=== PATIENT | male | born 1955 | race African-American/Black ===

== ENCOUNTER 2016-08-02 09:41 | Inpatient (IN) | payer OTHER ==
[2016-08-02] MEDS: SODIUM CHLORIDE 1,000 ML IV SCH ×2 (09:45→17:39)
--- NOTE | 2016-08-02 09:46 | PDOC ---
History of Present Illness - General Stated Complaint: R/O STROKE History Source: Patient, Parent(s), EMS Exam Limitations: No Limitations Past History - Past Medical History Allergies/Adverse Reactions: Allergies Allergy/AdvReac Type Severity Reaction Status Date / Time No Known Allergies Allergy Verified 03/23/15 17:05 Home Medications: Ambulatory Orders Amlodipine Besylate [Norvasc -] 10 mg PO HS 03/13/12 Warfarin Na [Coumadin] 5 mg PO HS 11/09/12 Renvela - 800 mg TID 11/15/15 Sensipar 30 mg PO DAILY 11/15/15 Lexapro - 5 mg PO DAILY 11/29/15 Senna 2 tab PO BID 11/29/15 Lipitor 20 mg PO DAILY 01/03/16 Metoprolol Succinate 37.5 mg PO DAILY 01/03/16 Anemia: No Asthma: No Cancer: No Cardiac Disorders: Yes (A FIB) COPD: No CHF: No Diabetes: No Dialysis: Yes (M/W/F) HTN: Yes Kidney Stones: Yes Suicide Attempt (Hx): No Seizures: No - Surgical History Abdominal Surgery: No Appendectomy: No Cardiac Surgery: No Cholecystectomy: No Gastric Stapling: No GI Surgery: No Lung Surgery: No Neurologic Surgery: No Orthopedic Surgery: No - Psycho/Social/Smoking Cessation Hx Anxiety: No Suicidal Ideation: No Smoking Status: No Smoking History: Never smoked Number of Cigarettes Smoked Daily: 0 Hx Alcohol Use: No Drug/Substance Use Hx: No Substance Use Type: None ED Treatment Course - RADIOLOGY Radiology Studies Ordered: Category Date Time Status HEAD CT (STROKE) [CT] Stat CT Scan 08/02/16 09:45 Ordered Medical Decision Making - Medical Decision Making 08/02/16 09:46 A portion of this note was documented by scribe services under my direction. I have reviewed the details of the note, within reason, and agree with the documentation with the following case summary and management plan written by me. Nursing documentation reviewed and incorporated into medical decision making
--- NOTE | 2016-08-02 09:53 | PDOC ---
History of Present Illness - General History Source: Patient, Parent(s), EMS Exam Limitations: No Limitations - History of Present Illness Initial Comments: 08/02/16 10:36 The patient is a male, with a significant past medical history of CVA(left- sided deficit), seizures, AFib(on coumadin), hypertension, diabetes, kidney stones, and ESRD(dialysis M,W,F; last dialysis on Thursday), who presents to the emergency department BIBA, s/p possible unwitnessed syncopal episode approximately 25 minutes ago. Patient reports he was sitting in his chair and passed out. Patient does not report how long he was down for. As per mother, the patient woke up fine this morning, was eating breakfast and watching TV, when suddenly she heard something fall. Mother reports immediately going downstairs and finding the patient faced down on the floor. At that point she called, EMS. When EMS arrived on scene they report the patients b.p. was 156/79 , his blood glucose was 169, and he had returned to baseline. EMS reports left arm paralysis deficits secondary to history of CVA in 06/2015. Patient was brought to the ED to rule out CVA or seizures. Mother reports the patient typically walks with a cane, and is unable to walk far without assistance. Patient presents with a hematoma to the left side of his forehead, but does not remember hitting the ground or any head trauma. The patient denies any chest pain, shortness of breath, diaphoresis, or palpitations. The patient denies any changes in vision, changes in hearing, cough, headache, dizziness, or fever. The patient denies any nausea, vomiting, diarrhea, constipation, or changes in urination patterns. The patient denies any recent travel or sick contacts. The patient was evaluated immediately upon arrival to the ED(09:48). Allergies: None reported. Past Surgical History: None reported. Social History: Non-smoker. Denies alcohol or drug use. PCP: Dr. Slade Neurologist: Dr. Mendenhall <Raymon Ace - Last Filed: 08/02/16 13:47> <Radha Mejia - Last Filed: 08/05/16 08:14> - General Chief Complaint: CVA/TIA Stated Complaint: R/O STROKE Time Seen by Provider: 08/02/16 09:48 Past History <Raymon Ace - Last Filed: 08/02/16 13:47> - Past Medical History Anemia: No Asthma: No Cancer: No Cardiac Disorders: Yes (A FIB) COPD: No CHF: No Diabetes: No Dialysis: Yes (M/W/F) HTN: Yes Kidney Stones: Yes Suicide Attempt (Hx): No Seizures: No - Surgical History Abdominal Surgery: No Appendectomy: No Cardiac Surgery: No Cholecystectomy: No Gastric Stapling: No GI Surgery: No Lung Surgery: No Neurologic Surgery: No Orthopedic Surgery: No - Psycho/Social/Smoking Cessation Hx Anxiety: No Suicidal Ideation: No Smoking Status: No Smoking History: Never smoked Number of Cigarettes Smoked Daily: 0 Hx Alcohol Use: No Drug/Substance Use Hx: No Substance Use Type: None <RobertoRadha - Last Filed: 08/05/16 08:14> - Past Medical History Allergies/Adverse Reactions: Allergies Allergy/AdvReac Type Severity Reaction Status Date / Time No Known Allergies Allergy Verified 08/02/16 09:52 Home Medications: Ambulatory Orders Amlodipine Besylate [Norvasc -] 10 mg PO DAILY 08/02/16 Atorvastatin Ca [Lipitor] 40 mg PO HS 08/02/16 Cinacalcet HCl [Sensipar] 30 mg PO DAILY 08/02/16 Escitalopram Oxalate [Lexapro -] 5 mg PO DAILY 08/02/16 Metoprolol Succinate [Toprol Xl -] 37.5 mg PO DAILY 08/02/16 Sennosides [Senna] 8.6 mg PO BID 08/02/16 Sevelamer Carbonate [Renvela] 800 mg PO TID 08/02/16 Warfarin Sodium [Coumadin] 7.5 mg PO HS 08/02/16 Review of Systems - Review of Systems Able to Perform ROS?: Yes Comments:: 08/02/16 10:36 GENERAL/CONSTITUTIONAL: No: fever, chills, weakness, loss of appetite. HEAD, EYES, EARS, NOSE AND THROAT: No: change in vision, ear pain, discharge, sore throat, throat swelling. CARDIOVASCULAR: Yes: +syncope. No: chest pain, lightheadedness, palpitations RESPIRATORY: No: cough, shortness of breath, wheezing, hemoptysis, stridor. GASTROINTESTINAL: No: nausea, vomiting, abdominal cramping, diarrhea, rectal bleeding, constipation. GENITOURINARY: No: dysuria, hematuria, frequency, urgency, flank pain. MUSCULOSKELETAL: No: back pain, neck pain, joint pain, muscle swelling or pain SKIN AND BREASTS: Yes: +large hematoma to the left forehead. No: lesions, pallor , rash or easy bruising. NEUROLOGIC: Yes: +weakness to the left arm. No: headache, vertigo, paresthesia ENDOCRINE: No: unexplained weight gain or loss HEMATOLOGIC/LYMPHATIC: No: anemia, easy bleeding, swelling nodes <Raymon Ace - Last Filed: 08/02/16 13:47> *Physical Exam - Vital Signs Last Vital Signs Temp Pulse Resp BP Pulse Ox 98.0 F 74 16 124/63 100 08/02/16 10:08/02/16 10:08/02/16 10:08/02/16 10:08/02/16 10:01 - Physical Exam Comments: 08/02/16 10:37 GENERAL: Awake, alert, and oriented X3. The patient is in no acute distress. HEAD: Large left frontal hematoma. No other head trauma noted. EYES: PERRLA, EOMI, sclera anicteric, conjunctiva clear. ENT: Ears normal, nares patent, oropharynx clear without exudates. Moist mucous membranes. NECK: Normal range of motion, supple without lymphadenopathy, JVD, or masses. LUNGS: Breath sounds equal, clear to auscultation bilaterally. No wheezes, and no crackles. HEART:Regular rate and rhythm, normal S1 and S2 without murmur, rub or gallop. ABDOMEN: Soft, nontender, normoactive bowel sounds. No guarding, no rebound. EXTREMITIES: Normal range of motion, no edema. No clubbing or cyanosis. No erythema, or tenderness. NEUROLOGICAL: See NIHSS. Cranial nerves II through XII grossly intact. Normal speech. No focal neurological deficits. MUSCULOSKELETAL: Back non-tender to palpation, no CVA tenderness SKIN: Warm, Dry, normal turgor, no rashes or lesions noted. <Raymon Ace - Last Filed: 08/02/16 13:47> NIH Stroke Scale - Last Known Well Date/Time & Onset Date Last Known Well: 08/02/16 Time Last Known Well: 09:15 - Initial Evaluation Level of consciousness: Alert Ask patient the month and their age: Answers both correctly Ask patient to open & close eyes; make fist and let go: Obeys both correctly Best gaze (horizontal eye movement): Normal Visual field testing: No visual field loss Facial paresis (Show teeth/raise eyebrows/close eyes tight): Minor paralysis ( flattened nasolabial fold, asymmetry on smiling) Motor Function: Left Arm: No movement Motor Function: Right Arm: Normal (extends arm 90 (or 45) degrees for 10 seconds without drift Motor Function: Left Leg: Some effort against gravity Motor Function: Right Leg: Normal (extends leg 30 degrees for 5 seconds without drift) Limb Ataxia: Present in one limb Sensory(Use pinprick test arms,legs,trunk,face/side to side): Normal Best language (Describe picture, name items, read sentences): No Aphasia Dysarthria (read several words): Normal articulation Extinction and Inattention: No abnormality - Total Score NIH Stroke Scale Score: 8 <Radha Mejia - Last Filed: 08/05/16 08:14> tPA Exclusion Checklist 0-3hr - Time Elapsed Date last known well: 08/02/16 Time last known well: 09:15 Elaspsed time: 2 Day(s) and 22 Hour(s) and 59 Minutes - Thrombolytic Therapy Candidate Is the patient eligible for Thrombolytic Therapy?: No - Exclusion Criteria 0-3hr SBP greater than 185 or DBP greater than 110mmHg despite tx: No Recent IC/spinal surgery,head trauma or stroke w/in last 3mo: No Hx of previous IC hemorrhage, IC neoplasm, AVM or aneurysm: No Active internal bleeding: No Symptoms suggest subarachnoid hemorrhage: No CT demonstrates multilobar infarct(>1/3 cerebral hemiphere): No Arterial puncture at noncompressible site in previous 7 days: No Blood glucose concentration less than 50mg/dL (2.7mmol/L): No - Relative Exclusion Criteria 0-3h Life expectancy <1yr/severe co-morbid illness/CLERK 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 on admit: No : No Patient/family refused: No Rapid improvement: Yes Stroke severity too mild: No Recent acute OH (w/in previous 3 months): No Seizure at onset with postictal residual neuro impairments: No Major surgery or serious trauma w/in previous 14 days: No Recent GI or hemorrhage (w/in previous 21 days): No - Ineligibility reason(s) Reasons No tPA given: See reason(s) noted above (Pt had rapid improvement to baseline, on coumadin, presentation still possibly a seizure) <Radha Mejia - Last Filed: 08/05/16 08:14> Heart Score/ECG Review #1 ECG reviewed & interpreted by me at: 10:31 08/02/16 10:31 Sinus Rhythm rate of 95 bpm (?Aflutter rate 95) Left axis deviation Pr: 230ms (prolonged), QRS:92ms, QTc:550ms (prolonged) No ST elevations or depressions <Radha Mejia - Last Filed: 08/05/16 08:14> Critical Care Time/[facility] Note - Medical Decision Making Note: 08/02/16 10:37 EXAM: Head CT INTERPRETED BY: Dr. Hernandez REVIEWED BY: Dr. Mejia IMPRESSION: No definite acute infarct is seen. Chronic right frontoparietal cortical infarct. EXAM: CXR INTERPRETED BY: Dr. Chávez REVIEWED BY: Dr. Mejia IMPRESSION: Large heart. Questionable early right infiltrate. Left line removed. Case discussed with Dr. Meneses at 10:23. First call placed to Dr. Black at 11:52. Awaiting call back. First call placed to Dr. Madrigal at 12:00. Awaiting call back. Documentation prepared by Raymon Ace, acting as medical record assistant for Radha Mejia MD. <Raymon Ace - Last Filed: 08/02/16 13:47> Total Critical Care Time: 35 Critical Care Statement: The care of this patient involved high complexity decision making to prevent further life threatening deterioration of the patient 's condition and/or to evalute & treat vital organ system(s) failure or risk of failure. - Medical Decision Making Note: A portion of this note was documented by scribe services under my direction. I have reviewed the details of the note, within reason, and agree with the documentation with the following case summary and management plan written by me. Nursing documentation reviewed and incorporated into medical decision making This is a 61 yo M with a history of HTN, DM, ESRD on HD, CVA with right arm paresis Pt presents to the ER via EMS s/p CVA vs Seizure Pt states, he has no memory of what happened He awoke at his baseline, was watching TV abd about to eat breakfast His mother heard a "thud" when she went to see what happened, pt was face down in the living room Upon EMS arrival, pt awake and neuro exam back to baseline Pt (+) bowel incontinence, ? seizure today Given his history, and unknown circumstances Pt sent to CT Code Ashley initiated Upon return from CT On examination: Awake and Alert Answers questions appropriately NIHSS done (please see documentation elsewhere) 08/02/16 10:[address] reading reviewed, no CT evidence of acute infarction 08/02/16 10:[address] Meneses Pt has returned to his baseline No indication for TPA Awaiting labs 08/02/16 11:20 Laboratory Tests 11/09/12 11/09/12 08/02/16 10:55 10:55 09:41 WBC 9.0 7.1 Hgb 10.6 L D 9.3 L D Hct 35.3 L 29.6 L D Plt Count 259 182 D INR 2.28 H D 08/02/16 09:41 WBC Hgb Hct Plt Count INR 2.13 H 08/02/16 11:44 Call placed to the lab Still awaiting CMP 08/02/16 11:52 Laboratory Tests 08/02/16 09:41 Sodium 136 Potassium 4.5 Chloride 97 L Carbon Dioxide 26 Anion Gap 13 BUN 61 H D Creatinine 8.5 H* Random Glucose 105 Creatine Kinase 142 Troponin I 0.04 D 08/02/16 12:17 Case reviewed with PMD Will admit Most likely seizure 08/02/16 13:[address] Meneses Will give Caseyra <Radha Mejia - Last Filed: 08/05/16 08:14> Discharge Disposition <Raymon Ace - Last Filed: 08/02/16 13:47> - Discharge Dispostion Admit: Yes <Radha Mejia - Last Filed: 08/05/16 08:14> - Diagnosis Seizure - Discharge Dispostion Condition at time of disposition: Stable - Referrals
[2016-08-02 10:42] LABS: BASOPHIL 0.7 % (0-2.0); MEAN PLT VOLUME 8.5 fl (7.5-11.1)
[2016-08-02 10:49] LABS: EOSINOPHIL 1.8 % (0-4.5); MCH 24.4 pg (25.7-33.7); MCHC 31.5 g/dl (32.0-35.9); MEAN CELL VOLUME 77.3 fl (80-96); NEUTROPHILS 72.4 % (42.8-82.8); PLATELET COUNT 182 K/MM3 (134-434); RDW 16.3 % (11.9-15.9); WHITE BLOOD COUNT 7.1 K/mm3 (4.0-10.0)
[2016-08-02 10:55] LABS: INR 2.13 (0.82-1.09); PROTHROMBIN TIME (PATIENT) 23.8 SEC (9.98-11.88)
[2016-08-02 11:17] LABS: ALBUMIN 3.3 g/dl (3.4-5.0)
[2016-08-02 11:24] LABS: BILIRUBIN,TOTAL 0.4 mg/dL (0.2-1.0); TOT PROT 6.6 g/dl (6.4-8.2); TROPONIN I 0.04 ng/ml (0.00-0.05)
[2016-08-02 11:45] LABS: CREATININE 8.5 mg/dL (0.7-1.3)
--- NOTE | 2016-08-02 12:18 | EKG ---
Test Reason : Blood Pressure : / mmHG Vent. Rate : 095 BPM Atrial Rate : 075 BPM P-R Int : 230 ms QRS Dur : 092 ms QT Int : 438 ms P-R-T Axes : 063 -45 029 degrees QTc Int : 550 ms ATRIAL TACHYCARDIA WITH 3:1 A-V CONDUCTION LEFT AXIS DEVIATION LOW VOLTAGE QRS INFERIOR INFARCT , AGE UNDETERMINED CANNOT RULE OUT ANTERIOR INFARCT , AGE UNDETERMINED ABNORMAL ECG Confirmed by LUCA ABBASI, ASHIA ([id number]) on 08/02/2016 12:17:50 PM Referred By: Confirmed By:ASHIA SEGOVIA MD
--- NOTE | 2016-08-02 13:17 | HP ---
Admitting History and Physical - Primary Care Physician PCP: Renny Slade - Admission Chief Complaint: passed out at home History of Present Illness: The patient's mom said he was in his recliner eating when she heard some sounds in the room he was in and saw him with"shaking" movements and called EMS. He had urinary and fecal incontinence. Patient has a history of previous CVA requiring coumadin and has been therapeutic. He denies headache or change in vision but does have a forehead hematoma. Chronic Dialysis patient and previously had seizure and went to [facility] but not on [facility]. 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 Cardiovascular: Yes: AFIB (paroxysmal), HTN Pulmonary: No: COPD Gastrointestinal: Yes: Constipation Renal/: Yes: Renal Failure, Hemodialysis Psych: No: Depression Musculoskeletal: Yes: Hemiplegia - Past Surgical History Past Surgical History: Yes: None, Cataract Removal - Smoking History Smoking history: Never smoked Have you smoked in the past 12 months: No Aproximately how many cigarettes per day: 0 - Alcohol/Substance Use Hx Alcohol Use: No History of Substance Use: reports: None - Social History Usual Living Arrangement: Yes: With Parent Occupation: retired due illness History of Recent Travel: No Home Medications - Allergies Allergies/Adverse Reactions: Allergies Allergy/AdvReac Type Severity Reaction Status Date / Time No Known Allergies Allergy Verified 08/02/16 09:52 Family Disease History - Family Disease History Family Disease History: CA: Mother Review of Systems - Review of Systems Constitutional: denies: Fever Eyes: denies: Blind Spots Cardiovascular: denies: Chest Pain Respiratory: reports: Cough Gastrointestinal: reports: Constipation, Other (incontinent X1 at time of seizure) Genitourinary: reports: Incontinence (at time of seizure). denies: Urgency Musculoskeletal: reports: Muscle Cramps (left leg) Neurological: reports: Other (now alert and aware) Psychiatric: denies: Altered Sleep Pattern Physical Examination Vital Signs: Vital Signs Temperature 98.0 F 08/02/16 10:01 Pulse Rate 74 08/02/16 10:01 Respiratory Rate 16 08/02/16 10:01 Blood Pressure 124/63 08/02/16 10:01 O2 Sat by Pulse Oximetry (%) 100 08/02/16 10:01 Constitutional: Yes: Calm Eyes: Yes: Conjunctiva Clear, PERRL Neck: Yes: Supple Cardiovascular: Yes: Regular Rate and Rhythm Respiratory: Yes: Diminished, Rhonchi (right and left) Gastrointestinal: Yes: Soft Renal/: No: Patel Present Edema: No Neurological: Yes: Alert, Oriented, Pre-Existing Deficit (left arm hemiplegia) ...Motor Strength: LUE, LLE Psychiatric: Yes: Alert. No: Agitated Imaging - Results Cat Scan: Report Reviewed EKG: Report Reviewed Problem List - Problems (1) Seizure Assessment/Plan: Neurology evaluated patient; to be placed on [facility] Code(s): R56.9 - UNSPECIFIED CONVULSIONS (2) Mild ankle sprain Assessment/Plan: Xray: DJD Code(s): S93.409A - SPRAIN OF UNSP LIGAMENT OF UNSPECIFIED ANKLE, INIT ENCNTR Qualifiers: Encounter type: initial encounter Laterality: right Qualified Code( s): S93.401A - Sprain of unspecified ligament of right ankle, initial encounter (3) Late effect of cerebrovascular accident (CVA) Assessment/Plan: Residual left hemiplegia but walks with brace and assist of 1 person recently Code(s): I69.30 - UNSPECIFIED SEQUELAE OF CEREBRAL INFARCTION (4) Atrial flutter by electrocardiogram Assessment/Plan: Cardiology called; on coumadin Code(s): I48.92 - UNSPECIFIED ATRIAL FLUTTER (5) Hypertension Assessment/Plan: On Rx. Code(s): I10 - ESSENTIAL (PRIMARY) HYPERTENSION (6) Hemodialysis access, arteriovenous graft Assessment/Plan: Thu and Thursday at [facility] Code(s): Z99.2 - DEPENDENCE ON RENAL DIALYSIS
[2016-08-02] MEDS ORDERED: levETIRAcetam 500 MG/5 ML INJECTION VIAL IVPB ONE ×2 (13:35→14:57)
[2016-08-02] MEDS ORDERED: ACETAMINOPHEN 325 MG TABLET (FP) PO PRN (13:44)
--- NOTE | 2016-08-02 13:54 | CONSULT ---
Consult Consult Specialty:: Neurology Reason for Consultation:: Syncope versus seizure - History of Present Illness Chief Complaint: Syncope History of Present Illness: 61 year old man, with history of chronic right frontoparietal stroke, with residual left hemiparesis, atrial fibrillation on coumadin, ESRD on HD, presents to ED with likely seizure episode. He is accompanied by his mother. The patient does not recall events, but as per his mother, she heard the patient fall in the room next to her. She then witnessed both arms shaking for approximately 15 minutes, associated with loss of consciousness and incontinence. He denies tongue biting. Currently back to baseline. The patient' s mother states he had a similar event years ago but is not currently maintained on any AEDs. CT head in ED shows right frontoparietal chronic stroke, no acute findings seen. 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 Cardio/Vascular: Yes: AFIB (paroxysmal), HTN Pulmonary: No: COPD Gastrointestinal: Yes: Constipation Renal/: Yes: Renal Failure, Hemodialysis Psych: No: Depression Musculoskeletal: Yes: Hemiplegia - Past Surgical History Past Surgical History: Yes: None, Cataract Removal - Alcohol/Substance Use Hx Alcohol Use: No History of Substance Use: reports: None - Smoking History Smoking history: Never smoked Have you smoked in the past 12 months: No Aproximately how many cigarettes per day: 0 - Social History Occupation: retired due illness History of Recent Travel: No Home Medications - Allergies Allergies/Adverse Reactions: Allergies Allergy/AdvReac Type Severity Reaction Status Date / Time No Known Allergies Allergy Verified 08/02/16 09:52 Family Disease History - Family Disease History Family Disease History: CA: Mother Review of Systems - Review of Systems Constitutional: reports: No Symptoms Eyes: reports: No Symptoms Neck: reports: No Symptoms Cardiovascular: reports: No Symptoms Respiratory: reports: No Symptoms Neurological: reports: Pre-Existing Deficit Physical Exam Vital Signs: Vital Signs Temperature 98.0 F 08/02/16 10:01 Pulse Rate 64 08/02/16 13:38 Respiratory Rate 18 08/02/16 13:38 Blood Pressure 132/71 08/02/16 13:38 O2 Sat by Pulse Oximetry (%) 98 08/02/16 13:38 Constitutional: Yes: No Distress Eyes: Yes: Conjunctiva Clear, EOM Intact HENT: Yes: Normocephalic Cardiovascular: Yes: S1, S2 Neurological: Yes: Alert, Oriented (alert, oriented [id number] mild left facial weakness, EOMI, visual shields full motor moderate left hemiparesis, 0/5 movement in left arm, 3-/5 left hip flexion, knee flexion/extension (baseline) sensory mild loss of sensation left face compared to right) Assessment/Plan 61 year old man, with history of chronic right frontoparietal stroke, with residual left hemiparesis, atrial fibrillation on coumadin, ESRD on HD, presents to ED with likely seizure episode. He is accompanied by his mother. The patient does not recall events, but as per his mother, she heard the patient fall in the room next to her. She then witnessed both arms shaking for approximately 15 minutes, associated with loss of consciousness and incontinence. He denies tongue biting. Currently back to baseline. The patient' s mother states he had a similar event years ago but is not currently maintained on any AEDs. CT head in ED shows right frontoparietal chronic stroke, no acute findings seen. Seizure Given history of seizure in the past, chronic stroke, patient is at high risk for recurrent events, recommend initiating AEDs Recommend keppra 500 mg BID, discussed with mother and son, do not recommend exceeding dose given renal clearance If further seizure events, ativan prn and may require a second agent Recommend MRI brain, however patient would like to defer EEG - ordered Will follow
[2016-08-02] MEDS ORDERED: CEFTRIAXONE 50 ML ONE (17:00)
[2016-08-02] MEDS: CEFTRIAXONE 50 ML IVPB SCH (17:00)
[2016-08-02] MEDS: WARFARIN NA 7.5 MG TABLET (FP) PO SCH (17:39)
[2016-08-02] MEDS: SEVELAMER CARBONATE 800 MG TAB (FP) PO SCH (17:39)
[2016-08-02 18:06] VITALS: BMI 41.5
[2016-08-02] MEDS ORDERED: SENNOSIDES 8.6MG TABLET (FP) PO PRN (22:00)
[2016-08-02] MEDS ORDERED: ATORVASTATIN CA 20 MG TABLET (FP) PO SCH (22:00)
[2016-08-02] MEDS: levETIRAcetam 500 MG/5 ML INJECTION VIAL IVPB SCH (23:39)
[2016-08-03] MEDS: SEVELAMER CARBONATE 800 MG TAB (FP) PO SCH ×3 (08:15→17:15)
[2016-08-03] MEDS: CEFTRIAXONE 50 ML IVPB SCH (09:10)
[2016-08-03] MEDS: levETIRAcetam 500 MG/5 ML INJECTION VIAL IVPB SCH ×2 (09:10→22:53)
[2016-08-03] MEDS: amLODIPine BESYLATE 10 MG TABLET (FP) PO SCH (09:10)
[2016-08-03] MEDS: METOPROLOL SUCCINATE 25 MG TAB.SR.24H (FP) PO SCH (09:10)
[2016-08-03] MEDS: ESCITALOPRAM OXALATE 10 MG TABLET (FP) PO SCH (09:11)
[2016-08-03] MEDS: CINACALCET HCL 30 MG TAB (FP) PO SCH (09:13)
--- NOTE | 2016-08-03 10:18 | PN ---
Progress Note (short form) - Note Progress Note: Chief Complaint: Events noted, notes reviewed, denies any chest pain or dyspnea , remains in atrial flutter with controlled ventricular response History of Present Illness: Seen and examined on telemetry. Full consult - Current Medication List Current Medications Acetaminophen (Tylenol -) 650 mg PO Q4H PRN PRN Reason: FEVER OR PAIN Amlodipine Besylate (Norvasc -) 10 mg PO DAILY [facility] Last Admin: 08/03/16 09:10 Dose: 10 mg Atorvastatin Calcium (Lipitor -) 20 mg PO HS [facility] Last Admin: 08/02/16 23:40 Dose: 20 mg Cinacalcet (Sensipar -) 30 mg PO DAILY [facility] Last Admin: 08/03/16 09:13 Dose: 30 mg Escitalopram Oxalate (Lexapro -) 5 mg PO DAILY [facility] Last Admin: 08/03/16 09:11 Dose: 5 mg Guaifenesin (Diabetic Tussin Dm -) 5 ml PO Q6H PRN PRN Reason: COUGH Sodium Chloride (Normal Saline -) 1,000 mls @ 42 mls/hr IV ASDIR [facility] Last Admin: 08/02/16 17:39 Dose: 42 mls/hr Ceftriaxone Sodium (Rocephin 1gm Ivpb (Pre-Docked)) 50 mls @ 200 mls/hr IVPB DAILY [facility] Last Admin: 08/03/16 09:10 Dose: 200 mls/hr Levetiracetam (Keppra Injection -) 500 mg IVPB BID [facility] Last Admin: 08/03/16 09:10 Dose: 500 mg Metoprolol Succinate (Toprol Xl -) 25 mg PO DAILY [facility] Last Admin: 08/03/16 09:10 Dose: 25 mg Senna (Senna -) 2 tab PO HS PRN PRN Reason: CONSTIPATION Sevelamer Carbonate (Renvela -) 800 mg PO TIDCM [facility] Last Admin: 08/03/16 08:15 Dose: 800 mg Warfarin Sodium (Coumadin -) 7.5 mg PO DAILY@1800 [facility] Last Admin: 08/02/16 17:39 Dose: 7.5 mg - Review of Systems Cardiovascular: As noted above Respiratory: denies: Cough or Sputum Production Gastrointestinal: denies: Nausea, Vomiting, Diarrhea, Constipation or Abdominal Pain Musculoskeletal: No symptoms reported Neurological: Left Hemiparesis - Objective Vital Signs: Last Vital Signs Temp Pulse Resp BP Pulse Ox 97.8 F 54 L 18 120/70 95 08/03/16 05:30 08/03/16 05:30 08/03/16 05:30 08/03/16 05:30 08/02/16 21:00 Neck: Supple Negative JVD Cardiovascular: S1 S2 Irregularly Irregular Grade 1/6 CRISS Respiratory: Clear to A&P Gastrointestinal: Soft Benign Normal Bowel Sounds Ext: Negative Edema Labs: CBC, BMP 08/02/16 09:41 08/02/16 09:41 Troponin, BNP 08/02/16 09:41 Troponin I 0.04 D Hepatic Panel Total Bilirubin 0.4 mg/dL (0.2-1.0) D 08/02/16 09:41 AST 16 U/L (15-37) D 08/02/16 09:41 ALT 21 U/L (12-78) D 08/02/16 09:41 Alkaline Phosphatase 107 U/L (45-117) D 08/02/16 09:41 Albumin 3.3 g/dl (3.4-5.0) L 08/02/16 09:41 INR, PTT INR 2.13 (0.82-1.09) H 08/02/16 09:41 Assessment/Plan ASSESSMENT: 1. Palpitations followed by loss of consciousness, referable to paroxysmal atrial flutter [id number] score of 5 and probable syncopal episode but seizures is in the differential also (unclear if syncope could have been a trigger for the above noted seizure) 2. CAD angina pectoris 3. Diastolic LV dysfunction with class 0-I NYHA classification LV failure 4. HTN 5. DM 6. Hypercholesterolemia 7. CVA with residual deficit, left hemiparesis 8. Seizure disorder 9. ESRD on HD 10. Anemia PLAN: 1. Continue Toprol XL 2. Continue Norvasc 3. Ideally should be on ACEI or ARBS unless contraindicated, pending echocardiography 4. Continue Lipitor but decrease dosage 5. Continue Coumadin with close monitoring of CBC and INR, maintain INR 2-3 6. Echocardiography for evaluation of LV function 7. Consideration for atrial flutter RFA (recurrent arrhythmia) with implantation of cardiac loop recorder Roberta Madrigal MD
[2016-08-03 10:41] LABS: BASOPHIL 0.9 % (0-2.0); EOSINOPHIL 2.6 % (0-4.5); MCH 24.3 pg (25.7-33.7); MCHC 32.2 g/dl (32.0-35.9); MEAN CELL VOLUME 75.6 fl (80-96); MEAN PLT VOLUME 8.1 fl (7.5-11.1); NEUTROPHILS 49.9 % (42.8-82.8); PLATELET COUNT 163 K/MM3 (134-434); RDW 16.4 % (11.9-15.9); WHITE BLOOD COUNT 5.4 K/mm3 (4.0-10.0)
[2016-08-03 11:08] LABS: CALCIUM 8.2 mg/dL (8.5-10.1); MAGNESIUM 2.1 mg/dL (1.8-2.4); PHOSPHOROUS 4.5 mg/dL (2.5-4.9)
[2016-08-03 11:15] LABS: BILIRUBIN,TOTAL 0.5 mg/dL (0.2-1.0)
--- NOTE | 2016-08-03 11:18 | PN ---
Progress Note, Physician Chief Complaint: Some coughing and he wants to go home. History of Present Illness: Patient with CVA and dialysis comes to hospital with a seizure accompanied by incontinence of urine and stool. He was noted in the ER to have A. Flutter and the rhythm persists. Seen by Cardiology and question as to whether there was a cardiac component to his medical problems. Still coughing and on antibiotics; will add aerosol.CXR noted; will need dialysis here Thursday; ? transfer to [facility] for Cardiac studies Thu. - Current Medication List Current Medications: Active Medications Acetaminophen (Tylenol -) 650 mg PO Q4H PRN PRN Reason: FEVER OR PAIN Albuterol Sulfate (Ventolin 0.083% Nebulizer Soln -) 1 amp NEB Q8H PRN PRN Reason: SHORT OF BREATH/WHEEZING Amlodipine Besylate (Norvasc -) 10 mg PO DAILY [facility] Last Admin: 08/03/16 09:10 Dose: 10 mg Atorvastatin Calcium (Lipitor -) 5 mg PO HS [facility] Cinacalcet (Sensipar -) 30 mg PO DAILY [facility] Last Admin: 08/03/16 09:13 Dose: 30 mg Escitalopram Oxalate (Lexapro -) 5 mg PO DAILY [facility] Last Admin: 08/03/16 09:11 Dose: 5 mg Guaifenesin (Diabetic Tussin Dm -) 5 ml PO Q6H PRN PRN Reason: COUGH Ceftriaxone Sodium (Rocephin 1gm Ivpb (Pre-Docked)) 50 mls @ 200 mls/hr IVPB DAILY [facility] Last Admin: 08/03/16 09:10 Dose: 200 mls/hr Levetiracetam (Keppra Injection -) 500 mg IVPB BID [facility] Last Admin: 08/03/16 09:10 Dose: 500 mg Metoprolol Succinate (Toprol Xl -) 25 mg PO DAILY [facility] Last Admin: 08/03/16 09:10 Dose: 25 mg Senna (Senna -) 2 tab PO HS PRN PRN Reason: CONSTIPATION Sevelamer Carbonate (Renvela -) 800 mg PO TIDCM [facility] Last Admin: 08/03/16 08:15 Dose: 800 mg Warfarin Sodium (Coumadin -) 7.5 mg PO DAILY@1800 [facility] Last Admin: 08/02/16 17:39 Dose: 7.5 mg - Objective Vital Signs: Vital Signs Temperature 97.8 F 04/02/17 05:30 Pulse Rate 54 L 08/03/16 05:30 Respiratory Rate 18 08/03/16 05:30 Blood Pressure 120/70 08/03/16 05:30 O2 Sat by Pulse Oximetry (%) 95 08/02/16 21:00 Constitutional: Yes: Calm Cardiovascular: Yes: Regular Rate and Rhythm Respiratory: Yes: Rhonchi (bilaterally at bases) Gastrointestinal: Yes: Soft Genitourinary: No: Patel Present Edema: No Neurological: Yes: Alert, Oriented Labs: CBC, BMP 08/03/16 10:30 INR, PTT INR 2.13 (0.82-1.09) H 08/02/16 09:41 Problem List - Problems (1) Seizure Assessment/Plan: on Keppra IV Await Neuro followup Code(s): R56.9 - UNSPECIFIED CONVULSIONS (2) Mild ankle sprain Assessment/Plan: non tender today. Code(s): S93.409A - SPRAIN OF UNSP LIGAMENT OF UNSPECIFIED ANKLE, INIT ENCNTR Qualifiers: Encounter type: initial encounter Laterality: right Qualified Code( s): S93.401A - Sprain of unspecified ligament of right ankle, initial encounter (3) Late effect of cerebrovascular accident (CVA) Assessment/Plan: Left leg improved but still dense hemiplegia LUE Code(s): I69.30 - UNSPECIFIED SEQUELAE OF CEREBRAL INFARCTION (4) Atrial flutter by electrocardiogram Assessment/Plan: Followed by Cardiology and ? role in his seizures. Code(s): I48.92 - UNSPECIFIED ATRIAL FLUTTER (5) Hypertension Assessment/Plan: On Rx Code(s): I10 - ESSENTIAL (PRIMARY) HYPERTENSION (6) Hemodialysis access, arteriovenous graft Assessment/Plan: Will need hospital Rx Thursday. Code(s): Z99.2 - DEPENDENCE ON RENAL DIALYSIS
[2016-08-03 11:24] LABS: CREATININE 10.7 mg/dL (0.7-1.3); INR 2.43 (0.82-1.09); PROTHROMBIN TIME (PATIENT) 27.2 SEC (9.98-11.88)
[2016-08-03] MEDS: guaiFENesin/D-M SUGAR-FREE/ACLHOL-FREE 118 ML BOTTLE PO PRN (11:43)
--- NOTE | 2016-08-03 12:08 | PN ---
Progress Note (short form) - Note Progress Note: Neurology follow up Consult Specialty:: Neurology Reason for Consultation:: Syncope versus seizure - History of Present Illness Chief Complaint: Syncope History of Present Illness: 61 year old man, with history of chronic right frontoparietal stroke, with residual left hemiparesis, atrial fibrillation on coumadin, ESRD on HD, presents to ED with likely seizure episode. He is accompanied by his mother. The patient does not recall events, but as per his mother, she heard the patient fall in the room next to her. She then witnessed both arms shaking for approximately 15 minutes, associated with loss of consciousness and incontinence. He denies tongue biting. Currently back to baseline. The patient' s mother states he had a similar event years ago but is not currently maintained on any AEDs. CT head in ED shows right frontoparietal chronic stroke, no acute findings seen. 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 Cardio/Vascular: Yes: AFIB (paroxysmal), HTN Pulmonary: No: COPD Gastrointestinal: Yes: Constipation Renal/: Yes: Renal Failure, Hemodialysis Psych: No: Depression Musculoskeletal: Yes: Hemiplegia - Past Surgical History Past Surgical History: Yes: None, Cataract Removal - Alcohol/Substance Use Hx Alcohol Use: No History of Substance Use: reports: None - Smoking History Smoking history: Never smoked Have you smoked in the past 12 months: No Aproximately how many cigarettes per day: 0 - Social History Occupation: retired due illness History of Recent Travel: No Home Medications - Allergies Allergies/Adverse Reactions: Allergies Allergy/AdvReac Type Severity Reaction Status Date / Time No Known Allergies Allergy Verified 08/02/16 09:52 Family Disease History - Family Disease History Family Disease History: CA: Mother Review of Systems - Review of Systems Constitutional: reports: No Symptoms Eyes: reports: No Symptoms Neck: reports: No Symptoms Cardiovascular: reports: No Symptoms Respiratory: reports: No Symptoms Neurological: reports: Pre-Existing Deficit Physical Exam Constitutional: Yes: No Distress Eyes: Yes: Conjunctiva Clear, EOM Intact HENT: Yes: Normocephalic Cardiovascular: Yes: S1, S2 Neurological: Yes: Alert, Oriented (alert, oriented [id number] mild left facial weakness, EOMI, visual shields full motor moderate left hemiparesis, 0/5 movement in left arm, 3-/5 left hip flexion, knee flexion/extension (baseline) sensory mild loss of sensation left face compared to right) Assessment/Plan 61 year old man, with history of chronic right frontoparietal stroke, with residual left hemiparesis, atrial fibrillation on coumadin, ESRD on HD, presents to ED with likely seizure episode. He is accompanied by his mother. The patient does not recall events, but as per his mother, she heard the patient fall in the room next to her. She then witnessed both arms shaking for approximately 15 minutes, associated with loss of consciousness and incontinence. He denies tongue biting. Currently back to baseline. The patient' s mother states he had a similar event years ago but is not currently maintained on any AEDs. CT head in ED shows right frontoparietal chronic stroke, no acute findings seen. Seizure Continue keppra 500 mg BID, discussed with mother and son, do not recommend exceeding dose given renal clearance If further seizure events, ativan prn and may require a second agent Recommend MRI brain, however patient would like to defer EEG - ordered Patient appears to be back to baseline Dispo planning, follow up with neuro as outpatient
[2016-08-03] MEDS: ALBUTEROL SO4 0.083% IH SOL 2.5 MG/3 ML VIAL.NEB. NEB PRN (15:24)
[2016-08-03] MEDS: WARFARIN NA 7.5 MG TABLET (FP) PO SCH (17:15)
[2016-08-03] MEDS: ATORVASTATIN CA 10 MG TABLET (FP) PO SCH (22:53)
--- NOTE | 2016-08-04 00:01 | CONS ---
DATE OF CONSULTATION: 08/03/2016 REQUESTING PHYSICIAN: Renny Slade M.D. CHIEF COMPLAINT: Evaluation of a syncopal episode and cardiac arrhythmia. HISTORY OF PRESENT ILLNESS: A 61-year-old morbidly obese male of descent with known history of coronary artery disease, angina pectoris, diastolic left ventricular dysfunction with chronic class 0 to 1 [place] [employer] classification left ventricular failure, paroxysmal atrial fibrillation, on anticoagulation therapy, CHADS2 VASC score of 5, hypertensive cardiovascular disease, diabetes mellitus, hypercholesterolemia, end-stage renal disease on hemodialysis who was in his usual state of health until he had sudden onset of palpitation, and subsequently patient stated he had lost consciousness and had no recollection. Patient was noted by his mother who was at home to have tonic clonic seizures with associated incontinence. Patient in addition noted to have hematoma on his forehead. Patient reported prior syncopal episode post hemodialysis. Patient currently is resting in bed, denies any palpitations. Patient denies any chest discomfort. Patient denies any dyspnea, orthopnea, paroxysmal nocturnal dyspnea, or peripheral edema. Patient denies any fatigue or tiredness. PAST MEDICAL HISTORY: Coronary artery disease, angina pectoris, diastolic left ventricular dysfunction with chronic class 0 to 1 [place] [employer] classification left ventricular failure, paroxysmal atrial fibrillation on chronic anticoagulation therapy with Coumadin, CHADS2 VASC score of 5, hypertensive cardiovascular disease, diabetes mellitus, hypercholesterolemia, cerebrovascular disease with left hemiparesis, seizure disorder, end-stage renal disease on hemodialysis. SOCIAL HISTORY: Admitted tobacco abuse. FAMILY HISTORY: No history of premature coronary artery disease. ALLERGIES: None reported. MEDICAL THERAPY: At home included Coumadin 700 mg once a day, lexapro 500 mg once a day, Lipitor 40 mg once a day, Norvasc 10 mg once a day, Renvela 800 mg 3 times a day, Toprol XL 25 mg tablets a tablet and a half once a day, Sensipar 30 mg once a day, senna 1 tablet twice daily. REVIEW OF SYSTEMS: Head and neck: Denies headache, photophobia, blurring of vision. Respiratory: No cough, sputum production. Cardiovascular: As noted above. Gastrointestinal: Denies nausea, vomiting, diarrhea, abdominal discomfort. Genitourinary: On hemodialysis. Musculoskeletal: Left arm paresis. Left lower extremity weakness. PHYSICAL EXAMINATION: Vital signs: Blood pressure 120/70 mmHg, pulse rate 54 beats per minute. Head/Neck: Pupils equal, reactive to light and accommodation. Extraocular muscles intact. Anicteric sclerae. Negative JVD. No bruit appreciated. Chest: Clear to auscultation, percussion. Cardiovascular: S1, S2. Regular. Grade 1/6 systolic ejection murmur. No clicks or gallops. Abdomen: Soft, benign. Normoactive bowel sounds. Extremity: Trace edema. 1+ distal pulses. No calf tenderness. Electrocardiogram reveals atrial flutter, atypical, with nonspecific T wave abnormality. Chest x-ray report was noted. Cardiomegaly with questionable right lower lobe infiltrate. CBC revealed white cell count of 10.1, hemoglobin 9.3, platelet count 182, INR 2.13. Basic metabolic profile revealed sodium 136, potassium 4.5, BUN 61, creatinine 8.5, glucose 105, cholesterol 59, LDL 12, HDL 47, triglycerides 21. ASSESSMENT: 1. Palpitation followed by loss of consciousness, referable to paroxysmal atrial flutter, CHADS2 VASC score of 5 and probable syncopal episode but seizure is in the differential also unclear if syncope could have been a trigger for the above noted seizure. 2. Coronary artery disease angina pectoris. 3. Diastolic left ventricular dysfunction with class 0 to 1 [place] [employer] classification left ventricular failure. 4. Hypertensive cardiovascular disease. 5. Diabetes mellitus. 6. Hypercholesterolemia. 7. History of CVA with residual deficit left hemiparesis. 8. History of seizure disorder. 9. End-stage renal disease on hemodialysis. 10. Anemia. RECOMMENDATION: 1. Continuation of Toprol XL therapy. 2. Continuation of Norvasc therapy. 3. Ideally, patient should be on ISAAC inhibitor, angiotensin receptor alexa therapy unless it is absolutely contraindicated. Would defer initiation pending echocardiography. 4. Continuation of Lipitor but decreasing doses considering the above noted lipid profile. 5. Continuation of Coumadin therapy with close monitoring of CBC and INR, maintain INR between 2 to 3. 6. Echocardiography for evaluation of left ventricular systolic function. 7. Consideration for atrial flutter, radiofrequency ablation, since the arrhythmia is recurrent with implantation of cardiac loop recorder considering the above noted syncopal episodes. Thank you for the kind referral. PATTY MAGANA M.D. [id number] MTDD
[2016-08-04] MEDS ORDERED: PT OWN MED DRAWER 7, Y5N ONE ×2 (07:18→11:59)
[2016-08-04] MEDS: SEVELAMER CARBONATE 800 MG TAB (FP) PO SCH ×3 (07:22→17:20)
[2016-08-04] MEDS: guaiFENesin/D-M SUGAR-FREE/ACLHOL-FREE 118 ML BOTTLE PO PRN ×2 (07:22→18:33)
[2016-08-04 07:55] LABS: INR 2.81 (0.82-1.09); PROTHROMBIN TIME (PATIENT) 31.6 SEC (9.98-11.88)
[2016-08-04 08:05] LABS: CALCIUM 8.2 mg/dL (8.5-10.1)
[2016-08-04 08:16] LABS: URIC ACID 6.1 mg/dL (2.6-7.2)
[2016-08-04 08:25] LABS: FERRITIN 1223.164 ng/ml (16.4-293.9)
[2016-08-04 08:34] LABS: CREATININE 11.9 mg/dL (0.7-1.3)
[2016-08-04] MEDS: CEFTRIAXONE 50 ML IVPB SCH (09:13)
[2016-08-04] MEDS: levETIRAcetam 500 MG/5 ML INJECTION VIAL IVPB SCH ×2 (09:17→21:42)
--- NOTE | 2016-08-04 09:49 | PN ---
Progress Note (short form) - Note Progress Note: The patient had no seizures since yesterday. Slight cough. For Dialysis today. No chest pain. Appetite good. Vital Signs Period Temp Pulse Resp BP Sys/Chaudhry Pulse Ox Last 24 Hr 98.2 F-98.8 F 58-70 20-20 114-154/60-91 96-98 Alert Chest: few rhonchi at bases Cor; irreg Ext: trace edema Abnormal Lab Results 08/03/16 08/03/16 08/03/16 10:30 10:30 10:30 RBC 3.50 L Hgb 8.5 L Hct 26.5 L MCV 75.6 L RDW 16.4 H Monocytes % 15.3 H INR 2.43 H Chloride Anion Gap BUN 81 H D Creatinine 10.7 H* D Random Glucose 110 H Calcium 8.2 L Ferritin Total Protein 6.0 L Albumin 3.0 L 08/04/16 08/04/16 08/04/16 06:00 06:00 06:00 RBC Hgb Hct MCV RDW Monocytes % INR 2.81 H Chloride 97 L Anion Gap 18 H BUN 88 H Creatinine 11.9 H* Random Glucose Calcium 8.2 L Ferritin 1223.164 H Total Protein Albumin IMP: Seizure Acute Atrial Flutter Renal Failure CVA with hemiparesis Possible Aspiration Plan: Dialysis ??transfer [facility] for Testing and Implanted loop F/U lab Patient fixated on a trip this Thursday. Alex Problem List - Problems (1) Seizure Code(s): R56.9 - UNSPECIFIED CONVULSIONS (2) Mild ankle sprain Code(s): S93.409A - SPRAIN OF UNSP LIGAMENT OF UNSPECIFIED ANKLE, INIT ENCNTR Qualifiers: Encounter type: initial encounter Laterality: right Qualified Code( s): S93.401A - Sprain of unspecified ligament of right ankle, initial encounter (3) Late effect of cerebrovascular accident (CVA) Code(s): I69.30 - UNSPECIFIED SEQUELAE OF CEREBRAL INFARCTION (4) Atrial flutter by electrocardiogram Code(s): I48.92 - UNSPECIFIED ATRIAL FLUTTER (5) Hypertension Code(s): I10 - ESSENTIAL (PRIMARY) HYPERTENSION (6) Hemodialysis access, arteriovenous graft Code(s): Z99.2 - DEPENDENCE ON RENAL DIALYSIS
[2016-08-04 10:33] LABS: MCHC 31.5 g/dl (32.0-35.9); MEAN CELL VOLUME 76.4 fl (80-96); MEAN PLT VOLUME 9.3 fl (7.5-11.1); PLATELET COUNT 173 K/MM3 (134-434); RDW 16.3 % (11.9-15.9); WHITE BLOOD COUNT 5.1 K/mm3 (4.0-10.0)
[2016-08-04] MEDS: CINACALCET HCL 30 MG TAB (FP) PO SCH (11:56)
[2016-08-04] MEDS: amLODIPine BESYLATE 10 MG TABLET (FP) PO SCH (11:56)
[2016-08-04] MEDS: ESCITALOPRAM OXALATE 10 MG TABLET (FP) PO SCH (11:56)
[2016-08-04] MEDS: METOPROLOL SUCCINATE 25 MG TAB.SR.24H (FP) PO SCH (11:56)
--- NOTE | 2016-08-04 14:42 | CONSULT ---
Consult Consult Specialty:: Nephrology Reason for Consultation:: ESRD - History of Present Illness Chief Complaint: sent in for seizure History of Present Illness: Pt is a 61 year old male with PMHx of ESRD, CVA with left side deficit, epilepsy , a-fib, DM, HTN, and nephrolithiasis who was sent in from the [place] for an episode of syncope vs seizure. Pt says he passed out while sitting in a chair but does not know for how long. Pt was also found face down on the floor by his mother. He is currently awake and alert. He denies shortness of breath. He denies chest pain or palpitations. He last went to HD on Thursday and it was uneventful. 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 Cardio/Vascular: Yes: AFIB (paroxysmal), HTN Gastrointestinal: Yes: Constipation Renal/: Yes: Renal Failure, Hemodialysis Musculoskeletal: Yes: Hemiplegia - Past Surgical History Past Surgical History: Yes: None, Cataract Removal - Alcohol/Substance Use Hx Alcohol Use: No History of Substance Use: reports: None - Smoking History Smoking history: Never smoked Have you smoked in the past 12 months: No Aproximately how many cigarettes per day: 0 - Social History Occupation: retired due illness History of Recent Travel: No Home Medications - Allergies Allergies/Adverse Reactions: Allergies Allergy/AdvReac Type Severity Reaction Status Date / Time No Known Allergies Allergy Verified 08/02/16 09:52 - Home Medications Home Medications: Ambulatory Orders Amlodipine Besylate [Norvasc -] 10 mg PO DAILY 08/02/16 Atorvastatin Ca [Lipitor] 40 mg PO HS 08/02/16 Cinacalcet HCl [Sensipar] 30 mg PO DAILY 08/02/16 Escitalopram Oxalate [Lexapro -] 5 mg PO DAILY 08/02/16 Metoprolol Succinate [Toprol Xl -] 37.5 mg PO DAILY 08/02/16 Sennosides [Senna] 8.6 mg PO BID 08/02/16 Sevelamer Carbonate [Renvela] 800 mg PO TID 08/02/16 Warfarin Sodium [Coumadin] 7.5 mg PO HS 08/02/16 Family Disease History - Family Disease History Family Disease History: CA: Mother Review of Systems - Review of Systems Constitutional: reports: No Symptoms Eyes: reports: No Symptoms HENT: reports: No Symptoms Neck: reports: No Symptoms Cardiovascular: reports: No Symptoms Respiratory: reports: No Symptoms Gastrointestinal: reports: No Symptoms Genitourinary: reports: No Symptoms Musculoskeletal: reports: Muscle Weakness Integumentary: reports: No Symptoms Neurological: reports: Change in LOC Endocrine: reports: No Symptoms Hematology/Lymphatic: reports: No Symptoms Psychiatric: reports: No Symptoms Physical Exam Vital Signs: Vital Signs Temperature 98 F 08/04/16 10:00 Pulse Rate 68 08/04/16 10:00 Respiratory Rate 20 08/04/16 10:00 Blood Pressure 148/88 08/04/16 10:00 O2 Sat by Pulse Oximetry (%) 96 08/04/16 09:00 Constitutional: Yes: Calm Eyes: Yes: Conjunctiva Clear Cardiovascular: Yes: S1, S2 Respiratory: Yes: CTA Bilaterally Gastrointestinal: Yes: Soft Musculoskeletal: Yes: Other (left sided weakness) Edema: Yes Edema: LLE: Trace, RLE: Trace Neurological: Yes: Oriented Psychiatric: Yes: Oriented Labs: CBC, BMP 08/04/16 06:00 08/04/16 06:00 Laboratory Tests 08/02/16 08/03/16 08/04/16 09:41 10:30 06:00 Hgb 8.5 L INR Sodium Potassium Chloride Carbon Dioxide Anion Gap BUN Creatinine 8.5 H* 10.7 H* D Ferritin Albumin 3.0 L Vitamin B12 Serum Folate 08/04/16 08/04/16 08/04/16 06:00 06:00 06:00 Hgb INR 2.81 H Sodium 136 Potassium 5.0 Chloride 97 L Carbon Dioxide 21 Anion Gap 18 H BUN 88 H Creatinine 11.9 H* Ferritin 1223.164 H Albumin Vitamin B12 376 Serum Folate 4 Imaging - Results Chest X-ray: Report Reviewed Cat Scan: Report Reviewed Problem List - Problems (1) Atrial flutter by electrocardiogram Code(s): I48.92 - UNSPECIFIED ATRIAL FLUTTER (2) Hypertension Code(s): I10 - ESSENTIAL (PRIMARY) HYPERTENSION (3) Late effect of cerebrovascular accident (CVA) Code(s): I69.30 - UNSPECIFIED SEQUELAE OF CEREBRAL INFARCTION (4) Seizure Code(s): R56.9 - UNSPECIFIED CONVULSIONS (5) ESRD (end stage renal disease) Code(s): N18.6 - END STAGE RENAL DISEASE Assessment/Plan Current Medications Generic Name Dose Route Start Last Admin Trade Name Freq PRN Reason Stop Dose Admin Acetaminophen 650 mg 08/02/16 13:44 Tylenol - PO Q4H PRN FEVER OR PAIN Albuterol Sulfate 1 amp 08/03/16 11:00 08/03/16 15:24 Ventolin 0.083% Nebulizer Soln - NEB 1 amp Q8H PRN Administration SHORT OF BREATH/WHEEZING Amlodipine Besylate 10 mg 08/03/16 10:00 08/04/16 11:56 Norvasc - PO Not Given DAILY [facility] Atorvastatin Calcium 5 mg 08/03/16 22:00 08/03/16 22:53 Lipitor - PO 5 mg HS [facility] Administration Cinacalcet 30 mg 08/03/16 10:00 08/04/16 11:56 Sensipar - PO Not Given DAILY [facility] Escitalopram Oxalate 5 mg 08/03/16 10:00 08/04/16 11:56 Lexapro - PO Not Given DAILY [facility] Guaifenesin 5 ml 08/02/16 16:12 08/04/16 07:22 Diabetic Tussin Dm - PO 5 ml Q6H PRN Administration COUGH Ceftriaxone Sodium 50 mls @ 200 mls/hr 08/02/16 16:15 08/04/16 09:13 Rocephin 1gm Ivpb (Pre-Docked) IVPB 200 mls/hr DAILY [facility] Administration Levetiracetam 500 mg 08/02/16 22:00 08/04/16 09:17 Keppra Injection - IVPB 500 mg BID [facility] Administration Metoprolol Succinate 25 mg 08/03/16 10:00 08/04/16 11:56 Toprol Xl - PO Not Given DAILY [facility] Paricalcitol 2 mcg 08/04/16 14:27 Zemplar - IVPUSH 08/04/16 14:28 ONCE ONE Senna 2 tab 08/02/16 22:00 Senna - PO HS PRN CONSTIPATION Sevelamer Carbonate 800 mg 08/02/16 17:30 08/04/16 12:00 Renvela - PO 800 mg TIDCM [facility] Administration Warfarin Sodium 7.5 mg 08/02/16 18:00 08/03/16 17:15 Coumadin - PO 7.5 mg DAILY@1800 [facility] Administration Impression 1. ESRD 2. hx CVA 3. syncope vs seizure 4. HTN 5. hyperlipidemia 6. anemia Plan - will arrange for HD today - called HD unit : 3:30 min heparin 1500, right arm fistula, 2 k bath, hectorol 4 mcg, aranesp 35 last dose Thursday - pt is on aranesp for anemia, last dose was Thursday - resume home meds - syncope workup - neuro input appreciated - will follow Dr Isaac
--- NOTE | 2016-08-04 15:00 | PN ---
Progress Note, Physician Chief Complaint: Events noted Not in distress History of Present Illness: Patient was seen and examined. Awake and alert. Chart was reviewed Denies chest pain, shortness of breath or palpitations EEG pending - Current Medication List Current Medications: Active Medications Acetaminophen (Tylenol -) 650 mg PO Q4H PRN PRN Reason: FEVER OR PAIN Albuterol Sulfate (Ventolin 0.083% Nebulizer Soln -) 1 amp NEB Q8H PRN PRN Reason: SHORT OF BREATH/WHEEZING Last Admin: 08/03/16 15:24 Dose: 1 amp Amlodipine Besylate (Norvasc -) 10 mg PO DAILY [facility] [place] Last Admin: 08/04/16 11:56 Dose: Not Given Atorvastatin Calcium (Lipitor -) 5 mg PO HS [facility] [place] Last Admin: 08/03/16 22:53 Dose: 5 mg Cinacalcet (Sensipar -) 30 mg PO DAILY [facility] [place] Last Admin: 08/04/16 11:56 Dose: Not Given Escitalopram Oxalate (Lexapro -) 5 mg PO DAILY [facility] [place] Last Admin: 08/04/16 11:56 Dose: Not Given Guaifenesin (Diabetic Tussin Dm -) 5 ml PO Q6H PRN PRN Reason: COUGH Last Admin: 08/04/16 07:22 Dose: 5 ml Ceftriaxone Sodium (Rocephin 1gm Ivpb (Pre-Docked)) 50 mls @ 200 mls/hr IVPB DAILY [facility] [place] Last Admin: 08/04/16 09:13 Dose: 200 mls/hr Levetiracetam (Keppra Injection -) 500 mg IVPB BID [facility] [place] Last Admin: 08/04/16 09:17 Dose: 500 mg Metoprolol Succinate (Toprol Xl -) 25 mg PO DAILY [facility] [place] Last Admin: 08/04/16 11:56 Dose: Not Given Paricalcitol (Zemplar -) 2 mcg IVPUSH ONCE ONE Stop: 08/04/16 14:28 Senna (Senna -) 2 tab PO HS PRN PRN Reason: CONSTIPATION Sevelamer Carbonate (Renvela -) 800 mg PO TIDCM [facility] [place] Last Admin: 08/04/16 12:00 Dose: 800 mg Warfarin Sodium (Coumadin -) 7.5 mg PO DAILY@1800 [facility] [place] Last Admin: 08/03/16 17:15 Dose: 7.5 mg - Objective Vital Signs: Vital Signs Temperature 98 F 08/04/16 10:00 Pulse Rate 68 08/04/16 10:00 Respiratory Rate 20 08/04/16 10:00 Blood Pressure 148/88 08/04/16 10:00 O2 Sat by Pulse Oximetry (%) 96 08/04/16 09:00 Eyes: Yes: Conjunctiva Clear Cardiovascular: Yes: Regular Rate and Rhythm, S1, S2 Respiratory: Yes: Diminished Gastrointestinal: Yes: Normal Bowel Sounds. No: Tenderness Edema: Yes Edema: LLE: Trace, RLE: Trace Additional Findings/Remarks: - Review of Systems Cardiovascular: As noted above Respiratory: denies: Cough or Sputum Production Gastrointestinal: denies: Nausea, Vomiting, Diarrhea, Constipation or Abdominal Pain Musculoskeletal: No symptoms reported Neurological: No major symptoms Labs: CBC, BMP 08/04/16 06:00 08/04/16 06:00 INR, PTT INR 2.81 (0.82-1.09) H 08/04/16 06:00 Problem List - Problems (1) Atrial flutter by electrocardiogram Code(s): I48.92 - UNSPECIFIED ATRIAL FLUTTER (2) ESRD (end stage renal disease) Code(s): N18.6 - END STAGE RENAL DISEASE (3) Hemodialysis access, arteriovenous graft Code(s): Z99.2 - DEPENDENCE ON RENAL DIALYSIS (4) Hypertension Code(s): I10 - ESSENTIAL (PRIMARY) HYPERTENSION Qualifiers: Hypertension type: essential hypertension Qualified Code(s): I10 - Essential (primary) hypertension (5) Seizure Code(s): R56.9 - UNSPECIFIED CONVULSIONS (6) Syncope Code(s): R55 - SYNCOPE AND COLLAPSE Qualifiers: Syncope type: unspecified Qualified Code(s): R55 - Syncope and collapse Assessment/Plan 1. Palpitations followed by loss of consciousness, referable to paroxysmal atrial flutter [id number] score of 5 and possible syncopal episode but more likely seizure 2. CAD angina pectoris 3. Diastolic LV dysfunction with class 0-I NYHA classification LV failure 4. HTN 5. DM 6. Hypercholesterolemia 7. CVA with residual deficit, left hemiparesis 8. Seizure disorder 9. ESRD on HD 10. Anemia PLAN: 1. Continue Toprol XL and Norvasc 2. Ideally should be on ACEI or ARBS unless contraindicated, pending echocardiography result 3. Continue Lipitor 4. Continue Coumadin with close monitoring of CBC and INR, maintain INR 2-3 5. Echocardiography for evaluation of LV and valvular function 6. Consideration for atrial flutter-RFA (recurrent arrhythmia) with implantation of cardiac loop recorder Further plans are to follow Rusty Elkins MD
[2016-08-04] MEDS ORDERED: PARICALCITOL 5 MCG/ML VIAL IVPUSH ONE (18:30)
[2016-08-04] MEDS: WARFARIN NA 7.5 MG TABLET (FP) PO SCH (21:42)
[2016-08-04] MEDS: ATORVASTATIN CA 10 MG TABLET (FP) PO SCH (21:42)
--- NOTE | 2016-08-05 07:40 | EKG ---
Test Reason : Blood Pressure : / mmHG Vent. Rate : 065 BPM Atrial Rate : 234 BPM P-R Int : 000 ms QRS Dur : 094 ms QT Int : 414 ms P-R-T Axes : 268 -46 -52 degrees QTc Int : 430 ms ATRIAL FLUTTER WITH VARIABLE A-V BLOCK WITH PREMATURE VENTRICULAR OR ABERRANTLY CONDUCTED COMPLEXES LEFT AXIS DEVIATION LOW VOLTAGE QRS INFERIOR INFARCT (CITED ON OR BEFORE 02-AUG-2016) CANNOT RULE OUT ANTERIOR INFARCT (CITED ON OR BEFORE 02-AUG-2016) ABNORMAL ECG WHEN COMPARED WITH ECG OF 02-AUG-2016 13:21, NO SIGNIFICANT CHANGE WAS FOUND Confirmed by YANE ESPINOZA MD ([id number]) on 08/05/2016 7:39:46 AM Referred By: Bernice STEVENS Confirmed By:YANE ESPINOZA MD
--- NOTE | 2016-08-05 07:41 | EKG ---
Test Reason : Blood Pressure : / mmHG Vent. Rate : 066 BPM Atrial Rate : 227 BPM P-R Int : 000 ms QRS Dur : 090 ms QT Int : 436 ms P-R-T Axes : 267 -50 -10 degrees QTc Int : 457 ms ATRIAL FLUTTER WITH VARIABLE A-V BLOCK LEFT AXIS DEVIATION LOW VOLTAGE QRS INFERIOR INFARCT (CITED ON OR BEFORE 02-AUG-2016) CANNOT RULE OUT ANTERIOR INFARCT (CITED ON OR BEFORE 02-AUG-2016) ABNORMAL ECG WHEN COMPARED WITH ECG OF 02-AUG-2016 10:06, NO SIGNIFICANT CHANGE WAS FOUND Confirmed by YANE ESPINOZA MD ([id number]) on 08/05/2016 7:40:47 AM Referred By: Confirmed By:YANE ESPINOZA MD
[2016-08-05 08:00] LABS: INR 2.8 (0.82-1.09); PROTHROMBIN TIME (PATIENT) 31.4 SEC (9.98-11.88)
[2016-08-05] MEDS: SEVELAMER CARBONATE 800 MG TAB (FP) PO SCH ×3 (08:33→17:13)
--- NOTE | 2016-08-05 09:05 | PN ---
Progress Note (short form) - Note Progress Note: Chief Complaint: Events noted, notes reviewed, denies any chest pain or dyspnea , remains in atrial flutter with controlled ventricular response History of Present Illness: Seen and examined on telemetry. Events noted, notes reviewed, denies any chest pain or dyspnea, remains in atrial flutter with controlled ventricular response As outlined in the initial consultation recommend proceeding with atrial flutter RFA and loop recorder implantation, outpatient vs. inpatient to be discussed with the patient Echocardiography revealed dilated LV with normal LV systolic function, bi- atrial dilatation, moderate MR, moderate to severe TR with RVSP 50-60 mmHg - Current Medication List Current Medications Acetaminophen (Tylenol -) 650 mg PO Q4H PRN PRN Reason: FEVER OR PAIN Albuterol Sulfate (Ventolin 0.083% Nebulizer Soln -) 1 amp NEB Q8H PRN PRN Reason: SHORT OF BREATH/WHEEZING Last Admin: 08/03/16 15:24 Dose: 1 amp Amlodipine Besylate (Norvasc -) 10 mg PO DAILY [facility] Last Admin: 08/04/16 11:56 Dose: Not Given Atorvastatin Calcium (Lipitor -) 5 mg PO HS [facility] Last Admin: 08/04/16 21:42 Dose: 5 mg Cinacalcet (Sensipar -) 30 mg PO DAILY [facility] Last Admin: 08/04/16 11:56 Dose: Not Given Escitalopram Oxalate (Lexapro -) 5 mg PO DAILY [facility] Last Admin: 08/04/16 11:56 Dose: Not Given Guaifenesin (Diabetic Tussin Dm -) 5 ml PO Q6H PRN PRN Reason: COUGH Last Admin: 08/04/16 18:33 Dose: 5 ml Ceftriaxone Sodium (Rocephin 1gm Ivpb (Pre-Docked)) 50 mls @ 200 mls/hr IVPB DAILY [facility] Last Admin: 08/04/16 09:13 Dose: 200 mls/hr Levetiracetam (Keppra Injection -) 500 mg IVPB BID [facility] Last Admin: 08/04/16 21:42 Dose: 500 mg Metoprolol Succinate (Toprol Xl -) 25 mg PO DAILY [facility] Last Admin: 08/04/16 11:56 Dose: Not Given Senna (Senna -) 2 tab PO HS PRN PRN Reason: CONSTIPATION Sevelamer Carbonate (Renvela -) 800 mg PO TIDCM [facility] Last Admin: 08/05/16 08:33 Dose: 800 mg Warfarin Sodium (Coumadin -) 7.5 mg PO DAILY@1800 [facility] Last Admin: 08/04/16 21:42 Dose: 7.5 mg - Review of Systems Cardiovascular: As noted above Respiratory: denies: Cough or Sputum Production Gastrointestinal: denies: Nausea, Vomiting, Diarrhea, Constipation or Abdominal Pain Musculoskeletal: No symptoms reported Neurological: Left Hemiparesis - Objective Vital Signs: Last Vital Signs Temp Pulse Resp BP Pulse Ox 98.8 F 72 18 154/88 96 08/05/16 08:59 08/05/16 08:59 08/05/16 08:59 08/05/16 08:59 08/05/16 06:47 Neck: Supple Negative JVD Cardiovascular: S1 S2 Irregularly Irregular Grade 1/6 CRISS Respiratory: Clear to A&P Gastrointestinal: Soft Benign Normal Bowel Sounds Ext: Negative Edema Labs: CBC, BMP 08/04/16 06:00 08/04/16 06:00 INR, PTT INR 2.80 (0.82-1.09) H 08/05/16 05:35 Assessment/Plan ASSESSMENT: 1. Palpitations followed by loss of consciousness, referable to paroxysmal atrial flutter [id number] score of 5 and probable syncopal episode but seizures is in the differential also (unclear if syncope could have been a trigger for the above noted seizure) 2. CAD angina pectoris 3. Diastolic LV dysfunction with class 0-I NYHA classification LV failure 4. HTN, not at goal 5. DM 6. Hypercholesterolemia 7. Moderate MR 8. Moderate to severe TR with moderate to severe degree of pulmonary HTN 9. CVA with residual deficit, left hemiparesis 10. Seizure disorder 11. ESRD on HD 12. Anemia PLAN: 1. Continue Toprol XL 2. Continue Norvasc 3. Add Diovan 4. Continue Lipitor 5. Continue Coumadin with close monitoring of CBC and INR, maintain INR 2-3 6. As outlined above consideration for atrial flutter RFA (recurrent arrhythmia ) with implantation of cardiac loop recorder, to decide inpatient vs. out patient Roberta Madrigal MD
[2016-08-05] MEDS ORDERED: PT OWN MED DRAWER 7, Y5N ONE (10:13)
[2016-08-05] MEDS: amLODIPine BESYLATE 10 MG TABLET (FP) PO SCH (10:29)
[2016-08-05] MEDS: CINACALCET HCL 30 MG TAB (FP) PO SCH (10:29)
[2016-08-05] MEDS: METOPROLOL SUCCINATE 25 MG TAB.SR.24H (FP) PO SCH (10:30)
[2016-08-05] MEDS: ESCITALOPRAM OXALATE 10 MG TABLET (FP) PO SCH (10:30)
[2016-08-05] MEDS: VALSARTAN 80 MG TABLET (UD) PO SCH (10:30)
[2016-08-05] MEDS: CEFTRIAXONE 50 ML IVPB SCH (10:31)
--- NOTE | 2016-08-05 11:35 | PN ---
Progress Note, Physician Chief Complaint: cough better; awaiting decision Re; home vs transfer for implantable loop monitor. History of Present Illness: Patient admitted with seizure and cough with small pulmonary infiltrate and also found to be in atrial flutter. Cardiology MD has suggested ? role of arrhythmia in his seizure. Also Hx dialysis and CVA with late residual effects. I would favor transfer to Tertiary care direct from here because of all the issues with Dialysis and his disabilty. - Current Medication List Current Medications: Active Medications Acetaminophen (Tylenol -) 650 mg PO Q4H PRN PRN Reason: FEVER OR PAIN Albuterol Sulfate (Ventolin 0.083% Nebulizer Soln -) 1 amp NEB Q8H PRN PRN Reason: SHORT OF BREATH/WHEEZING Last Admin: 08/03/16 15:24 Dose: 1 amp Amlodipine Besylate (Norvasc -) 10 mg PO DAILY [facility] Last Admin: 08/05/16 10:29 Dose: 10 mg Atorvastatin Calcium (Lipitor -) 5 mg PO HS [facility] Last Admin: 08/04/16 21:42 Dose: 5 mg Cinacalcet (Sensipar -) 30 mg PO DAILY [facility] Last Admin: 08/05/16 10:29 Dose: 30 mg Escitalopram Oxalate (Lexapro -) 5 mg PO DAILY [facility] Last Admin: 08/05/16 10:30 Dose: 5 mg Guaifenesin (Diabetic Tussin Dm -) 5 ml PO Q6H PRN PRN Reason: COUGH Last Admin: 08/04/16 18:33 Dose: 5 ml Ceftriaxone Sodium (Rocephin 1gm Ivpb (Pre-Docked)) 50 mls @ 200 mls/hr IVPB DAILY [facility] Last Admin: 08/05/16 10:31 Dose: 200 mls/hr Levetiracetam (Keppra Injection -) 500 mg IVPB BID [facility] Last Admin: 08/04/16 21:42 Dose: 500 mg Metoprolol Succinate (Toprol Xl -) 25 mg PO DAILY [facility] Last Admin: 08/05/16 10:30 Dose: 25 mg Senna (Senna -) 2 tab PO HS PRN PRN Reason: CONSTIPATION Sevelamer Carbonate (Renvela -) 800 mg PO TIDCM [facility] Last Admin: 08/05/16 08:33 Dose: 800 mg Valsartan (Diovan -) 80 mg PO DAILY [facility] Last Admin: 08/05/16 10:30 Dose: 80 mg Warfarin Sodium (Coumadin -) 7.5 mg PO DAILY@1800 [facility] Last Admin: 08/04/16 21:42 Dose: 7.5 mg - Objective Vital Signs: Vital Signs Temperature 98.8 F 08/05/16 08:59 Pulse Rate 72 08/05/16 08:59 Respiratory Rate 18 08/05/16 08:59 Blood Pressure 154/88 08/05/16 08:59 O2 Sat by Pulse Oximetry (%) 96 08/05/16 06:47 Constitutional: Yes: Calm Eyes: Yes: Conjunctiva Clear Cardiovascular: Yes: Pulse Irregular Respiratory: Yes: Rhonchi, Wheezes (few wheezes at bases) Gastrointestinal: Yes: Soft (Had BM) Genitourinary: No: Patel Present Edema: No Neurological: Yes: Alert, Oriented Labs: CBC, BMP 08/04/16 06:00 08/04/16 06:00 INR, PTT INR 2.80 (0.82-1.09) H 08/05/16 05:35 Problem List - Problems (1) Seizure Assessment/Plan: On Keppra 500mg BID; No recurrence here in hospital Code(s): R56.9 - UNSPECIFIED CONVULSIONS (2) Aspiration into respiratory tract Assessment/Plan: On Ceftriaxone and syrup but still wheezes; may give short course of steroids. Code(s): T17.908A - UNSP FB IN RESP TRACT, PART UNSP CAUSING OTH INJURY, INIT (3) Mild ankle sprain Assessment/Plan: No current complaints Code(s): S93.409A - SPRAIN OF UNSP LIGAMENT OF UNSPECIFIED ANKLE, INIT ENCNTR Qualifiers: Encounter type: initial encounter Laterality: right Qualified Code( s): S93.401A - Sprain of unspecified ligament of right ankle, initial encounter (4) Late effect of cerebrovascular accident (CVA) Assessment/Plan: Has been able to walk + assist and brace at home but still poor improvement with LUE. Code(s): I69.30 - UNSPECIFIED SEQUELAE OF CEREBRAL INFARCTION (5) Atrial flutter by electrocardiogram Assessment/Plan: Followed by Cardiology. Code(s): I48.92 - UNSPECIFIED ATRIAL FLUTTER (6) Hypertension Code(s): I10 - ESSENTIAL (PRIMARY) HYPERTENSION (7) Hemodialysis access, arteriovenous graft Code(s): Z99.2 - DEPENDENCE ON RENAL DIALYSIS
[2016-08-05] MEDS: levETIRAcetam 500 MG/5 ML INJECTION VIAL IVPB SCH ×3 (11:42→22:35)
--- NOTE | 2016-08-05 12:53 | PN ---
Progress Note (short form) - Note Progress Note: Neurology Progress Note (short form) 61 year old man, with history of chronic right frontoparietal stroke, with residual left hemiparesis, atrial fibrillation on coumadin, ESRD on HD, presents to ED with likely seizure episode. He is accompanied by his mother. The patient does not recall events, but as per his mother, she heard the patient fall in the room next to her. She then witnessed both arms shaking for approximately 15 minutes, associated with loss of consciousness and incontinence. He denies tongue biting. Currently back to baseline. The patient' s mother states he had a similar event years ago but is not currently maintained on any AEDs. CT head in ED shows right frontoparietal chronic stroke, no acute findings seen. 4/2 Patient seen and examined Denies any side effects to keppra Denies any new complaints 4/3 No new events or deficits No seizures and well appearing, resting comfortably Active Medications Acetaminophen (Tylenol -) 650 mg PO Q4H PRN PRN Reason: FEVER OR PAIN Albuterol Sulfate (Ventolin 0.083% Nebulizer Soln -) 1 amp NEB Q8H PRN PRN Reason: SHORT OF BREATH/WHEEZING Last Admin: 08/03/16 15:24 Dose: 1 amp Amlodipine Besylate (Norvasc -) 10 mg PO DAILY [facility] Last Admin: 08/05/16 10:29 Dose: 10 mg Atorvastatin Calcium (Lipitor -) 5 mg PO HS [facility] Last Admin: 08/04/16 21:42 Dose: 5 mg Cinacalcet (Sensipar -) 30 mg PO DAILY [facility] Last Admin: 08/05/16 10:29 Dose: 30 mg Escitalopram Oxalate (Lexapro -) 5 mg PO DAILY [facility] Last Admin: 08/05/16 10:30 Dose: 5 mg Guaifenesin (Diabetic Tussin Dm -) 5 ml PO Q6H PRN PRN Reason: COUGH Last Admin: 08/04/16 18:33 Dose: 5 ml Ceftriaxone Sodium (Rocephin 1gm Ivpb (Pre-Docked)) 50 mls @ 200 mls/hr IVPB DAILY [facility] Last Admin: 08/05/16 10:31 Dose: 200 mls/hr Levetiracetam (Keppra Injection -) 500 mg IVPB BID [facility] Last Admin: 08/05/16 11:55 Dose: 500 mg Metoprolol Succinate (Toprol Xl -) 25 mg PO DAILY [facility] Last Admin: 08/05/16 10:30 Dose: 25 mg Prednisone (Deltasone -) 10 mg PO BID [facility] Senna (Senna -) 2 tab PO HS PRN PRN Reason: CONSTIPATION Sevelamer Carbonate (Renvela -) 800 mg PO TIDCM [facility] Last Admin: 08/05/16 12:08 Dose: 800 mg Valsartan (Diovan -) 80 mg PO DAILY [facility] Last Admin: 08/05/16 10:30 Dose: 80 mg Warfarin Sodium (Coumadin -) 7.5 mg PO DAILY@1800 [facility] Last Admin: 08/04/16 21:42 Dose: 7.5 mg Vital Signs Period Temp Pulse Resp BP Sys/Chaudhry Pulse Ox Last 24 Hr 97.1 F-98.9 F 58-76 18-18 122-154/61-88 96-98 Physical Exam Constitutional: Yes: No Distress Eyes: Yes: Conjunctiva Clear, EOM Intact HENT: Yes: Normocephalic Cardiovascular: Yes: S1, S2 Neurological: Yes: Alert, Oriented (alert, oriented [id number] mild left facial weakness, EOMI, visual shields full motor moderate left hemiparesis, 0/5 movement in left arm, 3-/5 left hip flexion, knee flexion/extension (baseline) sensory mild loss of sensation left face compared to right) Assessment/Plan 61 year old man, with history of chronic right frontoparietal stroke, with residual left hemiparesis, atrial fibrillation on coumadin, ESRD on HD, presents to ED with likely seizure episode. Continue keppra 500 mg BID, discussed with mother and son, do not recommend exceeding dose given renal clearance If further seizure events, ativan prn and may require a second agent Recommend MRI brain, however patient would like to defer Patient appears to be back to baseline Dispo planning, follow up with neuro as outpatient
--- NOTE | 2016-08-05 15:37 | PN ---
Progress Note, Physician History of Present Illness: Pt seen and examined at bedside. He is awake and alert. He has not had any syncopal episodes overnight. - Current Medication List Current Medications: Active Medications Acetaminophen (Tylenol -) 650 mg PO Q4H PRN PRN Reason: FEVER OR PAIN Albuterol Sulfate (Ventolin 0.083% Nebulizer Soln -) 1 amp NEB Q8H PRN PRN Reason: SHORT OF BREATH/WHEEZING Last Admin: 08/03/16 15:24 Dose: 1 amp Amlodipine Besylate (Norvasc -) 10 mg PO DAILY [facility] Last Admin: 08/05/16 10:29 Dose: 10 mg Atorvastatin Calcium (Lipitor -) 5 mg PO HS [facility] Last Admin: 08/04/16 21:42 Dose: 5 mg Cinacalcet (Sensipar -) 30 mg PO DAILY [facility] Last Admin: 08/05/16 10:29 Dose: 30 mg Escitalopram Oxalate (Lexapro -) 5 mg PO DAILY [facility] Last Admin: 08/05/16 10:30 Dose: 5 mg Guaifenesin (Diabetic Tussin Dm -) 5 ml PO Q6H PRN PRN Reason: COUGH Last Admin: 08/04/16 18:33 Dose: 5 ml Ceftriaxone Sodium (Rocephin 1gm Ivpb (Pre-Docked)) 50 mls @ 200 mls/hr IVPB DAILY [facility] Last Admin: 08/05/16 10:31 Dose: 200 mls/hr Levetiracetam (Keppra Injection -) 500 mg IVPB BID [facility] Last Admin: 08/05/16 11:55 Dose: 500 mg Metoprolol Succinate (Toprol Xl -) 25 mg PO DAILY [facility] Last Admin: 08/05/16 10:30 Dose: 25 mg Prednisone (Deltasone -) 10 mg PO BID [facility] Senna (Senna -) 2 tab PO HS PRN PRN Reason: CONSTIPATION Sevelamer Carbonate (Renvela -) 800 mg PO TIDCM [facility] Last Admin: 08/05/16 12:08 Dose: 800 mg Valsartan (Diovan -) 80 mg PO DAILY [facility] Last Admin: 08/05/16 10:30 Dose: 80 mg Warfarin Sodium (Coumadin -) 7.5 mg PO DAILY@1800 [facility] Last Admin: 08/04/16 21:42 Dose: 7.5 mg - Objective Vital Signs: Vital Signs Temperature 98.3 F 08/05/16 14:00 Pulse Rate 67 08/05/16 14:00 Respiratory Rate 20 08/05/16 14:00 Blood Pressure 116/52 08/05/16 14:00 O2 Sat by Pulse Oximetry (%) 98 08/05/16 09:00 Constitutional: Yes: Calm Eyes: Yes: Conjunctiva Clear HENT: Yes: Atraumatic Cardiovascular: Yes: S1, S2 Respiratory: Yes: CTA Bilaterally Gastrointestinal: Yes: Soft Musculoskeletal: Yes: Muscle Weakness Edema: Yes Edema: LLE: Trace, RLE: Trace Neurological: Yes: Oriented, Pre-Existing Deficit Labs: CBC, BMP 08/04/16 06:00 08/04/16 06:00 INR, PTT INR 2.80 (0.82-1.09) H 08/05/16 05:35 Problem List - Problems (1) Atrial flutter by electrocardiogram Code(s): I48.92 - UNSPECIFIED ATRIAL FLUTTER (2) Hypertension Code(s): I10 - ESSENTIAL (PRIMARY) HYPERTENSION (3) Late effect of cerebrovascular accident (CVA) Code(s): I69.30 - UNSPECIFIED SEQUELAE OF CEREBRAL INFARCTION (4) Seizure Code(s): R56.9 - UNSPECIFIED CONVULSIONS (5) ESRD (end stage renal disease) Code(s): N18.6 - END STAGE RENAL DISEASE Assessment/Plan Current Medications Generic Name Dose Route Start Last Admin Trade Name Freq PRN Reason Stop Dose Admin Acetaminophen 650 mg 08/02/16 13:44 Tylenol - PO Q4H PRN FEVER OR PAIN Albuterol Sulfate 1 amp 08/03/16 11:00 08/03/16 15:24 Ventolin 0.083% Nebulizer Soln - NEB 1 amp Q8H PRN Administration SHORT OF BREATH/WHEEZING Amlodipine Besylate 10 mg 08/03/16 10:00 08/05/16 10:29 Norvasc - PO 10 mg DAILY [facility] Administration Atorvastatin Calcium 5 mg 08/03/16 22:00 08/04/16 21:42 Lipitor - PO 5 mg HS [facility] Administration Cinacalcet 30 mg 08/03/16 10:00 08/05/16 10:29 Sensipar - PO 30 mg DAILY [facility] Administration Escitalopram Oxalate 5 mg 08/03/16 10:00 08/05/16 10:30 Lexapro - PO 5 mg DAILY [facility] Administration Guaifenesin 5 ml 08/02/16 16:12 08/04/16 18:33 Diabetic Tussin Dm - PO 5 ml Q6H PRN Administration COUGH Ceftriaxone Sodium 50 mls @ 200 mls/hr 08/02/16 16:15 08/05/16 10:31 Rocephin 1gm Ivpb (Pre-Docked) IVPB 200 mls/hr DAILY [facility] Administration Levetiracetam 500 mg 08/02/16 22:00 08/05/16 11:55 Keppra Injection - IVPB 500 mg BID [facility] Administration Metoprolol Succinate 25 mg 08/03/16 10:00 08/05/16 10:30 Toprol Xl - PO 25 mg DAILY [facility] Administration Prednisone 10 mg 08/05/16 22:00 Deltasone - PO BID [facility] Senna 2 tab 08/02/16 22:00 Senna - PO HS PRN CONSTIPATION Sevelamer Carbonate 800 mg 08/02/16 17:30 08/05/16 12:08 Renvela - PO 800 mg TIDCM [facility] Administration Valsartan 80 mg 08/05/16 10:00 08/05/16 10:30 Diovan - PO 80 mg DAILY [facility] Administration Warfarin Sodium 7.5 mg 08/02/16 18:00 08/04/16 21:42 Coumadin - PO 7.5 mg DAILY@1800 [facility] Administration Impression 1. ESRD 2. hx CVA 3. syncope vs seizure 4. HTN 5. hyperlipidemia 6. anemia Plan - will arrange for HD tomorrow morning - discussed with primary team - monitor on tele - cont current meds - BP is stable - called HD unit : 3:30 min heparin 1500, right arm fistula, 2 k bath, hectorol 4 mcg, aranesp 35 last dose Thursday - pt is on aranesp for anemia, last dose was Thursday - syncope workup in progress - will follow Dr Isaac
[2016-08-05] MEDS: predniSONE 10 MG TABLET (UD) PO SCH (22:35)
[2016-08-05] MEDS: ATORVASTATIN CA 10 MG TABLET (FP) PO SCH (22:35)
[2016-08-06] MEDS ORDERED: PARICALCITOL 5 MCG/ML VIAL IVPUSH ONE (08:00)
[2016-08-06 08:13] LABS: MCH 24.5 pg (25.7-33.7); MCHC 32.1 g/dl (32.0-35.9); MEAN CELL VOLUME 76.3 fl (80-96); MEAN PLT VOLUME 8.9 fl (7.5-11.1); PLATELET COUNT 195 K/MM3 (134-434); RDW 16.1 % (11.9-15.9); WHITE BLOOD COUNT 4.4 K/mm3 (4.0-10.0)
--- NOTE | 2016-08-06 08:30 | PN ---
Progress Note, Physician Chief Complaint: Events noted Not in distress Being dialyzed History of Present Illness: Patient was seen and examined. Awake and alert. Chart was reviewed Denies chest pain, shortness of breath or palpitations Discussed indication for atrial flutter ablation and implantable loop recorder at [facility]. Spoke with Dr. Mauricio Reza of [facility]. Patient is on the transfer list awaiting transfer once bed is available - Current Medication List Current Medications: Active Medications Acetaminophen (Tylenol -) 650 mg PO Q4H PRN PRN Reason: FEVER OR PAIN Albuterol Sulfate (Ventolin 0.083% Nebulizer Soln -) 1 amp NEB Q8H PRN PRN Reason: SHORT OF BREATH/WHEEZING Last Admin: 08/03/16 15:24 Dose: 1 amp Amlodipine Besylate (Norvasc -) 10 mg PO DAILY [facility] Last Admin: 08/05/16 10:29 Dose: 10 mg Atorvastatin Calcium (Lipitor -) 5 mg PO HS [facility] Last Admin: 08/05/16 22:35 Dose: 5 mg Cinacalcet (Sensipar -) 30 mg PO DAILY [facility] Last Admin: 08/05/16 10:29 Dose: 30 mg Escitalopram Oxalate (Lexapro -) 5 mg PO DAILY [facility] Last Admin: 08/05/16 10:30 Dose: 5 mg Guaifenesin (Diabetic Tussin Dm -) 5 ml PO Q6H PRN PRN Reason: COUGH Last Admin: 08/04/16 18:33 Dose: 5 ml Ceftriaxone Sodium (Rocephin 1gm Ivpb (Pre-Docked)) 50 mls @ 200 mls/hr IVPB DAILY [facility] Last Admin: 08/05/16 10:31 Dose: 200 mls/hr Levetiracetam (Keppra Injection -) 500 mg IVPB BID [facility] Last Admin: 08/05/16 22:35 Dose: 500 mg Metoprolol Succinate (Toprol Xl -) 25 mg PO DAILY [facility] Last Admin: 08/05/16 10:30 Dose: 25 mg Prednisone (Deltasone -) 10 mg PO BID [facility] Last Admin: 08/05/16 22:35 Dose: 10 mg Senna (Senna -) 2 tab PO HS PRN PRN Reason: CONSTIPATION Sevelamer Carbonate (Renvela -) 800 mg PO TIDCM [facility] Last Admin: 04/04/17 17:13 Dose: 800 mg Valsartan (Diovan -) 80 mg PO DAILY [facility] Last Admin: 08/05/16 10:30 Dose: 80 mg - Objective Vital Signs: Vital Signs Temperature 98.5 F 08/06/16 06:50 Pulse Rate 78 08/06/16 07:55 Respiratory Rate 18 08/06/16 07:55 Blood Pressure 138/86 08/06/16 07:55 O2 Sat by Pulse Oximetry (%) 99 08/05/16 21:00 Neck: Yes: Supple Cardiovascular: Yes: Pulse Irregular, S1, S2 Respiratory: Yes: Diminished Gastrointestinal: Yes: Normal Bowel Sounds, Soft. No: Tenderness Edema: Yes Edema: LLE: Trace, RLE: Trace Additional Findings/Remarks: - Review of Systems Cardiovascular: As noted above Respiratory: denies: Cough or Sputum Production Gastrointestinal: denies: Nausea, Vomiting, Diarrhea, Constipation or Abdominal Pain Musculoskeletal: No symptoms reported Neurological: No major symptoms Labs: CBC, BMP 08/06/16 07:00 INR, PTT INR 2.80 (0.82-1.09) H 08/05/16 05:35 Problem List - Problems (1) Atrial flutter by electrocardiogram Code(s): I48.92 - UNSPECIFIED ATRIAL FLUTTER (2) ESRD (end stage renal disease) Code(s): N18.6 - END STAGE RENAL DISEASE (3) Hemodialysis access, arteriovenous graft Code(s): Z99.2 - DEPENDENCE ON RENAL DIALYSIS (4) Hypertension Code(s): I10 - ESSENTIAL (PRIMARY) HYPERTENSION Qualifiers: Hypertension type: essential hypertension Qualified Code(s): I10 - Essential (primary) hypertension (5) Seizure Code(s): R56.9 - UNSPECIFIED CONVULSIONS (6) Syncope Code(s): R55 - SYNCOPE AND COLLAPSE Qualifiers: Syncope type: unspecified Qualified Code(s): R55 - Syncope and collapse Assessment/Plan 1. Palpitations followed by loss of consciousness, referable to paroxysmal atrial flutter [id number] score of 5 and syncope, etiology to be determined 2. CAD angina pectoris 3. Diastolic LV dysfunction with class 0-I NYHA classification LV failure 4. HTN 5. DM 6. Hypercholesterolemia 7. CVA with residual deficit, left hemiparesis 8. Seizure disorder 9. ESRD on HD 10. Anemia PLAN: 1. Continue Toprol XL and Norvasc 2. Continue Diovan 3. Continue Lipitor 4. Coumadin held in preparation for atrial flutter ablation and loop recorder implant - INR to be less than 2.0. Transfer to [facility] once bed is available Discussed with patient regarding transfer plan Further plans are to follow Rusty Elkins MD
[2016-08-06 08:33] LABS: INR 2.45 (0.82-1.09); PROTHROMBIN TIME (PATIENT) 27.4 SEC (9.98-11.88)
[2016-08-06 09:01] LABS: CREATININE 10.5 mg/dL (0.7-1.3)
--- NOTE | 2016-08-06 09:05 | PN ---
Progress Note (short form) - Note Progress Note: Cardiology note reviewed. Patient to await transfer to [facility] for A. Flutter /loop recorder. Slight cough Getting dialysis now. No chest pain No SOB; Had BM this AM On Exam: Vital Signs Period Temp Pulse Resp BP Sys/Chaudhry Pulse Ox Last 24 Hr 98.3 F-98.6 F 59-80 18-20 116-159/52-86 99 Alert Chest: few scattered rhonchi Cor Reg Ext: No edema Abnormal Lab Results 08/06/16 08/06/16 08/06/16 07:00 07:00 07:00 RBC 3.54 L Hgb 8.7 L Hct 27.0 L MCV 76.3 L RDW 16.1 H INR 2.45 H BUN 65 H D Creatinine 10.5 H* Calcium 8.0 L IMP: Seizure Disorder CVA with late Effects Atrial Flutter Dialysis Coumadin held F/U INR ordered Problem List - Problems (1) Seizure Code(s): R56.9 - UNSPECIFIED CONVULSIONS (2) Aspiration into respiratory tract Code(s): T17.908A - UNSP FB IN RESP TRACT, PART UNSP CAUSING OTH INJURY, INIT (3) Mild ankle sprain Code(s): S93.409A - SPRAIN OF UNSP LIGAMENT OF UNSPECIFIED ANKLE, INIT ENCNTR Qualifiers: Encounter type: initial encounter Laterality: right Qualified Code( s): S93.401A - Sprain of unspecified ligament of right ankle, initial encounter (4) Late effect of cerebrovascular accident (CVA) Code(s): I69.30 - UNSPECIFIED SEQUELAE OF CEREBRAL INFARCTION (5) Atrial flutter by electrocardiogram Code(s): I48.92 - UNSPECIFIED ATRIAL FLUTTER (6) Hypertension Code(s): I10 - ESSENTIAL (PRIMARY) HYPERTENSION Qualifiers: Hypertension type: essential hypertension Qualified Code(s): I10 - Essential (primary) hypertension (7) Hemodialysis access, arteriovenous graft Code(s): Z99.2 - DEPENDENCE ON RENAL DIALYSIS
[2016-08-06] MEDS: SEVELAMER CARBONATE 800 MG TAB (FP) PO SCH ×3 (09:27→17:24)
--- NOTE | 2016-08-06 10:03 | PN ---
Progress Note (short form) - Note Progress Note: Neurology Progress Note (short form) 61 year old man, with history of chronic right frontoparietal stroke, with residual left hemiparesis, atrial fibrillation on coumadin, ESRD on HD, presents to ED with likely seizure episode. He is accompanied by his mother. The patient does not recall events, but as per his mother, she heard the patient fall in the room next to her. She then witnessed both arms shaking for approximately 15 minutes, associated with loss of consciousness and incontinence. He denies tongue biting. Currently back to baseline. The patient' s mother states he had a similar event years ago but is not currently maintained on any AEDs. CT head in ED shows right frontoparietal chronic stroke, no acute findings seen. Overnight, No new events or deficits. No seizures and well appearing, resting comfortably. Having HD at bedside. Awaiting transfer. Active Medications Acetaminophen (Tylenol -) 650 mg PO Q4H PRN PRN Reason: FEVER OR PAIN Albuterol Sulfate (Ventolin 0.083% Nebulizer Soln -) 1 amp NEB Q8H PRN PRN Reason: SHORT OF BREATH/WHEEZING Last Admin: 08/03/16 15:24 Dose: 1 amp Amlodipine Besylate (Norvasc -) 10 mg PO DAILY [facility] Last Admin: 08/05/16 10:29 Dose: 10 mg Atorvastatin Calcium (Lipitor -) 5 mg PO HS [facility] Last Admin: 08/05/16 22:35 Dose: 5 mg Cinacalcet (Sensipar -) 30 mg PO DAILY [facility] Last Admin: 08/05/16 10:29 Dose: 30 mg Escitalopram Oxalate (Lexapro -) 5 mg PO DAILY [facility] Last Admin: 08/05/16 10:30 Dose: 5 mg Guaifenesin (Diabetic Tussin Dm -) 5 ml PO Q6H PRN PRN Reason: COUGH Last Admin: 08/04/16 18:33 Dose: 5 ml Ceftriaxone Sodium (Rocephin 1gm Ivpb (Pre-Docked)) 50 mls @ 200 mls/hr IVPB DAILY [facility] Last Admin: 08/05/16 10:31 Dose: 200 mls/hr Levetiracetam (Keppra Injection -) 500 mg IVPB BID [facility] Last Admin: 08/05/16 22:35 Dose: 500 mg Metoprolol Succinate (Toprol Xl -) 25 mg PO DAILY [facility] Last Admin: 08/05/16 10:30 Dose: 25 mg Prednisone (Deltasone -) 10 mg PO BID [facility] Last Admin: 08/05/16 22:35 Dose: 10 mg Senna (Senna -) 2 tab PO HS PRN PRN Reason: CONSTIPATION Sevelamer Carbonate (Renvela -) 800 mg PO TIDCM [facility] Last Admin: 08/06/16 09:27 Dose: 800 mg Valsartan (Diovan -) 80 mg PO DAILY [facility] Last Admin: 08/05/16 10:30 Dose: 80 mg Vital Signs Period Temp Pulse Resp BP Sys/Chaudhry Pulse Ox Last 24 Hr 97.1 F-98.9 F 58-76 18-18 122-154/61-88 96-98 Physical Exam Constitutional: Yes: No Distress Eyes: Yes: Conjunctiva Clear, EOM Intact HENT: Yes: Normocephalic Cardiovascular: Yes: S1, S2 Neurological: Yes: Alert, Oriented (alert, oriented [id number] mild left facial weakness, EOMI, visual shields full motor moderate left hemiparesis, 0/5 movement in left arm, 3-/5 left hip flexion, knee flexion/extension (baseline) sensory mild loss of sensation left face compared to right) CBCD WBC 4.4 K/mm3 (4.0-10.0) 08/06/16 07:00 RBC 3.54 M/mm3 (4.00-5.60) L 08/06/16 07:00 Hgb 8.7 GM/dL (11.7-16.9) L 08/06/16 07:00 Hct 27.0 % (35.4-49) L 08/06/16 07:00 MCV 76.3 fl (80-96) L 08/06/16 07:00 MCHC 32.1 g/dl (32.0-35.9) 08/06/16 07:00 RDW 16.1 % (11.9-15.9) H 08/06/16 07:00 Plt Count 195 K/MM3 (134-434) 08/06/16 07:00 MPV 8.9 fl (7.5-11.1) 08/06/16 07:00 CMP Sodium 143 mmol/L (136-145) 08/06/16 07:00 Potassium 5.1 mmol/L (3.5-5.1) 08/06/16 07:00 Chloride 107 mmol/L (98-107) D 08/06/16 07:00 Carbon Dioxide 27 mmol/L (21-32) D 08/06/16 07:00 Anion Gap 9 (8-16) 08/06/16 07:00 BUN 65 mg/dL (7-18) H D 08/06/16 07:00 Creatinine 10.5 mg/dL (0.7-1.3) H* 08/06/16 07:00 Creat Clearance w eGFR 4.95 (>60) 08/03/16 10:30 Calcium 8.0 mg/dL (8.5-10.1) L 08/06/16 07:00 Total Bilirubin 0.5 mg/dL (0.2-1.0) D 08/03/16 10:30 AST 15 U/L (15-37) 08/03/16 10:30 ALT 21 U/L (12-78) 08/03/16 10:30 Alkaline Phosphatase 91 U/L (45-117) 08/03/16 10:30 Total Protein 6.0 g/dl (6.4-8.2) L 08/03/16 10:30 Albumin 3.0 g/dl (3.4-5.0) L 08/03/16 10:30 Assessment/Plan 61 year old man, with history of chronic right frontoparietal stroke, with residual left hemiparesis, atrial fibrillation on coumadin, ESRD on HD, presents to ED with likely seizure episode. Continue keppra 500 mg BID, do not recommend exceeding dose given renal clearance If further seizure events, ativan prn and may require a second agent Patient appears to be back to baseline Transfer planning, follow up with neuro as outpatient
[2016-08-06] MEDS: levETIRAcetam 500 MG/5 ML INJECTION VIAL IVPB SCH ×2 (11:46→23:43)
[2016-08-06] MEDS: amLODIPine BESYLATE 10 MG TABLET (FP) PO SCH (11:46)
[2016-08-06] MEDS: METOPROLOL SUCCINATE 25 MG TAB.SR.24H (FP) PO SCH (11:47)
[2016-08-06] MEDS: CINACALCET HCL 30 MG TAB (FP) PO SCH (11:47)
[2016-08-06] MEDS: predniSONE 10 MG TABLET (UD) PO SCH ×2 (11:47→23:43)
[2016-08-06] MEDS: CEFTRIAXONE 50 ML IVPB SCH (11:47)
[2016-08-06] MEDS: VALSARTAN 80 MG TABLET (UD) PO SCH (11:47)
[2016-08-06] MEDS: ESCITALOPRAM OXALATE 10 MG TABLET (FP) PO SCH (11:47)
--- NOTE | 2016-08-06 12:19 | PN ---
Progress Note, Physician History of Present Illness: Pt seen and examined at bedside. He is awake and alert. He tolerated HD today. - Current Medication List Current Medications: Active Medications Acetaminophen (Tylenol -) 650 mg PO Q4H PRN PRN Reason: FEVER OR PAIN Albuterol Sulfate (Ventolin 0.083% Nebulizer Soln -) 1 amp NEB Q8H PRN PRN Reason: SHORT OF BREATH/WHEEZING Last Admin: 08/03/16 15:24 Dose: 1 amp Amlodipine Besylate (Norvasc -) 10 mg PO DAILY [facility] Last Admin: 08/06/16 11:46 Dose: 10 mg Atorvastatin Calcium (Lipitor -) 5 mg PO HS [facility] Last Admin: 08/05/16 22:35 Dose: 5 mg Cinacalcet (Sensipar -) 30 mg PO DAILY [facility] Last Admin: 08/06/16 11:47 Dose: 30 mg Escitalopram Oxalate (Lexapro -) 5 mg PO DAILY [facility] Last Admin: 08/06/16 11:47 Dose: 5 mg Guaifenesin (Diabetic Tussin Dm -) 5 ml PO Q6H PRN PRN Reason: COUGH Last Admin: 08/04/16 18:33 Dose: 5 ml Ceftriaxone Sodium (Rocephin 1gm Ivpb (Pre-Docked)) 50 mls @ 200 mls/hr IVPB DAILY [facility] Last Admin: 08/06/16 11:47 Dose: 200 mls/hr Levetiracetam (Keppra Injection -) 500 mg IVPB BID [facility] Last Admin: 08/06/16 11:46 Dose: 500 mg Metoprolol Succinate (Toprol Xl -) 25 mg PO DAILY [facility] Last Admin: 08/06/16 11:47 Dose: 25 mg Prednisone (Deltasone -) 10 mg PO BID [facility] Last Admin: 08/06/16 11:47 Dose: 10 mg Senna (Senna -) 2 tab PO HS PRN PRN Reason: CONSTIPATION Sevelamer Carbonate (Renvela -) 800 mg PO TIDCM [facility] Last Admin: 08/06/16 11:47 Dose: 800 mg Valsartan (Diovan -) 80 mg PO DAILY [facility] Last Admin: 08/06/16 11:47 Dose: 80 mg - Objective Vital Signs: Vital Signs Temperature 98.5 F 08/06/16 06:50 Pulse Rate 77 08/06/16 10:30 Respiratory Rate 18 08/06/16 10:30 Blood Pressure 156/67 08/06/16 10:30 O2 Sat by Pulse Oximetry (%) 98 08/06/16 08:00 Constitutional: Yes: Calm Eyes: Yes: Conjunctiva Clear HENT: Yes: Atraumatic Cardiovascular: Yes: S1, S2 Respiratory: Yes: CTA Bilaterally Gastrointestinal: Yes: Soft, Abdomen, Obese Musculoskeletal: Yes: Other (residual weakness from previous CVA) Edema: No Integumentary: Yes: WNL Neurological: Yes: Oriented, Pre-Existing Deficit Psychiatric: Yes: Oriented Labs: CBC, BMP 08/06/16 07:00 08/06/16 07:00 INR, PTT INR 2.45 (0.82-1.09) H 08/06/16 07:00 Problem List - Problems (1) Atrial flutter by electrocardiogram Code(s): I48.92 - UNSPECIFIED ATRIAL FLUTTER (2) Hypertension Code(s): I10 - ESSENTIAL (PRIMARY) HYPERTENSION Qualifiers: Hypertension type: essential hypertension Qualified Code(s): I10 - Essential (primary) hypertension (3) Late effect of cerebrovascular accident (CVA) Code(s): I69.30 - UNSPECIFIED SEQUELAE OF CEREBRAL INFARCTION (4) Seizure Code(s): R56.9 - UNSPECIFIED CONVULSIONS (5) ESRD (end stage renal disease) Code(s): N18.6 - END STAGE RENAL DISEASE Assessment/Plan Current Medications Generic Name Dose Route Start Last Admin Trade Name Freq PRN Reason Stop Dose Admin Acetaminophen 650 mg 08/02/16 13:44 Tylenol - PO Q4H PRN FEVER OR PAIN Albuterol Sulfate 1 amp 08/03/16 11:00 08/03/16 15:24 Ventolin 0.083% Nebulizer Soln - NEB 1 amp Q8H PRN Administration SHORT OF BREATH/WHEEZING Amlodipine Besylate 10 mg 08/03/16 10:00 08/06/16 11:46 Norvasc - PO 10 mg DAILY [facility] Administration Atorvastatin Calcium 5 mg 08/03/16 22:00 08/05/16 22:35 Lipitor - PO 5 mg HS [facility] Administration Cinacalcet 30 mg 08/03/16 10:00 08/06/16 11:47 Sensipar - PO 30 mg DAILY [facility] Administration Escitalopram Oxalate 5 mg 08/03/16 10:00 08/06/16 11:47 Lexapro - PO 5 mg DAILY [facility] Administration Guaifenesin 5 ml 08/02/16 16:12 08/04/16 18:33 Diabetic Tussin Dm - PO 5 ml Q6H PRN Administration COUGH Ceftriaxone Sodium 50 mls @ 200 mls/hr 08/02/16 16:15 08/06/16 11:47 Rocephin 1gm Ivpb (Pre-Docked) IVPB 200 mls/hr DAILY [facility] Administration Levetiracetam 500 mg 08/02/16 22:00 08/06/16 11:46 Keppra Injection - IVPB 500 mg BID [facility] Administration Metoprolol Succinate 25 mg 08/03/16 10:00 08/06/16 11:47 Toprol Xl - PO 25 mg DAILY [facility] Administration Prednisone 10 mg 08/05/16 22:00 08/06/16 11:47 Deltasone - PO 10 mg BID [facility] Administration Senna 2 tab 08/02/16 22:00 Senna - PO HS PRN CONSTIPATION Sevelamer Carbonate 800 mg 08/02/16 17:30 08/06/16 11:47 Renvela - PO 800 mg TIDCM [facility] Administration Valsartan 80 mg 08/05/16 10:00 08/06/16 11:47 Diovan - PO 80 mg DAILY [facility] Administration Impression 1. ESRD 2. hx CVA 3. syncope vs seizure 4. HTN 5. hyperlipidemia 6. anemia Plan - pt tolerated HD today - possible transfer for implantable recorder - cont current meds - syncope workup in progress - will follow - called HD unit : 3:30 min heparin 1500, right arm fistula, 2 k bath, hectorol 4 mcg, aranesp 35 last dose Thursday - pt is on aranesp for anemia, last dose was Thursday - will arrange for HD on Thursday if not transferred Dr Isaac
[2016-08-06] MEDS: ATORVASTATIN CA 10 MG TABLET (FP) PO SCH (23:43)
[2016-08-07 08:08] LABS: HEP B SURFACE AB Reactive (.)
[2016-08-07 08:25] LABS: INR 1.88 (0.82-1.09)
[2016-08-07] MEDS: SEVELAMER CARBONATE 800 MG TAB (FP) PO SCH ×2 (08:39→12:11)
--- NOTE | 2016-08-07 09:11 | PN ---
Progress Note (short form) - Note Progress Note: Patient with Admission for seizure and found to have atrial Flutter continues on Dialysis. Patient also had a pulmonary infiltrate and some wheezing but has been on IV antibiotics and a few days of low dose steroids for wheezing. Will repeat CXR and if cleared will D/C both Rxes. Await transfer [facility] for implantable loop. On Exam: Vital Signs Temp 99 F 08/07/16 02:00 Pulse 78 08/07/16 06:00 Resp 20 08/07/16 06:00 BP 132/74 08/07/16 06:00 Pulse Ox 98 08/06/16 21:00 Intake & Output 08/06/16 08/06/16 08/07/16 11:59 23:59 11:59 Intake Total 240 Balance 240 Weight 234 lb 225 lb Intake: Oral 240 Other: Voiding Method Urinal Urinal Bedside Commode Weight Measurement Method Standing Scale Standing Scale Alert Chest: Few rhonchi at bases Cor: Irreg Abd Soft Ext: no edema Abnormal Lab Results 08/07/16 05:50 INR 1.88 H IMP: Seizure disorder Acute Dialysis CVA with late effects Atrial Flutter ?Aspiration INR1.88 Hope for tranfer to [facility] or AM post dialysis Problem List - Problems (1) Seizure Code(s): R56.9 - UNSPECIFIED CONVULSIONS (2) Aspiration into respiratory tract Code(s): T17.908A - UNSP FB IN RESP TRACT, PART UNSP CAUSING OTH INJURY, INIT (3) Mild ankle sprain Code(s): S93.409A - SPRAIN OF UNSP LIGAMENT OF UNSPECIFIED ANKLE, INIT ENCNTR Qualifiers: Encounter type: initial encounter Laterality: right Qualified Code( s): S93.401A - Sprain of unspecified ligament of right ankle, initial encounter (4) Late effect of cerebrovascular accident (CVA) Code(s): I69.30 - UNSPECIFIED SEQUELAE OF CEREBRAL INFARCTION (5) Atrial flutter by electrocardiogram Code(s): I48.92 - UNSPECIFIED ATRIAL FLUTTER (6) Hypertension Code(s): I10 - ESSENTIAL (PRIMARY) HYPERTENSION Qualifiers: Hypertension type: essential hypertension Qualified Code(s): I10 - Essential (primary) hypertension (7) Hemodialysis access, arteriovenous graft Code(s): Z99.2 - DEPENDENCE ON RENAL DIALYSIS
[2016-08-07] MEDS: METOPROLOL SUCCINATE 25 MG TAB.SR.24H (FP) PO SCH (10:39)
[2016-08-07] MEDS: amLODIPine BESYLATE 10 MG TABLET (FP) PO SCH (10:39)
[2016-08-07] MEDS: ESCITALOPRAM OXALATE 10 MG TABLET (FP) PO SCH (10:39)
[2016-08-07] MEDS: CINACALCET HCL 30 MG TAB (FP) PO SCH (10:39)
[2016-08-07] MEDS: predniSONE 10 MG TABLET (UD) PO SCH (10:39)
[2016-08-07] MEDS: VALSARTAN 80 MG TABLET (UD) PO SCH (10:39)
[2016-08-07] MEDS: CEFTRIAXONE 50 ML IVPB SCH (10:40)
--- NOTE | 2016-08-07 10:42 | PN ---
Progress Note, Physician Chief Complaint: Events noted Awaiting transfer to [facility] for atrial flutter ablation and implantable loop recorder Not in distress History of Present Illness: Patient was seen and examined. Awake and alert. Chart was reviewed Denies chest pain, shortness of breath or palpitations HD (M,W,F) - explained indication for flutter ablation and further plans - Current Medication List Current Medications: Active Medications Acetaminophen (Tylenol -) 650 mg PO Q4H PRN PRN Reason: FEVER OR PAIN Albuterol Sulfate (Ventolin 0.083% Nebulizer Soln -) 1 amp NEB Q8H PRN PRN Reason: SHORT OF BREATH/WHEEZING Last Admin: 08/03/16 15:24 Dose: 1 amp Amlodipine Besylate (Norvasc -) 10 mg PO DAILY [facility] Last Admin: 08/06/16 11:46 Dose: 10 mg Atorvastatin Calcium (Lipitor -) 5 mg PO HS [facility] Last Admin: 08/06/16 23:43 Dose: 5 mg Cinacalcet (Sensipar -) 30 mg PO DAILY [facility] Last Admin: 08/06/16 11:47 Dose: 30 mg Escitalopram Oxalate (Lexapro -) 5 mg PO DAILY [facility] Last Admin: 08/06/16 11:47 Dose: 5 mg Guaifenesin (Diabetic Tussin Dm -) 5 ml PO Q6H PRN PRN Reason: COUGH Last Admin: 08/04/16 18:33 Dose: 5 ml Ceftriaxone Sodium (Rocephin 1gm Ivpb (Pre-Docked)) 50 mls @ 200 mls/hr IVPB DAILY [facility] Last Admin: 08/06/16 11:47 Dose: 200 mls/hr Levetiracetam (Keppra Injection -) 500 mg IVPB BID [facility] Last Admin: 08/06/16 23:43 Dose: 500 mg Metoprolol Succinate (Toprol Xl -) 25 mg PO DAILY [facility] Last Admin: 08/06/16 11:47 Dose: 25 mg Prednisone (Deltasone -) 10 mg PO BID [facility] Last Admin: 08/06/16 23:43 Dose: 10 mg Senna (Senna -) 2 tab PO HS PRN PRN Reason: CONSTIPATION Sevelamer Carbonate (Renvela -) 800 mg PO TIDCM [facility] Last Admin: 04/05/17 17:24 Dose: 800 mg Valsartan (Diovan -) 80 mg PO DAILY [facility] Last Admin: 08/06/16 11:47 Dose: 80 mg - Objective Vital Signs: Vital Signs Temperature 99 F 08/07/16 02:00 Pulse Rate 78 08/07/16 06:00 Respiratory Rate 20 08/07/16 06:00 Blood Pressure 132/74 08/07/16 06:00 O2 Sat by Pulse Oximetry (%) 98 08/06/16 21:00 Neck: Yes: Supple Cardiovascular: Yes: Pulse Irregular, S1, S2 Respiratory: Yes: Diminished Gastrointestinal: Yes: Normal Bowel Sounds, Soft. No: Tenderness Edema: No Additional Findings/Remarks: - Review of Systems Cardiovascular: As noted above Respiratory: denies: Cough or Sputum Production Gastrointestinal: denies: Nausea, Vomiting, Diarrhea, Constipation or Abdominal Pain Musculoskeletal: No symptoms reported Neurological: No major symptoms Labs: CBC, BMP 08/06/16 07:00 08/06/16 07:00 INR, PTT INR 1.88 (0.82-1.09) H 08/07/16 05:50 Problem List - Problems (1) Atrial flutter by electrocardiogram Code(s): I48.92 - UNSPECIFIED ATRIAL FLUTTER (2) ESRD (end stage renal disease) Code(s): N18.6 - END STAGE RENAL DISEASE (3) Hemodialysis access, arteriovenous graft Code(s): Z99.2 - DEPENDENCE ON RENAL DIALYSIS (4) Hypertension Code(s): I10 - ESSENTIAL (PRIMARY) HYPERTENSION Qualifiers: Hypertension type: essential hypertension Qualified Code(s): I10 - Essential (primary) hypertension (5) Seizure Code(s): R56.9 - UNSPECIFIED CONVULSIONS (6) Syncope Code(s): R55 - SYNCOPE AND COLLAPSE Qualifiers: Syncope type: unspecified Qualified Code(s): R55 - Syncope and collapse Assessment/Plan 1. Palpitations followed by loss of consciousness, referable to paroxysmal atrial flutter [id number] score of 5 and possible syncopal episode 2. CAD angina pectoris 3. Diastolic LV dysfunction with class 0-I NYHA classification LV failure 4. HTN 5. DM 6. Hypercholesterolemia 7. CVA with residual deficit, left hemiparesis 8. Seizure disorder 9. ESRD on HD 10. Anemia PLAN: 1. Continue Toprol XL, Norvasc and Diovan 2. Continue Lipitor 3. Continue Coumadin with close monitoring of CBC and INR - Flutter ablation can be done with INR around 2.0. Will give lower dose of Coumadin today 4. Plan for atrial flutter-RFA (recurrent arrhythmia) with implantation of cardiac loop recorder - hopeful transfer to [facility] today for intervention tomorrow followed by HD Further plans are to follow Rusty Elkins MD
--- NOTE | 2016-08-07 11:22 | PN ---
Progress Note (short form) - Note Progress Note: Neurology Progress Note (short form) 61 year old man, with history of chronic right frontoparietal stroke, with residual left hemiparesis, atrial fibrillation on coumadin, ESRD on HD, presents to ED with likely seizure episode. He is accompanied by his mother. The patient does not recall events, but as per his mother, she heard the patient fall in the room next to her. She then witnessed both arms shaking for approximately 15 minutes, associated with loss of consciousness and incontinence. He denies tongue biting. Currently back to baseline. The patient' s mother states he had a similar event years ago but is not currently maintained on any AEDs. CT head in ED shows right frontoparietal chronic stroke, no acute findings seen. Overnight, No new events or deficits. No seizures and well appearing, resting comfortably. HD yesterday without issue. Plan is for Ablation and loop recorder Active Medications Acetaminophen (Tylenol -) 650 mg PO Q4H PRN PRN Reason: FEVER OR PAIN Albuterol Sulfate (Ventolin 0.083% Nebulizer Soln -) 1 amp NEB Q8H PRN PRN Reason: SHORT OF BREATH/WHEEZING Last Admin: 08/03/16 15:24 Dose: 1 amp Amlodipine Besylate (Norvasc -) 10 mg PO DAILY [facility] Last Admin: 08/07/16 10:39 Dose: 10 mg Atorvastatin Calcium (Lipitor -) 5 mg PO HS [facility] Last Admin: 08/06/16 23:43 Dose: 5 mg Cinacalcet (Sensipar -) 30 mg PO DAILY [facility] Last Admin: 08/07/16 10:39 Dose: 30 mg Escitalopram Oxalate (Lexapro -) 5 mg PO DAILY [facility] Last Admin: 08/07/16 10:39 Dose: 5 mg Guaifenesin (Diabetic Tussin Dm -) 5 ml PO Q6H PRN PRN Reason: COUGH Last Admin: 08/04/16 18:33 Dose: 5 ml Ceftriaxone Sodium (Rocephin 1gm Ivpb (Pre-Docked)) 50 mls @ 200 mls/hr IVPB DAILY [facility] Last Admin: 08/07/16 10:40 Dose: 200 mls/hr Levetiracetam (Keppra Injection -) 500 mg IVPB BID [facility] Last Admin: 04/05/17 23:43 Dose: 500 mg Metoprolol Succinate (Toprol Xl -) 25 mg PO DAILY [facility] Last Admin: 08/07/16 10:39 Dose: 25 mg Prednisone (Deltasone -) 10 mg PO BID [facility] Last Admin: 08/07/16 10:39 Dose: 10 mg Senna (Senna -) 2 tab PO HS PRN PRN Reason: CONSTIPATION Sevelamer Carbonate (Renvela -) 800 mg PO TIDCM [facility] Last Admin: 08/07/16 08:39 Dose: 800 mg Valsartan (Diovan -) 80 mg PO DAILY [facility] Last Admin: 08/07/16 10:39 Dose: 80 mg Vital Signs Period Temp Pulse Resp BP Sys/Chaudhry Pulse Ox Last 24 Hr 98.0 F-99 F 64-78 16-20 100-151/55-81 98 Physical Exam Constitutional: Yes: No Distress Eyes: Yes: Conjunctiva Clear, EOM Intact HENT: Yes: Normocephalic Cardiovascular: Yes: S1, S2 Neurological: Yes: Alert, Oriented (alert, oriented [id number] mild left facial weakness, EOMI, visual shields full motor moderate left hemiparesis, 0/5 movement in left arm, 3-/5 left hip flexion, knee flexion/extension (baseline) sensory mild loss of sensation left face compared to right) CBCD WBC 4.4 K/mm3 (4.0-10.0) 08/06/16 07:00 RBC 3.54 M/mm3 (4.00-5.60) L 08/06/16 07:00 Hgb 8.7 GM/dL (11.7-16.9) L 08/06/16 07:00 Hct 27.0 % (35.4-49) L 08/06/16 07:00 MCV 76.3 fl (80-96) L 08/06/16 07:00 MCHC 32.1 g/dl (32.0-35.9) 08/06/16 07:00 RDW 16.1 % (11.9-15.9) H 08/06/16 07:00 Plt Count 195 K/MM3 (134-434) 08/06/16 07:00 MPV 8.9 fl (7.5-11.1) 08/06/16 07:00 CMP Sodium 143 mmol/L (136-145) 08/06/16 07:00 Potassium 5.1 mmol/L (3.5-5.1) 08/06/16 07:00 Chloride 107 mmol/L (98-107) D 08/06/16 07:00 Carbon Dioxide 27 mmol/L (21-32) D 08/06/16 07:00 Anion Gap 9 (8-16) 08/06/16 07:00 BUN 65 mg/dL (7-18) H D 08/06/16 07:00 Creatinine 10.5 mg/dL (0.7-1.3) H* 08/06/16 07:00 Creat Clearance w eGFR 4.95 (>60) 08/03/16 10:30 Calcium 8.0 mg/dL (8.5-10.1) L 08/06/16 07:00 Total Bilirubin 0.5 mg/dL (0.2-1.0) D 08/03/16 10:30 AST 15 U/L (15-37) 08/03/16 10:30 ALT 21 U/L (12-78) 08/03/16 10:30 Alkaline Phosphatase 91 U/L (45-117) 08/03/16 10:30 Total Protein 6.0 g/dl (6.4-8.2) L 08/03/16 10:30 Albumin 3.0 g/dl (3.4-5.0) L 08/03/16 10:30 Assessment/Plan 61 year old man, with history of chronic right frontoparietal stroke, with residual left hemiparesis, atrial fibrillation on coumadin, ESRD on HD, presents to ED with likely seizure episode. Continue keppra 500 mg BID, do not recommend exceeding dose given renal clearance If further seizure events, ativan prn and may require a second agent Patient appears to be back to baseline Transfer planning, follow up with neuro as outpatient
[2016-08-07] MEDS: ALBUTEROL SO4 0.083% IH SOL 2.5 MG/3 ML VIAL.NEB. NEB PRN (11:40)
[2016-08-07] MEDS: levETIRAcetam 500 MG/5 ML INJECTION VIAL IVPB SCH (12:11)
[2016-08-07 14:49] VITALS: BP 123/66; PULSE 60; TEMP 98.8
--- NOTE | 2016-08-07 14:55 | PN ---
Progress Note, Physician History of Present Illness: Pt seen and examined at bedside. He is awake and alert. He is pending transfer to [facility]. - Current Medication List Current Medications: Active Medications Acetaminophen (Tylenol -) 650 mg PO Q4H PRN PRN Reason: FEVER OR PAIN Albuterol Sulfate (Ventolin 0.083% Nebulizer Soln -) 1 amp NEB Q8H PRN PRN Reason: SHORT OF BREATH/WHEEZING Last Admin: 08/07/16 11:40 Dose: 1 amp Amlodipine Besylate (Norvasc -) 10 mg PO DAILY [facility] Last Admin: 08/07/16 10:39 Dose: 10 mg Atorvastatin Calcium (Lipitor -) 5 mg PO HS [facility] Last Admin: 08/06/16 23:43 Dose: 5 mg Cinacalcet (Sensipar -) 30 mg PO DAILY [facility] Last Admin: 08/07/16 10:39 Dose: 30 mg Escitalopram Oxalate (Lexapro -) 5 mg PO DAILY [facility] Last Admin: 08/07/16 10:39 Dose: 5 mg Guaifenesin (Diabetic Tussin Dm -) 5 ml PO Q6H PRN PRN Reason: COUGH Last Admin: 08/04/16 18:33 Dose: 5 ml Ceftriaxone Sodium (Rocephin 1gm Ivpb (Pre-Docked)) 50 mls @ 200 mls/hr IVPB DAILY [facility] Last Admin: 08/07/16 10:40 Dose: 200 mls/hr Levetiracetam (Keppra Injection -) 500 mg IVPB BID [facility] Last Admin: 08/07/16 12:11 Dose: 500 mg Metoprolol Succinate (Toprol Xl -) 25 mg PO DAILY [facility] Last Admin: 08/07/16 10:39 Dose: 25 mg Prednisone (Deltasone -) 10 mg PO BID [facility] Last Admin: 08/07/16 10:39 Dose: 10 mg Senna (Senna -) 2 tab PO HS PRN PRN Reason: CONSTIPATION Sevelamer Carbonate (Renvela -) 800 mg PO TIDCM [facility] Last Admin: 08/07/16 12:11 Dose: 800 mg Valsartan (Diovan -) 80 mg PO DAILY [facility] Last Admin: 08/07/16 10:39 Dose: 80 mg - Objective Vital Signs: Vital Signs Temperature 98.8 F 08/07/16 14:48 Pulse Rate 60 04/06/17 14:48 Respiratory Rate 20 08/07/16 14:48 Blood Pressure 123/66 08/07/16 14:48 O2 Sat by Pulse Oximetry (%) 98 08/07/16 10:00 Constitutional: Yes: Calm Eyes: Yes: Conjunctiva Clear HENT: Yes: Atraumatic Cardiovascular: Yes: S1, S2 Respiratory: Yes: CTA Bilaterally Gastrointestinal: Yes: Soft, Abdomen, Obese Genitourinary: Yes: WNL Edema: Yes Edema: LLE: Trace, RLE: Trace Neurological: Yes: Oriented, Pre-Existing Deficit Psychiatric: Yes: Oriented Labs: CBC, BMP 08/06/16 07:00 08/06/16 07:00 INR, PTT INR 1.88 (0.82-1.09) H 08/07/16 05:50 Problem List - Problems (1) Atrial flutter by electrocardiogram Code(s): I48.92 - UNSPECIFIED ATRIAL FLUTTER (2) Hypertension Code(s): I10 - ESSENTIAL (PRIMARY) HYPERTENSION Qualifiers: Hypertension type: essential hypertension Qualified Code(s): I10 - Essential (primary) hypertension (3) Late effect of cerebrovascular accident (CVA) Code(s): I69.30 - UNSPECIFIED SEQUELAE OF CEREBRAL INFARCTION (4) Seizure Code(s): R56.9 - UNSPECIFIED CONVULSIONS (5) ESRD (end stage renal disease) Code(s): N18.6 - END STAGE RENAL DISEASE Assessment/Plan Current Medications Generic Name Dose Route Start Last Admin Trade Name Freq PRN Reason Stop Dose Admin Acetaminophen 650 mg 08/02/16 13:44 Tylenol - PO Q4H PRN FEVER OR PAIN Albuterol Sulfate 1 amp 08/03/16 11:00 08/07/16 11:40 Ventolin 0.083% Nebulizer Soln - NEB 1 amp Q8H PRN Administration SHORT OF BREATH/WHEEZING Amlodipine Besylate 10 mg 08/03/16 10:00 08/07/16 10:39 Norvasc - PO 10 mg DAILY [facility] Administration Atorvastatin Calcium 5 mg 08/03/16 22:00 08/06/16 23:43 Lipitor - PO 5 mg HS [facility] Administration Cinacalcet 30 mg 08/03/16 10:00 08/07/16 10:39 Sensipar - PO 30 mg DAILY [facility] Administration Escitalopram Oxalate 5 mg 08/03/16 10:00 08/07/16 10:39 Lexapro - PO 5 mg DAILY [facility] Administration Guaifenesin 5 ml 08/02/16 16:12 08/04/16 18:33 Diabetic Tussin Dm - PO 5 ml Q6H PRN Administration COUGH Ceftriaxone Sodium 50 mls @ 200 mls/hr 08/02/16 16:15 08/07/16 10:40 Rocephin 1gm Ivpb (Pre-Docked) IVPB 200 mls/hr DAILY [facility] Administration Levetiracetam 500 mg 08/02/16 22:00 08/07/16 12:11 Keppra Injection - IVPB 500 mg BID [facility] Administration Metoprolol Succinate 25 mg 08/03/16 10:00 08/07/16 10:39 Toprol Xl - PO 25 mg DAILY [facility] Administration Prednisone 10 mg 08/05/16 22:00 08/07/16 10:39 Deltasone - PO 10 mg BID [facility] Administration Senna 2 tab 08/02/16 22:00 Senna - PO HS PRN CONSTIPATION Sevelamer Carbonate 800 mg 08/02/16 17:30 08/07/16 12:11 Renvela - PO 800 mg TIDCM [facility] Administration Valsartan 80 mg 08/05/16 10:00 08/07/16 10:39 Diovan - PO 80 mg DAILY [facility] Administration Impression 1. ESRD 2. hx CVA 3. syncope vs seizure 4. HTN 5. hyperlipidemia 6. anemia Plan - pt tolerated HD yesterday - possible transfer to [facility] - will arrange for HD tomorrow just in case he does not get transferred - if transferred with need to be dialyzed on [facility] tomorrow - syncope workup in progress - will follow - called HD unit : 3:30 min heparin 1500, right arm fistula, 2 k bath, hectorol 4 mcg, aranesp 35 last dose Thursday - pt is on aranesp for anemia, last dose was Thursday - will arrange for HD on Thursday if not transferred Dr Isaac
[2016-08-07] MEDS ORDERED: WARFARIN NA 5 MG TABLET (UD) PO ONE ×2 (15:28→15:30)
[2016-08-07] MEDS ORDERED: levETIRAcetam 500 MG TABLET (FP) PO SCH (22:00)
== END 2016-08-07 16:34 | disposition short-term general hospital (02) | DRG 100 ==
LOC: JER 09:41 → JERBED 12:18 → UNDOADMIN 12:22 → JERBED 12:22 → J4W 16:45
PROVIDERS: ADMIT Internal Medicine; ATTEND Internal Medicine
PROC: 5A1D60Z (ICD-10-PCS; principal; 2016-08-02)
DX: G40.909 Epilepsy, unspecified, not intractable, without status epilepticus (principal); N18.6 End stage renal disease; I48.92 Unspecified atrial flutter; I12.0 Hypertensive chronic kidney disease with stage 5 chronic kidney disease or end stage renal disease; I69.354 Hemiplegia and hemiparesis following cerebral infarction affecting left non-dominant side; Z99.2 Dependence on renal dialysis; E78.5 Hyperlipidemia, unspecified; D64.9 Anemia, unspecified; R55 Syncope and collapse; I25.119 Atherosclerotic heart disease of native coronary artery with unspecified angina pectoris; I36.1 Nonrheumatic tricuspid (valve) insufficiency; I27.2 Other secondary pulmonary hypertension
CPT/HCPCS: 36415; 70450-TC; 71010-TC; 73610-TC-LT; 73630-TC-LT; 80048; 80053; 82465; 82550; 82607; 82728; 82746; 83540; 83718; 83721; 83735; 84100; 84478; 84484; 84550; 85025; 85027; 85610; 86704; 86706; 86708; 86850; 86900; 86901; 87340; 93005; 93010; 93306-TC; 94640; 95816; 97116-GP; 97162-PG; 99285-25

== ENCOUNTER 2016-09-29 17:01 | Inpatient (IN) | payer OTHER ==
--- NOTE | 2016-09-29 17:31 | PDOC ---
History of Present Illness - History of Present Illness Initial Comments: 09/29/16 23:18 Patient is a 61 year old male with significant medical hx of AFib (on coumadin) , HTN, DM, CVA (left sided deficit), seizures, nephrolithiasis, and ESRD ( dialysis M,W,F; last dialyzed today), who is presenting to the ED for seizure. Earlier this evening, the patient developed an aura and called his mother. The patient had a partial complex seizure which was witnessed by his mother. He's been having seizures for the past 16 years and states that this is normal for him. He was brought to the ED for further evaluation and he does not offer any other complaints at this time. Denies any head trauma, tongue biting, nausea, or vomiting. Patient was last dialyzed at 5 AM this morning. <Claudia Kauffman - Last Filed: 09/29/16 23:29> <Meena Lawson - Last Filed: 10/06/16 00:35> - General Stated Complaint: SEIZURE Time Seen by Provider: 09/29/16 17:19 Past History <Claudia Kauffman - Last Filed: 09/29/16 23:29> - Past Medical History Anemia: No Asthma: No Cancer: No Cardiac Disorders: Yes (A FIB) CVA: Yes (left sided weakness) COPD: No CHF: No Dementia: No Diabetes: No Dialysis: Yes (M/W/F) GI Disorders: No Disorders: No HTN: Yes Hypercholesterolemia: Yes Kidney Stones: Yes Liver Disease: No Suicide Attempt (Hx): No Seizures: No Thyroid Disease: No - Surgical History Abdominal Surgery: No Appendectomy: No Cardiac Surgery: No Cholecystectomy: No Gastric Stapling: No GI Surgery: No Lung Surgery: No Neurologic Surgery: No Orthopedic Surgery: No - Psycho/Social/Smoking Cessation Hx Anxiety: No Suicidal Ideation: No Smoking Status: No Smoking History: Never smoked Have you smoked in the past 12 months: No Number of Cigarettes Smoked Daily: 0 Hx Alcohol Use: No Drug/Substance Use Hx: No Substance Use Type: None Hx Substance Use Treatment: No <Meena Lawson - Last Filed: 10/06/16 00:35> - Past Medical History Allergies/Adverse Reactions: Allergies Allergy/AdvReac Type Severity Reaction Status Date / Time No Known Allergies Allergy Verified 09/29/16 17:37 Home Medications: Ambulatory Orders Amlodipine Besylate [Norvasc -] 10 mg PO DAILY 08/02/16 Atorvastatin Ca [Lipitor] 40 mg PO HS 08/02/16 Cinacalcet HCl [Sensipar] 30 mg PO DAILY 08/02/16 Escitalopram Oxalate [Lexapro -] 5 mg PO DAILY 08/02/16 Metoprolol Succinate [Toprol XL -] 37.5 mg PO DAILY 08/02/16 Sennosides [Senna] 8.6 mg PO BID 08/02/16 Acetaminophen [Tylenol .Regular Strength -] 650 mg PO Q4H PRN #0 tablet Valsartan [Diovan] 80 mg PO DAILY #30 tablet 08/07/16 Levetiracetam [Keppra -] 750 mg PO BID tablet 10/02/16 Sevelamer Carbonate [Renvela -] 3,200 mg PO BIDWM tab 10/02/16 Review of Systems - Review of Systems Comments:: 09/29/16 23:21 CONSTITUTIONAL: Absent: fever, chills, diaphoresis, generalized weakness, malaise, loss of appetite HEENT: Absent: rhinorrhea, nasal congestion, throat pain, throat swelling, difficulty swallowing, mouth swelling, ear pain, eye pain, visual changes CARDIOVASCULAR: Absent: chest pain, syncope, palpitations, irregular heart rate, lightheadedness , peripheral edema RESPIRATORY: Absent: cough, shortness of breath, dyspnea with exertion, orthopnea, wheezing, stridor, hemoptysis GASTROINTESTINAL: Absent: abdominal pain, abdominal distension, nausea, vomiting, diarrhea, constipation, melena, hematochezia GENITOURINARY: Absent: dysuria, frequency, urgency, hesitancy, hematuria, flank pain, genital pain MUSCULOSKELETAL: Absent: myalgia, arthralgia, joint swelling SKIN: Absent: rash, itching, pallor HEMATOLOGIC/IMMUNOLOGIC: Absent: easy bleeding, easy bruising, lymphadenopathy, frequent infections ENDOCRINE: Absent: unexplained weight gain, unexplained weight loss, heat intolerance, cold intolerance NEUROLOGIC: Present: seizure Absent: headache, focal weakness or paresthesia, dizziness, unsteady gait, mental status changes, bladder or bowel incontinence. PSYCHIATRIC: Absent: anxiety, depression, suicidal or homicidal ideation, hallucinations <Claudia Kauffman - Last Filed: 09/29/16 23:29> *Physical Exam - Vital Signs Last Vital Signs Temp Pulse Resp BP Pulse Ox 98.3 F 69 18 165/113 100 09/29/16 17:33 09/29/16 17:33 09/29/16 17:33 09/29/16 17:33 09/29/16 17:33 - Physical Exam Comments: 09/29/16 23:22 GENERAL: Well developed, well nourished. Awake and alert. No acute distress. HEENT: Normocephalic, atraumatic. PERRLA, EOMI. No conjunctival pallor. Sclera are non- icteric. Moist mucous membranes. Oropharynx is clear. NECK: Supple. Full ROM. No JVD. Carotid pulses 2+ and symmetric, without bruits. No thyromegaly. No lymphadenopathy. CARDIOVASCULAR: Irregularly irregular. No murmurs, rubs, or gallops. Distal pulses are 2+ and symmetric. PULMONARY: No evidence of respiratory distress. Lungs clear to auscultation bilaterally. No wheezing, rales or rhonchi. ABDOMINAL: Protuberant. Soft. Non-tender. Non-distended. No rebound or guarding. No organomegaly. Normoactive bowel sounds. MUSCULOSKELETAL: Normal range of motion at all joints. No bony deformities or tenderness. No CVA tenderness. EXTREMITIES: Contracture of the left hand and arm (chronic). Right AV graft with bruits and thrill. No cyanosis. No clubbing. No edema. No calf tenderness. SKIN: Warm and dry. Normal capillary refill. No rashes. No jaundice. NEUROLOGICAL: Alert, awake, appropriate, conversant. Answering simple questions. Left hemiplegia. Normal speech. PSYCHIATRIC: Cooperative. Good eye contact. Appropriate mood and affect. <Claudia Kauffman - Last Filed: 09/29/16 23:29> ED Treatment Course - LABORATORY CBC & Chemistry Diagram: 09/29/16 17:40 09/29/16 17:40 - ADDITIONAL ORDERS Additional order review: Laboratory Results 09/29/16 09/29/16 09/29/16 17:40 17:40 17:40 INR 3.36 H D Sodium 138 Potassium 4.0 D Chloride 97 L Carbon Dioxide 28 Anion Gap 13 BUN 46 H D Creatinine 8.0 H* D Creat Clearance w eGFR 6.92 Random Glucose 90 Calcium 8.8 Total Bilirubin 0.4 AST 16 ALT 19 Alkaline Phosphatase 148 H D Creatine Kinase 74 Troponin I 0.03 Total Protein 7.7 D Albumin 4.1 D Blood Type O POSITIVE Antibody Screen Negative 09/29/16 17:40 RBC 4.54 D MCV 74.3 L MCHC 31.3 L RDW 19.7 H D MPV 8.9 Neutrophils % 42.0 L Lymphocytes % 40.0 D Monocytes % 12.0 H - RADIOLOGY Radiograph Interpretation: 09/29/16 19:53 Retail Representative: ([email or web address]) Report Date: 09/29/2016 18:12:00 Report Status: Addendum Begin of Report Content Referring Physician: Meena Yoon The finding of a right frontal temporal subdural hematoma with imaging characteristics of acute on subacute or chronic was discussed with at 7:10 PM September 29, 2016. THIS DOCUMENT HAS BEEN ELECTRONICALLY SIGNED Isatu Mora MD 09/29/2016 19:11 EST MMarvin. Please call [facility] [phone] with questions. PREVIOUS REPORT: Referring Physician: Meena Yoon The finding of a right frontal temporal subdural hematoma with imaging characteristics of acute on subacute or chronic was discussed with at 7:10 PM September 29, 2016. THIS DOCUMENT HAS BEEN ELECTRONICALLY SIGNED Isatu Mora MD 09/29/2016 19:11 EST MAndrew Please call [facility] Consult[facility] [phone] with questions. PREVIOUS REPORT: Referring Physician: Meena Lawson Patient Name: Neymar Yoon THIS IS A PRELIMINARY REPORT FROM [facility] EXAM: CT head without contrast IMAGES: 143 D ATE OF SERVICE: 2016-09-29 18:12:24.0 HISTORY:Altered mental status. Headache.. Patient is on Coumadin with abnormal INR. COMPARISON: Head CT dated August 02, 2016. FINDINGS: 1. Again noted is the chronic infarct in the right frontal lobe and insular region. There has been interval development of a right frontotemporal subdural hematoma with imaging characteristics of an acute on subacute or chronic hematoma. This measures approximately 1.4 cm in the maximal depth and results in a mild degree of mass effect on the underlying brain. 2. Ventricular size is concordant with the degree of atrophy. 3. The visualized portions of the orbits, paranasal and mastoid sinuses are unremarkable. 4. No evidence of fracture. The finding of a right frontal temporal subdural hematoma with imaging characteristics of acute on subacute or chronic subdural hematoma was discussed with at 7:10 PM September 29, 2016. THIS DOCUMENT HAS BEEN ELECTRONICALLY SIGNED Isatu Mora MD 09/29/2016 19:11 EST M.Patt. Please call [facility] [phone] with questions. End of Report Content <Claudia Kauffman - Last Filed: 09/29/16 23:29> - LABORATORY CBC & Chemistry Diagram: 09/30/16 10:55 09/30/16 10:55 <Meena Lawson - Last Filed: 10/06/16 00:35> Medical Decision Making - Medical Decision Making 09/29/16 21:43 51-year-old male presented to the emergency department after having a partial complex seizure. He does have a prior history of seizures and takes Keppra 500 mg twice a day patient also has history of end-stage renal disease, Thursday, Thursday, Fridays Dr. 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 Slade Patient also has a history of coronary artery disease. He reports having placement of AICD at [place] this August -ct scan brain revealed a small acute subdural bleed. Neurosurgery, Dr Bernice Farfan consulted and there will be no neurosurgical intervention. Pt is taking Coumadin for afib and his INR was 3.3 . This was reversed with vit k and FFP was ordered. Pt admitted to ICU 10/06/16 00:31 <Meena Lawson - Last Filed: 10/06/16 00:35> *DC/Admit/Observation/Transfer - Attestations Scribe Attestion: 09/29/16 20:03 Documentation prepared by Claudia Kauffman, acting as expert medical writer for Meena Lawson MD. <Claudia Kauffman - Last Filed: 09/29/16 23:29> - Discharge Dispostion Admit: Yes <Meena Lawson - Last Filed: 10/06/16 00:35> Diagnosis at time of Disposition: ESRD (end stage renal disease), Seizure, Subdural hemorrhage, Elevated INR Hypertension Qualifiers: Hypertension type: essential hypertension Qualified Code(s): I10 - Essential ( primary) hypertension - Discharge Dispostion Disposition: VNS/HOME HEALTH CARE Condition at time of disposition: Stable - Referrals
[2016-09-29 17:37] VITALS: BMI 36.6
[2016-09-29 17:54] LABS: MCH 23.2 pg (25.7-33.7); MCHC 31.3 g/dl (32.0-35.9); MEAN CELL VOLUME 74.3 fl (80-96); MEAN PLT VOLUME 8.9 fl (7.5-11.1); PLATELET COUNT 240 K/MM3 (134-434); RDW 19.7 % (11.9-15.9)
[2016-09-29 18:04] LABS: INR 3.36 (0.82-1.09); PROTHROMBIN TIME (PATIENT) 37.9 SEC (9.98-11.88)
[2016-09-29 18:14] LABS: ALBUMIN 4.1 g/dl (3.4-5.0); BILIRUBIN,TOTAL 0.4 mg/dL (0.2-1.0); CALCIUM 8.8 mg/dL (8.5-10.1); TOT PROT 7.7 g/dl (6.4-8.2)
[2016-09-29 18:20] LABS: ANISOCYTOSIS 1+; HYPOCHROMIA 1+; MICROCYTOSIS 1+; PLATELET ESTIMATE ADEQUATE (NORMAL); POLYCHROMASIA FEW; TROPONIN I 0.03 ng/ml (0.00-0.05)
[2016-09-29 18:21] LABS: OVALOCYTES FEW; TARGET CELLS FEW
[2016-09-29 18:29] LABS: COCKROFT - GAULT 13.8
[2016-09-29] MEDS ORDERED: PHYTONADIONE 10 MG/1 ML AMP SQ ONE (20:58)
[2016-09-29] MEDS ORDERED: PHENYLEPHRINE HCL 10 MG/1 ML SINGLE DOSE VIAL ONE (21:05)
[2016-09-29] MEDS ORDERED: PHYTONADIONE 10 MG/1 ML AMP ONE (21:06)
[2016-09-29] MEDS ORDERED: METOPROLOL SUCCINATE 25 MG TAB.SR.24H (FP) PO STA (21:27)
[2016-09-29] MEDS ORDERED: VALSARTAN 80 MG TABLET (UD) PO ONE (21:28)
[2016-09-29] MEDS ORDERED: levETIRAcetam 500 MG TABLET (FP) PO ONE (21:28)
[2016-09-29] MEDS ORDERED: levETIRAcetam 500 MG/5 ML INJECTION VIAL IVPB ONE (21:36)
[2016-09-29] MEDS ORDERED: ONDANSETRON 4 MG/2 ML VIAL ONE (21:50)
[2016-09-29] MEDS ORDERED: ACETAMINOPHEN 325 MG TABLET (FP) PO PRN (23:07)
--- NOTE | 2016-09-30 00:11 | HP ---
DATE OF ADMISSION: DATE OF DICTATION: 09/29/2016 HISTORY OF PRESENT ILLNESS: He is a 61-year-old male who presented to the emergency room with an episode of seizures. Patient was in his usual state of health when he had returned from dialysis. He had an episode of an aura, a usual sensation that he recognized as something that occurs before his seizure. He called his mother for attention, that passed, and awhile later he had a repeated attack of an aura, and then subsequently a seizure, and was brought to the emergency room. Here, a CAT scan was performed that has a questionable bleed and an old infarct. He has a past medical history of end-stage renal disease. He has been on hemodialysis for the past 17 years. He also has a history of seizures that occurred about 14 years ago, and ever since his stroke about a year ago, he has had a few episodes of seizures. He also has a history of hypertension, stroke that occurred about a year ago. Atrial fibrillation. MEDICATION: His present medications at home: warfarin 7.5 mg p.o. daily, valsartan 80 mg p.o. daily, 10 mg 3 times a day, senna 8.6 mg twice a day, prednisone 10 mg twice a day, metoprolol 37.5 mg daily, Keppra 5 mg twice a day, lexapro 5 mg p.o. daily, Sensipar 30 mg p.o. daily, atorvastatin 40 mg p.o. daily, Norvasc 10 mg p.o. daily, and Tylenol on a p.r.n. basis. ALLERGIES: None. SOCIAL HISTORY: He is . He has no children. He smokes occasionally and denies any alcohol or drug use. FAMILY HISTORY: Significant for 4 siblings. His mother had breast cancer and liver cancer. REVIEW OF SYSTEMS: Unremarkable. He has generally been in good health. He denies any chronic headache, dizziness, chest pain, palpitation, abdominal pain, loss of weight, loss of appetite. PHYSICAL EXAMINATION: General: He is alert, oriented, awake. Vital signs: His blood pressure is 176/83, pulse rate of 83, respiratory rate of 16, and temperature 98.3. Neck: . Parotid and carotids appear normal. Heart: Irregular rhythm. No murmurs. Lungs: Clear breathing. Abdomen: Benign. Extremities: No edema. LABORATORY: She has a basic metabolic panel that has a BUN of 46, creatinine 8, otherwise he is within normal limits. He has a PT/INR of 3.36 and a white count of 8000 with an hemoglobin and hematocrit of 10.[address] scan has preliminary reading that claims patient to have an old stroke and a small possible acute infarct. ASSESSMENT AND PLAN: Seizure, very likely a continuation of his epilepsy. Keppra 500 mg has been given in the emergency room. A possibility of a new bleed is there. Would repeat CAT scan. Reverse INR and lexapro would have to be discontinued given recurrent seizures being a stimulant for epilepsy, and Keppra levels are to be monitored, and doses titrated as needed. 2. End-stage renal disease. 3. Hypertension. 4. Atrial fibrillation. Continue present medications except hold anticoagulation upon discharge a consideration might be to use Eliquis in place of Levaquin given recurrent bleeds. MANPREET HERRERA M.D. JOSE [id number]
--- NOTE | 2016-09-30 03:36 | PDOC ---
*Physical Exam - Vital Signs Last Vital Signs Temp Pulse Resp BP Pulse Ox 98.7 F 64 22 137/72 100 09/30/16 01:43 09/30/16 01:43 09/30/16 01:43 09/30/16 01:43 09/30/16 01:43 ED Treatment Course - LABORATORY CBC & Chemistry Diagram: 09/29/16 17:40 09/29/16 17:40 - ADDITIONAL ORDERS Additional order review: Laboratory Results 09/29/16 09/29/16 09/29/16 17:40 17:40 17:40 INR 3.36 H D Sodium 138 Potassium 4.0 D Chloride 97 L Carbon Dioxide 28 Anion Gap 13 BUN 46 H D Creatinine 8.0 H* D Creat Clearance w eGFR 6.92 Random Glucose 90 Calcium 8.8 Total Bilirubin 0.4 AST 16 ALT 19 Alkaline Phosphatase 148 H D Creatine Kinase 74 Troponin I 0.03 Total Protein 7.7 D Albumin 4.1 D Blood Type O POSITIVE Antibody Screen Negative 09/29/16 17:40 RBC 4.54 D MCV 74.3 L MCHC 31.3 L RDW 19.7 H D MPV 8.9 Neutrophils % 42.0 L Lymphocytes % 40.0 D Monocytes % 12.0 H - Medications Given in the ED: ED Medications Discontinued Medications Generic Name Dose Route Start Last Admin Trade Name Ryanq PRN Reason Stop Dose Admin Levetiracetam 500 mg 09/29/16 21:28 09/29/16 21:51 Keppra - PO 09/29/16 21:29 500 mg ONCE ONE Administration Metoprolol Succinate 37.5 mg 09/29/16 21:27 09/29/16 22:28 Toprol Xl - PO 09/29/16 21:28 37.5 mg ONCE STA Administration Phytonadione 10 mg 09/29/16 20:58 09/29/16 21:14 Aqua Mephyton Injection - SQ 09/29/16 20:59 10 mg ONCE ONE Administration Valsartan 80 mg 09/29/16 21:28 09/29/16 22:32 Diovan - PO 09/29/16 21:29 Not Given ONCE ONE Medical Decision Making - Medical Decision Making 09/30/16 03:35 Pt endorsed to me by Dr. Lawson at 2am shift change. Awaiting repeat CTH, as he was continuing to have symptoms and has history of anticoagulation. CTH no change from prior. *DC/Admit/Observation/Transfer Diagnosis at time of Disposition: ESRD (end stage renal disease), Seizure, Subdural hemorrhage, Elevated INR Hypertension Qualifiers: Hypertension type: essential hypertension Qualified Code(s): I10 - Essential ( primary) hypertension
[2016-09-30] MEDS ORDERED: SEVELAMER CARBONATE 800 MG TAB (FP) PO SCH (08:00)
--- NOTE | 2016-09-30 08:16 | PN ---
Progress Note (short form) - Note Progress Note: NEUROSURGERY Chart reviewed CT's reviewed H/o AFib on coumadin, HTN, R MCA stroke (left hemiparesis UE > LE), seizures, nephrolithiasis, and ESRD (dialysis M,W,F), presents to the ED for seizure. Earlier this evening, the patient developed an aura and called his mother. The patient had a partial complex seizure witnessed by his mother. He's been having seizures for the past 16 years. Denies any head trauma though admits that he could have fallen after his sz PE: 98.5, VSS initially SBP 170 HEENT- minimal R sided scalp swelling; neck- supple; Cor- ireg; Lungs- CTA B; Abd- benign; obese; Ext- no sign of DVT A/A/Ox3 CN- face symmetric, EMOF, tongue to L; Motor- L UE 0/5; prox L LE 2, distal 0; Sensation- intact; DTR- R sided 2+, L sided 1+ WBC 8; Hgb 10.6; platelet 270; INR 3.[address] 08-02-16: old R MCA stroke with encephalomalacia; atrophy Head CT 09-29-16: R fronto-parietal subacute SDH with focal hyperdensity, no significant mass effect or shift; same MCA stroke F/u CT 09-30-16: unchanged subacute SDH, perhaps slightly less hyperdense portion Acute-subacute R SDH with minimal mass effect/ESRD on HD Transfused FFP last night Unfortunately cannot be back on AC for about 1 month given acute blood/SDH Consult neurology (seen Dr Mendenhall previously) for sz control-medication regimen change? Fall/sz precaution Repeat INR
[2016-09-30] MEDS ORDERED: MUPIROCIN 2% TOPICAL OINTMENT FOR DECOLONIZATION NS SCH ×2 (10:00→22:00)
--- NOTE | 2016-09-30 10:09 | CONS ---
DATE OF CONSULTATION: DATE OF DICTATION: 09/30/2016 REQUESTING PHYSICIAN: Meena Lawson M.D., Emergency Department LIVESTOCK SALES REPRESENTATIVE: Renny Farfan M.D., Neurosurgery CHIEF COMPLAINT: Seizure disorder with right-sided subdural hematoma. HISTORY OF PRESENT ILLNESS: The patient is a 61-year-old right-handed male with a history of end-stage renal disease on hemodialysis, right MCA stroke, seizure disorder, nephrolithiasis, atrial fibrillation on chronic anticoagulation, AICD placement, who complains of a new seizure yesterday. He had loss of consciousness at this time, and did not recall a subsequent event. He had felt "funny" and generally has that same aura every time he has a seizure. He does fall from his seizure, and even though he denies any trauma, he does admit to the possibility of having hit his head while he had the seizure. He has a seizure about once a month at least. He has been under the care of Dr. Mendenhall. He is on Keppra 500 mg b.i.d. PAST MEDICAL HISTORY: Significant for right MCA stroke with left hemiparesis, atrial fibrillation/atrial flutter on anticoagulation, AICD placement, hypertension, nephrolithiasis, end-stage renal disease on hemodialysis 3 times a week. MEDICATIONS: Tylenol, Diovan, Keppra, Toprol-XL, senna, Norvasc, Lipitor, Sensipar, and Renvela. ALLERGIES: There is no known drug allergy. FAMILY HISTORY: Noncontributory. SOCIAL HISTORY: He does not smoke, or drink. He lives at home with his family. He does not work. He is disabled. REVIEW OF SYSTEMS: Is otherwise negative for other major cardiovascular, pulmonary, gastrointestinal, genitourinary, endocrinologic, neurologic, or psychologic problems except for the above. PHYSICAL EXAMINATION: Vital signs: Temperature is 97.8, blood pressure is 146/64, his pulse rate is 60, O2 saturation is 97% on room air. HEENT: Shows him to be normocephalic, atraumatic, anicteric. Neck: Supple without carotid bruit. Coronary: Demonstrated irregular rhythm. Lungs: Clear bilaterally. Abdomen: Obese, but benign. Extremities: Show no obvious signs of DVT. Neurologic: He is awake, alert, oriented x3. Cranial nerves examination is generally intact. He had tongue deviation towards the left. Motor examination shows 5/5 strength on the right. Left upper extremity strength is 0/5 proximal. Left lower extremity strength is 2/5. Distal lower extremity strength is 0/5. He has increased tone on the left side associated with hemiparesis. Sensory examination is intact to light touch. Deep tendon reflexes are 1+ on the right and 1/0+ on the left. Toes are equivocal. LABORATORY EXAMINATION: Shows white blood cell count 8,000, hemoglobin is 10.6 and platelet count is 240,000. INR was 3.36 initially and the patient subsequently received 2 units of FFP. Serum sodium is 138 and potassium is 4.0. BUN and creatinine are 46 and 8.0 respectively. Glucose is 90. Albumin is 4.1. CT scan of the head demonstrated an old right MCA stroke at the MCA middle division. There was associated atrophy and encephalomalacia. There is an overlying right frontotemporoparietal subdural hematoma, which is subacute, with some punctate hyperdensity. There is mild cortical mass effect, but there is no mass effect on the ventricle or the midline because of his underlying atrophy/encephalomalacia. A repeat CT scan did not demonstrate significant change. When compared to the August 02, 2016 scan, the subdural fluid collection is new. IMPRESSION: 1. Acute/subacute right frontotemporoparietal subdural hematoma with mild mass effect, but no shift. 2. Underlying seizure disorder, status post right middle cerebral artery stroke and resultant left hemiparesis. 3. End-stage renal disease on hemodialysis. 4. Atrial fibrillation/atrial flutter, status post automatic implantable cardioverter-defibrillator placement, as well as anticoagulation. 5. Obesity. RECOMMENDATIONS: The patient presents with another seizure disorder. He states that he has about 1 seizure a month. He does lose consciousness. Even though he denies any recent trauma, or hitting his head, he admits to the possibility of having hit his head after he loses consciousness. There is slight scalp swelling on my examination today on the right side and it is mildly tender. The patient might have hit his head beginning of August after his seizure, and developed late subdural hematoma and possibly had another recurrence after this most recent seizure activity. He has been transfused 2 units FFP. Unfortunately, the anticoagulation will need to be held for about 1 month. His risk of additional thromboembolic events are higher given his cardiac arrhythmia and the history of stroke, unfortunately. Unfortunately, the balance has to be struck between having more acute subdural blood, versus the risk of thromboembolic event at this time. Ideally, the anticoagulation should be held for about 1 month. Follow up Neurology evaluation for possible anticonvulsant adjustment to decrease the seizure episodes and with his deputy probation officer is recommended. All questions were answered at the bedside. No neurosurgical intervention is recommended given the patient is at his neurological baseline and there is significant brain atrophy/encephalomalacia on the right hemisphere to accommodate the small-moderate amount of subdural blood collection. Repeat INR has been ordered. Maribell [id number] cc: Meena Lawson M.D. MTDD
[2016-09-30 11:00] LABS: BASOPHIL 1.2 % (0-2.0); EOSINOPHIL 0.5 % (0-4.5); MCH 23.3 pg (25.7-33.7); MCHC 31.2 g/dl (32.0-35.9); MEAN CELL VOLUME 74.7 fl (80-96); MEAN PLT VOLUME 8.8 fl (7.5-11.1); NEUTROPHILS 55.6 % (42.8-82.8); PLATELET COUNT 242 K/MM3 (134-434); RDW 19.2 % (11.9-15.9); WHITE BLOOD COUNT 7.2 K/mm3 (4.0-10.0)
[2016-09-30 11:19] LABS: INR 1.9 (0.82-1.09); PROTHROMBIN TIME (PATIENT) 21.2 SEC (9.98-11.88)
[2016-09-30 11:25] LABS: CALCIUM 9.8 mg/dL (8.5-10.1); MAGNESIUM 1.9 mg/dL (1.8-2.4); PHOSPHOROUS 4.1 mg/dL (2.5-4.9)
[2016-09-30] MEDS: amLODIPine BESYLATE 10 MG TABLET (FP) PO SCH (12:00)
[2016-09-30] MEDS: CINACALCET HCL 30 MG TAB (FP) PO SCH (12:00)
[2016-09-30] MEDS: METOPROLOL SUCCINATE 25 MG TAB.SR.24H (FP) PO SCH (12:00)
[2016-09-30] MEDS: levETIRAcetam 500 MG TABLET (FP) PO SCH ×2 (12:00→21:02)
[2016-09-30] MEDS: VALSARTAN 80 MG TABLET (UD) PO SCH (12:00)
[2016-09-30] MEDS: SENNOSIDES 8.6MG TABLET (FP) PO SCH ×2 (12:00→21:02)
[2016-09-30] MEDS ORDERED: amLODIPine BESYLATE 5 MG TABLET (FP) ONE (12:18)
[2016-09-30] MEDS ORDERED: VALSARTAN 80 MG TABLET (UD) ONE (12:19)
[2016-09-30] MEDS ORDERED: levETIRAcetam 500 MG TABLET (FP) PO ONE (12:19)
--- NOTE | 2016-09-30 14:03 | HP ---
Admitting History and Physical - Primary Care Physician PCP: Renny Slade - Admission Chief Complaint: had seizure at home witnessed by Mom History of Present Illness: Patient had a sudden feeling in his chest of discomfort not palpitations and then had his arm on the left side develop tremors. He said the event lasted for a few minutes but he didn't fall like he did before his last admission. CAT scan showed old CVA changes and new area of subdural. He waqs not treated here for his CVA of 1 frances ago but the treating MD's recommended anticoagulation as a treatment. His INR was 3.36 on admission and he is followed by weekly house call INRs which have been between 2-3 consistently in the recent month. His Mom gives him the RX. The patient had an impanted loop placed several months ago at [facility] and an outpt EEG which I believe was non diagnostic but that record will need to be checked. Dr. Farfan saw the patient here and Rec: observation but to D/C [facility] for apprx. 1 month. Neuro and Cardiology consults will be placed. 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 Cardiovascular: Yes: AFIB (paroxysmal), HTN Gastrointestinal: Yes: Constipation Renal/: Yes: Renal Failure, Hemodialysis Musculoskeletal: Yes: Hemiplegia, Other (But he has pogressed to walk with an aide and brace at home.) - Past Surgical History Past Surgical History: Yes: None, Cataract Removal - Smoking History Smoking history: Never smoked Have you smoked in the past 12 months: No Aproximately how many cigarettes per day: 0 - Alcohol/Substance Use Hx Alcohol Use: No History of Substance Use: reports: None - Social History Usual Living Arrangement: Yes: With Parent ADL: Family Assistance Occupation: retired due illness History of Recent Travel: No Home Medications - Allergies Allergies/Adverse Reactions: Allergies Allergy/AdvReac Type Severity Reaction Status Date / Time No Known Allergies Allergy Verified 09/29/16 17:37 - Home Medications Home Medications: Ambulatory Orders Amlodipine Besylate [Norvasc -] 10 mg PO DAILY 08/02/16 Atorvastatin Ca [Lipitor] 40 mg PO HS 08/02/16 Cinacalcet HCl [Sensipar] 30 mg PO DAILY 08/02/16 Escitalopram Oxalate [Lexapro -] 5 mg PO DAILY 08/02/16 Metoprolol Succinate [Toprol XL -] 37.5 mg PO DAILY 08/02/16 Sennosides [Senna] 8.6 mg PO BID 08/02/16 Sevelamer Carbonate [Renvela -] 4,000 mg PO BID 08/02/16 Warfarin Sodium [Coumadin] 7.5 mg PO HS 08/02/16 Acetaminophen [Tylenol .Regular Strength -] 650 mg PO Q4H PRN #0 tablet Levetiracetam [Keppra -] 500 mg PO BID #60 tablet 08/07/16 Valsartan [Diovan] 80 mg PO DAILY #30 tablet 08/07/16 Family Disease History - Family Disease History Family Disease History: CA: Mother Review of Systems - Review of Systems Constitutional: reports: Weakness Eyes: denies: Recent Change in Vision HENT: denies: Difficult Swallowing Cardiovascular: reports: Other (discomfort retrosternal at the start of left arm tremors.) Respiratory: reports: SOB on Exertion Gastrointestinal: reports: Constipation Genitourinary: reports: Other (normally no urination; on dialysis) Neurological: reports: Tremors (left hand for ? minutes at home). denies: Headache Psychiatric: denies: Anxiety Physical Examination Vital Signs: Vital Signs Temperature 97.8 F 09/30/16 07:54 Pulse Rate 60 09/30/16 11:50 Respiratory Rate 20 09/30/16 11:50 Blood Pressure 163/72 09/30/16 11:50 O2 Sat by Pulse Oximetry (%) 97 09/30/16 11:50 Constitutional: Yes: Calm Eyes: Yes: Conjunctiva Clear Cardiovascular: Yes: Regular Rate and Rhythm Respiratory: Yes: Diminished Gastrointestinal: Yes: Soft Extremities: Yes: Other (dialysis access) Edema: LLE: Trace Integumentary: Yes: WNL Neurological: Yes: Alert, Oriented ...Motor Strength: LUE, LLE (weakness since CVA) Labs: CBC, BMP 09/30/16 10:55 09/30/16 10:55 Imaging - Results Chest X-ray: Report Reviewed Cat Scan: Report Reviewed Problem List - Problems (1) Subdural hemorrhage Assessment/Plan: New change on CAT scan Head; neurosurgeon saw patient; to add Neuro consult Code(s): I62.00 - NONTRAUMATIC SUBDURAL HEMORRHAGE, UNSPECIFIED (2) ESRD (end stage renal disease) Assessment/Plan: On Dialysis Thu and Thursday Code(s): N18.6 - END STAGE RENAL DISEASE (3) Seizure Assessment/Plan: left sided tremors; ?? actual seizure. Code(s): R56.9 - UNSPECIFIED CONVULSIONS (4) Hypertension Assessment/Plan: BOP noted and stable. Code(s): I10 - ESSENTIAL (PRIMARY) HYPERTENSION Qualifiers: Hypertension type: essential hypertension Qualified Code(s): I10 - Essential (primary) hypertension (5) Atrial flutter by electrocardiogram Assessment/Plan: On Coumadin; implanted loop in place; Cardiology consult placed. Code(s): I48.92 - UNSPECIFIED ATRIAL FLUTTER
--- NOTE | 2016-09-30 14:12 | EKG ---
Test Reason : Blood Pressure : / mmHG Vent. Rate : 083 BPM Atrial Rate : 083 BPM P-R Int : 262 ms QRS Dur : 112 ms QT Int : 418 ms P-R-T Axes : 000 -51 059 degrees QTc Int : 491 ms BASELINE ARTIFACT LIMITS ACCURATE FINDING LEFT AXIS DEVIATION INFERIOR-POSTERIOR INFARCT (CITED ON OR BEFORE 02-AUG-2016) CANNOT RULE OUT ANTERIOR INFARCT (CITED ON OR BEFORE 02-AUG-2016) ABNORMAL ECG WHEN COMPARED WITH ECG OF 03-AUG-2016 10:14, T WAVE VARIATION Confirmed by ANTONIO CANDELARIA MD ([id number]) on 09/30/2016 2:12:03 PM Referred By: Confirmed By:ANTONIO CANDELARIA MD
--- NOTE | 2016-09-30 17:35 | CONSULT ---
Consult Consult Specialty:: Nephrology Reason for Consultation:: ESRD - History of Present Illness Chief Complaint: presented with seizure History of Present Illness: Pt is a 61 year old male with pmhx of ESRD (MWF schedule), a-fib, HTN, DM, CVA, epilepsy and nephrolithiasis who presents to the ER after having a seizure. He has history of epilepsy. He last had HD yesterday. I was called to evaluate him as he is on HD. He says that he feels better today and feels that he is back to his baseline. He denies chest pain. He denies shortness of breath. Th seizure lasted for a few minutes. 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 Cardio/Vascular: Yes: AFIB (paroxysmal), HTN Gastrointestinal: Yes: Constipation Renal/: Yes: Renal Failure, Hemodialysis Musculoskeletal: Yes: Hemiplegia, Other (But he has pogressed to walk with an aide and brace at home.) - Past Surgical History Past Surgical History: Yes: None, Cataract Removal - Alcohol/Substance Use Hx Alcohol Use: No History of Substance Use: reports: None - Smoking History Smoking history: Never smoked Have you smoked in the past 12 months: No Aproximately how many cigarettes per day: 0 - Social History ADL: Family Assistance Occupation: retired due illness History of Recent Travel: No Home Medications - Allergies Allergies/Adverse Reactions: Allergies Allergy/AdvReac Type Severity Reaction Status Date / Time No Known Allergies Allergy Verified 09/29/16 17:37 - Home Medications Home Medications: Ambulatory Orders Amlodipine Besylate [Norvasc -] 10 mg PO DAILY 08/02/16 Atorvastatin Ca [Lipitor] 40 mg PO HS 08/02/16 Cinacalcet HCl [Sensipar] 30 mg PO DAILY 08/02/16 Escitalopram Oxalate [Lexapro -] 5 mg PO DAILY 08/02/16 Metoprolol Succinate [Toprol XL -] 37.5 mg PO DAILY 08/02/16 Sennosides [Senna] 8.6 mg PO BID 08/02/16 Sevelamer Carbonate [Renvela -] 4,000 mg PO BID 08/02/16 Warfarin Sodium [Coumadin] 7.5 mg PO HS 08/02/16 Acetaminophen [Tylenol .Regular Strength -] 650 mg PO Q4H PRN #0 tablet Levetiracetam [Keppra -] 500 mg PO BID #60 tablet 08/07/16 Valsartan [Diovan] 80 mg PO DAILY #30 tablet 08/07/16 Family Disease History - Family Disease History Family Disease History: CA: Mother Review of Systems - Review of Systems Constitutional: reports: No Symptoms Eyes: reports: No Symptoms HENT: reports: No Symptoms Neck: reports: No Symptoms Cardiovascular: reports: No Symptoms Respiratory: reports: No Symptoms Gastrointestinal: reports: No Symptoms Genitourinary: reports: No Symptoms Integumentary: reports: No Symptoms Neurological: reports: Change in LOC, Seizure Endocrine: reports: No Symptoms Hematology/Lymphatic: reports: No Symptoms Psychiatric: reports: No Symptoms Physical Exam Vital Signs: Vital Signs Temperature 97.8 F 09/30/16 07:54 Pulse Rate 60 09/30/16 11:50 Respiratory Rate 20 09/30/16 11:50 Blood Pressure 163/72 09/30/16 11:50 O2 Sat by Pulse Oximetry (%) 97 09/30/16 11:50 Constitutional: Yes: Calm Eyes: Yes: Conjunctiva Clear HENT: Yes: Atraumatic Cardiovascular: Yes: S1, S2 Respiratory: Yes: CTA Bilaterally Gastrointestinal: Yes: Soft Renal/: Yes: WNL Musculoskeletal: Yes: WNL Edema: No Neurological: Yes: Oriented Psychiatric: Yes: Oriented Labs: CBC, BMP 09/30/16 10:55 09/30/16 10:55 Laboratory Tests 09/29/16 09/30/16 09/30/16 17:40 10:55 10:55 Hgb 10.6 L D 10.0 L Hct 33.8 L D 32.0 L Sodium 137 Potassium 4.4 Chloride 96 L Carbon Dioxide 29 Anion Gap 12 BUN 60 H D Creatinine 10.0 H* D Imaging - Results Chest X-ray: Report Reviewed Cat Scan: Report Reviewed Problem List - Problems (1) ESRD (end stage renal disease) Code(s): N18.6 - END STAGE RENAL DISEASE (2) Hypertension Code(s): I10 - ESSENTIAL (PRIMARY) HYPERTENSION Qualifiers: Hypertension type: essential hypertension Qualified Code(s): I10 - Essential (primary) hypertension (3) Seizure Code(s): R56.9 - UNSPECIFIED CONVULSIONS (4) Subdural hemorrhage Code(s): I62.00 - NONTRAUMATIC SUBDURAL HEMORRHAGE, UNSPECIFIED Assessment/Plan Current Medications Generic Name Dose Route Start Last Admin Trade Name Josee PRN Reason Stop Dose Admin Acetaminophen 650 mg 09/29/16 23:07 Tylenol - PO Q4H PRN FEVER OR PAIN Amlodipine Besylate 10 mg 09/30/16 10:00 09/30/16 12:00 Norvasc - PO 10 mg DAILY SANDEEP Administration Atorvastatin Calcium 40 mg 09/30/16 22:00 Lipitor - PO HS SANDEEP Chlorhexidine Gluconate 1 applic 09/30/16 22:00 Hibiclens For Decolonization - TP HS SANDEEP Cinacalcet 30 mg 09/30/16 10:00 09/30/16 12:00 Sensipar - PO 30 mg DAILY SANDEEP Administration Levetiracetam 500 mg 09/30/16 10:00 09/30/16 12:00 Keppra - PO 500 mg BID SANDEEP Administration Metoprolol Succinate 37.5 mg 09/30/16 10:00 09/30/16 12:00 Toprol Xl - PO 37.5 mg DAILY SANDEEP Administration Mupirocin 1 applic 09/30/16 22:00 Bactroban Ointment (For Decolonization) - NS 10/05/16 21:59 BID SANDEEP Senna 1 tab 09/30/16 10:00 09/30/16 12:00 Senna - PO 1 tab BID SANDEEP Administration Sevelamer Carbonate 3,200 mg 09/30/16 22:00 Renvela - PO BID SANDEEP Valsartan 80 mg 09/30/16 10:00 09/30/16 12:00 Diovan - PO 80 mg DAILY SANDEEP Administration Impression 1. ESRD 2. hx CVA 3. seizure 4. HTN 5. hyperlipidemia 6. anemia 7. subdural hemorrhage Plan - HD tomorrow - will need to be dialyzed in a monitored setting - monitor bp - neurology evaluation - will follow - no heparin on HD Dr Isaac
[2016-09-30] MEDS: SEVELAMER CARBONATE 800 MG TAB (FP) PO SCH (21:01)
[2016-09-30] MEDS: ATORVASTATIN CA 40 MG TABLET (FP) PO SCH (21:02)
[2016-09-30] MEDS ORDERED: CHLORHEXIDINE GLUCONATE 4% CLEANSER FOR DECOLONIZATION TP SCH ×2 (22:00)
[2016-10-01] MEDS ORDERED: levETIRAcetam 500 MG TABLET (FP) PO ONE (07:40)
[2016-10-01] MEDS ORDERED: levETIRAcetam 250 MG TABLET (FP) PO ONE (07:40)
--- NOTE | 2016-10-01 08:45 | PN ---
Progress Note (short form) - Note Progress Note: Patient admitted with ? seizures withn tremors left leg and hand. CAT scan head : New Subdural. Neurosurgeon Rec: 1 month off anticaogulation However last nite called nurse to witness tremors left hand and lefg and he was totally aware during these events. Await Neuro F/U. For Dialysis today. On Exam: Vital Signs Temp 98.8 F 10/01/16 06:00 Pulse 59 L 10/01/16 06:00 Resp 20 10/01/16 06:00 BP 149/62 10/01/16 06:00 Pulse Ox 96 09/30/16 21:00 Intake & Output 09/30/16 09/30/16 10/01/16 11:59 23:59 11:59 Intake Total 982 70 Balance 982 70 Weight 220 lb Intake: IV 10 LH 20 09/29/2016 10 IVPB 250 Oral 60 Fresh Frozen Plasma 732 Other: Height 5 ft 5 in Body Mass Index (BMI) 36.6 Weight Measurement Method Stated by Patient Alert No tremors noted Cor: reg Ext: No edema Abnormal Lab Results 09/30/16 09/30/16 09/30/16 10:55 10:55 10:55 Hgb 10.0 L Hct 32.0 L MCV 74.7 L MCHC 31.2 L RDW 19.2 H Monocytes % 14.4 H INR 1.90 H D Chloride 96 L BUN 60 H D Creatinine 10.0 H* D All Active Problems ESRD (end stage renal disease) (Acute) Elevated INR (Acute) Hypertension (Acute) Seizure (Acute) Subdural hemorrhage (Acute) Aspiration into respiratory tract (Acute) Atrial flutter by electrocardiogram (Acute) Hemodialysis access, arteriovenous graft (Acute) Late effect of cerebrovascular accident (CVA) (Acute) Mild ankle sprain (Acute) Syncope (Acute) Problem List - Problems (1) Subdural hemorrhage Code(s): I62.00 - NONTRAUMATIC SUBDURAL HEMORRHAGE, UNSPECIFIED (2) ESRD (end stage renal disease) Code(s): N18.6 - END STAGE RENAL DISEASE (3) Seizure Code(s): R56.9 - UNSPECIFIED CONVULSIONS (4) Hypertension Code(s): I10 - ESSENTIAL (PRIMARY) HYPERTENSION Qualifiers: Hypertension type: essential hypertension Qualified Code(s): I10 - Essential (primary) hypertension (5) Atrial flutter by electrocardiogram Code(s): I48.92 - UNSPECIFIED ATRIAL FLUTTER
[2016-10-01] MEDS: SENNOSIDES 8.6MG TABLET (FP) PO SCH ×2 (09:45→23:01)
[2016-10-01] MEDS: SEVELAMER CARBONATE 800 MG TAB (FP) PO SCH ×2 (09:45→18:32)
[2016-10-01] MEDS: METOPROLOL SUCCINATE 25 MG TAB.SR.24H (FP) PO SCH (09:45)
[2016-10-01] MEDS: amLODIPine BESYLATE 10 MG TABLET (FP) PO SCH (09:45)
[2016-10-01] MEDS: VALSARTAN 80 MG TABLET (UD) PO SCH (09:45)
[2016-10-01] MEDS: CINACALCET HCL 30 MG TAB (FP) PO SCH (09:46)
--- NOTE | 2016-10-01 10:38 | CONSULT ---
Consult - text type - Consultation Consultation Note: Neurology History of Present Illness Patient is a 61 year old male with significant medical hx of AFib (on coumadin) , HTN, DM, CVA (left sided deficit), seizures, nephrolithiasis, and ESRD ( dialysis M,W,F; last dialyzed today), who is presenting to the ED for seizure like symptoms. The patient had a partial complex seizure which was witnessed by his mother. He's been having seizures for the past 16 years and states that this is normal for him. He was brought to the ED for further evaluation and he does not offer any other complaints at this time. Denies any head trauma, tongue biting, nausea, or vomiting. He is on Keppra at 500mg twice daily. Discussed with nurse this morning, to be increased to 750mg twice daily. The patient also noted to have right frontal temporal subdural hematoma and reported to be acute on subacute/chronic. Past History - Past Medical History Anemia: No Asthma: No Cancer: No Cardiac Disorders: Yes (A FIB) CVA: Yes (left sided weakness) COPD: No CHF: No Dementia: No Diabetes: No Dialysis: Yes (M/W/F) GI Disorders: No Disorders: No HTN: Yes Hypercholesterolemia: Yes Kidney Stones: Yes Liver Disease: No Suicide Attempt (Hx): No Seizures: No Thyroid Disease: No - Surgical History Abdominal Surgery: No Appendectomy: No Cardiac Surgery: No Cholecystectomy: No Gastric Stapling: No GI Surgery: No Lung Surgery: No Neurologic Surgery: No Orthopedic Surgery: No - Psycho/Social/Smoking Cessation Hx Anxiety: No Suicidal Ideation: No Smoking Status: No Smoking History: Never smoked Have you smoked in the past 12 months: No Number of Cigarettes Smoked Daily: 0 Hx Alcohol Use: No Drug/Substance Use Hx: No Substance Use Type: None Hx Substance Use Treatment: No - Past Medical History Allergies/Adverse Reactions: Allergies Allergy/AdvReac Type Severity Reaction Status Date / Time No Known Allergies Allergy Verified 09/29/16 17:37 Home Medications: Ambulatory Orders Amlodipine Besylate [Norvasc -] 10 mg PO DAILY 08/02/16 Atorvastatin Ca [Lipitor] 40 mg PO HS 08/02/16 Cinacalcet HCl [Sensipar] 30 mg PO DAILY 08/02/16 Escitalopram Oxalate [Lexapro -] 5 mg PO DAILY 08/02/16 Metoprolol Succinate [Toprol XL -] 37.5 mg PO DAILY 08/02/16 Sennosides [Senna] 8.6 mg PO BID 08/02/16 Sevelamer Carbonate [Renvela -] 800 mg PO TID 08/02/16 Warfarin Sodium [Coumadin] 7.5 mg PO HS 08/02/16 Acetaminophen [Tylenol .Regular Strength -] 650 mg PO Q4H PRN #0 tablet Ceftriaxone [Rocephin 1Gm Ivpb (Pre-Docked)] 50 ml IVPB DAILY bag 08/07/16 Guaifenesin/D-Methorphan Hb [Diabetic Tussin Dm -] 5 ml PO Q6H PRN #0 ml Levetiracetam [Keppra -] 500 mg PO BID #60 tablet 08/07/16 Prednisone [Deltasone -] 10 mg PO BID tablet 08/07/16 Valsartan [Diovan] 80 mg PO DAILY #30 tablet 08/07/16 Review of Systems Absent: fever, chills, diaphoresis, generalized weakness, malaise, loss of appetite HEENT: Absent: rhinorrhea, nasal congestion, throat pain, throat swelling, difficulty swallowing, mouth swelling, ear pain, eye pain, visual changes CARDIOVASCULAR: Absent: chest pain, syncope, palpitations, irregular heart rate, lightheadedness , peripheral edema RESPIRATORY: Absent: cough, shortness of breath, dyspnea with exertion, orthopnea, wheezing, stridor, hemoptysis GASTROINTESTINAL: Absent: abdominal pain, abdominal distension, nausea, vomiting, diarrhea, constipation, melena, hematochezia GENITOURINARY: Absent: dysuria, frequency, urgency, hesitancy, hematuria, flank pain, genital pain MUSCULOSKELETAL: Absent: myalgia, arthralgia, joint swelling SKIN: Absent: rash, itching, pallor HEMATOLOGIC/IMMUNOLOGIC: Absent: easy bleeding, easy bruising, lymphadenopathy, frequent infections ENDOCRINE: Absent: unexplained weight gain, unexplained weight loss, heat intolerance, cold intolerance NEUROLOGIC: Present: seizure Absent: headache, focal weakness or paresthesia, dizziness, unsteady gait, mental status changes, bladder or bowel incontinence. PSYCHIATRIC: Absent: anxiety, depression, suicidal or homicidal ideation, hallucinations *Physical Exam Vital Signs Temperature 98.1 F 10/01/16 09:48 Pulse Rate 68 10/01/16 09:48 Respiratory Rate 20 10/01/16 09:48 Blood Pressure 167/79 10/01/16 09:48 O2 Sat by Pulse Oximetry (%) 96 09/30/16 21:00 GENERAL: Well developed, well nourished. Awake and alert. No acute distress. HEENT: Normocephalic, atraumatic. PERRLA, EOMI. No conjunctival pallor. Sclera are non- icteric. Moist mucous membranes. Oropharynx is clear. NECK: Supple. Full ROM. No JVD. Carotid pulses 2+ and symmetric, without bruits. No thyromegaly. No lymphadenopathy. CARDIOVASCULAR: Irregularly irregular. No murmurs, rubs, or gallops. Distal pulses are 2+ and symmetric. PULMONARY: No evidence of respiratory distress. Lungs clear to auscultation bilaterally. No wheezing, rales or rhonchi. ABDOMINAL: Protuberant. Soft. Non-tender. Non-distended. No rebound or guarding. No organomegaly. Normoactive bowel sounds. MUSCULOSKELETAL: Normal range of motion at all joints. No bony deformities or tenderness. No CVA tenderness. EXTREMITIES: Contracture of the left hand and arm (chronic). Right AV graft with bruits and thrill. No cyanosis. No clubbing. No edema. No calf tenderness. SKIN: Warm and dry. Normal capillary refill. No rashes. No jaundice. NEUROLOGICAL: Alert, awake, appropriate, conversant. Answering simple questions. Left hemiplegia. Normal speech. PSYCHIATRIC: Cooperative. Good eye contact. Appropriate mood and affect. Laboratory Results 09/29/16 09/29/16 09/29/16 17:40 17:40 17:40 INR 3.36 H D Sodium 138 Potassium 4.0 D Chloride 97 L Carbon Dioxide 28 Anion Gap 13 BUN 46 H D Creatinine 8.0 H* D Creat Clearance w eGFR 6.92 Random Glucose 90 Calcium 8.8 Total Bilirubin 0.4 AST 16 ALT 19 Alkaline Phosphatase 148 H D Creatine Kinase 74 Troponin I 0.03 Total Protein 7.7 D Albumin 4.1 D Blood Type O POSITIVE Antibody Screen Negative 09/29/16 17:40 RBC 4.54 D MCV 74.3 L MCHC 31.3 L RDW 19.7 H D MPV 8.9 Neutrophils % 42.0 L Lymphocytes % 40.0 D Monocytes % 12.0 H Medical Decision Making 61 year old male with significant medical hx of AFib (on coumadin), HTN, DM, CVA (left sided deficit), seizures, nephrolithiasis, and ESRD (dialysis M,W,F; last dialyzed today), who is presenting to the ED for seizure like symptoms. The patient had a partial complex seizure which was witnessed by his mother. He' s been having seizures for the past 16 years and states that this is normal for him. He was brought to the ED for further evaluation and he does not offer any other complaints at this time. Denies any head trauma, tongue biting, nausea, or vomiting. He is on Keppra at 500mg twice daily. Discussed with nurse this morning, to be increased to 750mg twice daily. The patient also noted to have right frontal temporal subdural hematoma and reported to be acute on subacute/ chronic. Repeat CT stable. Hold any antiplatelet medication for 1 week. Fall precautions, avoid any subsequent head trauma. Seizure precautions, continue to monitor. Seizure and aura free.
--- NOTE | 2016-10-01 11:22 | PN ---
Progress Note, Physician History of Present Illness: Pt seen and examined at bedside. He is awake and alert. He denies shortness of breath or chest pain. - Current Medication List Current Medications: Active Medications Acetaminophen (Tylenol -) 650 mg PO Q4H PRN PRN Reason: FEVER OR PAIN Amlodipine Besylate (Norvasc -) 10 mg PO DAILY [facility] Last Admin: 10/01/16 09:45 Dose: 10 mg Atorvastatin Calcium (Lipitor -) 40 mg PO HS [facility] Last Admin: 09/30/16 21:02 Dose: 40 mg Cinacalcet (Sensipar -) 30 mg PO DAILY [facility] Last Admin: 10/01/16 09:46 Dose: 30 mg Levetiracetam (Keppra -) 750 mg PO BID [facility] Metoprolol Succinate (Toprol Xl -) 37.5 mg PO DAILY [facility] Last Admin: 10/01/16 09:45 Dose: 37.5 mg Senna (Senna -) 1 tab PO BID [facility] Last Admin: 10/01/16 09:45 Dose: 1 tab Sevelamer Carbonate (Renvela -) 3,200 mg PO BID [facility] Last Admin: 10/01/16 09:45 Dose: 3,200 mg Valsartan (Diovan -) 80 mg PO DAILY [facility] Last Admin: 10/01/16 09:45 Dose: 80 mg - Objective Vital Signs: Vital Signs Temperature 98.1 F 10/01/16 09:48 Pulse Rate 68 10/01/16 09:48 Respiratory Rate 20 10/01/16 09:48 Blood Pressure 167/79 10/01/16 09:48 O2 Sat by Pulse Oximetry (%) 96 09/30/16 21:00 Constitutional: Yes: Calm Eyes: Yes: Conjunctiva Clear HENT: Yes: Atraumatic Neck: Yes: Supple Cardiovascular: Yes: S1, S2 Respiratory: Yes: CTA Bilaterally Gastrointestinal: Yes: Soft Genitourinary: Yes: WNL Edema: Yes Edema: LLE: 1+, RLE: 1+ Neurological: Yes: Oriented Psychiatric: Yes: Oriented Labs: CBC, BMP 09/30/16 10:55 09/30/16 10:55 INR, PTT INR 1.90 (0.82-1.09) H D 09/30/16 10:55 Problem List - Problems (1) ESRD (end stage renal disease) Code(s): N18.6 - END STAGE RENAL DISEASE (2) Hypertension Code(s): I10 - ESSENTIAL (PRIMARY) HYPERTENSION Qualifiers: Hypertension type: essential hypertension Qualified Code(s): I10 - Essential (primary) hypertension (3) Seizure Code(s): R56.9 - UNSPECIFIED CONVULSIONS (4) Subdural hemorrhage Code(s): I62.00 - NONTRAUMATIC SUBDURAL HEMORRHAGE, UNSPECIFIED Assessment/Plan Current Medications Generic Name Dose Route Start Last Admin Trade Name Freq PRN Reason Stop Dose Admin Acetaminophen 650 mg 09/29/16 23:07 Tylenol - PO Q4H PRN FEVER OR PAIN Amlodipine Besylate 10 mg 09/30/16 10:00 10/01/16 09:45 Norvasc - PO 10 mg DAILY [facility] Administration Atorvastatin Calcium 40 mg 09/30/16 22:00 09/30/16 21:02 Lipitor - PO 40 mg HS [facility] Administration Cinacalcet 30 mg 09/30/16 10:00 10/01/16 09:46 Sensipar - PO 30 mg DAILY [facility] Administration Levetiracetam 750 mg 10/01/16 22:00 Keppra - PO BID [facility] Metoprolol Succinate 37.5 mg 09/30/16 10:00 10/01/16 09:45 Toprol Xl - PO 37.5 mg DAILY [facility] Administration Paricalcitol 4 mcg 10/01/16 11:18 Zemplar - IVPUSH 10/01/16 11:19 ONCE ONE Senna 1 tab 09/30/16 10:00 10/01/16 09:45 Senna - PO 1 tab BID [facility] Administration Sevelamer Carbonate 3,200 mg 09/30/16 22:00 10/01/16 09:45 Renvela - PO 3,200 mg BID [facility] Administration Valsartan 80 mg 09/30/16 10:00 10/01/16 09:45 Diovan - PO 80 mg DAILY [facility] Administration Impression 1. ESRD 2. hx CVA 3. seizure 4. HTN 5. hyperlipidemia 6. anemia 7. subdural hemorrhage Plan - will arrange for HD today at bedside in tele - no heparin on HD - pt had his last dose of aranesp on Thursday - neurology follow up for AED - called HD unit for prescription and informed them of subdural, heparin will be held in HD unit Dr Isaac
--- NOTE | 2016-10-01 14:25 | CON.CARD ---
Consult Consult Specialty:: Cardiology Referred by:: Renny Slade MD Reason for Consultation:: Paroxysmal aflutter post RFA - History of Present Illness Chief Complaint: Seizure d/o History of Present Illness: 61 yo h/o paroxysmal atrial flutter s/p RFA and implant ILR for syncope w/u on coumadin, HTN, R MCA stroke (left hemiparesis UE > LE), seizures, nephrolithiasis, and ESRD (dialysis M,W,F), seizure d/o presented with partial complex seizure witnessed by his mother. He's been having seizures for the past 16 years and states that this is normal for him. Denies any head trauma, tongue biting, nausea, or vomiting, but could have fallen after seizure. He is on Keppra at 500mg twice daily, uptitrated to 750mg twice daily. The patient also noted to have right frontal temporal subdural hematoma and reported to be acute on subacute/chronic INR 3.36 received FFP, now 1.90. He denies chest pain, dyspnea, near or true syncope, palpitations, orthopnea, PND or LE edema. - History Source History Provided By: Patient, Family Member Limitations to Obtaining History: No Limitations - Past Medical History [employer]: Yes: CVA, Seizure Cardio/Vascular: Yes: AFIB (paroxysmal), HTN Gastrointestinal: Yes: Constipation Renal/: Yes: Renal Failure, Hemodialysis Musculoskeletal: Yes: Hemiplegia, Other (But he has pogressed to walk with an aide and brace at home.) - Past Surgical History Past Surgical History: Yes: None, Cataract Removal - Alcohol/Substance Use Hx Alcohol Use: No History of Substance Use: reports: None - Smoking History Smoking history: Never smoked Have you smoked in the past 12 months: No Aproximately how many cigarettes per day: 0 - Social History ADL: Family Assistance Occupation: retired due illness History of Recent Travel: No Home Medications - Allergies Allergies/Adverse Reactions: Allergies Allergy/AdvReac Type Severity Reaction Status Date / Time No Known Allergies Allergy Verified 09/29/16 17:37 - Home Medications Home Medications: Ambulatory Orders Amlodipine Besylate [Norvasc -] 10 mg PO DAILY 08/02/16 Atorvastatin Ca [Lipitor] 40 mg PO HS 08/02/16 Cinacalcet HCl [Sensipar] 30 mg PO DAILY 08/02/16 Escitalopram Oxalate [Lexapro -] 5 mg PO DAILY 08/02/16 Metoprolol Succinate [Toprol XL -] 37.5 mg PO DAILY 08/02/16 Sennosides [Senna] 8.6 mg PO BID 08/02/16 Sevelamer Carbonate [Renvela -] 4,000 mg PO BID 08/02/16 Warfarin Sodium [Coumadin] 7.5 mg PO HS 08/02/16 Acetaminophen [Tylenol .Regular Strength -] 650 mg PO Q4H PRN #0 tablet Levetiracetam [Keppra -] 500 mg PO BID #60 tablet 08/07/16 Valsartan [Diovan] 80 mg PO DAILY #30 tablet 08/07/16 Family Disease History - Family Disease History Family Disease History: CA: Mother Review of Systems - Review of Systems Neurological: reports: Seizure Vital Signs: Vital Signs Temperature 98.3 F 10/01/16 11:00 Pulse Rate 66 10/01/16 12:40 Respiratory Rate 18 10/01/16 12:40 Blood Pressure 165/92 10/01/16 12:40 O2 Sat by Pulse Oximetry (%) 96 10/01/16 10:00 Constitutional: Yes: No Distress, Calm Neck: Yes: Supple Respiratory: Yes: Regular, Diminished Gastrointestinal: Yes: Normal Bowel Sounds, Soft Cardiovascular: Yes: Regular Rate and Rhythm JVD: No Carotid Bruit: No Heart Sounds: Yes: S1, S2 Murmur: Yes: Systolic Murmur, Grade 2 Edema: No - Other Data Labs, Other Data: CBC, BMP 09/30/16 10:55 09/30/16 10:55 INR, PTT INR 1.90 (0.82-1.09) H D 09/30/16 10:55 NSR @ 83 1st deg AVB Imaging - Results Chest X-ray: Report Reviewed (Cardiomegaly) Cat Scan: Report Reviewed (HCT: Right MCA old stroke, right frontal temporal SDH , acute/subacute hematoma stable) Problem List - Problems (1) ESRD (end stage renal disease) Code(s): N18.6 - END STAGE RENAL DISEASE (2) Elevated INR Code(s): R79.1 - ABNORMAL COAGULATION PROFILE (3) Hypertension Code(s): I10 - ESSENTIAL (PRIMARY) HYPERTENSION Qualifiers: Hypertension type: essential hypertension Qualified Code(s): I10 - Essential (primary) hypertension (4) Seizure Code(s): R56.9 - UNSPECIFIED CONVULSIONS (5) Subdural hemorrhage Code(s): I62.00 - NONTRAUMATIC SUBDURAL HEMORRHAGE, UNSPECIFIED (6) Atrial flutter by electrocardiogram Code(s): I48.92 - UNSPECIFIED ATRIAL FLUTTER (7) Hemodialysis access, arteriovenous graft Code(s): Z99.2 - DEPENDENCE ON RENAL DIALYSIS (8) Late effect of cerebrovascular accident (CVA) Code(s): I69.30 - UNSPECIFIED SEQUELAE OF CEREBRAL INFARCTION (9) Status post radiofrequency ablation for arrhythmia Code(s): Z98.890 - OTHER SPECIFIED POSTPROCEDURAL STATES Z86.79 - PERSONAL HISTORY OF OTHER DISEASES OF THE CIRCULATORY SYSTEM (10) Syncope Code(s): R55 - SYNCOPE AND COLLAPSE Qualifiers: Syncope type: unspecified Qualified Code(s): R55 - Syncope and collapse (11) Status post placement of implantable loop recorder Code(s): Z95.818 - PRESENCE OF OTHER CARDIAC IMPLANTS AND GRAFTS (12) Diastolic dysfunction without heart failure Code(s): I51.9 - HEART DISEASE, UNSPECIFIED Assessment/Plan Echocardiography revealed dilated LV with normal LV systolic function, bi- atrial dilatation, moderate MR, moderate to severe TR with RVSP 50-60 mmHg 1. Acute/subacute right frontotemporal SDH 2. Paroxysmal atrial flutter to SR post RFA [id number] score of 5 and h/o syncopal episode post ILR implant 3. CAD angina pectoris 4. Diastolic LV dysfunction with class 0-I NYHA classification LV failure 5. HTN 6. DM 7. Hypercholesterolemia 8. Right MCA CVA with residual deficit, left hemiparesis 9. Seizure disorder 10. ESRD on HD 11. Anemia PLAN: 1. Continue Toprol XL 25 qd, Norvasc 10 qd and Diovan 80 qd 2. Continue Lipitor 40 qhs, Keppra per neuro 3. 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 Monitor implantable loop recorder for syncopal work-up 5. HD per renal 6. Thank you for consultative opportunity
[2016-10-01] MEDS ORDERED: PARICALCITOL 5 MCG/ML VIAL IVPUSH ONE (14:45)
[2016-10-01] MEDS: ATORVASTATIN CA 40 MG TABLET (FP) PO SCH (23:01)
[2016-10-01] MEDS: levETIRAcetam 250 MG TABLET (FP) PO SCH (23:01)
--- NOTE | 2016-10-02 08:18 | PN ---
Progress Note (short form) - Note Progress Note: Patient wants to go home. No seizures overnite No chest pain. Vital Signs Period Temp Pulse Resp BP Sys/Chaudhry Pulse Ox Last 24 Hr 97.9 F-99 F 54-68 16-20 127-167/64-92 96-96 Vital Signs Temp 98.3 F 10/02/16 06:00 Pulse 57 L 10/02/16 06:00 Resp 20 10/02/16 06:00 BP 130/70 10/02/16 06:00 Pulse Ox 96 10/01/16 21:00 Intake & Output 10/01/16 10/01/16 10/02/16 11:59 23:59 11:59 Intake Total 250 300 0 Balance 250 300 0 Intake: Oral 250 300 0 Other: Voiding Method Diaper Incontinent Incontinent # Unmeasured Voids Void 1 Bowel Movement No No On Exam: Alert No tremors Cor: Reg Ext:no edema IMP: Seizure Disorder Dialysis Subdural Hematoma Hx: CVA Plan: Aware of Cardiology note Re: Watchman's clip IF no objection from Neuro or Cardiology MD try to D/C home today. Problem List - Problems (1) Subdural hemorrhage Code(s): I62.00 - NONTRAUMATIC SUBDURAL HEMORRHAGE, UNSPECIFIED (2) ESRD (end stage renal disease) Code(s): N18.6 - END STAGE RENAL DISEASE (3) Seizure Code(s): R56.9 - UNSPECIFIED CONVULSIONS (4) Hypertension Code(s): I10 - ESSENTIAL (PRIMARY) HYPERTENSION Qualifiers: Hypertension type: essential hypertension Qualified Code(s): I10 - Essential (primary) hypertension (5) Atrial flutter by electrocardiogram Code(s): I48.92 - UNSPECIFIED ATRIAL FLUTTER
[2016-10-02] MEDS ORDERED: PT OWN MED DRAWER 7, Y5N ONE (09:12)
[2016-10-02] MEDS: SEVELAMER CARBONATE 800 MG TAB (FP) PO SCH (09:18)
[2016-10-02] MEDS: METOPROLOL SUCCINATE 25 MG TAB.SR.24H (FP) PO SCH (09:20)
[2016-10-02] MEDS: levETIRAcetam 250 MG TABLET (FP) PO SCH (09:23)
[2016-10-02] MEDS: SENNOSIDES 8.6MG TABLET (FP) PO SCH (09:23)
[2016-10-02] MEDS: amLODIPine BESYLATE 10 MG TABLET (FP) PO SCH (09:23)
[2016-10-02] MEDS: VALSARTAN 80 MG TABLET (UD) PO SCH (09:23)
[2016-10-02] MEDS: CINACALCET HCL 30 MG TAB (FP) PO SCH (09:24)
--- NOTE | 2016-10-02 09:40 | PN ---
Progress Note (short form) - Note Progress Note: NEUROSURGERY No new complaint No H/A, N/V PE: 98.5, VSS initially SBP 170 HEENT- NC/AT; neck- supple; Cor- ireg; Lungs- CTA B; Abd- benign; obese; Ext- no sign of DVT A/A/Ox3 CN- face symmetric, EMOF, tongue to L; Motor- L UE 0/5; prox L LE 2, distal 0; Sensation- intact; DTR- R sided 2+, L sided 1+ INR 1.[address] 08-02-16: old R MCA stroke with encephalomalacia; atrophy Head CT 09-29-16: R fronto-parietal subacute SDH with focal hyperdensity, no significant mass effect or shift; same MCA stroke F/u CT 09-30-16: unchanged subacute SDH, perhaps slightly less hyperdense portion Acute-subacute R SDH with minimal mass effect/ESRD on HD Unfortunately cannot be back on AC for about 1 month given acute blood/SDH Consult neurology for sz control-medication regimen Fall/sz precaution Care d/w Cardiology yesterday
--- NOTE | 2016-10-02 12:38 | PN ---
Progress Note, Physician History of Present Illness: Remains in SR, no furthert seizure activity, denies BELLO. - Current Medication List Current Medications: Active Medications Acetaminophen (Tylenol -) 650 mg PO Q4H PRN PRN Reason: FEVER OR PAIN Amlodipine Besylate (Norvasc -) 10 mg PO DAILY [facility] Last Admin: 10/02/16 09:23 Dose: 10 mg Atorvastatin Calcium (Lipitor -) 40 mg PO HS [facility] Last Admin: 10/01/16 23:01 Dose: 40 mg Cinacalcet (Sensipar -) 30 mg PO DAILY [facility] Last Admin: 10/02/16 09:24 Dose: 30 mg Levetiracetam (Keppra -) 750 mg PO BID [facility] Last Admin: 10/02/16 09:23 Dose: 750 mg Metoprolol Succinate (Toprol Xl -) 37.5 mg PO DAILY [facility] Last Admin: 10/02/16 09:20 Dose: 37.5 mg Senna (Senna -) 1 tab PO BID [facility] Last Admin: 10/02/16 09:23 Dose: 1 tab Sevelamer Carbonate (Renvela -) 3,200 mg PO BIDWM [facility] Last Admin: 10/02/16 09:18 Dose: 3,200 mg Valsartan (Diovan -) 80 mg PO DAILY [facility] Last Admin: 10/02/16 09:23 Dose: 80 mg - Objective Vital Signs: Vital Signs Temperature 98.2 F 10/02/16 09:25 Pulse Rate 62 10/02/16 09:25 Respiratory Rate 18 10/02/16 09:25 Blood Pressure 131/66 10/02/16 09:25 O2 Sat by Pulse Oximetry (%) 96 10/02/16 09:00 Constitutional: Yes: No Distress, Calm Neck: Yes: Supple Cardiovascular: Yes: Regular Rate and Rhythm Respiratory: Yes: Regular, Diminished Gastrointestinal: Yes: Normal Bowel Sounds, Soft Edema: No Neurological: Yes: Pre-Existing Deficit Labs: CBC, BMP 09/30/16 10:55 09/30/16 10:55 INR, PTT INR 1.90 (0.82-1.09) H D 09/30/16 10:55 Problem List - Problems (1) ESRD (end stage renal disease) Code(s): N18.6 - END STAGE RENAL DISEASE (2) Elevated INR Code(s): R79.1 - ABNORMAL COAGULATION PROFILE (3) Hypertension Code(s): I10 - ESSENTIAL (PRIMARY) HYPERTENSION Qualifiers: Hypertension type: essential hypertension Qualified Code(s): I10 - Essential (primary) hypertension (4) Seizure Code(s): R56.9 - UNSPECIFIED CONVULSIONS (5) Subdural hemorrhage Code(s): I62.00 - NONTRAUMATIC SUBDURAL HEMORRHAGE, UNSPECIFIED (6) Atrial flutter by electrocardiogram Code(s): I48.92 - UNSPECIFIED ATRIAL FLUTTER (7) Hemodialysis access, arteriovenous graft Code(s): Z99.2 - DEPENDENCE ON RENAL DIALYSIS (8) Late effect of cerebrovascular accident (CVA) Code(s): I69.30 - UNSPECIFIED SEQUELAE OF CEREBRAL INFARCTION (9) Status post radiofrequency ablation for arrhythmia Code(s): Z98.890 - OTHER SPECIFIED POSTPROCEDURAL STATES Z86.79 - PERSONAL HISTORY OF OTHER DISEASES OF THE CIRCULATORY SYSTEM (10) Syncope Code(s): R55 - SYNCOPE AND COLLAPSE Qualifiers: Syncope type: unspecified Qualified Code(s): R55 - Syncope and collapse (11) Status post placement of implantable loop recorder Code(s): Z95.818 - PRESENCE OF OTHER CARDIAC IMPLANTS AND GRAFTS (12) Diastolic dysfunction without heart failure Code(s): I51.9 - HEART DISEASE, UNSPECIFIED Assessment/Plan Echocardiography revealed dilated LV with normal LV systolic function, bi- atrial dilatation, moderate MR, moderate to severe TR with RVSP 50-60 mmHg 1. Acute/subacute right frontotemporal SDH 2. Paroxysmal atrial flutter to SR post RFA [id number] score of 5 and h/o syncopal episode post ILR implant 3. CAD angina pectoris 4. Diastolic LV dysfunction with class 0-I NYHA classification LV failure 5. HTN 6. DM 7. Hypercholesterolemia 8. Right MCA CVA with residual deficit, left hemiparesis 9. Seizure disorder 10. ESRD on HD 11. Anemia PLAN: 1. Continue Toprol XL 25 qd, Norvasc 10 qd and Diovan 80 qd 2. Continue Lipitor 40 qhs, Keppra per neuro 3. 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 Monitor implantable loop recorder for syncopal work-up 5. HD per renal, september d/c home with f/u with Dr. Torres Tuesday 10/10 3:45 PM
--- NOTE | 2016-10-02 14:33 | PN ---
Progress Note, Physician History of Present Illness: Pt seen and examined at bedside. He is awake and alert. He has not had any seizure activity. He denies shortness of breath. - Current Medication List Current Medications: Active Medications Acetaminophen (Tylenol -) 650 mg PO Q4H PRN PRN Reason: FEVER OR PAIN Amlodipine Besylate (Norvasc -) 10 mg PO DAILY [facility] Last Admin: 10/02/16 09:23 Dose: 10 mg Atorvastatin Calcium (Lipitor -) 40 mg PO HS [facility] Last Admin: 10/01/16 23:01 Dose: 40 mg Cinacalcet (Sensipar -) 30 mg PO DAILY [facility] Last Admin: 10/02/16 09:24 Dose: 30 mg Levetiracetam (Keppra -) 750 mg PO BID [facility] Last Admin: 10/02/16 09:23 Dose: 750 mg Metoprolol Succinate (Toprol Xl -) 37.5 mg PO DAILY [facility] Last Admin: 10/02/16 09:20 Dose: 37.5 mg Senna (Senna -) 1 tab PO BID [facility] Last Admin: 10/02/16 09:23 Dose: 1 tab Sevelamer Carbonate (Renvela -) 3,200 mg PO BIDWM [facility] Last Admin: 10/02/16 09:18 Dose: 3,200 mg Valsartan (Diovan -) 80 mg PO DAILY [facility] Last Admin: 10/02/16 09:23 Dose: 80 mg - Objective Vital Signs: Vital Signs Temperature 98.2 F 10/02/16 09:25 Pulse Rate 62 10/02/16 09:25 Respiratory Rate 18 10/02/16 09:25 Blood Pressure 131/66 10/02/16 09:25 O2 Sat by Pulse Oximetry (%) 96 10/02/16 09:00 Constitutional: Yes: Calm Eyes: Yes: Conjunctiva Clear HENT: Yes: Atraumatic Neck: Yes: Supple Cardiovascular: Yes: S1, S2 Respiratory: Yes: CTA Bilaterally Gastrointestinal: Yes: Soft Musculoskeletal: Yes: Muscle Weakness Edema: Yes Edema: LLE: Trace, RLE: Trace Neurological: Yes: Pre-Existing Deficit Labs: CBC, BMP 09/30/16 10:55 09/30/16 10:55 INR, PTT INR 1.90 (0.82-1.09) H D 09/30/16 10:55 Problem List - Problems (1) ESRD (end stage renal disease) Code(s): N18.6 - END STAGE RENAL DISEASE (2) Hypertension Code(s): I10 - ESSENTIAL (PRIMARY) HYPERTENSION Qualifiers: Hypertension type: essential hypertension Qualified Code(s): I10 - Essential (primary) hypertension (3) Seizure Code(s): R56.9 - UNSPECIFIED CONVULSIONS (4) Subdural hemorrhage Code(s): I62.00 - NONTRAUMATIC SUBDURAL HEMORRHAGE, UNSPECIFIED Assessment/Plan Current Medications Generic Name Dose Route Start Last Admin Trade Name Freq PRN Reason Stop Dose Admin Acetaminophen 650 mg 09/29/16 23:07 Tylenol - PO Q4H PRN FEVER OR PAIN Amlodipine Besylate 10 mg 09/30/16 10:00 10/02/16 09:23 Norvasc - PO 10 mg DAILY [facility] Administration Atorvastatin Calcium 40 mg 09/30/16 22:00 10/01/16 23:01 Lipitor - PO 40 mg HS [facility] Administration Cinacalcet 30 mg 09/30/16 10:00 10/02/16 09:24 Sensipar - PO 30 mg DAILY [facility] Administration Levetiracetam 750 mg 10/01/16 22:00 10/02/16 09:23 Keppra - PO 750 mg BID [facility] Administration Metoprolol Succinate 37.5 mg 09/30/16 10:00 10/02/16 09:20 Toprol Xl - PO 37.5 mg DAILY [facility] Administration Senna 1 tab 09/30/16 10:00 10/02/16 09:23 Senna - PO 1 tab BID [facility] Administration Sevelamer Carbonate 3,200 mg 10/01/16 17:30 10/02/16 09:18 Renvela - PO 3,200 mg BIDWM [facility]EP Administration Valsartan 80 mg 09/30/16 10:00 10/02/16 09:23 Diovan - PO 80 mg DAILY [facility] Administration Impression 1. ESRD 2. hx CVA 3. seizure 4. HTN 5. hyperlipidemia 6. anemia 7. subdural hemorrhage Plan - will arrange for HD in am - cardio input appreciated. Pending recs on A/C, possible Watchman procedure - no heparin on HD - neurology follow up for AED - will follow - HD 3 30 hrs, av fistula, [address] Isaac
[2016-10-02 15:46] VITALS: BP 157/87; PULSE 63; TEMP 99.5
--- NOTE | 2016-10-02 20:00 | DS ---
Physical Examination Vital Signs: Vital Signs Temperature 99.5 F 10/02/16 15:45 Pulse Rate 63 10/02/16 15:45 Respiratory Rate 16 10/02/16 15:45 Blood Pressure 157/87 10/02/16 15:45 O2 Sat by Pulse Oximetry (%) 96 10/02/16 09:00 Constitutional: Yes: Calm Eyes: Yes: Conjunctiva Clear Cardiovascular: Yes: Regular Rate and Rhythm Respiratory: Yes: Regular Gastrointestinal: Yes: Soft Edema: LLE: Trace Neurological: Yes: Other (hemiparesis left side). No: Tremors Labs: CBC, BMP 09/30/16 10:55 09/30/16 10:55 Discharge Summary Reason For Visit: SEIZURE,SUBDURAL HEMORRHAGE,[employer] Acute seizure Acute subdural hematoma hypertension on Rx CVA chronic Dialysis TIW Procedures: Principal: CAT scan brain. Dialysis Other Procedures: folowwup lab and neuro and neurosurgical and cardiology consults Hospital Course: Improved each day. 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 Torres at 3:45OPM on October 20, 2016 dialysis Thursday once a Thursday Dr. Slade: call office for appointment Dr. Carpenter: call office for appointment. Dialysis on Thursday,Thursday and Thursday Referrals: Renny Slade MD [Primary Care Provider] - Rusty Torres MD [Staff Physician] - Giuliano Carpenter MD [Staff Physician] - Disposition: VNS/HOME HEALTH CARE - Home Medications Comprehensive Discharge Medication List: Ambulatory Orders Amlodipine Besylate [Norvasc -] 10 mg PO DAILY 08/02/16 Atorvastatin Ca [Lipitor] 40 mg PO HS 08/02/16 Cinacalcet HCl [Sensipar] 30 mg PO DAILY 08/02/16 Escitalopram Oxalate [Lexapro -] 5 mg PO DAILY 08/02/16 Metoprolol Succinate [Toprol XL -] 37.5 mg PO DAILY 08/02/16 Sennosides [Senna] 8.6 mg PO BID 08/02/16 Acetaminophen [Tylenol .Regular Strength -] 650 mg PO Q4H PRN #0 tablet Valsartan [Diovan] 80 mg PO DAILY #30 tablet 08/07/16 Levetiracetam [Keppra -] 750 mg PO BID tablet 10/02/16 Sevelamer Carbonate [Renvela -] 3,200 mg PO BIDWM tab 10/02/16
[2016-10-03 00:07] LABS: HBeAG Negative (Negative); HEP B SURFACE AB Reactive (.); HEP BE AB Negative (Negative)
[2016-10-03] MEDS ORDERED: PARICALCITOL 5 MCG/ML VIAL IVPUSH ONE (14:33)
== END 2016-10-02 17:00 | disposition home health service (06) | DRG 100 ==
LOC: JER 17:01 → JERBED 21:04 → J4S 09-30 17:45
PROVIDERS: ADMIT Internal Medicine; ATTEND Internal Medicine
PROC: 30233K1 Transfusion of Nonautologous Frozen Plasma into Peripheral Vein, Percutaneous Approach (ICD-10-PCS; 2016-09-29)
PROC: 5A1D00Z (ICD-10-PCS; principal; 2016-10-02)
DX: G40.909 Epilepsy, unspecified, not intractable, without status epilepticus (principal); N18.6 End stage renal disease; I62.00 Nontraumatic subdural hemorrhage, unspecified; I12.0 Hypertensive chronic kidney disease with stage 5 chronic kidney disease or end stage renal disease; I69.354 Hemiplegia and hemiparesis following cerebral infarction affecting left non-dominant side; I48.92 Unspecified atrial flutter; E11.22 Type 2 diabetes mellitus with diabetic chronic kidney disease; Z99.2 Dependence on renal dialysis; E78.00 Pure hypercholesterolemia, unspecified; Z95.810 Presence of automatic (implantable) cardiac defibrillator; I48.0 Paroxysmal atrial fibrillation; Z79.01 Long term (current) use of anticoagulants; R79.1 Abnormal coagulation profile; I25.119 Atherosclerotic heart disease of native coronary artery with unspecified angina pectoris; I07.1 Rheumatic tricuspid insufficiency; I34.0 Nonrheumatic mitral (valve) insufficiency
CPT/HCPCS: 36415; 36430; 70450-TC; 71010-TC; 80048; 80053; 82550; 83735; 84100; 84484; 85025; 85610; 86704; 86705; 86706; 86707; 86850; 86900; 86901; 87340; 87350; 93005; 93010; 99285-25; P9017

== ENCOUNTER 2016-12-24 15:05 | Emergency (ER) | payer OTHER ==
--- NOTE | 2016-12-24 15:26 | PDOC ---
History of Present Illness - General Stated Complaint: BLEEDING FROM THE Wound Time Seen by Provider: 12/24/16 15:25 History Source: Patient - History of Present Illness Initial Comments: 12/24/16 15:39 CC: Bleeding from venous femoral insertion site of Watchman Filter Patient is a 61 y.o. male with a PMH of HTN, ESRD, s/p CVA (with residual L sided weakness) who presents today with a c/o of a 3 hour h/o of bleeding in his R groin area at the site from a recent "umbrella" procedure. Patient provides paperwork which indicates he recieved a Watchman Filter procedure on at [facility] and notes the area of bleeding is the area Patient denies any precipitating trauma at the wound site and further denies any shortness of breath, palpitations or lightheadedness. Past History - Past Medical History Allergies/Adverse Reactions: Allergies Allergy/AdvReac Type Severity Reaction Status Date / Time No Known Allergies Allergy Verified 12/24/16 15:25 Home Medications: Ambulatory Orders Amlodipine Besylate [Norvasc -] 10 mg PO DAILY 08/02/16 Atorvastatin Ca [Lipitor] 40 mg PO HS 08/02/16 Cinacalcet HCl [Sensipar] 30 mg PO DAILY 08/02/16 Escitalopram Oxalate [Lexapro -] 5 mg PO DAILY 08/02/16 Metoprolol Succinate [Toprol XL -] 37.5 mg PO DAILY 08/02/16 Sennosides [Senna] 8.6 mg PO BID 08/02/16 Acetaminophen [Tylenol .Regular Strength -] 650 mg PO Q4H PRN #0 tablet Valsartan [Diovan] 80 mg PO DAILY #30 tablet 08/07/16 Levetiracetam [Keppra -] 750 mg PO BID tablet 10/02/16 Sevelamer Carbonate [Renvela -] 3,200 mg PO BIDWM tab 10/02/16 Aspirin/Calcium Carbonate/Mag [Aspirin Buffered 325 mg Tab] 325 mg PO DAILY #30 tablet 12/24/16 Anemia: No Asthma: No Cancer: No Cardiac Disorders: Yes (A FIB) CVA: Yes (left sided weakness) COPD: No CHF: No Dementia: No Diabetes: No Dialysis: Yes (M/W/F) GI Disorders: No Disorders: No HTN: Yes Hypercholesterolemia: Yes Kidney Stones: Yes Liver Disease: No Suicide Attempt (Hx): No Seizures: No Thyroid Disease: No - Surgical History Abdominal Surgery: No Appendectomy: No Cardiac Surgery: No Cholecystectomy: No Gastric Stapling: No GI Surgery: No Lung Surgery: No Neurologic Surgery: No Orthopedic Surgery: No - Psycho/Social/Smoking Cessation Hx Anxiety: No Suicidal Ideation: No Smoking Status: No Smoking History: Never smoked Have you smoked in the past 12 months: No Number of Cigarettes Smoked Daily: 0 Hx Alcohol Use: No Drug/Substance Use Hx: No Substance Use Type: None Hx Substance Use Treatment: No Review of Systems - Review of Systems Constitutional: No: Chills, Weakness HEENTM: No: Blurred Vision, Double Vision, Tinnitus, Throat Pain Respiratory: No: Cough, Orthopnea Cardiac (ROS): No: Chest Pain, Edema, Irregular Heart Rate, Lightheadedness, Palpitations ABD/GI: No: Constipated, Diarrhea : No: Burning, Dysuria Musculoskeletal: No: Joint Swelling, Muscle Pain, Muscle Weakness Integumentary: Yes: Other (H/o 3 hour bleed) Neurological: No: Headache, Numbness Psychiatric: No: Anxiety, Depression Hematologic/Lymphatic: Yes: Easy Bleeding All Other Systems: Reviewed and Negative *Physical Exam - Physical Exam General Appearance: Yes: Nourished, Appropriately Dressed HEENT: positive: EOMI, HUNG Neck: positive: Normal Thyroid, Supple Respiratory/Chest: positive: Lungs Clear, Normal Breath Sounds Cardiovascular: positive: Regular Rhythm, Regular Rate, S1, S2 Gastrointestinal/Abdominal: positive: Normal Bowel Sounds, Soft Musculoskeletal: positive: Normal Inspection Extremity: positive: Normal Capillary Refill, Normal Inspection Integumentary: positive: Normal Color, Dry, Other (0.5 cm active bleed site in R groin) Neurologic: positive: nursery nurse II-XII NML intact, Fully Oriented, Alert ED Treatment Course - LABORATORY CBC & Chemistry Diagram: 12/24/16 17:15 12/24/16 16:40 Medical Decision Making - Medical Decision Making 12/24/16 15:50 Patient is a 61 y.o. male who presents with acute bleeding from the femoral venous insertion site of a 12/19 Watchman Filter. On PE, patient is hemodynamically stable and denies any c/o anemia including palpitations, lightheadedness. Two simple interrupted sutures were placed at the wound site using 1% Epinephrine with Lidocaine at which time active bleed r resolved. Patient's surgeon Dr. Acevedo contacted ([phone]), requested to be contacted with results of PT/INR and will determine whether to stop Warfarin at that time. 12/24/16 18:18 Patient's INR 2.04; Dr. Acevedo contacted, advised patient stop Coumadin and start Aspirin 325 mg in two days. Patient discharged with instruction to return to ED should he experience repeat bleed, lightheadedness, palpitations, chest pain or shortness of breath. Patient further instructed to return to ED in 10 days (or see his PCP) for suture removal. *DC/Admit/Observation/Transfer Diagnosis at time of Disposition: Bleeding from wound - Discharge Dispostion Admit: No - Prescriptions Prescriptions: Aspirin/Calcium Carbonate/Mag [Aspirin Buffered 325 mg Tab] 325 mg PO DAILY #30 tablet - Referrals Referrals: Renny Slade MD [Primary Care Provider] - - Patient Instructions Printed Discharge Instructions: DI for Laceration Repair -- Simple Additional Instructions: (1) Please hold your Coumadin until evaluation by your PMD or Wildlife Technician; (2 ) Please start Aspirin (325 mg) on December 26 (3) Please return to the ED in 10 days for suture removal. - Attestations Physician Attestion: 12/24/16 18:46 Resident Attestation: I document that all information on medical evaluation and procedure as documented in this note are attested by me. Dr. Criss Rodriguez
[2016-12-24 15:27] VITALS: TEMP 98.7; BMI 33.6
--- NOTE | 2016-12-24 16:28 | PDOC ---
Attending Attestation - Resident Resident Name: JenniferCriss - ED Attending Attestation I have performed the following: I have examined & evaluated the patient, The case was reviewed & discussed with the resident, I agree w/resident's findings & plan, Exceptions are as noted - HPI HPI: 12/24/16 16:25 61 yo M with h/o afib, on coumadin s/p watchman filter few days ago, here with c /o bleeding at groin site where insertion was placed. no hematoma. started bleeding today. has happened once prior. not lightheaded , no other complaints. - Physicial Exam PE: 12/24/16 16:26 awake alert lungs clear heart rrr no mrg. abd soft Nt ND. right groin bleeding from 1 mm laceration, no hematoma. 2 + dp/ pt pulses. - Medical Decision Making 12/24/16 16:27 61 yo s/p right groin gilter placement here with bleeding. plan suture to site. compressive dressing. d/w surgeon recommend hold afib for 24 hours.
[2016-12-24 17:24] LABS: ANION GAP 10 (8-16); CALCIUM 8.6 mg/dL (8.5-10.1); CO2 24 mmol/L (21-32); CREATININE 6.9 mg/dL (0.7-1.3); GLUCOSE,RANDOM 81 mg/dL (74-106)
[2016-12-24 17:40] LABS: MCH 23.4 pg (25.7-33.7); MCHC 31.3 g/dl (32.0-35.9); MEAN CELL VOLUME 74.7 fl (80-96); MEAN PLT VOLUME 10.3 fl (7.5-11.1); PLATELET COUNT 175 K/MM3 (134-434); RDW 16.9 % (11.9-15.9); WHITE BLOOD COUNT 5.9 K/mm3 (4.0-10.0)
[2016-12-24 17:51] LABS: INR 2.04 (0.82-1.09); PROTHROMBIN TIME (PATIENT) 22.8 SEC (9.98-11.88)
[2016-12-24 17:54] LABS: ACTIVATED PTT 41.1 SECONDS (26.9-34.4)
[2016-12-24 19:21] VITALS: BP 134/86; PULSE 70
== END 2016-12-24 19:20 | disposition home or self-care (01) ==
LOC: JER 15:05
PROC: 0HQ7XZZ Repair Abdomen Skin, External Approach (ICD-10-PCS; principal; 2016-12-24)
DX: I97.618 Postprocedural hemorrhage of a circulatory system organ or structure following other circulatory system procedure (principal); T81.31XA Disruption of external operation (surgical) wound, not elsewhere classified, initial encounter; I48.91 Unspecified atrial fibrillation; Z79.01 Long term (current) use of anticoagulants; E78.00 Pure hypercholesterolemia, unspecified; I25.10 Atherosclerotic heart disease of native coronary artery without angina pectoris; I13.11 Hypertensive heart and chronic kidney disease without heart failure, with stage 5 chronic kidney disease, or end stage renal disease; N18.6 End stage renal disease; Z99.2 Dependence on renal dialysis; I69.854 Hemiplegia and hemiparesis following other cerebrovascular disease affecting left non-dominant side
CPT/HCPCS: 12001-25; 36415; 80048; 85027; 85610; 85730; 99285-25

== ENCOUNTER 2017-01-03 08:41 | Emergency (ER) | payer OTHER ==
[2017-01-03 08:52] VITALS: BP 120/70; PULSE 56; TEMP 98; BMI 31.3
--- NOTE | 2017-01-03 09:33 | PDOC ---
Suture Removal/Wound Check HPI - History of Present Illness Chief Complaint: Suture/Staple Removal(Here) Stated Complaint: STAPLE/SUTURE REMOVAL Time Seen by Provider: 01/03/17 09:19 History Source: Yes: Patient Exam Limitations: Yes: No Limitations Treated at: [facility] ED Date of Last ED visit: 12/24/16 - Previous ED Treatment Type of procedure performed on last visit: Yes: Other (2 interrupted sutures applied to site rt. groin where a Watchman Filter had been inserted and was bleeding) Antibiotics Prescribed: No - Onset of Previous Treatment Date of Occurence: 12/24/16 Past History - Past Medical History Allergies/Adverse Reactions: Allergies No Known Allergies Allergy (Verified 01/03/17 08:47) Home Medications: Ambulatory Orders Amlodipine Besylate [Norvasc -] 10 mg PO DAILY 08/02/16 Atorvastatin Ca [Lipitor] 40 mg PO HS 08/02/16 Cinacalcet HCl [Sensipar] 30 mg PO DAILY 08/02/16 Escitalopram Oxalate [Lexapro -] 5 mg PO DAILY 08/02/16 Metoprolol Succinate [Toprol XL -] 37.5 mg PO DAILY 08/02/16 Sennosides [Senna] 8.6 mg PO BID 08/02/16 Acetaminophen [Tylenol .Regular Strength -] 650 mg PO Q4H PRN #0 tablet Valsartan [Diovan] 80 mg PO DAILY #30 tablet 08/07/16 Levetiracetam [Keppra -] 750 mg PO BID tablet 10/02/16 Sevelamer Carbonate [Renvela -] 3,200 mg PO BIDWM tab 10/02/16 Aspirin/Calcium Carbonate/Mag [Aspirin Buffered 325 mg Tab] 325 mg PO DAILY #30 tablet 12/24/16 General: Yes: CVA/TIA/stroke (rt./ sided), seizure, other (h/o Atrial fib, nephrolitiasis, ESRD dialysis tiw last had yesterday ) - Immunization History Immunizations Up to Date: Yes - Social History Smoking History: No Smoking Status: Never smoked Number of Ciarettes Per Day: 0 Alcohol Use: occasionally Drug Use: none Suture Removal/Wound Check PE - Physical Exam Laceration/Wound Check Symptoms: reports: None Comments: 01/03/17 09:36 Pt. is a 61-year-old male with a history of right-sided CVA with decidual weakness on left side, hypertension, seizure disorder, nephrolithiasis, and end- stage renal disease, atrial fibrillation, who receives dialysis 3 times a week and had a watchman filter placed at [facility] on 2016 to his right groin. Patient presented here on 12/24/2016 with bleeding from site of insertion of watching filter right groin patient had 2 interrupted sutures applied to area to control bleeding patient was told to come back in 10 days for suture removal. Patient denies any further bleeding from area or any redness or pain around area or any fever. Current Severity Level: None Maximum Severity Level: None Pain Localization: None Location of Laceration/Wound: right: Leg (rt. groin ) Pain Radiation: None *Review of Systems - Review of Systems Able to Perform ROS?: Yes Constitutional: No: Symptoms Reported HEENTM: No: Symptoms Reported Respiratory: No: Symptoms reported Cardiac (ROS): No: Symptoms Reported Integumentary: Yes: Other (2 interrrupted sutures rt. groin, placed here on 12/24 ) Neurological: No: Symptoms reported Procedures - Consent Consent obtained: From Patient - Additional Procedures Progress: 01/03/17 09:39 right groin 2 interrupted sutures, cleansed areas with betadine no discharge area cleansed 2 interrupted removed without complication, wound edges approximated, cleansed area ith NS 0.9 % and dried Medical Decision Making - Medical Decision Making 01/03/17 09:41 pLAN: suture removal 2 interrupted rt. groin no complications *DC/Admit/Observation/Transfer Diagnosis at time of Disposition: Visit for suture removal - Discharge Dispostion Disposition: HOME Condition at time of disposition: Stable - Patient Instructions Additional Instructions: YOU MAY CLEANSE AREA USUAL RETURN TO EMERGENCY ROOM IF ANY REDNESS OR TENDERNESS AROUND AREA OR FEVER FOLLOW UP WITH YOUR PRIMARY CARE PROVIDER NEXT WEEK PATIENT VOICED UNDERSTANDING OF DISCHARGE INSTRUCTIONS AND ALL QUESTIONS WERE ANSWERED
== END 2017-01-03 09:51 | disposition home or self-care (01) ==
LOC: JER 08:41 → JERFT 08:41
DX: Z48.02 Encounter for removal of sutures (principal)
CPT/HCPCS: 99281-25

== ENCOUNTER 2017-06-22 12:57 | Emergency (ER) | payer OTHER ==
[2017-06-22 13:44] VITALS: PULSE 67; TEMP 98.7; BMI 33.5
--- NOTE | 2017-06-22 14:27 | PDOC ---
History of Present Illness - General Chief Complaint: Abscess Boil Stated Complaint: ABSCESS BOIL Time Seen by Provider: 06/22/17 14:15 History Source: Patient Exam Limitations: No Limitations - History of Present Illness Initial Comments: 06/22/17 15:35 Patient is a 62M with history of HTN, ESRD on MWF dialysis, and CVA w/ residual left sided weakness here today with a boil in his left armpit. He states that it started Thursday or Thursday. He states that it popped this morning and that it has drained a small amount of bloody discharge. Denies fevers, chills, nausea , vomiting. Patient states that he generally feels well and wishes to go home. He states that he had dialysis today and that his blood pressure is normally a bit low after dialysis. Past History - Past Medical History Allergies/Adverse Reactions: Allergies Allergy/AdvReac Type Severity Reaction Status Date / Time No Known Allergies Allergy Verified 01/03/17 08:47 Home Medications: Ambulatory Orders Amlodipine Besylate [Norvasc -] 10 mg PO DAILY 08/02/16 Atorvastatin Ca [Lipitor] 40 mg PO HS 08/02/16 Cinacalcet HCl [Sensipar] 30 mg PO DAILY 08/02/16 Escitalopram Oxalate [Lexapro -] 5 mg PO DAILY 08/02/16 Metoprolol Succinate [Toprol XL -] 37.5 mg PO DAILY 08/02/16 Sennosides [Senna] 8.6 mg PO BID 08/02/16 Acetaminophen [Tylenol .Regular Strength -] 650 mg PO Q4H PRN #0 tablet Valsartan [Diovan] 80 mg PO DAILY #30 tablet 08/07/16 Sevelamer Carbonate [Renvela -] 3,200 mg PO BIDWM tab 10/02/16 levETIRAcetam [Keppra -] 750 mg PO BID tablet 10/02/16 Aspirin/Calcium Carbonate/Mag [Aspirin Buffered 325 mg Tab] 325 mg PO DAILY #30 tablet 12/24/16 Clindamycin [Cleocin -] 300 mg PO Q6HPO #28 capsule 06/22/17 Anemia: No Asthma: No Cancer: No Cardiac Disorders: Yes (A FIB) CVA: Yes (left sided weakness) COPD: No CHF: No Dementia: No Diabetes: No Dialysis: Yes (M/W/F) GI Disorders: No Disorders: No HTN: Yes Hypercholesterolemia: Yes Kidney Stones: Yes Liver Disease: No Seizures: No Thyroid Disease: No - Surgical History Abdominal Surgery: No Appendectomy: No Cardiac Surgery: No Cholecystectomy: No Gastric Stapling: No GI Surgery: No Lung Surgery: No Neurologic Surgery: No Orthopedic Surgery: No - Immunization History Immunization Up to Date: Yes - Suicide/Smoking/Psychosocial Hx Smoking Status: No Smoking History: Never smoked Have you smoked in the past 12 months: No Number of Cigarettes Smoked Daily: 0 Information on smoking cessation initiated: No Hx Alcohol Use: No Drug/Substance Use Hx: No Substance Use Type: None Hx Substance Use Treatment: No Review of Systems - Review of Systems Comments:: 06/22/17 15:39 GENERAL/CONSTITUTIONAL: No fever or chills. No changes in his weakness. HEAD, EYES, EARS, NOSE AND THROAT: No change in vision. No sore throat. CARDIOVASCULAR: No chest pain or shortness of breath RESPIRATORY: No cough, wheezing, or hemoptysis. GASTROINTESTINAL: No nausea, vomiting, diarrhea or constipation. GENITOURINARY: No dysuria, frequency, or change in urination. SKIN: No rash NEUROLOGIC: Positive for headache. Negative for vertigo, loss of consciousness, or change in strength/sensation. ENDOCRINE: No increased thirst. No abnormal weight change HEMATOLOGIC/LYMPHATIC: Positive history of blood clots, no anemia. ALLERGIC/IMMUNOLOGIC: No hives or skin allergy. *Physical Exam - Vital Signs Last Vital Signs Temp Pulse Resp BP Pulse Ox 98.7 F 67 20 91/65 100 06/22/17 13:40 06/22/17 13:40 06/22/17 13:40 06/22/17 13:40 06/22/17 13:40 - Physical Exam Comments: 06/22/17 15:41 GENERAL: Awake, alert, and fully oriented, in no acute distress L AXILLA: 2x1cm area of induration with defect, drainage from opening, mildly tender, minimal surrounding erythema HEAD: No signs of trauma, normocephalic, atraumatic EYES: PERRLA, EOMI, sclera anicteric, conjunctiva clear ENT: Auricles normal inspection, hearing grossly normal, nares patent, oropharynx clear without exudates. Moist mucosa LUNGS: No distress, speaks full sentences, clear to auscultation bilaterally HEART: Regular rate and rhythm, normal S1 and S2, no murmurs, rubs or gallops, peripheral pulses normal and equal bilaterally. ABDOMEN: Soft, nontender, normoactive bowel sounds. No guarding, no rebound. No masses EXTREMITIES: Normal inspection, Normal range of motion, no edema. No clubbing or cyanosis. NEUROLOGICAL: Cranial nerves II through XII grossly intact. Normal speech, weakness in left arm. SKIN: Warm, Dry, normal turgor, no rashes or lesions noted. Medical Decision Making - Medical Decision Making 06/22/17 15:42 62M with history of HTN, ESRD on MWF dialysis, CVA with residual left sided weakness here today with abscess in left axilla. Vital signs stable and normal. Believe that patient has small abscess that drained spontaneously. No need to I& D. Will treat with keflex and discharge with PCP follow up. *DC/Admit/Observation/Transfer Diagnosis at time of Disposition: Abscess - Discharge Dispostion Disposition: HOME Condition at time of disposition: Good Admit: No - Prescriptions Prescriptions: Clindamycin [Cleocin -] 300 mg PO Q6HPO #28 capsule - Referrals Referrals: Renny Slade MD [Primary Care Provider] - - Patient Instructions Printed Discharge Instructions: DI for Incision and Drainage of a Skin Abscess Additional Instructions: You were see today in the ED for an abscess in your left armpit. You were given an antibiotic in the ED and prescribed one to take at home. Please take the entire course of antibiotics as directed, even if you feel better. Please follow up with your primary care physician this week. Please return if you have any new, worsening or concerning symptoms. - Post Discharge Activity
[2017-06-22] MEDS ORDERED: CLINDAMYCIN HCL 300 MG CAPSULE PO ONE (16:00)
[2017-06-22] MEDS ORDERED: CLINDAMYCIN HCL 150 MG CAPSULE (FP) ONE (16:02)
--- NOTE | 2017-06-22 16:15 | PDOC ---
Attending Attestation - Resident Resident Name: Renny Serrato - ED Attending Attestation I have performed the following: I have examined & evaluated the patient, The case was reviewed & discussed with the resident, I agree w/resident's findings & plan, Exceptions are as noted - Medical Decision Making 06/22/17 16:16 62-year-old male with a history of end-stage renal disease on dialysis presents emergency Department with a left axillary draining abscess. Patient's blood pressure found to be in the 90s systolic on arrival and thus was triaged to the main ED, however patient states his blood pressure is usually in the 90s systolic after dialysis which she had today. He denies any other symptoms. Vitals otherwise are unremarkable. On exam, the patient has a left inferior axillary draining abscess that has been further drained by Dr. Serrato. Pt feels well and requests DC home. We will cover the patient with clindamycin and discharge to follow-up with Dr. Slade. Patient has been given strict return precautions. I discussed the physical exam findings, ancillary test results and final diagnoses with the patient. I answered all of the patient's questions. The patient was satisfied with the care received and felt comfortable with the discharge plan and treatment plan. The patient will call their primary care physician within 24 hours to arrange follow-up and will return to the Emergency Department with any new, persistent or worsening symptoms. <Kate Barboza - Last Filed: 06/22/17 17:26> - HPI HPI: 06/22/17 18:34 The patient is a 62 year old male with a significant PMH of ESRD (dialysis on MWF) who presents to the emergency department with an abscess to his left axilla which opened this morning and has been intermittently draining. The patient denies any other complaints of fever, chills, CP, SOB, weakness, dizziness. Pt had full session of HD today with no complications. Has been in his USOH otherwise. He was sent back to main ED as his BP was in the 90s systolic, however pt reports his BP is always in the 90s systolic after HD. Allergies: NKA PCP: Dr. Slade - Physicial Exam PE: 06/22/17 18:34 GENERAL: Awake, alert, and fully oriented, in no acute distress HEAD: No signs of trauma EYES: PERRLA, EOMI, sclera anicteric, conjunctiva clear LUNGS: Breath sounds equal, clear to auscultation bilaterally. No wheezes, and no crackles HEART: Regular rate and rhythm, normal S1 and S2, no murmurs, rubs or gallops ABDOMEN: Soft, nontender, normoactive bowel sounds. No guarding, no rebound. No masses EXTREMITIES: Normal range of motion, no edema. No clubbing or cyanosis. No cords , erythema, or tenderness BACK: No midline spinal tenderness in cervical/thoracic/lumbar region NEUROLOGICAL: Normal speech, cranial nerves intact, negative pronator drift, 5/ 5 strength in all 4 extremities, normal sensation to light touch in all 4 extremities, normal cerebellar exam, normal gait, normal reflexes and tone SKIN: L inferior axilla with draining abscess with surrounding erythema and induration. Otherwise, warm, Dry, normal turgor, no rashes or lesions noted. <Gunner Kraft - Last Filed: 06/22/17 18:34>
[2017-06-22 16:27] VITALS: BP 107/71
== END 2017-06-22 16:27 | disposition home or self-care (01) ==
LOC: JER 12:57
DX: L02.412 Cutaneous abscess of left axilla (principal); I12.0 Hypertensive chronic kidney disease with stage 5 chronic kidney disease or end stage renal disease; N18.6 End stage renal disease; N17.8 Other acute kidney failure; Z99.2 Dependence on renal dialysis; E78.00 Pure hypercholesterolemia, unspecified; I69.854 Hemiplegia and hemiparesis following other cerebrovascular disease affecting left non-dominant side; Z87.442 Personal history of urinary calculi
CPT/HCPCS: 99282-25

== ENCOUNTER 2017-10-23 16:30 | Emergency (ER) | payer OTHER ==
[2017-10-23 16:41] VITALS: TEMP 98.8; BMI 30.7
--- NOTE | 2017-10-23 16:50 | PDOC ---
History of Present Illness - General History Source: Patient Exam Limitations: No Limitations - History of Present Illness Initial Comments: The patient is a 62 year old male with a significant past medical history of HTN , ESRD (on dialysis mwf), stroke with residual left sided hemiparesis, and seizures (on Keppra 1000 mg) who presents to the ED s/p seizure like symptoms earlier today. The patient states he received dialysis earlier today and went to a family members graduation. He states he did not eat any food earlier today. Patient was on his way to a [employer] with his mother and sister when he had a sudden onset of seizure like symptoms. As per mother, the patients body was shaking and he was repeating the same words, which is the patients typical seizure symptoms. Patient reports left sided extremity pain during this episode that lasted several minutes before residing. Patients symptoms resided after he was given some crackers/snack bar and clonazepam.. Patient was seen in the ED 3 months ago for ischemic bowel and had a partial colectomy and states he has beend oing well wo and diarrhea, pain or bleeding. Denies fever or chills. Deneis diaphoresis or dizziness. Deneis palpitations or lightheadedness. Denies nausea or vomiting. Denies cough or shortness of breath. Denies change in vision, numbness, and tingling. States his weakness is at bsaeline. PMD: Jaycob <Italo Yin - Last Filed: 10/23/17 17:31> - General History Source: Patient Exam Limitations: No Limitations <Hernesto Levine - Last Filed: 10/24/17 03:07> - General Chief Complaint: Seizure Stated Complaint: SEIZURE Time Seen by Provider: 10/23/17 16:43 Past History <Italo Yin - Last Filed: 10/23/17 17:31> - Past Medical History Anemia: No Asthma: No Cancer: No Cardiac Disorders: Yes (A FIB) CVA: Yes (left sided weakness) COPD: No CHF: No Dementia: No Diabetes: No Dialysis: Yes GI Disorders: No Disorders: No HTN: Yes Hypercholesterolemia: Yes Kidney Stones: Yes Liver Disease: No Seizures: No Thyroid Disease: No - Surgical History Abdominal Surgery: No Appendectomy: No Cardiac Surgery: No Cholecystectomy: No Gastric Stapling: No GI Surgery: No Lung Surgery: No Neurologic Surgery: No Orthopedic Surgery: No - Immunization History Immunization Up to Date: Yes - Suicide/Smoking/Psychosocial Hx Smoking Status: No Smoking History: Former smoker Have you smoked in the past 12 months: No Number of Cigarettes Smoked Daily: 0 Information on smoking cessation initiated: No Hx Alcohol Use: No Drug/Substance Use Hx: No Substance Use Type: None Hx Substance Use Treatment: No <Hernesto Levnie - Last Filed: 10/24/17 03:07> - Past Medical History Allergies/Adverse Reactions: Allergies Allergy/AdvReac Type Severity Reaction Status Date / Time No Known Allergies Allergy Verified 10/23/17 16:37 Home Medications: Ambulatory Orders Atorvastatin Ca [Lipitor] 40 mg PO HS 08/02/16 Cinacalcet HCl [Sensipar] 30 mg PO DAILY 08/02/16 Escitalopram Oxalate [Lexapro -] 5 mg PO DAILY 08/02/16 Sennosides [Senna] 8.6 mg PO BID 08/02/16 Acetaminophen [Tylenol .Regular Strength -] 650 mg PO Q4H PRN #0 tablet Sevelamer Carbonate [Renvela -] 3,200 mg PO BIDWM tab 10/02/16 levETIRAcetam [Keppra -] 500 mg PO BID #60 tablet 08/07/17 Ascorbic Acid [Vitamin C] 500 mg PO DAILY 10/23/17 Aspirin 81 mg PO HS 10/23/17 Calcium Acetate [Phoslo -] 667 mg PO TID 10/23/17 Metoprolol Succinate [Toprol Xl] 25 mg PO HS 10/23/17 metroNIDAZOLE [Flagyl -] 500 mg PO DAILY 10/23/17 Review of Systems - Review of Systems Able to Perform ROS?: Yes Comments:: 10/23/17 17:31 CONSTITUTIONAL: No reported: Fever, Chills, Diaphoresis, Generalized Weakness, Malaise, Loss of Appetite HEENT: No reported: Rhinorrhea, Nasal Congestion, Throat Pain, Throat Swelling, Difficulty Swallowing, Mouth Swelling, Ear Pain, Eye Pain, Visual Changes CARDIOVASCULAR: No reported: Chest Pain, Syncope, Palpitations, Irregular Heart Rate, Lightheadedness, Peripheral Edema RESPIRATORY: No reported: Cough, Shortness of Breath, SOB with Exertion, Orthopnea, Wheezing , Stridor, Hemoptysis GASTROINTESTINAL: No reported: Abdominal pain, Abdominal Distension, Nausea, Vomiting, Diarrhea, Constipation, Melena, Hematochezia GENITOURINARY: No reported: Dysuria, Frequency, Urgency, Hesitancy, Flank Pain, Genital Pain MUSCULOSKELETAL: No reported: Myalgia, Arthralgia, Joint Swelling, Back pain, Neck Pain SKIN: No reported: Rash, Itching, Pallor HEMEATOLOGIC/IMMUNOLOGIC: No reported: Easy Bleeding, Easy Bruising, Lymphadenopathy, Frequent infections ENDOCRINE: No reported: Unexplained Weight Gain, Unexplained Weight Loss, Heat Intolerance , Cold Intolerance NEUROLOGIC: + seizure, left sided pain No reported: Headache, Focal Weakness, Paresthesias, Vertigo, Lightheadedness, Unsteady Gait, Mental Status Changes PSYCHIATRIC: No reported: Anxiety, Depression All Other Systems: Reviewed and Negative <Italo Yin - Last Filed: 10/23/17 17:31> *Physical Exam - Vital Signs Last Vital Signs Temp Pulse Resp BP Pulse Ox 98.8 F 108 H 20 113/46 97 10/23/17 16:38 10/23/17 16:38 10/23/17 16:38 10/23/17 16:38 10/23/17 16:38 - Physical Exam Comments: 10/23/17 17:31 GENERAL: The patient is awake, alert, and fully oriented, Nontoxic - in no acute distress. HEAD: Normocephalic, atraumatic. EYES: extraocular movements intact, sclera anicteric, conjunctiva clear. ENT: Normal voice, Moist mucous membranes. NECK: Normal range of motion, supple LUNGS: Breath sounds equal, clear to auscultation bilaterally. No wheezes, no rhonchi, no rales. HEART: regular, no murmer appreciated ABDOMEN: Soft, nontender, normoactive bowel sounds. No guarding, no rebound. No CVA tenderness, well healed scar in midline of abdomen EXTREMITIES: Normal range of motion, no edema. filstula in the RUE with thrill NEUROLOGICAL: No facial assymetry, Normal speech, RUE/RLE 5/5 in strength LUE 0/ 5, LLE 3/5 (all at baseline), sensation intact and symmetric throughout PSYCH: Normal mood, normal affect. SKIN: Warm, Dry, normal turgor, <Italo Yin - Last Filed: 10/23/17 17:31> - Vital Signs Last Vital Signs Temp Pulse Resp BP Pulse Ox 98.8 F 108 H 20 113/46 97 10/23/17 16:38 10/23/17 16:38 10/23/17 16:38 10/23/17 16:38 10/23/17 16:38 <Hernesto Levine - Last Filed: 10/24/17 03:07> Heart Score/ECG Review - ECG Impressions Comment:: 10/23/17 20:12 Twelve-lead EKG was performed and reviewed by me. There is normal sinus rhythm with a rate of 88 First degree AV block left axis deviation q waves in inferior leads pvcs preent <Hernesto Levine - Last Filed: 10/24/17 03:07> ED Treatment Course - ADDITIONAL ORDERS Additional order review: Laboratory Results 10/23/17 16:33 POC Glucometer [id number] 10/23/17 16:33 POC Glucometer [id number] <Italo Yin - Last Filed: 10/23/17 17:31> - LABORATORY CBC & Chemistry Diagram: 10/23/17 18:00 10/23/17 18:59 - RADIOLOGY Radiology Studies Ordered: Category Date Time Status HEAD CT WITHOUT CONTRAST [CT] Stat CT Scan 10/23/17 16:46 Ordered CHEST X-RAY PORTABLE* [RAD] Stat Radiology 10/23/17 16:46 Ordered <Hernesto Levine - Last Filed: 10/24/17 03:07> Medical Decision Making - Medical Decision Making 10/23/17 16:56 62y M hx of ESRD (dialysis MWF), afib, siezures, CVA s/p L sided weakness, HTN, HL, recent admission for ischemic bowel presents with complaint of possible siezures. Pt states he was in his USOH htis morning, went to dialysis and had a full treatment, went to a graduation and feeling well, and was on his way to dinner when he apepared to have a seizure. per family members, he was a bit shaky and was talkign about [employer] - he apepared to be awake during the time, they gave him a granola bar and candy and he appeared to be better. The pt denies any fever/chills, cough, sob, cp, palpitations, lightheadedness, diaphoresis, n/v, abd pain, back pain, headache before, during or after this episode. pt notes he feels fine currently without any complaints. exam unremarkable/at baseline ddx: metabolic dernagement/hypoglycmia, possible siezure however as he was awake , less likely pts BGM here was 162 will give pt some food will ck labs, ekg, head ct will reassess A portion of this note was documented by scribe services under my direction. I have reviewed the details of the note, within reason, and agree with the documentation with the following case summary and management plan written by me 10/23/17 21:47 labsw reviewed and are negative exacept LA of 2.6. suspect may be from starvation will recheck and if neg will dc wiht pmd fu I suspect his symptoms may be due to a hypoglycemic episode pt currently at baseline. if LA is neg will dc with pmd fu 10/24/17 00:47 lactic acid normal will dic the pt with pmd fu return precutions were discussed I discussed the physical exam findings, ancillary test results and final diagnoses with the patient. I answered all of the patient's questions. The patient was satisfied with the care received and felt comfortable with the discharge plan and treatment plan. The patient will call their primary care physician within 24 hours to arrange follow-up and will return to the Emergency Department with any new, persistent or worsening symptoms. <Hernesto Levine - Last Filed: 10/24/17 03:07> *DC/Admit/Observation/Transfer - Attestations Scribe Attestion: 10/23/17 17:32 Documentation prepared by Italo Yin, acting as certified court/medical interpreter for Hernesto Levine MD <Italo Yin - Last Filed: 10/23/17 17:31> - Discharge Dispostion Decision to Admit order: No <Hernesto Levine - Last Filed: 10/24/17 03:07> Diagnosis at time of Disposition: Shaking - Discharge Dispostion Disposition: HOME Condition at time of disposition: Improved - Referrals Referrals: Renny Slade MD [Primary Care Provider] - - Patient Instructions Printed Discharge Instructions: DI for Seizure Disorder -- Adult Additional Instructions: I suspect your shaking episode may have been due to low blood sugar. Please make sure you are eating regularly. Follow up with dr. Slade next week. I discussed the physical exam findings, ancillary test results and final diagnoses with the patient. I answered all of the patient's questions. The patient was satisfied with the care received and felt comfortable with the discharge plan and treatment plan. The patient will call their primary care physician within 24 hours to arrange follow-up and will return to the Emergency Department with any new, persistent or worsening symptoms. Print Language: TUNISIAN
[2017-10-23 18:37] LABS: BASO % 1.2 % (0-2.0); EOS % 1.5 % (0-4.5); HEMATOCRIT 33.4 % (35.4-49); HEMOGLOBIN 10.5 GM/dL (11.7-16.9); LYMPH % 23.4 % (8-40); MCH 23.5 pg (25.7-33.7); MCHC 31.4 g/dl (32.0-35.9); MEAN CELL VOLUME 74.9 fl (80-96); MEAN PLT VOLUME 8.2 fl (7.5-11.1); MONO % 9.1 % (3.8-10.2); NEUT % 64.8 % (42.8-82.8); PLATELET COUNT 323 K/MM3 (134-434); RBC 4.46 M/mm3 (4.00-5.60); RDW 20.4 % (11.9-15.9); WHITE BLOOD COUNT 7.8 K/mm3 (4.0-10.0)
[2017-10-23 18:51] VITALS: BP 123/63; PULSE 88
[2017-10-23 18:55] LABS: INR 1.19 (0.82-1.09); PROTHROMBIN TIME (PATIENT) 13.5 SEC (9.7-13.0)
[2017-10-23 19:07] LABS: VENOUS PH 7.4 (7.32-7.42)
[2017-10-23 19:08] LABS: VENOUS PO2 66.6 mmHg (28-48)
[2017-10-23 19:53] LABS: ALBUMIN 3.4 g/dl (3.4-5.0); ANION GAP 11 (8-16); BLOOD UREA NITROGEN 39 mg/dL (7-18); CALCIUM 8.1 mg/dL (8.5-10.1); CHLORIDE 96 mmol/L (98-107); CO2 27 mmol/L (21-32); CREATININE 5.4 mg/dL (0.7-1.3); GLUCOSE,RANDOM 128 mg/dL (74-106); POTASSIUM 3.8 mmol/L (3.5-5.1); SGOT/AST 19 U/L (15-37); SGPT/ALT 38 U/L (12-78); SODIUM 134 mmol/L (136-145)
[2017-10-23 19:58] LABS: ALK PHOS 105 U/L (45-117); BILIRUBIN,TOTAL 0.4 mg/dL (0.2-1.0); TOT PROT 8.2 g/dl (6.4-8.2)
[2017-10-24] MEDS ORDERED: CALCIUM ACETATE 667 MG CAPSULE (FP) PO ONE (00:07)
[2017-10-24] MEDS ORDERED: metoPROLOL SUCCINATE 25 MG TAB.SR.24H (FP) PO ONE (00:07)
[2017-10-24] MEDS ORDERED: ATORVASTATIN CA 20 MG TABLET (FP) PO ONE (00:07)
[2017-10-24] MEDS ORDERED: ASPIRIN 81 MG CHEWABLE TABLETS PO ONE (00:07)
[2017-10-24] MEDS ORDERED: ASPIRIN 81 MG CHEWABLE TABLETS ONE (00:43)
[2017-10-24] MEDS ORDERED: levETIRAcetam 500 MG TABLET (FP) PO ONE ×2 (00:47→01:22)
--- NOTE | 2017-10-26 21:58 | EKG ---
Test Reason : Blood Pressure : / mmHG Vent. Rate : 088 BPM Atrial Rate : 088 BPM P-R Int : 266 ms QRS Dur : 108 ms QT Int : 372 ms P-R-T Axes : 086 -62 080 degrees QTc Int : 450 ms SINUS RHYTHM WITH 1ST DEGREE A-V BLOCK WITH OCCASIONAL PREMATURE VENTRICULAR COMPLEXES LEFT AXIS DEVIATION INFERIOR INFARCT , AGE UNDETERMINED CANNOT RULE OUT ANTERIOR INFARCT (CITED ON OR BEFORE 02-AUG-2016) ABNORMAL ECG WHEN COMPARED WITH ECG OF 30-JUL-2017 00:45, PREMATURE VENTRICULAR COMPLEXES ARE NOW PRESENT T WAVE VARIATION Confirmed by ANTONIO CANDELARIA MD ([id number]) on 10/26/2017 9:58:01 PM Referred By: Confirmed By:ANTONIO CANDELARIA MD
--- NOTE | 2017-10-28 13:06 | EKG ---
Test Reason : Blood Pressure : / mmHG Vent. Rate : 071 BPM Atrial Rate : 071 BPM P-R Int : 294 ms QRS Dur : 112 ms QT Int : 434 ms P-R-T Axes : 106 -54 043 degrees QTc Int : 471 ms SINUS RHYTHM WITH 1ST DEGREE A-V BLOCK WITH OCCASIONAL PREMATURE VENTRICULAR COMPLEXES LEFT AXIS DEVIATION INFERIOR INFARCT (CITED ON OR BEFORE 02-AUG-2016) CANNOT RULE OUT ANTERIOR INFARCT (CITED ON OR BEFORE 02-AUG-2016) ABNORMAL ECG WHEN COMPARED WITH ECG OF 23-OCT-2017 19:08, NO SIGNIFICANT CHANGE WAS FOUND Confirmed by ZHAO GARCES MD ([id number]) on 10/28/2017 1:06:31 PM Referred By: Confirmed By:ZHAO GARCES MD
== END 2017-10-24 01:52 | disposition home or self-care (01) ==
LOC: JER 16:30
DX: G40.909 Epilepsy, unspecified, not intractable, without status epilepticus (principal); R25.1 Tremor, unspecified; I12.0 Hypertensive chronic kidney disease with stage 5 chronic kidney disease or end stage renal disease; N18.6 End stage renal disease; N17.8 Other acute kidney failure; Z99.2 Dependence on renal dialysis; Z87.891 Personal history of nicotine dependence; E78.00 Pure hypercholesterolemia, unspecified; I48.91 Unspecified atrial fibrillation; I69.854 Hemiplegia and hemiparesis following other cerebrovascular disease affecting left non-dominant side; Z79.82 Long term (current) use of aspirin
CPT/HCPCS: 36415; 70450-TC; 71045-TC-FY; 80053; 82550; 82803; 82962; 83605; 84484; 85025; 85610; 93005; 93010; 99285-25

== ENCOUNTER 2018-01-31 08:13 | Inpatient (IN) | payer OTHER ==
--- NOTE | 2018-01-31 08:59 | PDOC ---
History of Present Illness - General Chief Complaint: Rectal Bleed Stated Complaint: RECTOM BLEEDING Time Seen by Provider: 01/31/18 08:29 - History of Present Illness Initial Comments: 01/31/18 09:15 Patient is a 62 year old male with a PMH of ESRD (on HD M/W/F), CVA (2015 w/ residual L sided weakness, Watchman), HTN, ischemic colitis (s/p resection 2017 ) presents to the ED c/o 2-3 week h/o rectal bleed. States blood is bright red and he intermittently has pain with bowel movements. Denies any shortness of breath, lightheadedness. States he was scheduled for a colonoscopy, however his PMD felt it would be too much for him to the bowel prep at home so he was sent to the ED for admission including bowel prep and colonoscopy tomorrow. Patient's last HD was Thursday and was a full session. Patient denies chest pain, shortness of breath, abdominal pain, diarrhea/ constipation, nausea/vomiting. NKDA Surgical: colonic resection, AV fistula, Watchman placement Social: former smoker (last cigarette 6 months previous) social alcohol, denies recreational drugs PMD: Dr. Slade Cardiology: Dr. Torres Nephrology: Dr. Kitchen 01/31/18 16:19 Past History - Past Medical History Allergies/Adverse Reactions: Allergies Allergy/AdvReac Type Severity Reaction Status Date / Time No Known Allergies Allergy Verified 01/31/18 08:21 Home Medications: Ambulatory Orders Escitalopram Oxalate [Lexapro -] 5 mg PO DAILY 08/02/16 Sennosides [Senna] 8.6 mg PO BID 08/02/16 Acetaminophen [Tylenol .Regular Strength -] 650 mg PO Q4H PRN #0 tablet levETIRAcetam [Keppra -] 500 mg PO BID #60 tablet 08/07/17 Aspirin 81 mg PO HS 10/23/17 Calcium Acetate [Phoslo -] 667 mg PO TID 10/23/17 Metoprolol Succinate [Toprol Xl] 12.5 mg PO ASDIR 10/23/17 Ketoconazole 2% Cream [Nizoral 2% Cream -] 1 applic TP BID 01/31/18 Levetiracetam [Keppra] 1,000 mg PO BID 01/31/18 Mupirocin Cream [Bactroban 2% Cream -] 1 applic TP BID 01/31/18 Vit B Comp No.3/Folic/C/Biotin [Gavi-Alshanda Rx Tablet] 1 each PO DAILY 01/31/18 Anemia: No Asthma: No Cancer: No Cardiac Disorders: Yes (A FIB) CVA: Yes (left sided weakness) COPD: No CHF: No Dementia: No Diabetes: No Dialysis: Yes GI Disorders: No Disorders: No HTN: Yes Hypercholesterolemia: Yes Kidney Stones: Yes Liver Disease: No Seizures: No Thyroid Disease: No - Surgical History Abdominal Surgery: No Appendectomy: No Cardiac Surgery: No Cholecystectomy: No Gastric Stapling: No GI Surgery: No Lung Surgery: No Neurologic Surgery: No Orthopedic Surgery: No - Immunization History Immunization Up to Date: Yes - Suicide/Smoking/Psychosocial Hx Smoking Status: No Smoking History: Never smoked Have you smoked in the past 12 months: No Number of Cigarettes Smoked Daily: 0 Information on smoking cessation initiated: No Hx Alcohol Use: No Drug/Substance Use Hx: No Substance Use Type: None Hx Substance Use Treatment: No Review of Systems - Review of Systems Constitutional: No: Chills, Fever HEENTM: No: Blurred Vision, Double Vision Respiratory: No: Cough, Shortness of Breath Cardiac (ROS): No: Chest Pain, Lightheadedness, Palpitations, Syncope ABD/GI: Yes: Rectal Bleeding. No: Constipated, Diarrhea, Nausea, Vomiting : No: Burning, Dysuria *Physical Exam - Vital Signs Last Vital Signs Temp Pulse Resp BP Pulse Ox 97.9 F 64 18 110/57 L 99 01/31/18 08:16 01/31/18 08:16 01/31/18 08:16 01/31/18 08:16 01/31/18 08:16 - Physical Exam General Appearance: Yes: Nourished, Appropriately Dressed HEENT: positive: EOMI, Normal Voice, Hearing Grossly Normal Neck: positive: Trachea midline, Supple Respiratory/Chest: positive: Lungs Clear, Normal Breath Sounds. negative: Labored Respiration, Rapid RR Cardiovascular: positive: S1, S2, Murmur Gastrointestinal/Abdominal: positive: Normal Bowel Sounds, Soft Rectal Exam: positive: normal rectal tone, hemorrhoids (B/L external hemmorhoids : 0.25 cm diameter @ 2 and 11 o'clock) Musculoskeletal: negative: CVA Tenderness (R), CVA Tenderness (L) Extremity: positive: Normal Capillary Refill, Normal Inspection, Other (LUE A-V fistula: (+) bruit) Integumentary: positive: Normal Color, Dry, Warm, Other (Stage 2 sacral decubitus ulcer) Neurologic: positive: Fully Oriented, Alert Heart Score/ECG Review - Age Age: 45-65 - Risk Factors Based on the list above the patient has:: 1-2 risk factors - ECG Intrepretation Rhythm: Regular Rhythm - [place]: Normal - ECG Impressions Normal ECG: Yes ED Treatment Course - LABORATORY CBC & Chemistry Diagram: 01/31/18 09:30 01/31/18 10:29 Medical Decision Making - Medical Decision Making 01/31/18 09:19 62 year old male with rectal bleeding. VS unremarkable. Will evaluate patient for rectal bleed including CBC, FOBT, as well as coags. As per paperwork requests Dr. Isaac (Nephrology) and Dr. Guerrero (GI). 01/31/18 10:58 CBC 8.0 - previous Hb 9.9; baseline 8-9. FOBT negative CMP, Coags, Type an screen hemolyzed, awaiting redraw 01/31/18 11:11 K+ 5.8 - likely 2/2 to HD; no EKG changes - as documented in EKG section of EMR. Will monitor closely. Cr 10 - patient scheduled for HD tomorrow Will admit to Dr. Uyen Francois for colonoscopy prep. *DC/Admit/Observation/Transfer Diagnosis at time of Disposition: Colonoscopy planned - Discharge Dispostion Condition at time of disposition: Fair Decision to Admit order: Yes - Referrals - Patient Instructions - Post Discharge Activity
--- NOTE | 2018-01-31 09:44 | PDOC ---
Attending Attestation - Resident Resident Name: Criss Rodriguez - ED Attending Attestation I have performed the following: I have examined & evaluated the patient, The case was reviewed & discussed with the resident, I agree w/resident's findings & plan - HPI HPI: 01/31/18 09:42 62y M hx of ESRD (MWF, last dialysis thursday), CVA (residual L arm weakness), HTN , ischemic colitis (sp resection), presetns to the ED with 2-3 weeks of rectal bleed, pt notes intermittent brbpr. was scheduled for colonscopy but PMD sent pt to the ED due to inability to perform his bowel prep at home w/ dialysis. pt denies any palpitations, lightheadedness, cp, sob. GENERAL: The patient is awake, alert, and fully oriented, Nontoxic - in no acute distress. HEAD: Normocephalic, atraumatic. LUNGS: Breath sounds equal, clear to auscultation bilaterally. No wheezes, no rhonchi, no rales. HEART: Regular rate and rhythm, normal S1 and S2 without murmur, rub or gallop. ABDOMEN: Soft, nontender, No guarding, no rebound. EXTREMITIES: Normal range of motion, trace edema. NEUROLOGICAL: No facial assymetry, Normal speech, PSYCH: Normal mood, normal affect. SKIN: Warm, Dry, normal turgor, will obtain blood work to screen for anemia anticipate admission for ip workup of gib 01/31/18 12:42 initial hbg 8.0 will admit for futher mangement - Physicial Exam PE: 02/01/18 09:20 see above - Medical Decision Making 02/01/18 09:20 see above Heart Score/ECG Review - ECG Impressions Comment:: 01/31/18 10:34 Twelve-lead EKG was performed and reviewed by me. There is normal sinus rhythm with a normal rate. Rate of 63 First degree AV block Left axis deviation Incomplete right bundle-branch block Abnormal R wave progression
[2018-01-31 09:52] LABS: EOS % 5.2 % (0-4.5); HEMATOCRIT 24.7 % (35.4-49); MCHC 32.3 g/dl (32.0-35.9); MEAN CELL VOLUME 77.5 fl (80-96); NEUT % 51.8 % (42.8-82.8); PLATELET COUNT 268 K/MM3 (134-434); RBC 3.19 M/mm3 (4.00-5.60); WHITE BLOOD COUNT 7.6 K/mm3 (4.0-10.0)
[2018-01-31 10:07] LABS: INR 1.04 (0.83-1.09); PROTHROMBIN TIME (PATIENT) 12.3 SEC (9.7-13.0)
[2018-01-31 10:09] LABS: ACTIVATED PTT 28.9 SECONDS (25.2-36.5)
[2018-01-31 11:06] LABS: INR 0.99 (0.83-1.09); PROTHROMBIN TIME (PATIENT) 11.7 SEC (9.7-13.0)
[2018-01-31 11:08] LABS: ACTIVATED PTT 22.7 SECONDS (25.2-36.5)
[2018-01-31 11:10] LABS: ALBUMIN 3.4 g/dl (3.4-5.0); ALK PHOS 158 U/L (45-117); ANION GAP 15 MMOL/L (8-16); BILIRUBIN,TOTAL 0.3 mg/dL (0.2-1); BLOOD UREA NITROGEN 81 mg/dL (7-18); CALCIUM 8.7 mg/dL (8.5-10.1); CHLORIDE 100 mmol/L (98-107); CO2 23 mmol/L (21-32); GLUCOSE,RANDOM 77 mg/dL (74-106); MAGNESIUM 2.5 mg/dL (1.8-2.4); POTASSIUM 5.8 mmol/L (3.5-5.1); SGOT/AST 16 U/L (15-37); SGPT/ALT 21 U/L (13-61); SODIUM 138 mmol/L (136-145); TOT PROT 7.2 g/dl (6.4-8.2)
[2018-01-31 11:27] LABS: CREATININE 10.4 mg/dL (0.55-1.3)
[2018-01-31] MEDS ORDERED: ACETAMINOPHEN 325 MG TABLET (FP) PO PRN (12:32)
[2018-01-31] MEDS ORDERED: CALCIUM ACETATE 667 MG CAPSULE (FP) PO SCH ×2 (14:00→18:30)
--- NOTE | 2018-01-31 15:30 | HP ---
Admitting History and Physical - Primary Care Physician PCP: Renny Slade - Admission Chief Complaint: Bleeding per rectum History of Present Illness: 62 year old male with multiple medical co-morbidities lives with family H/O CKD stage 5 on HD M/W/F, CVA in 2016 w/residual L sided weakness, HTN, ischemic colitis (s/p resection 2018) present to Ed for evaluation of bleedig per rectum , patient had H/O recurrent lower GI bleed last was few wks ago , patient was seen by GI as out patient, hositalized for inpatient evaluation of recurrent lower GI bleeding , at preset patient is comfortable denies ay abd pain, active lower GI bleeding, chest pain or SOB.Plan to get HD and bowel prep and colonoscopy tomorrow. 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 Cardiovascular: Yes: AFIB (paroxysmal), HTN, Hyperlipdemia Gastrointestinal: Yes: Constipation Renal/: Yes: Renal Failure, Hemodialysis (MWF) Heme/Onc: Yes: Anemia Musculoskeletal: Yes: Hemiplegia (left), Other (But he has pogressed to walk with an aide and brace at home.) - Past Surgical History Past Surgical History: Yes: AV Fistula/Graft (right arm), Cataract Removal - Smoking History Smoking history: Never smoked Have you smoked in the past 12 months: No Aproximately how many cigarettes per day: 0 - Alcohol/Substance Use Hx Alcohol Use: No History of Substance Use: reports: None - Social History ADL: Family Assistance Occupation: retired due illness History of Recent Travel: No Home Medications - Allergies Allergies/Adverse Reactions: Allergies Allergy/AdvReac Type Severity Reaction Status Date / Time No Known Allergies Allergy Verified 01/31/18 08:21 - Home Medications Home Medications: Ambulatory Orders Escitalopram Oxalate [Lexapro -] 5 mg PO DAILY 08/02/16 Sennosides [Senna] 8.6 mg PO BID 08/02/16 Acetaminophen [Tylenol .Regular Strength -] 650 mg PO Q4H PRN #0 tablet levETIRAcetam [Keppra -] 500 mg PO BID #60 tablet 08/07/17 Aspirin 81 mg PO HS 10/23/17 Calcium Acetate [Phoslo -] 667 mg PO TID 10/23/17 Metoprolol Succinate [Toprol Xl] 12.5 mg PO ASDIR 10/23/17 Ketoconazole 2% Cream [Nizoral 2% Cream -] 1 applic TP BID 01/31/18 Levetiracetam [Keppra] 1,000 mg PO BID 01/31/18 Mupirocin Cream [Bactroban 2% Cream -] 1 applic TP BID 01/31/18 Vit B Comp No.3/Folic/C/Biotin [Gavi-Lashanda Rx Tablet] 1 each PO DAILY 01/31/18 Family Disease History - Family Disease History Family Disease History: CA: Mother Review of Systems - Review of Systems Constitutional: denies: Chills, Diaphoresis, Fever, Lethargy Eyes: denies: Blurred Vision, Double Vision HENT: denies: Difficult Swallowing, Ear Discharge Neck: denies: Decreased ROM, Lumps, Pain on Movement Cardiovascular: denies: Chest Pain, Edema Respiratory: denies: Cough, Exercise Intolerance, Hemoptysis Gastrointestinal: reports: Rectal Bleeding. denies: Abdominal Pain, Bloating, Constipation, Diarrhea Genitourinary: denies: Burning, Discharge, Dysuria, Flank Pain Musculoskeletal: denies: Back Pain, Crepitus, Decreased ROM Neurological: denies: Change in LOC, Change in Speech, Confusion, Dizziness Endocrine: denies: Excessive Sweating, Flushing, Increased Hunger Hematology/Lymphatic: denies: Easily Bruised Psychiatric: denies: Altered Sleep Pattern, Anxiety, Depression Physical Examination Vital Signs: Vital Signs Temperature 99.9 F H 01/31/18 14:55 Pulse Rate 62 01/31/18 14:55 Respiratory Rate 18 01/31/18 14:55 Blood Pressure 103/55 L 01/31/18 14:55 O2 Sat by Pulse Oximetry (%) 95 01/31/18 14:55 Constitutional: Yes: Well Nourished, No Distress HENT: Yes: WNL, Atraumatic, Normocephalic Neck: Yes: WNL, Supple, Trachea Midline. No: Decreased ROM, Lymphadenopathy Cardiovascular: Yes: Regular Rate and Rhythm, S1, S2. No: Bradycardia, Tachycardia, Bruit, JVD Respiratory: Yes: Regular, CTA Bilaterally Gastrointestinal: Yes: Normal Bowel Sounds, Soft Extremities: No: Calf Tenderness Edema: RUE: Trace, LLE: Trace Peripheral Pulses: Left Doralis Pedis: 1+, Right Dorsalis Pedis: 1+ Integumentary: Yes: Other (Folliculitis Left axilla) Neurological: Yes: Alert, Oriented, Dysarthria, Unsteady Gait, Weakness (Left sided upper and lower extermity) Labs: CBC, BMP 01/31/18 09:30 01/31/18 10:29 CBC,CMP WBC 7.6 K/mm3 (4.0-10.0) 01/31/18 09:30 RBC 3.19 M/mm3 (4.00-5.60) L 01/31/18 09:30 Hgb 8.0 GM/dL (11.7-16.9) L 01/31/18 09:30 Hct 24.7 % (35.4-49) L D 01/31/18 09:30 MCV 77.5 fl (80-96) L 01/31/18 09:30 MCH 25.0 pg (25.7-33.7) L 01/31/18 09:30 MCHC 32.3 g/dl (32.0-35.9) 01/31/18 09:30 RDW 17.0 % (11.9-15.9) H 01/31/18 09:30 Plt Count 268 K/MM3 (134-434) 01/31/18 09:30 MPV 9.0 fl (7.5-11.1) 01/31/18 09:30 Absolute Neuts (auto) 3.9 K/mm3 (1.5-8.0) 01/31/18 09:30 Neutrophils % 51.8 % (42.8-82.8) D 01/31/18 09:30 Lymphocytes % 30.0 % (8-40) D 01/31/18 09:30 Monocytes % 12.0 % (3.8-10.2) H 01/31/18 09:30 Eosinophils % 5.2 % (0-4.5) H D 01/31/18 09:30 Basophils % 1.0 % (0-2.0) 01/31/18 09:30 Nucleated RBC % 0 % (0-0) 01/31/18 09:30 Sodium 138 mmol/L (136-145) 01/31/18 10:29 Potassium 5.8 mmol/L (3.5-5.1) H 01/31/18 10:29 Chloride 100 mmol/L (98-107) 01/31/18 10:29 Carbon Dioxide 23 mmol/L (21-32) 01/31/18 10:29 Anion Gap 15 MMOL/L (8-16) 01/31/18 10:29 BUN 81 mg/dL (7-18) H 01/31/18 10:29 Creatinine 10.4 mg/dL (0.55-1.3) H* 01/31/18 10:29 Creat Clearance w eGFR 5.09 (>60) 01/31/18 10:29 Random Glucose 77 mg/dL (74-106) 01/31/18 10:29 Calcium 8.7 mg/dL (8.5-10.1) 01/31/18 10:29 Magnesium 2.5 mg/dL (1.8-2.4) H 01/31/18 10:29 Total Bilirubin 0.3 mg/dL (0.2-1) 01/31/18 10:29 AST 16 U/L (15-37) 01/31/18 10:29 ALT 21 U/L (13-61) 01/31/18 10:29 Alkaline Phosphatase 158 U/L (45-117) H 01/31/18 10:29 Total Protein 7.2 g/dl (6.4-8.2) 01/31/18 10:29 Albumin 3.4 g/dl (3.4-5.0) 01/31/18 10:29 Imaging - Results X-ray: Report Reviewed EKG: Report Reviewed (NSR Ist HB low Voltage no acute St T changes) Problem List - Problems (1) Hematochezia Assessment/Plan: ad mitted for evaliuation including colonoscopy GI was consulted in ED at present julissa ctivebleeding Code(s): K92.1 - MELENA (2) Afib Assessment/Plan: s/P Watch man device rate controlled Code(s): I48.91 - UNSPECIFIED ATRIAL FIBRILLATION (3) CVA (cerebral vascular accident) Assessment/Plan: S/P residual weakness , fall precautions Code(s): I63.9 - CEREBRAL INFARCTION, UNSPECIFIED Qualifiers: CVA mechanism: unspecified Qualified Code(s): I63.9 - Cerebral infarction, unspecified (4) Diastolic dysfunction without heart failure Assessment/Plan: Compesated cont home meds Code(s): I51.9 - HEART DISEASE, UNSPECIFIED (5) ESRD (end stage renal disease) Assessment/Plan: On HD Due for Dialysis in am Code(s): N18.6 - END STAGE RENAL DISEASE (6) Hyperkalemia Assessment/Plan: Kayxelate due for HD Code(s): E87.5 - HYPERKALEMIA (7) Seizure Assessment/Plan: On Keppra cont home dose Code(s): R56.9 - UNSPECIFIED CONVULSIONS (8) Folliculitis Assessment/Plan: Left axilla, culture collected hot compresses Code(s): L73.9 - FOLLICULAR DISORDER, UNSPECIFIED
[2018-01-31] MEDS ORDERED: SODIUM POLYSTYRENE SULFONATE 15 GM/60 ML BOTTLE PO ONE ×2 (15:36→22:15)
[2018-01-31] MEDS: SEVELAMER CARBONATE 800 MG TAB (FP) PO SCH ×2 (17:37→18:18)
[2018-01-31] MEDS: CALCIUM ACETATE 667 MG CAPSULE (FP) PO SCH (18:51)
--- NOTE | 2018-01-31 20:07 | CON.NEP ---
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 Cardio/Vascular: Yes: AFIB (paroxysmal), HTN, Hyperlipdemia Gastrointestinal: Yes: Constipation Renal/: Yes: Renal Failure, Hemodialysis (MWF) Musculoskeletal: Yes: Hemiplegia (left), Other (But he has pogressed to walk with an aide and brace at home.) - Past Surgical History Past Surgical History: Yes: AV Fistula/Graft (right arm), Cataract Removal - Alcohol/Substance Use Hx Alcohol Use: No History of Substance Use: reports: None - Smoking History Smoking history: Former smoker Have you smoked in the past 12 months: No Aproximately how many cigarettes per day: 0 If you are a former smoker, when did you quit?: 2012 - Social History ADL: Family Assistance Occupation: retired due illness History of Recent Travel: No Home Medications - Allergies Allergies/Adverse Reactions: Allergies Allergy/AdvReac Type Severity Reaction Status Date / Time No Known Allergies Allergy Verified 01/31/18 08:21 - Home Medications Home Medications: Ambulatory Orders Escitalopram Oxalate [Lexapro -] 5 mg PO DAILY 08/02/16 Sennosides [Senna] 8.6 mg PO BID 08/02/16 Acetaminophen [Tylenol .Regular Strength -] 650 mg PO Q4H PRN #0 tablet levETIRAcetam [Keppra -] 500 mg PO BID #60 tablet 08/07/17 Aspirin 81 mg PO HS 10/23/17 Calcium Acetate [Phoslo -] 667 mg PO TID 10/23/17 Metoprolol Succinate [Toprol Xl] 12.5 mg PO ASDIR 10/23/17 Ketoconazole 2% Cream [Nizoral 2% Cream -] 1 applic TP BID 01/31/18 Levetiracetam [Keppra] 1,000 mg PO BID 01/31/18 Mupirocin Cream [Bactroban 2% Cream -] 1 applic TP BID 01/31/18 Vit B Comp No.3/Folic/C/Biotin [Gavi-Lashanda Rx Tablet] 1 each PO DAILY 01/31/18 Family Disease History - Family Disease History Family Disease History: CA: Mother Nephrology Consult - Height Height: 5 ft 7 in - Weight Weight: 194 lb - BMI Body Mass Index (BMI): 30.4 - Lab Results CBC,BMP: CBC, BMP 01/31/18 09:30 01/31/18 10:29 Anion Gap: Anion Gap Anion Gap 15 MMOL/L (8-16) 01/31/18 10:29 - Physical Examination Vital Signs: Vital Signs Temperature 98.4 F 01/31/18 17:00 Pulse Rate 66 01/31/18 17:00 Respiratory Rate 18 01/31/18 17:00 Blood Pressure 101/56 L 01/31/18 17:00 O2 Sat by Pulse Oximetry (%) 96 01/31/18 17:00 Constitutional: Yes: Well Nourished, No Distress, Calm Eyes: Yes: WNL, Conjunctiva Clear, EOM Intact HENT: Yes: WNL, Atraumatic, Normocephalic Neck: Yes: WNL, Supple, Trachea Midline Respiratory: Yes: WNL, Regular, CTA Bilaterally Gastrointestinal: Yes: WNL, Normal Bowel Sounds Renal/: Yes: WNL Access for Hemodialysis: AV Fistula Musculoskeletal: Yes: WNL Extremities: Yes: WNL Edema: No Peripheral Pulses WNL: Yes Integumentary: Yes: WNL Neurological: Yes: Pre-Existing Deficit (left ollie), Weakness Assessment/Plan esrd admitted for eval of gibleed he is on chronic hemodialysis mwf schedule he has no new problems related to hd will plan maintenance treatments
[2018-01-31] MEDS: ASPIRIN 81 MG CHEWABLE TABLETS PO SCH (21:48)
[2018-01-31] MEDS: SENNOSIDES 8.6MG TABLET (FP) PO SCH (21:48)
[2018-01-31] MEDS: ATORVASTATIN CA 20 MG TABLET (FP) PO SCH (21:48)
[2018-01-31] MEDS: levETIRAcetam 500 MG TABLET (FP) PO SCH (21:49)
[2018-01-31 21:55] LABS: ANION GAP 15 MMOL/L (8-16); BLOOD UREA NITROGEN 91 mg/dL (7-18); CALCIUM 8.3 mg/dL (8.5-10.1); CHLORIDE 101 mmol/L (98-107); CO2 25 mmol/L (21-32); GLUCOSE,RANDOM 94 mg/dL (74-106); POTASSIUM 5.6 mmol/L (3.5-5.1); SODIUM 142 mmol/L (136-145)
[2018-01-31 21:56] LABS: CREATININE 11.3 mg/dL (0.55-1.3)
[2018-01-31] MEDS ORDERED: SENNOSIDES 8.6MG TABLET (FP) PO SCH (22:00)
[2018-01-31] MEDS ORDERED: ATORVASTATIN CA 40 MG TABLET (FP) PO SCH (22:00)
[2018-01-31] MEDS ORDERED: levETIRAcetam 500 MG TABLET (FP) PO SCH (22:00)
[2018-01-31] MEDS ORDERED: metoPROLOL SUCCINATE 25 MG TAB.SR.24H (FP) PO SCH (22:00)
--- NOTE | 2018-02-01 06:11 | EKG ---
Test Reason : Blood Pressure : / mmHG Vent. Rate : 063 BPM Atrial Rate : 063 BPM P-R Int : 288 ms QRS Dur : 106 ms QT Int : 416 ms P-R-T Axes : 118 -54 037 degrees QTc Int : 425 ms SINUS RHYTHM WITH 1ST DEGREE A-V BLOCK LEFT AXIS DEVIATION LOW VOLTAGE QRS INCOMPLETE RIGHT BUNDLE BRANCH BLOCK INFERIOR INFARCT (CITED ON OR BEFORE 02-AUG-2016) CANNOT RULE OUT ANTERIOR INFARCT (CITED ON OR BEFORE 02-AUG-2016) ABNORMAL ECG WHEN COMPARED WITH ECG OF 23-OCT-2017 23:03, PREMATURE VENTRICULAR COMPLEXES ARE NO LONGER PRESENT NONSPECIFIC T WAVE ABNORMALITY NO LONGER EVIDENT IN LATERAL LEADS Confirmed by KATHY FERREIRA MD ([id number]) on 02/01/2018 6:11:22 AM Referred By: Confirmed By:KATHY FERREIRA MD
[2018-02-01 07:18] LABS: BASO % 1.4 % (0-2.0); EOS % 4.5 % (0-4.5); HEMATOCRIT 21.9 % (35.4-49); LYMPH % 35.3 % (8-40); MCHC 31.1 g/dl (32.0-35.9); MEAN CELL VOLUME 77.4 fl (80-96); MEAN PLT VOLUME 8.6 fl (7.5-11.1); NEUT % 47.8 % (42.8-82.8); PLATELET COUNT 212 K/MM3 (134-434); RBC 2.83 M/mm3 (4.00-5.60); RDW 16.1 % (11.9-15.9); WHITE BLOOD COUNT 6.3 K/mm3 (4.0-10.0)
[2018-02-01 07:32] LABS: INR 1.11 (0.83-1.09); PROTHROMBIN TIME (PATIENT) 13.1 SEC (9.7-13.0)
[2018-02-01 07:38] LABS: HEMOGLOBIN 6.8 GM/dL (11.7-16.9)
[2018-02-01 09:18] LABS: HEMATOCRIT 23.4 % (35.4-49); HEMOGLOBIN 7.3 GM/dL (11.7-16.9); MCH 24.1 pg (25.7-33.7); MCHC 31.2 g/dl (32.0-35.9); MEAN CELL VOLUME 77.1 fl (80-96); MEAN PLT VOLUME 8.6 fl (7.5-11.1); PLATELET COUNT 197 K/MM3 (134-434); RBC 3.04 M/mm3 (4.00-5.60); RDW 16.3 % (11.9-15.9)
--- NOTE | 2018-02-01 09:38 | PN ---
Progress Note (short form) - Note Progress Note: Dr. Ken/SENIOR SQL DBA Ramón to document today. Patient with intermittent lower GI bleeding and never had colonoscopy. He had surgery for Ischemic Colitis several months ago. Also Hx.of CVA, Dialysis, Seizure Disorder, Subdural Hematoma resolved, Watchman 's device placement. Hb yesterday 8GM. Today 6.8Gm. 1 stool guaiac negative. 1 unit of packed cells ordered during dialysis which has been scheduled for this AM. Plan had been for Dialysis this AM; Colon prep PM today and Colonoscopy Thursday by Dr. Manjula Betancur.
[2018-02-01] MEDS: CALCIUM ACETATE 667 MG CAPSULE (FP) PO SCH ×3 (09:50→18:04)
[2018-02-01] MEDS ORDERED: CINACALCET HCL 30 MG TAB (FP) PO SCH (10:00)
[2018-02-01] MEDS ORDERED: ASCORBIC ACID 500 MG TABLET (FP) PO SCH (10:00)
[2018-02-01] MEDS ORDERED: metroNIDAZOLE 500 MG TABLET PO SCH (10:00)
--- NOTE | 2018-02-01 10:02 | CON.GI ---
Consult Consult Specialty:: GI Referred by:: Dr. Renny Slade Reason for Consultation:: Rectal bleeding and anemia - History of Present Illness Chief Complaint: Rectal bleeding History of Present Illness: 62 M with compicated medical history, h/o prolonged hospitalization 07/19-08/19 during which time he underwent a right hemicolectomy secondary to ischemic colitis. More recently he noticed intermittent BRBPR with bowel movements. he denied any associated abdominal pain. He denies diarrhea but does complain iof strained bowel movements. He was using proctozone cream with improvement in the rectal bleeding. He has never had a colonoscopy. There is no family history of colon cancer. Please see office notes from 01/14/18 that was left in his current inpatient physical chart. 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, Other (Intracranial hemorrhage s/p fall ) Cardio/Vascular: Yes: AFIB (paroxysmal), HTN, Hyperlipdemia Gastrointestinal: Yes: Constipation, Other (Ischemic colitis) Renal/: Yes: Renal Failure, Hemodialysis (MWF) Musculoskeletal: Yes: Hemiplegia (left), Other (But he has pogressed to walk with an aide and brace at home.) - Past Surgical History Past Surgical History: Yes: AV Fistula/Graft (right arm), Cataract Removal, Colectomy (right hemicolectomy 07/19) Additional Surgical History: Defibrilator placement, watchman procedure, left arm AV fistula, right arm AV fistula - Alcohol/Substance Use Hx Alcohol Use: No History of Substance Use: reports: None - Smoking History Smoking history: Former smoker Have you smoked in the past 12 months: No Aproximately how many cigarettes per day: 0 If you are a former smoker, when did you quit?: 2013 - Social History ADL: Family Assistance 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 Place of : [facility] [place] History of Recent Travel: No Home Medications - Allergies Allergies/Adverse Reactions: Allergies Allergy/AdvReac Type Severity Reaction Status Date / Time No Known Allergies Allergy Verified 01/31/18 08:21 - Home Medications Home Medications: Ambulatory Orders Escitalopram Oxalate [Lexapro -] 5 mg PO DAILY 08/02/16 Sennosides [Senna] 8.6 mg PO BID 08/02/16 Acetaminophen [Tylenol .Regular Strength -] 650 mg PO Q4H PRN #0 tablet levETIRAcetam [Keppra -] 500 mg PO BID #60 tablet 08/07/17 Aspirin 81 mg PO HS 10/23/17 Calcium Acetate [Phoslo -] 667 mg PO TID 10/23/17 Metoprolol Succinate [Toprol Xl] 12.5 mg PO ASDIR 10/23/17 Ketoconazole 2% Cream [Nizoral 2% Cream -] 1 applic TP BID 01/31/18 Levetiracetam [Keppra] 1,000 mg PO BID 01/31/18 Mupirocin Cream [Bactroban 2% Cream -] 1 applic TP BID 01/31/18 Vit B Comp No.3/Folic/C/Biotin [Gavi-Lashanda Rx Tablet] 1 each PO DAILY 01/31/18 Family Disease History - Family Disease History Family Disease History: CA: Mother (Alive, BCA, Liver Ca), Other: Father (Alive , hyperlipidemia), Mother, Son (4, healthy), Daughter (1, healthy) Other Family History: No family history of colorectal cancer. Review of Systems - Review of Systems Constitutional: denies: Chills Cardiovascular: denies: Chest Pain Respiratory: denies: Cough Gastrointestinal: reports: Rectal Bleeding (improved). denies: Abdominal Pain, Nausea, Vomiting, Vomiting Blood Physical Exam-GI Vital Signs: Vital Signs Temperature 97.7 F 02/01/18 06:00 Pulse Rate 91 H 02/01/18 06:00 Respiratory Rate 18 02/01/18 06:00 Blood Pressure 139/74 02/01/18 06:00 O2 Sat by Pulse Oximetry (%) 96 01/31/18 21:00 Constitutional: Yes: Calm Eyes: No: Sclera Icterus Cardiovascular: Yes: Regular Rate and Rhythm. No: Murmur Respiratory: Yes: CTA Bilaterally Gastrointestinal Inspection: Yes: Scars (+ midline upper abdomional vertical surgical scar.). No: Distention ...Auscultate: Yes: Normoactive Bowel Sounds ...Palpate: No: Tenderness ...Percussion: No: Tympanitic ...Rectal Exam: Yes: Other (No performed, performed previously during office visit: guaiac positive light brown stool noted at that time.) Edema: No (No LE edema) Neurological: Yes: Alert, Oriented, Other (Left sided arm and leg deficit from prior CVA.) Labs: CBC, BMP 02/01/18 08:56 INR, PTT INR 1.11 (0.83-1.09) H 02/01/18 06:30 Hepatic Panel Total Bilirubin 0.3 mg/dL (0.2-1) 02/01/18 06:30 AST 11 U/L (15-37) L 02/01/18 06:30 ALT 16 U/L (13-61) 02/01/18 06:30 Alkaline Phosphatase 117 U/L (45-117) 02/01/18 06:30 Albumin 2.7 g/dl (3.4-5.0) L 02/01/18 06:30 Problem List - Problems (1) Rectal bleeding Assessment/Plan: Improved, however given anemia and guaiac positve stool noted on previous rectal exam, We discussed both EGD and colonoscopy for further intraluminal evaluation. We discussed potential risks of the procedure like but not limited to bleeding, perforation requiring surgery to repair, infection, sedation medication effects all of which could be potentially life threatening. He has agreed to the procedures. To be performed 02/02 For now: Clear liquid diet NPO after midnight except meds Receiving 2 U PRBC during HD today Monitor H/H and for signs of active GI bleeding Code(s): K62.5 - HEMORRHAGE OF ANUS AND RECTUM
[2018-02-01 10:17] LABS: ALBUMIN 2.7 g/dl (3.4-5.0); ALK PHOS 117 U/L (45-117); ANION GAP 16 MMOL/L (8-16); BILIRUBIN,TOTAL 0.3 mg/dL (0.2-1); BLOOD UREA NITROGEN 89 mg/dL (7-18); CALCIUM 8.7 mg/dL (8.5-10.1); CHLORIDE 101 mmol/L (98-107); CO2 23 mmol/L (21-32); GLUCOSE,RANDOM 73 mg/dL (74-106); POTASSIUM 4.8 mmol/L (3.5-5.1); SGOT/AST 11 U/L (15-37); SGPT/ALT 16 U/L (13-61); SODIUM 140 mmol/L (136-145); TOT PROT 5.7 g/dl (6.4-8.2)
[2018-02-01 10:19] LABS: CREATININE 12.3 mg/dL (0.55-1.3)
[2018-02-01] MEDS ORDERED: SODIUM CHLORIDE 250 ML IV PRN (12:02)
--- NOTE | 2018-02-01 13:51 | PN ---
Progress Note, Physician Chief Complaint: Mr Yoon says he is feeling well and is without complaint. No cp, sob, n/v. - Current Medication List Current Medications: Active Medications Acetaminophen (Tylenol -) 650 mg PO Q4H PRN PRN Reason: FEVER Last Admin: 01/31/18 22:36 Dose: 650 mg Aspirin (Asa -) 81 mg PO [facility] Last Admin: 01/31/18 21:48 Dose: 81 mg Atorvastatin Calcium (Lipitor -) 20 mg PO [facility] Last Admin: 01/31/18 21:48 Dose: 20 mg Bisacodyl (Dulcolax -) 20 mg PO ONCE ONE Stop: 02/01/18 15:01 Calcium Acetate (Phoslo -) 1,334 mg PO TIDCM [facility] Last Admin: 02/01/18 09:50 Dose: Not Given Escitalopram Oxalate (Lexapro -) 5 mg PO DAILY [facility] Levetiracetam (Keppra -) 1,000 mg PO BID [facility] Last Admin: 01/31/18 21:49 Dose: 1,000 mg Metoprolol Succinate (Toprol Xl -) 12.5 mg PO MoWeFrSa@2200 [facility] Multivit/Ca Carb/B Cmplx/FA/Prenat (Nephro-Lashanda -) 1 tablet PO DAILY [facility] Senna (Senna -) 2 tab PO BID [facility] Last Admin: 01/31/18 21:48 Dose: 2 tab - Objective Vital Signs: Vital Signs Temperature 37.2 C 02/01/18 09:45 Pulse Rate 60 02/01/18 13:36 Respiratory Rate 18 02/01/18 13:36 Blood Pressure 112/54 L 02/01/18 13:36 O2 Sat by Pulse Oximetry (%) 96 01/31/18 21:00 Constitutional: Yes: Well Nourished, No Distress, Calm Cardiovascular: Yes: Regular Rate and Rhythm. No: Gallop, Murmur, Rub Respiratory: Yes: Regular, CTA Bilaterally. No: Rales, Rhonchi, Wheezes Gastrointestinal: Yes: Normal Bowel Sounds, Soft. No: Distention, Tenderness Extremities: Yes: WNL Edema: No Labs: CBC, BMP 02/01/18 08:56 02/01/18 06:30 INR, PTT INR 1.11 (0.83-1.09) H 02/01/18 06:30 Problem List - Problems (1) Rectal bleeding Assessment/Plan: -GI following -planning for endoscopy/colonoscopy tomorrow Code(s): K62.5 - HEMORRHAGE OF ANUS AND RECTUM (2) Acute blood loss anemia Assessment/Plan: -secondary to GI bleed -receiving transfusion with HD -recheck in am -plan for EGD and colonoscopy in am Code(s): D62 - ACUTE POSTHEMORRHAGIC ANEMIA (3) Diastolic dysfunction without heart failure Assessment/Plan: -continue HD -not in exacerbation Code(s): I51.9 - HEART DISEASE, UNSPECIFIED (4) ESRD (end stage renal disease) Assessment/Plan: -continue HD -nephrology following Code(s): N18.6 - END STAGE RENAL DISEASE (5) Hypertension Assessment/Plan: -well controlled Code(s): I10 - ESSENTIAL (PRIMARY) HYPERTENSION Qualifiers: Hypertension type: essential hypertension Qualified Code(s): I10 - Essential (primary) hypertension (6) Late effect of cerebrovascular accident (CVA) Assessment/Plan: -continue aspirin Code(s): I69.30 - UNSPECIFIED SEQUELAE OF CEREBRAL INFARCTION (7) Seizure Assessment/Plan: -continue keppra Code(s): R56.9 - UNSPECIFIED CONVULSIONS
[2018-02-01] MEDS: levETIRAcetam 500 MG TABLET (FP) PO SCH ×2 (14:01→21:57)
[2018-02-01] MEDS: ESCITALOPRAM OXALATE 10 MG TABLET (FP) PO SCH (14:01)
[2018-02-01] MEDS: VITAMIN B COMP W-C 1 EA TABLET PO SCH (14:01)
[2018-02-01] MEDS: SENNOSIDES 8.6MG TABLET (FP) PO SCH ×2 (14:01→21:57)
[2018-02-01] MEDS ORDERED: BISACODYL 5 MG TABLET.DR (FP) PO ONE (15:00)
[2018-02-01] MEDS ORDERED: PEG3350/SOD SULF,BICARB,CL/KCL 4,000 ML SOLN.RECON PO ONE (16:00)
--- NOTE | 2018-02-01 16:39 | PN ---
Progress Note, Physician History of Present Illness: Pt seen and examined at bedside. He is awake and alert. He tolerated HD today. He is going for a colonoscopy tomorrow. - Current Medication List Current Medications: Active Medications Acetaminophen (Tylenol -) 650 mg PO Q4H PRN PRN Reason: FEVER Last Admin: 01/31/18 22:36 Dose: 650 mg Aspirin (Asa -) 81 mg PO HS [facility] Last Admin: 01/31/18 21:48 Dose: 81 mg Atorvastatin Calcium (Lipitor -) 20 mg PO HS [facility] Last Admin: 01/31/18 21:48 Dose: 20 mg Calcium Acetate (Phoslo -) 1,334 mg PO TIDCM [facility] Last Admin: 02/01/18 14:00 Dose: 1,334 mg Escitalopram Oxalate (Lexapro -) 5 mg PO DAILY [facility] Last Admin: 02/01/18 14:01 Dose: 5 mg Levetiracetam (Keppra -) 1,000 mg PO BID [facility] Last Admin: 02/01/18 14:01 Dose: 1,000 mg Metoprolol Succinate (Toprol Xl -) 12.5 mg PO MoWeFrSa@2200 [facility] Multivit/Ca Carb/B Cmplx/FA/Prenat (Nephro-Lashanda -) 1 tablet PO DAILY [facility] Last Admin: 02/01/18 14:01 Dose: 1 tablet Senna (Senna -) 2 tab PO BID [facility] Last Admin: 02/01/18 14:01 Dose: 2 tab - Objective Vital Signs: Vital Signs Temperature 98.2 F 02/01/18 15:49 Pulse Rate 65 02/01/18 15:49 Respiratory Rate 18 02/01/18 15:49 Blood Pressure 114/53 L 02/01/18 15:49 O2 Sat by Pulse Oximetry (%) 96 01/31/18 21:00 Constitutional: Yes: Calm Eyes: Yes: Conjunctiva Clear HENT: Yes: Atraumatic Neck: Yes: Supple Cardiovascular: Yes: S1, S2 Respiratory: Yes: CTA Bilaterally Gastrointestinal: Yes: Soft Genitourinary: Yes: Incontinence Edema: Yes Neurological: Yes: Oriented, Pre-Existing Deficit Labs: CBC, BMP 02/01/18 08:56 02/01/18 06:30 INR, PTT INR 1.11 (0.83-1.09) H 02/01/18 06:30 Problem List - Problems (1) Afib Code(s): I48.91 - UNSPECIFIED ATRIAL FIBRILLATION (2) Colonoscopy planned Code(s): [id number] - (3) ESRD (end stage renal disease) Code(s): N18.6 - END STAGE RENAL DISEASE Assessment/Plan Current Medications Generic Name Dose Route Start Last Admin Trade Name Freq PRN Reason Stop Dose Admin Acetaminophen 650 mg 01/31/18 12:32 01/31/18 22:36 Tylenol - PO 650 mg Q4H PRN Administration FEVER Aspirin 81 mg 01/31/18 22:00 01/31/18 21:48 Asa - PO 81 mg HS [facility] Administration Atorvastatin Calcium 20 mg 01/31/18 22:00 01/31/18 21:48 Lipitor - PO 20 mg HS SANDEEP Administration Calcium Acetate 1,334 mg 01/31/18 19:00 02/01/18 14:00 Phoslo - PO 1,334 mg TIDCM [facility] Administration Escitalopram Oxalate 5 mg 02/01/18 10:00 02/01/18 14:01 Lexapro - PO 5 mg DAILY [facility] Administration Levetiracetam 1,000 mg 01/31/18 22:00 02/01/18 14:01 Keppra - PO 1,000 mg BID [facility] Administration Metoprolol Succinate 12.5 mg 02/01/18 22:00 Toprol Xl - PO MoWeFrSa@2200 [facility] Multivit/Ca Carb/B Cmplx/FA/Prenat 1 tablet 02/01/18 10:00 02/01/18 14:01 Nephro-Lashanda - PO 1 tablet DAILY SANDE[facility] Administration Senna 2 tab 01/31/18 22:00 02/01/18 14:01 Senna - PO 2 tab BID [facility] Administration Impression 1. ESRD 2. hx CVA 3. seizure 4. hx HTN 5. hyperlipidemia 6. anemia 7. subdural hemorrhage 8. s/p hemicolectomy Plan - pt tolerated HD today - pt is going for a colonoscopy tomorrow - monitor hg - pt is getting prep today - will follow Dr Isaac
[2018-02-01] MEDS: ATORVASTATIN CA 20 MG TABLET (FP) PO SCH (21:57)
[2018-02-01] MEDS ORDERED: metoPROLOL SUCCINATE 25 MG TAB.SR.24H (FP) PO SCH (22:00)
[2018-02-01] MEDS: ASPIRIN 81 MG CHEWABLE TABLETS PO SCH (22:13)
[2018-02-02 06:11] LABS: HBSAG SCREEN Negative (Negative); HEP B CORE AB, TOT Negative (Negative)
[2018-02-02 08:23] LABS: BASO % 0.6 % (0-2.0); EOS % 3.3 % (0-4.5); HEMATOCRIT 29.9 % (35.4-49); HEMOGLOBIN 9.6 GM/dL (11.7-16.9); LYMPH % 34.6 % (8-40); MCH 24.7 pg (25.7-33.7); MEAN CELL VOLUME 77.1 fl (80-96); MEAN PLT VOLUME 8.7 fl (7.5-11.1); MONO % 12.9 % (3.8-10.2); NEUT % 48.6 % (42.8-82.8); PLATELET COUNT 220 K/MM3 (134-434); RBC 3.88 M/mm3 (4.00-5.60); RDW 16.3 % (11.9-15.9); WHITE BLOOD COUNT 6.5 K/mm3 (4.0-10.0)
[2018-02-02 08:48] LABS: ANION GAP 10 MMOL/L (8-16); BLOOD UREA NITROGEN 43 mg/dL (7-18); CALCIUM 8.1 mg/dL (8.5-10.1); CHLORIDE 100 mmol/L (98-107); CO2 31 mmol/L (21-32); GLUCOSE,RANDOM 82 mg/dL (74-106); POTASSIUM 4.3 mmol/L (3.5-5.1); SODIUM 141 mmol/L (136-145)
[2018-02-02] MEDS: CALCIUM ACETATE 667 MG CAPSULE (FP) PO SCH ×2 (09:30→14:38)
[2018-02-02 09:38] LABS: CREATININE 8.2 mg/dL (0.55-1.3)
[2018-02-02] MEDS: levETIRAcetam 500 MG TABLET (FP) PO SCH (09:41)
--- NOTE | 2018-02-02 10:30 | PN ---
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 Patient seems to have had good result from his laxative prep for his endoscopies today. Hb 9.6GM and potassium 4.3. Mom present.
--- NOTE | 2018-02-02 13:16 | PN ---
Progress Note (short form) - Note Progress Note: EGD/Colonoscopy report placed in procedural section of physical chart and to be scanned into [facility] Problem List - Problems (1) Rectal bleeding Code(s): K62.5 - HEMORRHAGE OF ANUS AND RECTUM
[2018-02-02] MEDS: SENNOSIDES 8.6MG TABLET (FP) PO SCH (14:33)
[2018-02-02] MEDS: ESCITALOPRAM OXALATE 10 MG TABLET (FP) PO SCH (14:38)
[2018-02-02] MEDS: VITAMIN B COMP W-C 1 EA TABLET PO SCH (14:39)
[2018-02-02 15:24] VITALS: BP 123/95; PULSE 71; TEMP 97.6
--- NOTE | 2018-02-02 15:48 | DS ---
Physical Examination Vital Signs: Vital Signs Temperature 36.4 C 02/02/18 14:22 Pulse Rate 71 02/02/18 14:22 Respiratory Rate 20 02/02/18 14:22 Blood Pressure 123/95 02/02/18 14:22 O2 Sat by Pulse Oximetry (%) 99 02/02/18 13:31 Constitutional: Yes: No Distress, Calm, Obese Cardiovascular: Yes: Regular Rate and Rhythm. No: Gallop, Murmur, Rub Respiratory: Yes: Regular, CTA Bilaterally. No: Rales, Rhonchi, Wheezes Gastrointestinal: Yes: Normal Bowel Sounds, Soft. No: Distention, Tenderness Extremities: Yes: WNL Edema: No Labs: CBC, BMP 02/02/18 06:20 02/02/18 06:20 Discharge Summary Reason For Visit: COLONOSCOPY PLANNED, RECTAL BLEEDING Current Active Problems Afib (Acute) Colonoscopy planned (Acute) Folliculitis (Acute) Hyperkalemia (Acute) Rectal bleeding (Acute) Hospital Course: (1) Rectal bleeding Code(s): K62.5 - HEMORRHAGE OF ANUS AND RECTUM (2) Acute blood loss anemia Code(s): D62 - ACUTE POSTHEMORRHAGIC ANEMIA (3) Diastolic dysfunction without heart failure Code(s): I51.9 - HEART DISEASE, UNSPECIFIED (4) ESRD (end stage renal disease) Code(s): N18.6 - END STAGE RENAL DISEASE (5) Hypertension Code(s): I10 - ESSENTIAL (PRIMARY) HYPERTENSION Qualifiers: Hypertension type: essential hypertension Qualified Code(s): I10 - Essential (primary) hypertension (6) Late effect of cerebrovascular accident (CVA) Code(s): I69.30 - UNSPECIFIED SEQUELAE OF CEREBRAL INFARCTION (7) Seizure Code(s): R56.9 - UNSPECIFIED CONVULSIONS (8) Staph abscess Mr Yoon is a very pleasant 62 year old male who comes in with rectal bleeding. He was admitted to the hospital and found to have ABLA requiring transfusion. He tolerated transfusion with HD well and was stabilized. He was able to undergo EGD and colonoscopy without difficulty. He was found to have erosions in the stomach and internal hemorrhoids. Recommended to start protonix , this prescription was written. Also recommended to avoid NSAIDs. He had a axillary abscess that was expressed. Cultures growing staph species. Patient is not toxic and can be treated as an outpatient with oral clindamycin. He is safe for discharge home. 34 minutes spent in preparation of this discharge Condition: Stable - Instructions Diet, Activity, Other Instructions: resume previous diet and activity Referrals: Renny Slade MD [Staff Physician] - Mookie Betancur DO [Staff Physician] - Cira Isaac MD [Staff Physician] - Disposition: HOME - Home Medications Comprehensive Discharge Medication List: Ambulatory Orders Escitalopram Oxalate [Lexapro -] 5 mg PO DAILY 08/02/16 Sennosides [Senna] 8.6 mg PO BID 08/02/16 Acetaminophen [Tylenol .Regular Strength -] 650 mg PO Q4H PRN #0 tablet levETIRAcetam [Keppra -] 500 mg PO BID #60 tablet 08/07/17 Aspirin 81 mg PO HS 10/23/17 Calcium Acetate [Phoslo -] 667 mg PO TID 10/23/17 Metoprolol Succinate [Toprol Xl] 12.5 mg PO ASDIR 10/23/17 Ketoconazole 2% Cream [Nizoral 2% Cream -] 1 applic TP BID 01/31/18 Mupirocin Cream [Bactroban 2% Cream -] 1 applic TP BID 01/31/18 Vit B Comp No.3/Folic/C/Biotin [Gavi-Lashanda Rx Tablet] 1 each PO DAILY 01/31/18 Ascorbic Acid [Vitamin C -] 500 mg PO DAILY tablet 02/02/18 Atorvastatin Ca [Lipitor] 20 mg PO HS #30 tablet 02/02/18 Clindamycin [Cleocin -] 300 mg PO Q6HPO #28 capsule 02/02/18 Lactobacillus Acidophilus [Acidophilus Lactobacillus] 1 each PO BIDLASIX #10 capsule 02/02/18 Pantoprazole Sodium [Protonix -] 40 mg PO DAILY #30 tablet.ec 02/02/18 Vitamin B Comp W-C [Nephro-Lashanda -] 1 tablet PO DAILY #30 tablet 02/02/18
[2018-02-02 15:57] VITALS: BMI 32.5
--- NOTE | 2018-02-02 17:28 | PN ---
Progress Note, Physician History of Present Illness: Pt seen and examined at bedside. He is awake and alert. He had the colonoscopy. He is eager to go home. - Objective Vital Signs: Vital Signs Temperature 97.6 F 02/02/18 14:22 Pulse Rate 71 02/02/18 14:22 Respiratory Rate 20 02/02/18 14:22 Blood Pressure 123/95 02/02/18 14:22 O2 Sat by Pulse Oximetry (%) 99 02/02/18 13:31 Constitutional: Yes: Calm Eyes: Yes: Conjunctiva Clear HENT: Yes: Atraumatic Neck: Yes: Supple Cardiovascular: Yes: S1, S2 Respiratory: Yes: CTA Bilaterally Gastrointestinal: Yes: Soft Genitourinary: Yes: WNL Edema: No Neurological: Yes: Oriented, Pre-Existing Deficit Labs: CBC, BMP 02/02/18 06:20 02/02/18 06:20 INR, PTT INR 1.11 (0.83-1.09) H 02/01/18 06:30 Problem List - Problems (1) Afib Code(s): I48.91 - UNSPECIFIED ATRIAL FIBRILLATION (2) Colonoscopy planned Code(s): OUZ2209 - (3) ESRD (end stage renal disease) Code(s): N18.6 - END STAGE RENAL DISEASE Assessment/Plan Impression 1. ESRD 2. hx CVA 3. seizure 4. hx HTN 5. hyperlipidemia 6. anemia 7. subdural hemorrhage 8. s/p hemicolectomy Plan - pt has HD scheduled as outpt tomorrow - he will follow tomorrow for HD - pt tolerated HD yesterday - GI follow up - will follow Dr Isaac
--- NOTE | 2018-02-03 19:13 | PATH ---
Surgical Pathology Report Patient Name: RENNY LUONG [facility]. Rec. #: [id number] /Age/Gender: 1955 (Age: 62) / M Account: [id number] Location: [address] [place] [address] Taken: 02/02/2018 Received: 02/02/2018 Reported: 02/03/2018 Physicians: Tabatha Prieto M.D. Specimen(s) Received A: BX DUODENUM B: BX ANTRAL EROSION C: BX BODY D: BX GE JUNCTION E: BX ANASTOMOTIC ULCER Clinical History Anemia Postoperative diagnosis: Hiatal hernia, gastritis, esophagitis, surgical anastomosis, anastomotic ulcer Final Diagnosis A. Duodenum, biopsy: Duodenal mucosa with moderate acute and chronic duodenitis B. Stomach, antral erosions, biopsy: Gastric antrum WITH chronic focal active gastritis and associated ulceration. Immunohistochemical stain for H. pylori is negative. C. Stomach, body erosions, biopsy: Gastric body mucosa with MILD chronic gastritis. Immunohistochemical STAIN FOR H. Pylori is negative. D. GE junction, biopsy: Columnar mucosa with moderate to severe acute and chronic inflammation. No squamous mucosa, intestinal metaplasia, or dysplasia identified. E. Anastomotic ulcer, biopsy: Colonic mucosa WITH MILD ARCHITECTURAL DISTORTION AND increased ACUTE AND CHRONIC inflammatory infiltrate WITHin lamina propria. SEPARATE FRAGMENTS OF ACUTELY INFLAMED AND ULCERATED MUCOSA WITH ASSOCIATED GRANULATION TISSUE. RESIN CRYSTALS IMBEDED WITHIN ACUTE INFLAMMATORY DEBRIS CONSISTENT WITH ULCER BASE. SEE COMMENT. Comment: Kayexalate medication history is noted. Findings discussed with Dr. Betancur. Electronically Signed Elena Delatorre M.D. Gross Description A. Received in formalin, labeled "BX duodenum" are 4 hammond, irregular portions of soft tissue measuring 0.2 cm. in greatest dimension. The specimens are submitted in toto in one cassette. B. Received in formalin, labeled "BX antral erosions" are 4 hammond, irregular portions of soft tissue measuring 0.1 and 0.2 cm. in greatest dimension. The specimens are submitted in toto in one cassette. C. Received in formalin, labeled "BX body of stomach erosions" are 4 hammond, irregular portions of soft tissue measuring 0.2 cm. in greatest dimension. The specimens are submitted in toto in one cassette. D. Received in formalin, labeled "BX GE junction" are 3 hammond, irregular portions of soft tissue measuring 0.1 and 0.3 cm. in greatest dimension. The specimens are submitted in toto in one cassette. E. Received in formalin, labeled "BX anastomotic ulcer" are 4 hammond, irregular portions of soft tissue measuring 0.2 cm. in greatest dimension. The specimens are submitted in toto in one cassette. MLSZ/02/02/2018 [email or web address]/02/2018
== END 2018-02-02 17:09 | disposition home or self-care (01) | DRG 377 ==
LOC: JER 08:13 → JERBED 12:28 → J5S 15:38 → OBSVTOIN 02-01 14:41
PROVIDERS: ADMIT Internal Medicine; ATTEND Internal Medicine
PROC: 30233N1 Transfusion of Nonautologous Red Blood Cells into Peripheral Vein, Percutaneous Approach (ICD-10-PCS; 2018-02-01)
PROC: 5A1D70Z Performance of Urinary Filtration, Intermittent, Less than 6 Hours Per Day (ICD-10-PCS; 2018-02-01)
PROC: 0DD98ZX Extraction of Duodenum, Via Natural or Artificial Opening Endoscopic, Diagnostic (ICD-10-PCS; 2018-02-02)
PROC: 0DD68ZX Extraction of Stomach, Via Natural or Artificial Opening Endoscopic, Diagnostic (ICD-10-PCS; 2018-02-02)
PROC: 0DDE8ZX Extraction of Large Intestine, Via Natural or Artificial Opening Endoscopic, Diagnostic (ICD-10-PCS; principal; 2018-02-02 10:30)
DX: K28.4 Chronic or unspecified gastrojejunal ulcer with hemorrhage (principal); N18.6 End stage renal disease; D62 Acute posthemorrhagic anemia; I69.354 Hemiplegia and hemiparesis following cerebral infarction affecting left non-dominant side; I13.11 Hypertensive heart and chronic kidney disease without heart failure, with stage 5 chronic kidney disease, or end stage renal disease; I48.91 Unspecified atrial fibrillation; L73.9 Follicular disorder, unspecified; K64.8 Other hemorrhoids; Z99.2 Dependence on renal dialysis; K44.9 Diaphragmatic hernia without obstruction or gangrene; K29.50 Unspecified chronic gastritis without bleeding; K29.80 Duodenitis without bleeding; E78.5 Hyperlipidemia, unspecified; E87.5 Hyperkalemia; I51.9 Heart disease, unspecified; E66.9 Obesity, unspecified; Z68.32 Body mass index [BMI] 32.0-32.9, adult
CPT/HCPCS: 36415; 36430; 71045-TC-FY; 80048; 80053; 82272; 83735; 85025; 85027; 85610; 85730; 86704; 86706; 86708; 86803; 86850; 86900; 86901; 86922; 87070; 87186; 87205; 87340; 88305-TC; 93005; 93010; 99284-25; G0378; P9038; P9058

== ENCOUNTER 2018-04-09 13:04 | Emergency (ER) | payer OTHER ==
--- NOTE | 2018-04-09 13:24 | PDOC ---
History of Present Illness - General Chief Complaint: Seizure Stated Complaint: SEIZURE Time Seen by Provider: 04/09/18 13:16 - History of Present Illness Initial Comments: 04/09/18 13:18 62 yo M with h/o HTN, A-fib ( not on AC), CVA ( 2016 with residual L sided weakness), ischemic colitis ( s/p resection 2017), CKD ( HD M/W/F) BIBA s/p seizure. Patient home health aide at bedside to assist in report. States that patient arrived home from dialysis this morning, took anticonvulsive medication ( Levitiracetem 1000 TID), and was in the bathroom sitting down when he became unresponsive, with tonic posturing of his left side and left neck, with clonic whole body movements. This lasted for 3 minutes and resolved. Patient then ambulated to the couch, with home health aide. Ambulates with asissitve device. He experienced tonic posturing while standing. home health aide denies falls, LOC, head/neck/back trauma. Patient denies tongue biting, urinary complaints. Does not produce urine. Patient denies N/V, BELLO, tinnitus, hearing loss, wheezing, cough, PND, orthopnea , hemoptysis, palpitations, leg pain/swelling, F,C, CP, SOB, urinary complaints , abdominal pain, diarrhea, constipation, lightheadedness, weakness, sensory changes. PMHx: as noted above ROS: as noted Allergies: DA Neurology Dr. Constantino Past History - Past Medical History Allergies/Adverse Reactions: Allergies Allergy/AdvReac Type Severity Reaction Status Date / Time No Known Allergies Allergy Verified 01/31/18 08:21 Home Medications: Ambulatory Orders Escitalopram Oxalate [Lexapro -] 5 mg PO DAILY 08/02/16 Aspirin 81 mg PO HS 10/23/17 Calcium Acetate [Phoslo -] 667 mg PO TID 10/23/17 Metoprolol Succinate [Toprol Xl] 12.5 mg PO ASDIR 10/23/17 Vit B Comp No.3/Folic/C/Biotin [Gavi-Lashanda Rx Tablet] 1 each PO DAILY 01/31/18 Acetaminophen [Tylenol] 325 mg PO PRN 04/09/18 Docusate Sodium [Colace] 100 mg PO TID 04/09/18 Mupirocin Cream [Bactroban 2% Cream -] 1 applic .ROUTE DAILY 04/09/18 Pantoprazole Sodium [Protonix -] 40 mg PO HS 04/09/18 levETIRAcetam [Keppra -] 1,000 mg PO BID 04/09/18 Anemia: No Asthma: No Cancer: No Cardiac Disorders: Yes (AFIB) CVA: Yes (left sided weakness) COPD: No CHF: No Dementia: No Diabetes: No Dialysis: Yes GI Disorders: Yes (ischmic colitis) Disorders: No HTN: Yes Hypercholesterolemia: Yes Kidney Stones: Yes Liver Disease: No Seizures: Yes Thyroid Disease: No - Surgical History Abdominal Surgery: No Appendectomy: No Cardiac Surgery: No Cholecystectomy: No Gastric Stapling: No GI Surgery: No Lung Surgery: No Neurologic Surgery: No Orthopedic Surgery: No - Immunization History Immunization Up to Date: Yes - Suicide/Smoking/Psychosocial Hx Smoking Status: No Smoking History: Never smoked Have you smoked in the past 12 months: No Number of Cigarettes Smoked Daily: 0 If you are a former smoker, when did you quit?: 2012 Hx Alcohol Use: No Drug/Substance Use Hx: No Substance Use Type: None Hx Substance Use Treatment: No Review of Systems - Review of Systems Comments:: 04/09/18 13:26 GENERAL/CONSTITUTIONAL: No fever or chills. No weakness. HEAD, EYES, EARS, NOSE AND THROAT: No change in vision. No ear pain or discharge. No sore throat. CARDIOVASCULAR: No chest pain or shortness of breath RESPIRATORY: No cough, wheezing, or hemoptysis. GASTROINTESTINAL: No nausea, vomiting, diarrhea or constipation. GENITOURINARY: No dysuria, frequency, or change in urination. MUSCULOSKELETAL: No joint or muscle swelling or pain. No neck or back pain. SKIN: No rash NEUROLOGIC: No headache, vertigo, loss of consciousness, or change in strength/ sensation. ENDOCRINE: No increased thirst. No abnormal weight change HEMATOLOGIC/LYMPHATIC: No anemia, easy bleeding, or history of blood clots. ALLERGIC/IMMUNOLOGIC: No hives or skin allergy. *Physical Exam - Physical Exam Comments: 04/09/18 13:26 GENERAL: Awake, alert, and fully oriented, in no acute distress HEAD: No signs of trauma, normocephalic, atraumatic EYES: PERRLA, EOMI, sclera anicteric, conjunctiva clear ENT: Auricles normal inspection, hearing grossly normal, nares patent, oropharynx clear without exudates. Moist mucosa NECK: Normal ROM, supple, no lymphadenopathy, JVD, or masses LUNGS: No distress, speaks full sentences, clear to auscultation bilaterally HEART: Regular rate and rhythm, normal S1 and S2, no murmurs, rubs or gallops, peripheral pulses normal and equal bilaterally. ABDOMEN: Soft, nontender, normoactive bowel sounds. No guarding, no rebound. No masses. Neg CVA ttp. EXTREMITIES : + Patent left AC fistula. Normal inspection, Normal range of motion, no edema. No clubbing or cyanosis. NEUROLOGICAL: Cranial nerves II through XII grossly intact. Normal speech, strength 0/5 RUE/RLE ( baseline). LUE/LLE ( 5/5). Absent dysmetria on FTN. Nml VIRGIL, HTS. SKIN: Warm, Dry, normal turgor, no rashes or lesions noted ED Treatment Course - LABORATORY CBC & Chemistry Diagram: 04/09/18 15:15 04/09/18 15:15 Medical Decision Making - Medical Decision Making 04/09/18 13:24 62 yo M with h/o HTN, A-fib ( not on AC), CVA ( 2015 with residual L sided weakness), ischemic colitis ( s/p resection 2017), CKD ( HD M/W/F) who p/w seizure. EMS reports BP 87/62, HR 90, GLU~140. VSS, AF, A&Ox3, GCS 15. No acute neurological deficits. Will consider seizure, VBI/TIA, cardiac dyssarythmias, hypoglycemia, hypovolemia, electrolyte abnml, metabolic and toxic derangements, acid-base disturbances, infection. Ed Course: CBC, CMP, Cardiac Pr. UA, UCx. EKG, CXR 04/09/18 16:50 CBC: Unremarkable 04/09/18 18:38 CBC: Unremarkable Trop: Neg CTH: No acute intracranial pathology. Chronic right frontal parietal and cortical infarct. 04/09/18 19:13 BUN/CR: 43/6.3 ( Baseline Cr 10) 04/09/18 19:[address] Constantino increase Keppra to 1250 night, and 1000 morning. Keppra renally cleared. Patient undergoes HD. Patient to f/u with neurology outpt. Pt. stable for d/c with return precautions. *DC/Admit/Observation/Transfer Diagnosis at time of Disposition: Seizure - Discharge Dispostion Condition at time of disposition: Stable - Referrals Referrals: Renny Slade MD [Primary Care Provider] - - Patient Instructions Printed Discharge Instructions: DI for Seizure Disorder -- Adult Additional Instructions: Please return to the emergency department with any new or worsening symptoms or concerns. Please follow up with your primary care physician within 72 hours. Please follow up with neurology within 24 hours. Please increase night dose of keppra to 1250 mg. Continue day dose of Keppra at 1000 mg - Post Discharge Activity - Attestations Physician Attestion: 04/09/18 13:36 I attest to the information provided in this note.
[2018-04-09 13:36] VITALS: BMI 26.6
--- NOTE | 2018-04-09 13:52 | PDOC ---
Attending Attestation - Resident Resident Name: IvanChiAddy - ED Attending Attestation I have performed the following: I have examined & evaluated the patient, The case was reviewed & discussed with the resident, I agree w/resident's findings & plan, Exceptions are as noted - HPI HPI: 04/09/18 14:51 62 yo male with h/o prior cva, resultant siezures , esrd, htn hld here today with generalized siezure after dialysis. pt was getting up from toilet, had witnessed siezure by home health aid head turning to left, then generalized. lasted few minutes. had second seizure after called EMS. and partial seizure in the ED. pt states he feels back to baseline. last seizure was 03/03, and prior to that in october. no f/c no cp or sob. did complete dialysis - Physicial Exam PE: 04/09/18 15:02 awake alert lungs clear bilaterally heart rrr no mrg abd soft nt nd. ext wwp. left upper ext no movement ( old) left lower ext moves, not against gravity. right upper and lower ext 5/5. skin warm and dry. facies symmetric. CN intact. speech clear. pt alert oriented x 3. - Medical Decision Making 04/09/18 15:03 62 yo M h/o seizures, cva, esrd, here with siezure following dialysis. r/o ich, labs ekg. pavel d/w marthan. give keppra. Heart Score/ECG Review #1 General ECG Interpretation: Sinus Rhythm, Normal Rate, Normal Intervals, No acute ischemic changes (TWI I, AVL)
[2018-04-09 16:06] LABS: BASO % 1.4 % (0-2.0); EOS % 1.5 % (0-4.5); HEMATOCRIT 31.7 % (35.4-49); HEMOGLOBIN 10.5 GM/dL (11.7-16.9); LYMPH % 25.7 % (8-40); MCH 25.2 pg (25.7-33.7); MEAN CELL VOLUME 76.2 fl (80-96); MEAN PLT VOLUME 9.6 fl (7.5-11.1); MONO % 9.7 % (3.8-10.2); NEUT % 61.7 % (42.8-82.8); PLATELET COUNT 211 K/MM3 (134-434); RBC 4.15 M/mm3 (4.00-5.60); RDW 16.3 % (11.9-15.9); WHITE BLOOD COUNT 5.6 K/mm3 (4.0-10.0)
[2018-04-09 16:51] LABS: INR 1.15 (0.83-1.09); PROTHROMBIN TIME (PATIENT) 13.6 SEC (9.7-13.0)
--- NOTE | 2018-04-09 19:04 | EKG ---
Test Reason : Blood Pressure : / mmHG Vent. Rate : 068 BPM Atrial Rate : 068 BPM P-R Int : 284 ms QRS Dur : 102 ms QT Int : 420 ms P-R-T Axes : 027 -51 062 degrees QTc Int : 446 ms SINUS RHYTHM WITH 1ST DEGREE A-V BLOCK LEFT AXIS DEVIATION ANTERIOR INFARCT (CITED ON OR BEFORE 02-AUG-2016) ABNORMAL ECG WHEN COMPARED WITH ECG OF 31-JAN-2018 09:59, CRITERIA FOR INFERIOR INFARCT ARE NO LONGER PRESENT T WAVE INVERSION NOW EVIDENT IN LATERAL LEADS Confirmed by DEZ ABBASI, ZHAO ([id number]) on 04/09/2018 7:04:48 PM Referred By: Confirmed By:ZHAO GARCES MD
[2018-04-09 19:11] LABS: ALBUMIN 3.4 g/dl (3.4-5.0); ALK PHOS 206 U/L (45-117); ANION GAP 17 MMOL/L (8-16); BILIRUBIN,TOTAL 0.7 mg/dL (0.2-1); BLOOD UREA NITROGEN 43 mg/dL (7-18); CALCIUM 7.6 mg/dL (8.5-10.1); CHLORIDE 96 mmol/L (98-107); CO2 20 mmol/L (21-32); CREATININE 6.9 mg/dL (0.55-1.3); GLUCOSE,RANDOM 91 mg/dL (74-106); POTASSIUM 5.9 mmol/L (3.5-5.1); SGOT/AST 39 U/L (15-37); SGPT/ALT 31 U/L (13-61); SODIUM 134 mmol/L (136-145); TOT PROT 7.2 g/dl (6.4-8.2)
[2018-04-09 20:50] VITALS: BP 140/85; PULSE 72; TEMP 98.1
== END 2018-04-09 20:45 | disposition home or self-care (01) ==
LOC: JER 13:04
DX: R56.9 Unspecified convulsions (principal); I10 Essential (primary) hypertension; I48.91 Unspecified atrial fibrillation; K52.89 Other specified noninfective gastroenteritis and colitis; Z86.73 Personal history of transient ischemic attack (TIA), and cerebral infarction without residual deficits
CPT/HCPCS: 36415; 70450-TC; 71045-TC-FY; 80053; 82550; 82553; 84484; 85025; 85610; 93005; 93010; 99282-25

== ENCOUNTER 2019-03-28 15:58 | Inpatient (IN) | payer OTHER ==
--- NOTE | 2019-03-28 16:02 | PDOC ---
Rapid Medical Evaluation Time Seen by Provider: 03/28/19 16:01 Medical Evaluation: Allergies Allergy/AdvReac Type Severity Reaction Status Date / Time No Known Allergies Allergy Verified 01/31/18 08:21 03/28/19 16:01 I have performed a brief in-person evaluation of this patient. The patient presents with a chief complaint of: graft clotted, not fixed due to low heart rate Pertinent physical exam findings:stable and in NAD, non-focal I have ordered the following:labs, ekg The patient will proceed to the ED for further evaluation.
--- NOTE | 2019-03-28 17:13 | PDOC ---
History of Present Illness - General Chief Complaint: Dialysis Shunt Problem Stated Complaint: Dialysis Shunt Problem Time Seen by Provider: 03/28/19 16:01 History Source: Patient Exam Limitations: No Limitations - History of Present Illness Initial Comments: 03/28/19 17:11 Patient is a 63 year old male with ESRD (HD on M/W/F), Afib (defibrillator and watchman device 207), HTN, CVA (2016 w/residual L-sided weakness), ischemic colitis (resection 2017), seizures who presents from dialysis with thrombosed AV fistula and bradycardia. Pt last had successful dialysis on ThursdayMar 25. Today at dialysis, they were unable to get access through his right forearm fistula. He was sent to [facility] where AV fistula was found to be thrombosed (no pulsatility or thrill). Of note, pt was last seen at [facility] for angioplasty across the inflow on his R forearm fistula where he gets recurrent stenoses. Pt was going to undergo repair of his fistula, however he was found to be bradycardic in 30-40s. He is asymptoamtic with no chest pain, SOB, lightheadedness, dizziness, palpitations. His chair caner, Dr. Kitchen was made aware. He was sent to [facility] to undergo workup of his bradycardia. 03/28/19 17:15 03/28/19 17:28 Past History - Past Medical History Allergies/Adverse Reactions: Allergies Allergy/AdvReac Type Severity Reaction Status Date / Time No Known Allergies Allergy Verified 03/28/19 16:05 Home Medications: Ambulatory Orders Escitalopram Oxalate [Lexapro -] 5 mg PO DAILY 08/02/16 Aspirin 81 mg PO HS 10/23/17 Calcium Acetate [Phoslo -] 667 mg PO TID 10/23/17 Metoprolol Succinate [Toprol Xl] 12.5 mg PO ASDIR 10/23/17 Vit B Comp No.3/Folic/C/Biotin [Gavi-Lashanda Rx Tablet] 1 each PO DAILY 01/31/18 Acetaminophen [Tylenol] 325 mg PO PRN 04/09/18 Docusate Sodium [Colace] 100 mg PO TID 04/09/18 Mupirocin Cream [Bactroban 2% Cream -] 1 applic .ROUTE DAILY 04/09/18 Pantoprazole Sodium [Protonix -] 40 mg PO HS 04/09/18 levETIRAcetam [Keppra -] 1,000 mg PO BID 04/09/18 Anemia: No Asthma: No Cancer: No Cardiac Disorders: Yes (AFIB) CVA: Yes (left sided weakness) COPD: No CHF: No Dementia: No Diabetes: No Dialysis: Yes GI Disorders: Yes (ischmic colitis) Disorders: No HTN: Yes Hypercholesterolemia: Yes Kidney Stones: Yes Liver Disease: No Seizures: Yes Thyroid Disease: No - Surgical History Abdominal Surgery: No Appendectomy: No Cardiac Surgery: No Cholecystectomy: No Gastric Stapling: No GI Surgery: No Lung Surgery: No Neurologic Surgery: No Orthopedic Surgery: No - Immunization History Immunization Up to Date: Yes - Psycho Social/Smoking Cessation Hx Smoking Status: No Smoking History: Never smoked Have you smoked in the past 12 months: No Number of Cigarettes Smoked Daily: 0 If you are a former smoker, when did you quit?: 2012 Hx Alcohol Use: No Drug/Substance Use Hx: No Substance Use Type: None Hx Substance Use Treatment: No Review of Systems - Review of Systems Constitutional: No: Symptoms Reported, See HPI, Chills, Diaphoresis, Fever, Loss of Appetite, Malaise, Night Sweats, Weakness, Weight Stable, Unintentional Wgt. Loss, Unexplained wgt Loss, Other HEENTM: No: Symptoms Reported, See HPI, Eye Pain, Blurred Vision, Tearing, Recent change in vision, Double Vision, Cataracts, Ear Pain, Ocular Prothesis, Ear Discharge, Nose Pain, Nose Congestion, Tinnitus, Nose Bleeding, Hearing Loss , Throat Pain, Throat Swelling, Mouth Pain, Dental Problems, Difficulty Swallowing, Mouth Swelling, Other Respiratory: No: Symptoms reported, See HPI, Cough, Orthopnea, Shortness of Breath, SOB with Exertion, SOB at Rest, Stridor, Wheezing, Productive cough, Hemoptysis, Other Cardiac (ROS): No: Symptoms Reported, See HPI, Chest Pain, Edema, Irregular Heart Rate, Lightheadedness, Palpitations, Syncope, Chest Tightness, Other ABD/GI: No: Symptoms Reported, See HPI, Abdominal Distended, Abd. Pain w/ defecation, Blood Streaked Bowels, Constipated, Diarrhea, Difficulty Swallowing , Nausea, Poor Appetite, Poor Fluid Intake, Rectal Bleeding, Vomiting, Indigestion, Abdominal cramping, Tarry Stools, Other Musculoskeletal: No: Symptoms Reported, See HPI, Back Pain, Gout, Joint Pain, Joint Swelling, Muscle Pain, Muscle Weakness, Neck Pain, Joint Stiffness, Other Neurological: No: Symptoms reported, See HPI, Headache, Numbness, Paresthesia, Pre-Existing Deficit, Seizure, Tingling, Tremors, Weakness, Unsteady Gait, Ataxia, Dizziness, Other *Physical Exam - Vital Signs Last Vital Signs Temp Pulse Resp BP Pulse Ox 98 F 45 L 18 116/78 99 03/28/19 16:00 03/28/19 16:00 03/28/19 16:00 03/28/19 16:00 03/28/19 16:00 - Physical Exam General Appearance: Yes: Nourished, Appropriately Dressed. No: Apparent Distress HEENT: positive: EOMI, HUNG, Normal ENT Inspection, Normal Voice, Pharynx Normal Neck: positive: Trachea midline, Normal Thyroid, Supple Respiratory/Chest: positive: Lungs Clear, Normal Breath Sounds. negative: Chest Tender, Respiratory Distress, Accessory Muscle Use, Crackles, Wheezing Cardiovascular: positive: S1, S2, Bradycardia, Irregular. negative: Edema, JVD Vascular Pulses: Dorsalis-Pedis (R): 2+, Doralis-Pedis (L): 2+ Gastrointestinal/Abdominal: positive: Normal Bowel Sounds, Soft. negative: Tender, Guarding, Tenderness Musculoskeletal: positive: Normal Inspection. negative: CVA Tenderness Extremity: positive: Other (No pulsatility or thrill in R AV fistula) Neurologic: positive: Facial Droop (Mild on L), Other (3/5 strength on LEFT) ED Treatment Course - LABORATORY CBC & Chemistry Diagram: 03/28/19 16:45 03/28/19 19:57 Medical Decision Making - Medical Decision Making 03/28/19 17:39 EKG: bradycardic @ 37, no peaked T waves >> CBC, CMP, coags >> echo in am 03/28/19 22:[address] Torres and Dr. Kitchen. Tele obs overnight, echo in am 03/28/19 22:39 03/28/19 22:40 >> Admitted to Dr. Nuñez 03/29/19 00:15 Discharge - Discharge Information Problems reviewed: Yes Clinical Impression/Diagnosis: Bradycardia - Admission Yes - Follow up/Referral Referrals: Renny Slade MD [Primary Care Provider] - - Patient Discharge Instructions - Post Discharge Activity
--- NOTE | 2019-03-28 17:33 | PDOC ---
Attending Attestation - Resident Resident Name: OlyasandieBrandy - ED Attending Attestation I have performed the following: I have examined & evaluated the patient, The case was reviewed & discussed with the resident, I agree w/resident's findings & plan, Exceptions are as noted - HPI HPI: 03/28/19 17:31 63-year-old male who gets dialysis on Thursday and Thursday had his last dialysis on Thursday and there was some problem. He was found that his right fistula is clotted and he has an appointment with [facility] access to open his fistula but he was bradycardic. Because he was bradycardic in the 30s he sent him to the hospital to make sure his heart was okay before they did any surgery. - Physicial Exam PE: 03/28/19 17:33 63-year-old male in no acute distress presents with thrombosed right fistula Head normocephalic atraumatic Neck is supple Lungs clear to auscultation bilaterally CVS regular rate and rhythm S1-S2 Abdomen is protuberant Extremities there is a right arm fistula with no bruit or thrill Skin warm and dry Neuro alert and oriented x3, chronic left sided hemiparesis 03/28/19 20:00 - Medical Decision Making 03/28/19 17:32 63-year-old male with end-stage renal disease dialysis Thursday presents because of thrombosed fistula in his right arm Learning Disabilities Specialist is Cholo Kitchen Engineering Geologist is Dr. Rusty Torres Plan we will speak to the dietetics teacher and Dr. Isabel to come up with the plan 03/28/19 17:[address] Kitchen and will report back to him with the electrolytes when we have them Patient has a past medical history of end-stage renal disease on hemodialysis, paroxysmal a flutter post RFA and implantable loop recorder for syncope he is status post LA appendage occlusion device watchman, he is a seizure disorder, he has a right MCA stroke with left hemiparesis and a history of subdural hematoma with fall, hypertension ischemic bowel with GI bleed post emergent hemicolectomy 03/29/19 00:[address] Dr Kitchen wanted pt admitted for dialysis on Thursday
[2019-03-28 18:52] LABS: BASO % 1.1 % (0-2.0); EOS % 5.1 % (0-4.5); HEMATOCRIT 36.3 % (35.4-49); HEMOGLOBIN 11.5 GM/dL (11.7-16.9); LYMPH % 39.8 % (8-40); MCH 25.5 pg (25.7-33.7); MCHC 31.6 g/dl (32.0-35.9); MEAN CELL VOLUME 80.6 fl (80-96); MEAN PLT VOLUME 9.2 fl (7.5-11.1); MONO % 10.8 % (3.8-10.2); NEUT % 43.2 % (42.8-82.8); PLATELET COUNT 274 K/MM3 (134-434); RDW 18.1 % (11.9-15.9)
[2019-03-28 19:16] LABS: INR 1.14 (0.83-1.09); PROTHROMBIN TIME (PATIENT) 13.5 SEC (9.7-13.0)
[2019-03-28 19:19] LABS: ACTIVATED PTT 35.3 SECONDS (25.2-36.5)
[2019-03-28 20:43] LABS: ALBUMIN 3.6 g/dl (3.4-5.0); BILIRUBIN,TOTAL 0.4 mg/dL (0.2-1); CALCIUM 8.8 mg/dL (8.5-10.1); POTASSIUM 5.3 mmol/L (3.5-5.1); TOT PROT 7.1 g/dl (6.4-8.2)
[2019-03-28 20:45] LABS: CREATININE 15.5 mg/dL (0.55-1.3)
[2019-03-28] MEDS ORDERED: levETIRAcetam 500 MG TABLET (FP) PO STA (22:48)
--- NOTE | 2019-03-28 23:14 | PN ---
Teaching Attending Note Name of Resident: Danyel Boo ATTENDING PHYSICIAN STATEMENT I saw and evaluated the patient. I reviewed the resident's note and discussed the case with the resident. I agree with the resident's findings and plan as documented. SUBJECTIVE: Patient is a 63 year old man with ESRD (HD on M/W/F), Afib (defibrillator and watchman device 207), HTN, CVA (2016 w/residual L-sided weakness), Ischemic colitis (resection 2017) and Seizures who presents from dialysis with thrombosed AV fistula and bradycardia. Patient last had successful dialysis on ThursdayMar 25. Today at dialysis, they were unable to get access through his right forearm fistula. He was sent to [facility] where AV fistula was found to be thrombosed. Patient was going to undergo repair of his fistula, however he was found to be bradycardic in 30-40s. He is asymptoamtic with no chest pain, SOB, lightheadedness, dizziness or palpitations. His broadcast journalist, Dr. Kitchen was made aware. He was sent to [facility] to undergo workup of his bradycardia. Patient is on Metoprolol XL. FH of liver cancer, breast cancer, HLD and HTN. OBJECTIVE: Alert Vital Signs Period Temp Pulse Resp BP Sys/Chaudhry Pulse Ox Last 24 Hr 98 F 45 18 116/78 99 HEENT: No Jaundice, eye redness or discharge, PERRLA, EOMI. Normocephalic, atraumatic. External ears are normal and hearing is grossly intact. No nasal discharge. Neck: Supple, nontender. No palpable adenopathy or thyromegaly. No JVD Chest: Good effort. Clear to auscultation and percussion. Heart: Regular. No S3, rub or murmur Abdomen: Not distended, soft, nontender and no HSM. No rebound or guarding. Normal bowel sounds. Ext: Peripheral pulses intact. No leg edema. RUE fistula with no thrill or bruit. Skin: Warm and dry. No petechiae, rash or ecchymosis. Neuro: Alert. Oriented x3. CN 2-12 grossly intact. Sensation grossly intact in all four extremities; left hemiparesis. Psych: Appropriate mood and affect. Good insight. Home Medications Medication Instructions Recorded Escitalopram Oxalate [Lexapro -] 5 mg PO DAILY 08/02/16 Aspirin 81 mg PO HS 10/23/17 Calcium Acetate [Phoslo -] 667 mg PO TID 10/23/17 Metoprolol Succinate [Toprol Xl] 12.5 mg PO ASDIR 10/23/17 Vit B Comp No.3/Folic/C/Biotin 1 each PO DAILY 01/31/18 [Gavi-Lashanda Rx Tablet] Acetaminophen [Tylenol] 325 mg PO PRN 04/09/18 Docusate Sodium [Colace] 100 mg PO TID 04/09/18 Mupirocin Cream [Bactroban 2% 1 applic .ROUTE DAILY 04/09/18 Cream -] Pantoprazole Sodium [Protonix -] 40 mg PO HS 04/09/18 levETIRAcetam [Keppra -] 1,000 mg PO BID 04/09/18 Abnormal Lab Results 03/28/19 03/28/19 03/28/19 16:45 16:45 19:57 Hgb 11.5 L MCH 25.5 L MCHC 31.6 L RDW 18.1 H Monocytes % 10.8 H Eosinophils % 5.1 H D Nucleated RBC % 1 H PT with INR 13.50 H INR 1.14 H Sodium 133 L Potassium 5.3 H BUN 108.0 H* Creatinine 15.5 H* Random Glucose 137 H ASSESSMENT AND PLAN: 1. ESRD with clotted AV fistula/Bradycardia - Will keep patient NPO for scheduled vascular surgery procedure to revise clotted AV fistula. Will treat mild hyperkalemia with glucose/insulin and kayexalate. Will consult nephrology to schedule dialysis. Bradycardia likely due to drug side effect - patient on four medications that may cause bradycardia including Metoprolol, Lexapro, Keppra and Protonix. Will hold metopolol - use amlodipine and dialysis fluid removal for BP control, and hold Lexapro. Check Keppra level, get ECHO and consult cardiology. CXR shows cardiomegaly with increased interstitial marking ( R>L) and prominent hilar marking. EKG shows junctional bradycardia with premature supraventricular complexes, LAD and no acute ST-T wave changes. Mild hyperkalemia - patient was last dialyzed 03/25/19 - will repeat BMP and if K+ is >5.3 meq/L will treat with glucose/insulin and kayexalate. Will continue comprehensive care for all of patients comorbid conditions. 2. Anemia - Likely mostly due to ESRD. Will do basic anemia work up including serial stool guaiacs, reticulocyte count and iron studies. Would benefit from Procrit therapy once iron replete. 3. Obesity Counseled on the risks associated with obesity. Will provide patient all the necessary assistance, counseling and positive reinforcement to facilitate weight loss. Consult cleaning handyman. 4. Hypertension - Hold metoprolol. Restart suitable outpatient antihypertensive drugs when clinically appropriate. Revise regimen to ensure [id number] excellent BP control and patient financial counselor patient on the injurious effects of uncontrolled hypertension. Nonpharmacologic measures to control hypertension like weight loss, salt restriction and exercise discussed. Importance of adherence to treatment regimen and attainment of normotension emphasized. 5. DVT prophylaxis - Heparin 5000u sq tid. 6. Advance directives - Full code
[2019-03-29] MEDS ORDERED: levETIRAcetam 500 MG TABLET (FP) PO ONE (00:07)
[2019-03-29] MEDS ORDERED: DEXTROSE 50%-WATER - 25 GM/50 ML VIAL IVPUSH ONE ×2 (00:45→14:33)
[2019-03-29] MEDS ORDERED: INSULIN REGULAR HUMAN 100 UNITS/ML *VIAL IVPUSH STA (00:45)
--- NOTE | 2019-03-29 00:46 | HP ---
CHIEF COMPLAINT: bradycardia PCP: Dr. Slade HISTORY OF PRESENT ILLNESS: 63 y/o male PMH ESRD (M, W, F at [facility] on [address]), Afib (defibrilator and monitor in place and s/p Watchman implant), HTN, CVA (2016 with residual LUE weakness) and seizures brought to ED after being found to have HR of 37. Pt could not receive HD on Thursday 2/2 thrombosis of his AV fistula. He was brought to [facility] to address his fistula and was found to be be bradicardic to 37. He denies nausea, vomiting, headache, altered vision, numbness, tingling, and GI disturbance. His last successful HD was Thursday. He has not taken any new medication. He denies SOB, CP, blood loss, and diarrhea. ER course was notable for: (1) ECG HR 37 Recent Travel: Denies Family History: Mother - breast and liver CA; Father - HTN, HLD PAST MEDICAL HISTORY: As above PAST SURGICAL HISTORY: (2017) hemicolectomy, (2017) defibrilator placement and Watchman placement (2003) Fistula Social History: Smoking: Distant history. 5 years 2-3 cigarette per day Alcohol: Social Drugs: Denies Allergies: No Known Allergies Allergy (Verified 03/28/19 16:05) HOME MEDICATIONS: Home Medications Medication Instructions Recorded Escitalopram Oxalate [Lexapro -] 5 mg PO DAILY 08/02/16 Aspirin 81 mg PO HS 10/23/17 Calcium Acetate [Phoslo -] 667 mg PO TID 10/23/17 Metoprolol Succinate [Toprol Xl] 12.5 mg PO ASDIR 10/23/17 Vit B Comp No.3/Folic/C/Biotin 1 each PO DAILY 01/31/18 [Gavi-Lashanda Rx Tablet] Acetaminophen [Tylenol] 325 mg PO PRN 04/09/18 Docusate Sodium [Colace] 100 mg PO TID 04/09/18 Mupirocin Cream [Bactroban 2% 1 applic .ROUTE DAILY 04/09/18 Cream -] Pantoprazole Sodium [Protonix -] 40 mg PO HS 04/09/18 levETIRAcetam [Keppra -] 1,000 mg PO BID 04/09/18 REVIEW OF SYSTEMS CONSTITUTIONAL: Absent: fever, chills, diaphoresis, generalized weakness, malaise, loss of appetite, weight change HEENT: Absent: rhinorrhea, nasal congestion, throat pain, throat swelling, difficulty swallowing, mouth swelling, ear pain, eye pain, visual changes CARDIOVASCULAR: Absent: chest pain, syncope, palpitations, irregular heart rate, lightheadedness , peripheral edema RESPIRATORY: Absent: cough, shortness of breath, dyspnea with exertion, orthopnea, wheezing, stridor, hemoptysis GASTROINTESTINAL: Absent: abdominal pain, abdominal distension, nausea, vomiting, diarrhea, constipation, melena, hematochezia GENITOURINARY: Absent: dysuria, frequency, urgency, hesitancy, hematuria, flank pain, genital pain MUSCULOSKELETAL: Absent: myalgia, arthralgia, joint swelling, back pain, neck pain SKIN: Absent: rash, itching, pallor HEMATOLOGIC/IMMUNOLOGIC: Absent: easy bleeding, easy bruising, lymphadenopathy, frequent infections ENDOCRINE: Absent: unexplained weight gain, unexplained weight loss, heat intolerance, cold intolerance NEUROLOGIC: Absent: headache, focal weakness or paresthesias, dizziness, unsteady gait, seizure, mental status changes, bladder or bowel incontinence PSYCHIATRIC: Absent: anxiety, depression, suicidal or homicidal ideation, hallucinations. PHYSICAL EXAMINATION Vital Signs - 24 hr 03/28/19 16:00 Temperature 98 F Pulse Rate 45 L Respiratory 18 Rate Blood Pressure 116/78 O2 Sat by Pulse 99 Oximetry (%) GENERAL: AOx3, in no acute distress, friendly demeanor HEAD: NCAT, EYES: JOÃO, EOMI, incteric sclera BL ENT: Ears normal, nares patent, oropharynx clear without exudates. Moist mucous membranes. NECK: Normal range of motion, supple without lymphadenopathy, JVD, or masses. LUNGS: CTAB. No wheezes, and no crackles. No accessory muscle use. HEART: RRR s1 s2 ABDOMEN: Vistical surgical scar. Soft, BS present in all 4 quadrants, non- distended MUSCULOSKELETAL: No bony deformities or tenderness. No CVA tenderness. UPPER EXTREMITIES: RUE fistula NO bruit/thrill. LUE 0/5 power and shunt scar on skin. RLE 5/5, UE 5/5 BL. 2+ pulses, warm, well-perfused. No cyanosis. No clubbing. No peripheral edema. LOWER EXTREMITIES: 2+ pulses, warm, well-perfused. No calf tenderness. No peripheral edema. NEUROLOGICAL: LUE 0/5 power. Cranial nerves II-XII intact. Normal speech. Walks with rollator PSYCHIATRIC: Cooperative. Good eye contact. Appropriate mood and affect. SKIN: Warm, dry, normal turgor, no rashes or lesions noted, normal capillary refill. Laboratory Results - last 24 hr 03/28/19 03/28/19 03/28/19 16:45 16:45 16:45 WBC 8.0 RBC 4.50 Hgb 11.5 L Hct 36.3 MCV 80.6 MCH 25.5 L MCHC 31.6 L RDW 18.1 H Plt Count 274 D MPV 9.2 Absolute Neuts (auto) 3.4 Neutrophils % 43.2 D Lymphocytes % 39.8 D Monocytes % 10.8 H Eosinophils % 5.1 H D Basophils % 1.1 Nucleated RBC % 1 H PT with INR 13.50 H INR 1.14 H PTT (Actin FS) 35.3 Sodium Cancelled Potassium Cancelled Chloride Cancelled Carbon Dioxide Cancelled Anion Gap Cancelled BUN Cancelled Creatinine Cancelled Est GFR (CKD-EPI)AfAm Cancelled Est GFR (CKD-EPI)NonAf Cancelled Random Glucose Cancelled Calcium Cancelled Total Bilirubin Cancelled AST Cancelled ALT Cancelled Alkaline Phosphatase Cancelled Total Protein Cancelled Albumin Cancelled 03/28/19 19:57 WBC RBC Hgb Hct MCV MCH MCHC RDW Plt Count MPV Absolute Neuts (auto) Neutrophils % Lymphocytes % Monocytes % Eosinophils % Basophils % Nucleated RBC % PT with INR INR PTT (Actin FS) Sodium 133 L Potassium 5.3 H Chloride 99 Carbon Dioxide 22 Anion Gap 13 BUN 108.0 H* Creatinine 15.5 H* Est GFR (CKD-EPI)AfAm 3.39 Est GFR (CKD-EPI)NonAf 2.92 Random Glucose 137 H Calcium 8.8 Total Bilirubin 0.4 AST 16 ALT 22 Alkaline Phosphatase 91 Total Protein 7.1 Albumin 3.6 ASSESSMENT/PLAN: 63 y/o male PMH ESRD (M, W, F at [facility] on [address]), Afib (defibrilator and monitor in place and s/p Watchman implant), HTN, CVA (2016 with residual LUE weakness) and seizures brought to ED after being found to have HR of 37. R/o possible causitive agents. Investigate possible cardiac causes. Address thrombosed fistula. # Bradycardia - Hold metoprolol, Lexapro, protonix - Keppra level - TSH - Consult cardio # Fistula failure - Consult vascular surgery - Consult nephrology #F/E/N - PO; fluid restriction - Cont. to monitor - Renal diet # DVT prophylaxis - Heparin SQ # Disposition - Admit to tele/observation Danyel Boo MD Visit type - Emergency Visit Emergency Visit: Yes ED Registration Date: 03/28/19 Care time: The patient presented to the Emergency Department on the above date and was hospitalized for further evaluation of their emergent condition. - New Patient This patient is new to me today: Yes Date on this admission: 03/29/19 - Critical Care Critical Care patient: No ATTENDING PHYSICIAN STATEMENT I saw and evaluated the patient. I reviewed the resident's note and discussed the case with the resident. I agree with the resident's findings and plan as documented. SUBJECTIVE: OBJECTIVE: ASSESSMENT AND PLAN:
[2019-03-29] MEDS ORDERED: ACETAMINOPHEN 325 MG TABLET (FP) PO PRN ×2 (06:30→20:01)
--- NOTE | 2019-03-29 09:28 | CONSULT ---
- Consultation REQUESTING PROVIDER: CONSULT REQUEST: We have been asked to surgically evaluate this patient for Clotted Rt arm AV fistula PCP:Dameon العراقي MD HISTORY OF PRESENT ILLNESS: 63yo M presented to the ED after found to have Rt arm AV fistula clotted at HD on Thursday, pt was sent to [facility] to have it declotted, but was found to be bradycardic so was sent to the ER for evaluation. Pt denies any arm pain , chest pain, or SOB. PMHx: HTN, Afib s/p watchmans, Seizure disorder, ESRD Home Medications Medication Instructions Recorded Escitalopram Oxalate [Lexapro -] 5 mg PO DAILY 08/02/16 Aspirin 81 mg PO HS 10/23/17 Calcium Acetate [Phoslo -] 3 cap PO TID 10/23/17 Metoprolol Succinate [Toprol Xl] 12.5 mg PO ASDIR 10/23/17 Vit B Comp No.3/Folic/C/Biotin 1 each PO DAILY 01/31/18 [Gavi-Lashanda Rx Tablet] Acetaminophen [Tylenol] 325 mg PO PRN 04/09/18 Docusate Sodium [Colace] 100 mg PO TID 04/09/18 Mupirocin Cream [Bactroban 2% 1 applic .ROUTE DAILY 04/09/18 Cream -] Pantoprazole Sodium [Protonix -] 20 mg PO DAILY 04/09/18 levETIRAcetam [Keppra -] 1,025 mg PO BID 04/09/18 Ketoconazole 2% Cream [Nizoral 2% 1 applic TP DAILY 03/29/19 Cream -] Lamotrigine 25 mg PO BID 03/29/19 Polyethylene Glycol 3350 [Miralax 17 gm PO DAILY 03/29/19 (For Daily Use) -] Allergies Allergy/AdvReac Type Severity Reaction Status Date / Time No Known Allergies Allergy Verified 03/28/19 16:05 PHYSICAL EXAM: GENERAL: Awake, alert, and fully oriented, in no acute distress. HEAD: Normal with no signs of trauma. EYES: PERRL, sclera anicteric, conjunctiva clear. NECK: Normal ROM LUNGS: Breathing comfortably, No accessory muscle use. UPPER EXTREMITIES: 2+ pulses, warm, well-perfused. No cyanosis. Cap refill <2 seconds. No peripheral edema. RT AVF no thrill, soft, no erythema or swelling. LOWER EXTREMITIES: 2+ pulses, warm, well-perfused. No calf tenderness. No peripheral edema. NEUROLOGICAL: Normal speech, gait not observed. PSYCH: Cooperative. Good eye contact. Appropriate mood and affect. SKIN: Warm, dry, normal turgor, no rashes or lesions noted. Vital Signs Temperature 98 F 03/28/19 16:00 Pulse Rate 48 L 03/29/19 07:42 Respiratory Rate 18 03/29/19 07:42 Blood Pressure 131/62 03/29/19 07:42 O2 Sat by Pulse Oximetry (%) 98 03/29/19 06:00 Lab Results WBC 8.0 K/mm3 (4.0-10.0) 03/28/19 16:45 RBC 4.50 M/mm3 (4.00-5.60) 03/28/19 16:45 Hgb 11.5 GM/dL (11.7-16.9) L 03/28/19 16:45 Hct 36.3 % (35.4-49) 03/28/19 16:45 MCV 80.6 fl (80-96) 03/28/19 16:45 MCHC 31.6 g/dl (32.0-35.9) L 03/28/19 16:45 RDW 18.1 % (11.9-15.9) H 03/28/19 16:45 Plt Count 274 K/MM3 (134-434) D 03/28/19 16:45 Sodium 133 mmol/L (136-145) L 03/28/19 19:57 Potassium 5.3 mmol/L (3.5-5.1) H 03/28/19 19:57 Chloride 99 mmol/L (98-107) 03/28/19 19:57 Carbon Dioxide 22 mmol/L (21-32) 03/28/19 19:57 Anion Gap 13 MMOL/L (8-16) 03/28/19 19:57 BUN 108.0 mg/dL (7-18) H* 03/28/19 19:57 Creatinine 15.5 mg/dL (0.55-1.3) H* 03/28/19 19:57 Random Glucose 137 mg/dL (74-106) H 03/28/19 19:57 Calcium 8.8 mg/dL (8.5-10.1) 03/28/19 19:57 INR 1.14 (0.83-1.09) H 03/28/19 16:45 Problem List - Problems (1) AV fistula thrombosis Assessment/Plan: Plan -will plan to try and declot AV fistula later this afternoon -pt will most likely need HD before then so will plan to place temporary [facility] for pt to have HD -medical clearance for surgery -NPO after breakfast -US for RUE Code(s): T82.868A - THROMBOSIS DUE TO VASCULAR PROSTH DEV/GRFT, INIT
[2019-03-29] MEDS ORDERED: KETOCONAZOLE 2% TOPICAL CREAM 15 GM TUBE TP SCH (10:00)
[2019-03-29] MEDS ORDERED: lamoTRIgine 25 MG TABLET PO SCH (10:00)
[2019-03-29] MEDS ORDERED: VITAMIN B COMP W-C 1 EA TABLET PO SCH (10:00)
[2019-03-29] MEDS ORDERED: POLYETHYLENE GLYCOL 3350 119 GM BTL PO SCH (10:00)
[2019-03-29] MEDS ORDERED: levETIRAcetam 500 MG TABLET (FP) PO SCH ×3 (10:00→22:00)
--- NOTE | 2019-03-29 10:33 | EKG ---
Test Reason : Blood Pressure : / mmHG Vent. Rate : 049 BPM Atrial Rate : 044 BPM P-R Int : 000 ms QRS Dur : 094 ms QT Int : 468 ms P-R-T Axes : 000 -71 098 degrees QTc Int : 422 ms POOR DATA QUALITY, INTERPRETATION MAY BE ADVERSELY AFFECTED ATRIAL FIBRILLATION WITH SLOW VENTRICULAR RESPONSE LEFT AXIS DEVIATION INFERIOR INFARCT (CITED ON OR BEFORE 02-AUG-2016) ABNORMAL ECG WHEN COMPARED WITH ECG OF 28-MAR-2019 16:19, ATRIAL FIBRILLATION HAS REPLACED JUNCTIONAL RHYTHM CRITERIA FOR ANTERIOR INFARCT ARE NO LONGER PRESENT Confirmed by Javier Rm MD ([id number]) on 03/29/2019 10:33:00 AM Referred By: Confirmed By:Javier Rm MD
--- NOTE | 2019-03-29 10:35 | EKG ---
Test Reason : Blood Pressure : / mmHG Vent. Rate : 037 BPM Atrial Rate : 040 BPM P-R Int : 000 ms QRS Dur : 100 ms QT Int : 492 ms P-R-T Axes : 000 -60 013 degrees QTc Int : 386 ms POOR DATA QUALITY, INTERPRETATION MAY BE ADVERSELY AFFECTED JUNCTIONAL BRADYCARDIA WITH PREMATURE SUPRAVENTRICULAR COMPLEXES LEFT AXIS DEVIATION INFERIOR INFARCT , AGE UNDETERMINED ANTERIOR INFARCT (CITED ON OR BEFORE 02-AUG-2016) ABNORMAL ECG Confirmed by Javier Rm MD ([id number]) on 03/29/2019 10:35:34 AM Referred By: Confirmed By:Javier Rm MD
--- NOTE | 2019-03-29 11:37 | PROC ---
Central Line Insertion - Procedure Note TIME OUT performed prior to this procedure with verbal confirmation of correct patient identity, correct side, agreement of the procedure, correct patient position, availability of necessary equipment. The consent form is complete and accurate. Risk of possible infection, bleeding have been discussed with the patient. Safety precautions based on patient history or medication use has been addressed. Indication: Other (Dialysis access) Consent on Chart: Yes Central Line: Dialysis Cath, Dual Lumen Position: Supine Area prepped with Chlorhexidine solution then draped using sterile barrier protection. Anesthesia: Lidocaine 1% Technique used: Modified Seldinger Ultrasound Guided Assistance: Yes Site: Right Femoral Dark venous non-pulsatile flow noted from hub of needle. The catheter was introduced. Guide wire removed intact. Each port aspirated then flushed with sterile normal saline and capped. Line secured to skin with silk suture. Biopatch placed around base of line. Sterile occlusive dressing applied. No complications. Patient tolerated the procedure well. Dialysis catheter ready for immediate use.
[2019-03-29] MEDS ORDERED: SODIUM CHLORIDE 250 ML IV PRN ×2 (11:42→20:01)
[2019-03-29 11:56] LABS: CALCIUM 8.8 mg/dL (8.5-10.1); MAGNESIUM 2.8 mg/dL (1.8-2.4); PHOSPHOROUS 5.3 mg/dL (2.5-4.9)
[2019-03-29 12:08] LABS: BLOOD UREA NITROGEN 123.2 mg/dL (7-18); CREATININE 17.2 mg/dL (0.55-1.3); POTASSIUM 7.8 mmol/L (3.5-5.1)
[2019-03-29] MEDS: CALCIUM ACETATE 667 MG CAPSULE (FP) PO SCH ×2 (13:07→17:07)
--- NOTE | 2019-03-29 13:27 | PN ---
Physical Exam: SUBJECTIVE: Patient seen and examined at the bedside. Patient states he is doing well. Does not have any acute complaints of pain. Noted that he is ready to have his fistula re-opened and to resume dialysis. Had Shiley placed and will have dialysis prior to procedure to open the fistula. OBJECTIVE: Vital Signs Period Temp Pulse Resp BP Sys/Chaudhry Pulse Ox Last 24 Hr 98 F 45-48 18-18 116-131/57-78 97-99 GENERAL: AOx3, in no acute distress, friendly demeanor HEAD: No signs of trauma, normocephalic EYES: JOÃO, EOMI, incteric sclera ENT: Ears normal, nares patent, oropharynx clear without exudates. Moist mucous membranes. NECK: Normal range of motion, supple without lymphadenopathy, JVD, or masses. LUNGS: Clear to auscultation bilaterally.. No wheezes, and no crackles. No accessory muscle use. HEART: Irregular rhythm, bradycardic, no ausculated murmurs or rubs. ABDOMEN: Midline surgical scar. Soft, BS present in all 4 quadrants, non- distended, non tender. MUSCULOSKELETAL: No bony deformities or tenderness. No CVA tenderness. UPPER EXTREMITIES: RUE fistula NO bruit/thrill. 2+ pulses, warm, well-perfused. No cyanosis. No clubbing. No peripheral edema. LOWER EXTREMITIES: 2+ pulses, warm, well-perfused. No calf tenderness. No peripheral edema. NEUROLOGICAL: LUE 0/5 power and shunt scar on skin. RLE 5/5, UE 5/5 BL. Mild left facial droop with loss of nasolabial fold. All other CN intact. Normal speech. Walks with rollator. Slowed gait. PSYCHIATRIC: Cooperative. Good eye contact. Appropriate mood and affect. SKIN: Warm, dry, normal turgor, no rashes or lesions noted, normal capillary refill. Laboratory Results - last 24 hr 03/28/19 03/28/19 03/28/19 16:45 16:45 16:45 WBC 8.0 Corrected WBC (auto) RBC 4.50 Hgb 11.5 L Hct 36.3 MCV 80.6 MCH 25.5 L MCHC 31.6 L RDW 18.1 H Plt Count 274 D MPV 9.2 Absolute Neuts (auto) 3.4 Neutrophils % 43.2 D Lymphocytes % 39.8 D Monocytes % 10.8 H Eosinophils % 5.1 H D Basophils % 1.1 Nucleated RBC % 1 H Manual Slide Review Platelet Comment PT with INR 13.50 H INR 1.14 H PTT (Actin FS) 35.3 Sodium Cancelled Potassium Cancelled Chloride Cancelled Carbon Dioxide Cancelled Anion Gap Cancelled BUN Cancelled Creatinine Cancelled Est GFR (CKD-EPI)AfAm Cancelled Est GFR (CKD-EPI)NonAf Cancelled Random Glucose Cancelled Calcium Cancelled Phosphorus Magnesium Total Bilirubin Cancelled AST Cancelled ALT Cancelled Alkaline Phosphatase Cancelled Total Protein Cancelled Albumin Cancelled 03/28/19 03/29/19 03/29/19 19:57 11:20 11:20 WBC Cancelled Corrected WBC (auto) Cancelled RBC Cancelled Hgb Cancelled Hct Cancelled MCV Cancelled MCH Cancelled MCHC Cancelled RDW Cancelled Plt Count Cancelled MPV Cancelled Absolute Neuts (auto) Neutrophils % Lymphocytes % Monocytes % Eosinophils % Basophils % Nucleated RBC % Manual Slide Review Cancelled Platelet Comment Cancelled PT with INR INR PTT (Actin FS) Sodium 133 L 133 L Potassium 5.3 H 7.8 H* Chloride 99 99 Carbon Dioxide 22 22 Anion Gap 13 12 BUN 108.0 H* 123.2 H* Creatinine 15.5 H* 17.2 H* Est GFR (CKD-EPI)AfAm 3.39 2.99 Est GFR (CKD-EPI)NonAf 2.92 2.58 Random Glucose 137 H 117 H Calcium 8.8 8.8 Phosphorus 5.3 H Magnesium 2.8 H Total Bilirubin 0.4 AST 16 ALT 22 Alkaline Phosphatase 91 Total Protein 7.1 Albumin 3.6 Active Medications Generic Name Dose Route Start Last Admin Trade Name Freq PRN Reason Stop Dose Admin Acetaminophen 650 mg 03/29/19 06:30 Tylenol - PO Q6H PRN PAIN 1-5 Calcium Acetate 2,001 mg 03/29/19 12:00 03/29/19 13:07 Phoslo - PO Not Given TIDCM SANDEEP Docusate Sodium 100 mg 03/29/19 14:00 03/29/19 13:07 Colace - PO Not Given TID SANDEEP Sodium Chloride 250 mls @ 3,000 mls/hr 03/29/19 11:42 Normal Saline - IV 03/30/19 11:42 PRN PRN Hypotension during Dialysis Ketoconazole 1 applic 03/29/19 10:00 Nizoral 2% Cream - TP DAILY SANDEEP Lamotrigine 25 mg 03/29/19 10:00 03/29/19 11:30 Lamictal - PO 25 mg BID SANDEEP Administration Levetiracetam 500 mg 03/29/19 10:00 03/29/19 11:30 Keppra - PO 500 mg BID SANDEEP Administration Multivit/Ca Carb/B Cmplx/FA/Prenat 1 tablet 03/29/19 10:00 03/29/19 11:30 Nephro-Lashanda - PO 1 tablet DAILY SANDEEP Administration Polyethylene Glycol 17 gm 03/29/19 10:00 Miralax (For Daily Use) - PO DAILY SANDEEP ASSESSMENT/PLAN: Neymar Yoon is a 63 year old male with a past medical history ESRD (M, W, F at [facility] on [address]), Afib (defibrilator and monitor in place and s/p Watchman implant), HTN, 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 Afib with slow ventricular response - Hold metoprolol, Lexapro, protonix - Keppra level pending - TSH - Consult cardiology, awaiting complete recs - echo showing EF 60%, normal LV size, thickness, function, normal RV size and function, mild mitral and tricuspid regurg - CXR showing increased marking in R lobe, cardiomegaly, unfolded aorta - EKG showing afib with slow ventricular response, left axis deviation, age indeterminate infarct Thrombosed fistula - vascular surgery to open fistula - has Shiley placed for temporary access ESRD - Consult nephrology, dialyzing patient, recs appreciated - has shiley placed and will receive dialysis - continue to monitor electrolytes, pre-dialysis K 7.8, no EKG or monitor changes HTN - on metoprolol, held pending cardio eval Seizure Disorder - on Keppra 1250mg in the morning, 1000mg at night Hx of CVA - on aspirin, held prior to surgery, restart after F/E/N - No IVF, monitor PO intake - Continue to monitor electrolytes and replete or control as necessary. Hyperkalemia and hyperphosphatemia noted and patient receiving dialysis. - Renal diet DVT prophylaxis - SCDs, no chemical AC prior to surgery Disposition - Continue to monitor on telemetry Visit type - Emergency Visit Emergency Visit: Yes ED Registration Date: 03/28/19 Care time: The patient presented to the Emergency Department on the above date and was hospitalized for further evaluation of their emergent condition. - New Patient This patient is new to me today: Yes Date on this admission: 03/29/19 - Critical Care Critical Care patient: No
[2019-03-29] MEDS ORDERED: DOCUSATE SODIUM 100 MG CAPSULE (FP) PO SCH (14:00)
[2019-03-29 14:09] LABS: BASO % 1.2 % (0-2.0); EOS % 3.9 % (0-4.5); HEMATOCRIT 35.5 % (35.4-49); LYMPH % 35.9 % (8-40); MCH 25.1 pg (25.7-33.7); MCHC 31.1 g/dl (32.0-35.9); MEAN CELL VOLUME 80.9 fl (80-96); MEAN PLT VOLUME 8.8 fl (7.5-11.1); MONO % 9.3 % (3.8-10.2); NEUT % 49.7 % (42.8-82.8); PLATELET COUNT 243 K/MM3 (134-434); RBC 4.38 M/mm3 (4.00-5.60); RDW 17.6 % (11.9-15.9); WHITE BLOOD COUNT 7.2 K/mm3 (4.0-10.0)
--- NOTE | 2019-03-29 14:17 | ECHO ---
Version: 1 Name: RENNY LUONG Exam: Adult Echocardiogram Study Date: 03/29/2019, 12:28 PM Age: 63 Years MMode/2D Measurements & Calculations IVSd: 0.72 cm LVIDs: 3.2 cm LVIDd: 5.9 cm LVPWd: 0.84 cm ACS: 2.13 cm Ao root diam: 3.0 cm LA dimension: 3.7 cm Doppler Measurements & Calculations MV E max alexander: 72.5 cm/sec Med E/e': 11.3 MV A max alexander: 59.2 cm/sec Med Peak E' Alexander: 6.4 cm/sec MV E/A: 1.22 Lat E/e': 8.1 Lat Peak E' Alexander: 9.0 cm/sec MR max P.4 mmHg Ao max P.0 mmHg Ao mean P.2 mmHg Ao V2 max: 122.5 cm/sec PI end-d alexander: 67.9 cm/sec TR max alexander: 226.7 cm/sec TR max P.7 mmHg Procedure The study was technically limited with all images being suboptimal in quality. Left Ventricle The left ventricular size, thickness and function are normal. Ejection Fraction = 60%. The transmitr al spectral Doppler flow pattern is normal for age. Right Ventricle The right ventricle is normal in size and function. Atria Normal left and right atrial size and function. Mitral Valve The mitral valve is normal in structure and function. There is mild mitral regurgitation. Tricuspid Valve The tricuspid valve is normal in structure and function. There is mild tricuspid regurgitation. Aortic Valve The aortic valve is normal in structure and function. Pulmonic Valve The pulmonic valve is not well visualized. Great Vessels The aortic root is normal size. Normal aortic arch, descending and ascending aorta. Pericardium/Pleura There is no pericardial effusion. Summary Statements The study was technically limited with all images being suboptimal in quality. The left ventricular size, thickness and function are normal Ejection Fraction = 60%. The transmitral spectral Doppler flow pattern is normal for age. The right ventricle is normal in size and function. Normal left and right atrial size and function. The mitral valve is normal in structure and function. There is mild mitral regurgitation. The tricuspid valve is normal in structure and function. There is mild tricuspid regurgitation. The aortic valve is normal in structure and function. The pulmonic valve is not well visualized. The aortic root is normal size. Normal aortic arch, descending and ascending aorta There is no pericardial effusion. Lawrence Torres 03/29/2019, 2:16 PM Ordering Physician: Danyel Boo Performed By: Rosemary Davis
[2019-03-29 14:20] LABS: ALBUMIN 3.5 g/dl (3.4-5.0); BILIRUBIN,TOTAL 0.4 mg/dL (0.2-1); CALCIUM 8.9 mg/dL (8.5-10.1); POTASSIUM 5.9 mmol/L (3.5-5.1); TOT PROT 6.9 g/dl (6.4-8.2)
[2019-03-29 14:22] LABS: BLOOD UREA NITROGEN 122.6 mg/dL (7-18); CREATININE 17.7 mg/dL (0.55-1.3)
--- NOTE | 2019-03-29 14:28 | PN ---
Teaching Attending Note Name of Resident: Celestine Douglas ATTENDING PHYSICIAN STATEMENT I saw and evaluated the patient. I reviewed the resident's note and discussed the case with the resident. I agree with the resident's findings and plan as documented. SUBJECTIVE: Feels well - no complaints. No nausea/vomiting. No lightheadedness/ dizziness/chest pain/palpitations. OBJECTIVE: Afebrile, Hemodynamically Stable, HR in 40s Last Vital Signs Temp Pulse Resp BP Pulse Ox 98 F 52 L 18 121/60 97 03/29/19 13:30 03/29/19 13:30 03/29/19 13:30 03/29/19 13:30 03/29/19 13:37 HEENT - Atraumatic, Normocephalic. Heart - S1, S2, irregular Lungs - good air entry bilaterally Abdomen - Soft, non-tender. Bowel Sounds normal. Extremities RUE AV Fistula - no thrill/bruit Neuro - AAO x 3. Chronic LUE weakness. Laboratory Results - last 24 hr 03/28/19 03/28/19 03/28/19 16:45 16:45 16:45 WBC 8.0 Corrected WBC (auto) RBC 4.50 Hgb 11.5 L Hct 36.3 MCV 80.6 MCH 25.5 L MCHC 31.6 L RDW 18.1 H Plt Count 274 D MPV 9.2 Absolute Neuts (auto) 3.4 Neutrophils % 43.2 D Lymphocytes % 39.8 D Monocytes % 10.8 H Eosinophils % 5.1 H D Basophils % 1.1 Nucleated RBC % 1 H Manual Slide Review Platelet Comment PT with INR 13.50 H INR 1.14 H PTT (Actin FS) 35.3 Sodium Cancelled Potassium Cancelled Chloride Cancelled Carbon Dioxide Cancelled Anion Gap Cancelled BUN Cancelled Creatinine Cancelled Est GFR (CKD-EPI)AfAm Cancelled Est GFR (CKD-EPI)NonAf Cancelled Random Glucose Cancelled Calcium Cancelled Phosphorus Magnesium Total Bilirubin Cancelled AST Cancelled ALT Cancelled Alkaline Phosphatase Cancelled Total Protein Cancelled Albumin Cancelled 03/28/19 03/29/19 03/29/19 19:57 11:20 11:20 WBC Cancelled Corrected WBC (auto) Cancelled RBC Cancelled Hgb Cancelled Hct Cancelled MCV Cancelled MCH Cancelled MCHC Cancelled RDW Cancelled Plt Count Cancelled MPV Cancelled Absolute Neuts (auto) Neutrophils % Lymphocytes % Monocytes % Eosinophils % Basophils % Nucleated RBC % Manual Slide Review Cancelled Platelet Comment Cancelled PT with INR INR PTT (Actin FS) Sodium 133 L 133 L Potassium 5.3 H 7.8 H* Chloride 99 99 Carbon Dioxide 22 22 Anion Gap 13 12 BUN 108.0 H* 123.2 H* Creatinine 15.5 H* 17.2 H* Est GFR (CKD-EPI)AfAm 3.39 2.99 Est GFR (CKD-EPI)NonAf 2.92 2.58 Random Glucose 137 H 117 H Calcium 8.8 8.8 Phosphorus 5.3 H Magnesium 2.8 H Total Bilirubin 0.4 AST 16 ALT 22 Alkaline Phosphatase 91 Total Protein 7.1 Albumin 3.6 Current Medications Generic Name Dose Route Start Last Admin Trade Name Freq PRN Reason Stop Dose Admin Acetaminophen 650 mg 03/29/19 06:30 Tylenol - PO Q6H PRN PAIN 1-5 Atorvastatin Calcium 20 mg 03/29/19 22:00 Lipitor - PO HS [facility] Calcium Acetate 2,001 mg 03/29/19 12:00 03/29/19 13:07 Phoslo - PO Not Given TIDCM SANDEEP Cyclobenzaprine HCl 5 mg 03/30/19 10:00 Cyclobenzaprine Hcl PO DAILY SANDEEP Docusate Sodium 100 mg 03/29/19 14:00 03/29/19 13:07 Colace - PO Not Given TID SANDEEP Sodium Chloride 250 mls @ 3,000 mls/hr 03/29/19 11:42 Normal Saline - IV 03/30/19 11:42 PRN PRN Hypotension during Dialysis Ketoconazole 1 applic 03/29/19 10:00 Nizoral 2% Cream - TP DAILY SANDEEP Lamotrigine 25 mg 03/29/19 10:00 03/29/19 11:30 Lamictal - PO 25 mg BID SANDEEP Administration Levetiracetam 250 mg 03/30/19 10:00 Keppra - PO DAILY SANDEEP Levetiracetam 1,000 mg 03/29/19 13:45 Keppra - PO BID SANDEEP Multivit/Ca Carb/B Cmplx/FA/Prenat 1 tablet 03/29/19 10:00 03/29/19 11:30 Nephro-Lashanda - PO 1 tablet DAILY SANDEEP Administration Polyethylene Glycol 17 gm 03/29/19 10:00 Miralax (For Daily Use) - PO DAILY [facility] Home Medications Medication Instructions Recorded Escitalopram Oxalate [Lexapro -] 5 mg PO DAILY 08/02/16 Aspirin 81 mg PO HS 10/23/17 Calcium Acetate [Phoslo -] 3 cap PO TID 10/23/17 Metoprolol Succinate [Toprol Xl] 12.5 mg PO ASDIR 10/23/17 Vit B Comp No.3/Folic/C/Biotin 1 each PO DAILY 01/31/18 [Gavi-Lashanda Rx Tablet] Acetaminophen [Tylenol] 325 mg PO PRN 04/09/18 Docusate Sodium [Colace] 100 mg PO TID 04/09/18 Mupirocin Cream [Bactroban 2% 1 applic .ROUTE DAILY 04/09/18 Cream -] Pantoprazole Sodium [Protonix -] 20 mg PO DAILY 04/09/18 levETIRAcetam [Keppra -] 1,000 mg PO BID 04/09/18 Atorvastatin Ca [Lipitor] 20 mg DAILY 03/29/19 Cyclobenzaprine HCl 5 mg DAILY 03/29/19 Ketoconazole 2% Cream [Nizoral 2% 1 applic TP DAILY 03/29/19 Cream -] Lamotrigine 25 mg PO BID 03/29/19 Levetiracetam [Keppra] 250 mg PO DAILY 03/29/19 Polyethylene Glycol 3350 [Miralax 17 gm PO DAILY 03/29/19 (For Daily Use) -] ASSESSMENT AND PLAN: 63 year old male with ESRD (HD on //), Atrial Fibrillation (s/p AICD and watchman device 207), HTN, Hx CVA (2015 w/residual L-sided weakness), Ischemic colitis (resection 2017) and Seizures, presents from dialysis with thrombosed AV fistula and bradycardia. 1. ESRD (HD on M/W/) - AV fistula clotted. R femoral Shiley placed for HD Vascular Surgery to revascularize AV fistula in OR. 2. Atrial Fibrillation with slow ventricular response Metoprolol, Lexapro, Protonix held Echo and Cardiology eval requested. TSH requested. 3. Hyperkalemia/Uremia sec to ESRD - for HD today via newly placed femoral shiley 4. Normocytic Anemia - likely sec to ESRD. Will send anemia work-up including iron studies/Ferritin/B12/Folate levels. 5. HTN - Metoprolol held due to Bradycardia. Cardiology eval for further recommendations 6. Seizure Disorder - continue Keppra, Lamotrigine 7. HLD - Continue Lipitor. 8. Hx CVA - continue Aspirin, Statin DVT Px - Heparin SQ
[2019-03-29] MEDS ORDERED: INSULIN REGULAR HUMAN 100 UNITS/ML *VIAL IVPUSH ONE (14:32)
[2019-03-29] MEDS ORDERED: HEPARIN NA (PORCINE) 5,000 UNITS/ML 1ML VIAL ONE (14:39)
[2019-03-29] MEDS ORDERED: LIDOCAINE HCL 1%, 10 MG/ML (20ML VIAL) ONE (14:39)
--- NOTE | 2019-03-29 14:58 | CON.CARD ---
Consult Consult Specialty:: Cardiology Referred by:: Hospitalist Reason for Consultation:: Cardiac evaluation - History of Present Illness Chief Complaint: AV graft thrombosis History of Present Illness: Patient is a 63 year old male well known to me with underlying history of ESRD on HD via AVF, in addition history of HTN, PAF (flutter) remains in sinus rhythm not on anticoagulation due to risk of fall with underlying history of seizure and large MCA stroke/CVA resulting in left hemiparesis. He presented to ED with AV fistula thrombosis and awaits further vascular intervention to clear the thrombus. Shiley catheter is being inserted. He also has had RFA for paroxysmal atrial flutter and ILR (LINQ) has been implanted for further evaluation of syncope that had occurred in the past. Patient has had right frontal temporal hematoma in the past, thus taken off anticoagulation with Coumadin. He had Watchman device placed at [facility]. He denies chest pain, shortness of breath or palpitations. He denies paroxysmal nocturnal dyspnea or orthopnea. He denies fever or chills. He denies nausea, vomiting, diarrhea or abdominal pain. He denies headache or lightheadedness. 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 Cardio/Vascular: Yes: AFIB (paroxysmal), HTN, Hyperlipdemia Gastrointestinal: Yes: Constipation Renal/: Yes: Renal Failure, Hemodialysis (MWF) Musculoskeletal: Yes: Hemiplegia (left), Other (But he has pogressed to walk with an aide and brace at home.) - Past Surgical History Past Surgical History: Yes: AV Fistula/Graft (right arm), Cataract Removal - Alcohol/Substance Use Hx Alcohol Use: No History of Substance Use: reports: None - Smoking History Smoking history: Never smoked Have you smoked in the past 12 months: No Aproximately how many cigarettes per day: 0 If you are a former smoker, when did you quit?: 2012 - Social History ADL: Family Assistance Occupation: retired due illness History of Recent Travel: No Home Medications - Allergies Allergies/Adverse Reactions: Allergies Allergy/AdvReac Type Severity Reaction Status Date / Time No Known Allergies Allergy Verified 03/28/19 16:05 - Home Medications Home Medications: Ambulatory Orders Escitalopram Oxalate [Lexapro -] 5 mg PO DAILY 08/02/16 Aspirin 81 mg PO HS 10/23/17 Calcium Acetate [Phoslo -] 3 cap PO TID 10/23/17 Metoprolol Succinate [Toprol Xl] 12.5 mg PO ASDIR 10/23/17 Vit B Comp No.3/Folic/C/Biotin [Gavi-Lashanda Rx Tablet] 1 each PO DAILY 01/31/18 Acetaminophen [Tylenol] 325 mg PO PRN 04/09/18 Docusate Sodium [Colace] 100 mg PO TID 04/09/18 Mupirocin Cream [Bactroban 2% Cream -] 1 applic .ROUTE DAILY 04/09/18 Pantoprazole Sodium [Protonix -] 20 mg PO DAILY 04/09/18 levETIRAcetam [Keppra -] 1,000 mg PO BID 04/09/18 Atorvastatin Ca [Lipitor] 20 mg DAILY 03/29/19 Cyclobenzaprine HCl 5 mg DAILY 03/29/19 Ketoconazole 2% Cream [Nizoral 2% Cream -] 1 applic TP DAILY 03/29/19 Lamotrigine 25 mg PO BID 03/29/19 Levetiracetam [Keppra] 250 mg PO DAILY 03/29/19 Polyethylene Glycol 3350 [Miralax 119 gm Btl -] 17 gm PO DAILY 03/29/19 Vital Signs: Vital Signs Temperature 98 F 03/29/19 13:30 Pulse Rate 52 L 03/29/19 13:30 Respiratory Rate 18 03/29/19 13:30 Blood Pressure 121/60 03/29/19 13:30 O2 Sat by Pulse Oximetry (%) 97 03/29/19 13:37 - Other Data Labs, Other Data: CBC, BMP 03/29/19 12:45 03/29/19 12:45 INR, PTT INR 1.14 (0.83-1.09) H 03/28/19 16:45 Problem List - Problems (1) AV fistula thrombosis Code(s): T82.868A - THROMBOSIS DUE TO VASCULAR PROSTH DEV/GRFT, INIT Qualifiers: Encounter type: subsequent encounter Qualified Code(s): T82.868D - Thrombosis due to vascular prosthetic devices, implants and grafts, subsequent encounter (2) Bradycardia Code(s): R00.1 - BRADYCARDIA, UNSPECIFIED (3) Afib Code(s): I48.91 - UNSPECIFIED ATRIAL FIBRILLATION Qualifiers: Atrial fibrillation type: paroxysmal Qualified Code(s): I48.0 - Paroxysmal atrial fibrillation (4) Anemia Code(s): D64.9 - ANEMIA, UNSPECIFIED Qualifiers: Anemia type: due to chronic kidney disease (5) CVA (cerebral vascular accident) Code(s): I63.9 - CEREBRAL INFARCTION, UNSPECIFIED Qualifiers: CVA mechanism: unspecified Qualified Code(s): I63.9 - Cerebral infarction, unspecified (6) Diastolic dysfunction without heart failure Code(s): I51.9 - HEART DISEASE, UNSPECIFIED (7) ESRD (end stage renal disease) Code(s): N18.6 - END STAGE RENAL DISEASE (8) Hemodialysis access, arteriovenous graft Code(s): Z99.2 - DEPENDENCE ON RENAL DIALYSIS (9) Hyperkalemia Code(s): E87.5 - HYPERKALEMIA (10) Hypertension Code(s): I10 - ESSENTIAL (PRIMARY) HYPERTENSION Qualifiers: Hypertension type: essential hypertension Qualified Code(s): I10 - Essential (primary) hypertension (11) Seizure Code(s): R56.9 - UNSPECIFIED CONVULSIONS (12) Status post placement of implantable loop recorder Code(s): Z95.818 - PRESENCE OF OTHER CARDIAC IMPLANTS AND GRAFTS (13) Status post radiofrequency ablation for arrhythmia Code(s): Z98.890 - OTHER SPECIFIED POSTPROCEDURAL STATES; Z86.79 - PERSONAL HISTORY OF OTHER DISEASES OF THE CIRCULATORY SYSTEM Assessment/Plan 1. Bradycardia referable to medications and metabolic disorder 2. ESRD with clotted AVF await thrombectomy 3. CVA with left hemiparesis 4. Seizure disorder 5. HTN 6. hyperlipidemia 7. Anemia of CKD 8. Subdural hemorrhage 9. hyperkalemia 10. PAF currently in sinus rhythm s/p Watchman device and presence of ILR ( history of syncope) history of RFA PLAN: 1. There appears to be no absolute contraindication for vascular surgery in view of absence of ischemic symptoms, decompensated congestive heart failure or malignant arrhythmia. 2. Shiley catheter for HD 3. Continue current cardiac therapy with caution 4. Vascular follow up Further plans are to follow Rusty Torres MD
--- NOTE | 2019-03-29 15:08 | CONSULT ---
Consult Consult Specialty:: Nephrology Reason for Consultation:: ESRD - History of Present Illness Chief Complaint: bradycardia and clotted av access History of Present Illness: Pt is a 63 year old male with pmhx of esrd, a-fib, htn, cva and epilepsy who presents to the ER with bradycardia. He was found to be bradycardic in [facility]. He was sent there for a clotted av fistula. He was found to be hyperkalemic in the ER. He is awake and alert. he denies shortness of breath. he denies fevers or chills. He was due for HD yesterday. 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, Seizure Cardio/Vascular: Yes: AFIB (paroxysmal), HTN, Hyperlipdemia Gastrointestinal: Yes: Constipation Renal/: Yes: Renal Failure, Hemodialysis (MWF) Musculoskeletal: Yes: Hemiplegia (left), Other (But he has pogressed to walk with an aide and brace at home.) - Past Surgical History Past Surgical History: Yes: AV Fistula/Graft (right arm), Cataract Removal - Alcohol/Substance Use Hx Alcohol Use: No History of Substance Use: reports: None - Smoking History Smoking history: Never smoked Have you smoked in the past 12 months: No Aproximately how many cigarettes per day: 0 If you are a former smoker, when did you quit?: 2012 - Social History ADL: Family Assistance Occupation: retired due illness History of Recent Travel: No Home Medications - Allergies Allergies/Adverse Reactions: Allergies Allergy/AdvReac Type Severity Reaction Status Date / Time No Known Allergies Allergy Verified 03/28/19 16:05 - Home Medications Home Medications: Ambulatory Orders RX: Escitalopram Oxalate [Lexapro -] 5 mg PO DAILY 08/02/16 RX: Aspirin 81 mg PO HS 10/23/17 RX: Calcium Acetate [Phoslo -] 3 cap PO TID 10/23/17 RX: Metoprolol Succinate [Toprol Xl] 12.5 mg PO ASDIR 10/23/17 RX: Vit B Comp No.3/Folic/C/Biotin [Gavi-Lashanda Rx Tablet] 1 each PO DAILY Acetaminophen [Tylenol] 325 mg PO PRN 04/09/18 Docusate Sodium [Colace] 100 mg PO TID 04/09/18 Pantoprazole Sodium [Protonix -] 20 mg PO DAILY 04/09/18 RX: Mupirocin Cream [Bactroban 2% Cream -] 1 applic .ROUTE DAILY 04/09/18 RX: levETIRAcetam [Keppra -] 1,000 mg PO BID 04/09/18 Ketoconazole 2% Cream [Nizoral 2% Cream -] 1 applic TP DAILY 03/29/19 Levetiracetam [Keppra] 250 mg PO DAILY 03/29/19 Polyethylene Glycol 3350 [Miralax (For Daily Use) -] 17 gm PO DAILY 03/29/19 RX: Atorvastatin Ca [Lipitor] 20 mg DAILY 03/29/19 RX: Cyclobenzaprine HCl 5 mg DAILY 03/29/19 RX: Lamotrigine 25 mg PO BID 03/29/19 Family Medical History Family History: Denies Review of Systems - Review of Systems Constitutional: reports: No Symptoms Eyes: reports: No Symptoms HENT: reports: No Symptoms Neck: reports: No Symptoms Cardiovascular: reports: No Symptoms Respiratory: reports: No Symptoms Gastrointestinal: reports: No Symptoms Genitourinary: reports: No Symptoms Musculoskeletal: reports: No Symptoms Integumentary: reports: No Symptoms Neurological: reports: No Symptoms Endocrine: reports: No Symptoms Hematology/Lymphatic: reports: No Symptoms Psychiatric: reports: No Symptoms Physical Exam Vital Signs: Vital Signs Temperature 98 F 03/29/19 13:30 Pulse Rate 52 L 03/29/19 13:30 Respiratory Rate 18 03/29/19 13:30 Blood Pressure 121/60 03/29/19 13:30 O2 Sat by Pulse Oximetry (%) 97 03/29/19 13:37 Constitutional: Yes: Calm Eyes: Yes: Conjunctiva Clear HENT: Yes: Atraumatic Neck: Yes: Supple Cardiovascular: Yes: S1, S2 Respiratory: Yes: CTA Bilaterally Gastrointestinal: Yes: Normal Bowel Sounds, Soft Renal/: Yes: WNL Musculoskeletal: Yes: WNL Extremities: Yes: Other (right arm fistula with no thrill or bruit) Edema: No Neurological: Yes: Oriented Psychiatric: Yes: Oriented Labs: CBC, BMP 03/29/19 12:45 03/29/19 12:45 Imaging - Results Chest X-ray: Report Reviewed Problem List - Problems (1) AV fistula thrombosis Code(s): T82.868A - THROMBOSIS DUE TO VASCULAR PROSTH DEV/GRFT, INIT (2) Bradycardia Code(s): R00.1 - BRADYCARDIA, UNSPECIFIED (3) ESRD (end stage renal disease) Code(s): N18.6 - END STAGE RENAL DISEASE Assessment/Plan Current Medications Generic Name Dose Route Start Last Admin Trade Name Freq PRN Reason Stop Dose Admin Acetaminophen 650 mg 03/29/19 06:30 Tylenol - PO Q6H PRN PAIN 1-5 Atorvastatin Calcium 20 mg 03/29/19 22:00 Lipitor - PO HS [facility] Calcium Acetate 2,001 mg 03/29/19 12:00 03/29/19 13:07 Phoslo - PO Not Given TIDCM [facility] Cyclobenzaprine HCl 5 mg 03/30/19 10:00 Cyclobenzaprine Hcl PO DAILY [facility] Docusate Sodium 100 mg 03/29/19 14:00 03/29/19 13:07 Colace - PO Not Given TID [facility] Heparin Sodium (Porcine) 5,000 unit 03/29/19 22:00 Heparin - SQ BID [facility] Sodium Chloride 250 mls @ 3,000 mls/hr 03/29/19 11:42 Normal Saline - IV 03/30/19 11:42 PRN PRN Hypotension during Dialysis Ketoconazole 1 applic 03/29/19 10:00 Nizoral 2% Cream - TP DAILY [facility] Lamotrigine 25 mg 03/29/19 10:00 03/29/19 11:30 Lamictal - PO 25 mg BID [facility] Administration Levetiracetam 1,000 mg/ 1,250 mg 03/30/19 10:00 Levetiracetam 250 mg PO DAILY [facility] Levetiracetam 1,000 mg 03/29/19 22:00 Keppra - PO HS [facility] Multivit/Ca Carb/B Cmplx/FA/Prenat 1 tablet 03/29/19 10:00 03/29/19 11:30 Nephro-Lashanda - PO 1 tablet DAILY [facility] Administration Polyethylene Glycol 17 gm 03/29/19 10:00 Miralax (For Daily Use) - PO DAILY [facility] Impression 1. ESRD 2. hx CVA 3. epilepsy 4. hx HTN 5. hyperlipidemia 6. anemia 7. hx subdural hemorrhage 8. hyperkalemia 9. bradycardia Plan - shiley placed for HD - will arrange for urgent bedside dialysis - HD today - vascular for thrombectomy once stable - will follow Dr Isaac
[2019-03-29] MEDS ORDERED: MIDAZOLAM HCL 2 MG/2 ML SINGLE DOSE VIAL ONE (18:01)
[2019-03-29] MEDS ORDERED: LIDOCAINE HCL 1%, 10 MG/ML (20ML VIAL) NR ONE (18:13)
--- NOTE | 2019-03-29 19:17 | OP ---
Operative Note - Note: Operative Date: 03/29/19 Pre-Operative Diagnosis: Thrombosed AV fistula right arm Operation: Percutaneous suction thrombectomy. Venoplasty cephalic vein Findings: Thrombosed radiocephalic fistula Stenosis of antecubital vein segment. Patent basilic vein in upper arm Post-Operative Diagnosis: Same as Pre-op Surgeon: Ramana Devries Anesthesiologist/DATA CENTER OPERATOR: Thelma Hogan Anesthesia: Fractional
[2019-03-29] MEDS: lamoTRIgine 25 MG TABLET PO SCH (21:52)
[2019-03-29] MEDS: HEPARIN NA (PORCINE) 5,000 UNITS/ML 1ML VIAL SQ SCH (21:53)
[2019-03-29] MEDS: ATORVASTATIN CA 20 MG TABLET (FP) PO SCH (21:53)
[2019-03-29] MEDS: levETIRAcetam 500 MG TABLET (FP) PO SCH (21:53)
[2019-03-29] MEDS: DOCUSATE SODIUM 100 MG CAPSULE (FP) PO SCH (21:53)
[2019-03-29] MEDS ORDERED: HEPARIN NA (PORCINE) 5,000 UNITS/ML 1ML VIAL SQ SCH (22:00)
[2019-03-29] MEDS ORDERED: ATORVASTATIN CA 20 MG TABLET (FP) PO SCH (22:00)
[2019-03-29] MEDS ORDERED: ASPIRIN 81 MG CHEWABLE TABLETS PO SCH (22:00)
[2019-03-29 22:39] LABS: IRON SERUM 100 ug/dL (50-175); TOTAL IRON BINDING CAPACITY 240 ug/dL (250-450)
[2019-03-30] MEDS: DOCUSATE SODIUM 100 MG CAPSULE (FP) PO SCH ×3 (05:51→21:15)
[2019-03-30] MEDS ORDERED: SODIUM CHLORIDE 250 ML IV PRN (07:58)
--- NOTE | 2019-03-30 09:21 | PN ---
Progress Note, Physician History of Present Illness: POD#1 Percutaneous suction thrombectomy and venoplasty cephalic vein for thrombosed AV fistula right arm. Seen in HD, bradycardia has resolved. - Current Medication List Current Medications: Active Medications Acetaminophen (Tylenol -) 650 mg PO Q6H PRN PRN Reason: PAIN 1-5 Atorvastatin Calcium (Lipitor -) 20 mg PO HS [facility] Last Admin: 03/29/19 21:53 Dose: 20 mg Calcium Acetate (Phoslo -) 2,001 mg PO TIDCM [facility] Cyclobenzaprine HCl (Cyclobenzaprine Hcl) 5 mg PO DAILY [facility] Docusate Sodium (Colace -) 100 mg PO TID [facility] Last Admin: 03/30/19 05:51 Dose: 100 mg Heparin Sodium (Porcine) (Heparin -) 5,000 unit SQ BID [facility] Last Admin: 03/29/19 21:53 Dose: 5,000 unit Sodium Chloride (Normal Saline -) 250 mls @ 3,000 mls/hr IV PRN PRN PRN Reason: Hypotension during Dialysis Stop: 03/30/19 11:42 Sodium Chloride (Normal Saline -) 250 mls @ 3,000 mls/hr IV PRN PRN PRN Reason: Hypotension during Dialysis Stop: 03/31/19 07:58 Ketoconazole (Nizoral 2% Cream -) 1 applic TP DAILY [facility] Lamotrigine (Lamictal -) 25 mg PO BID [facility] Last Admin: 03/29/19 21:52 Dose: 25 mg Levetiracetam 1,000 mg/ (Levetiracetam 250 mg) 1,250 mg PO DAILY [facility] Levetiracetam (Keppra -) 1,000 mg PO HS [facility] Last Admin: 03/29/19 21:53 Dose: 1,000 mg Multivit/Ca Carb/B Cmplx/FA/Prenat (Nephro-Lashanda -) 1 tablet PO DAILY [facility] Polyethylene Glycol (Miralax (For Daily Use) -) 17 gm PO DAILY [facility] - Objective Vital Signs: Vital Signs Temperature 98.9 F 03/30/19 05:00 Pulse Rate 69 03/30/19 05:00 Respiratory Rate 20 03/30/19 05:00 Blood Pressure 118/52 L 03/30/19 05:00 O2 Sat by Pulse Oximetry (%) 98 03/30/19 03:00 Constitutional: Yes: No Distress, Calm Neck: Yes: Supple Cardiovascular: Yes: Regular Rate and Rhythm Respiratory: Yes: Regular, CTA Bilaterally Gastrointestinal: Yes: Normal Bowel Sounds, Soft Edema: No Labs: CBC, BMP 03/29/19 12:45 03/29/19 12:45 INR, PTT INR 1.14 (0.83-1.09) H 03/28/19 16:45 - ....Imaging EKG: Report Reviewed (Tele: SR) Problem List - Problems (1) AV fistula thrombosis Code(s): T82.868A - THROMBOSIS DUE TO VASCULAR PROSTH DEV/GRFT, INIT Qualifiers: Encounter type: subsequent encounter Qualified Code(s): T82.868D - Thrombosis due to vascular prosthetic devices, implants and grafts, subsequent encounter (2) Bradycardia Code(s): R00.1 - BRADYCARDIA, UNSPECIFIED (3) Afib Code(s): I48.91 - UNSPECIFIED ATRIAL FIBRILLATION Qualifiers: Atrial fibrillation type: paroxysmal Qualified Code(s): I48.0 - Paroxysmal atrial fibrillation (4) Anemia Code(s): D64.9 - ANEMIA, UNSPECIFIED Qualifiers: Anemia type: due to chronic kidney disease (5) Diastolic dysfunction without heart failure Code(s): I51.9 - HEART DISEASE, UNSPECIFIED (6) ESRD (end stage renal disease) Code(s): N18.6 - END STAGE RENAL DISEASE (7) Hyperkalemia Code(s): E87.5 - HYPERKALEMIA (8) Status post placement of implantable loop recorder Code(s): Z95.818 - PRESENCE OF OTHER CARDIAC IMPLANTS AND GRAFTS (9) Status post radiofrequency ablation for arrhythmia Code(s): Z98.890 - OTHER SPECIFIED POSTPROCEDURAL STATES; Z86.79 - PERSONAL HISTORY OF OTHER DISEASES OF THE CIRCULATORY SYSTEM Assessment/Plan 03/29/2019 Echo: Normal LV and RV size and fxn, normal biatrial sizes, mild MR, TR 1. Bradycardia referable to medications and metabolic disorder resolved 2. ESRD with clotted AVF s/p percutaneous suction thrombectomy and venoplasty cephalic vein 3. hx CVA 4. Seizure d/o 5. HTN 6. hyperlipidemia 7. Anemia of CKD 8. hx subdural hemorrhage 9. hyperkalemia 10. PAF->SR Plan 1. HD via AVF per renal with monitor potassium, d/c Shiley, resume Toprol XL 12.5 qd, not on a/c due to h/o SDH 2. Resume ASA 81 qd as hemostasis achieved 3. Continue Lipitor 20 qd
[2019-03-30] MEDS ORDERED: PT OWN MED DRAWER 7, Y5N ONE ×2 (09:30→09:51)
[2019-03-30] MEDS ORDERED: levETIRAcetam 500 MG TABLET (FP) PO ONE (09:30)
[2019-03-30] MEDS ORDERED: levETIRAcetam 250 MG TABLET (FP) PO ONE (09:30)
[2019-03-30] MEDS: CALCIUM ACETATE 667 MG CAPSULE (FP) PO SCH ×3 (09:44→16:40)
[2019-03-30] MEDS: lamoTRIgine 25 MG TABLET PO SCH ×2 (09:47→21:15)
[2019-03-30] MEDS: HEPARIN NA (PORCINE) 5,000 UNITS/ML 1ML VIAL SQ SCH ×2 (09:47→21:15)
[2019-03-30] MEDS: VITAMIN B COMP W-C 1 EA TABLET PO SCH (09:48)
[2019-03-30] MEDS: POLYETHYLENE GLYCOL 3350 119 GM BTL PO SCH (09:52)
[2019-03-30] MEDS ORDERED: CYCLOBENZAPRINE HCL 5 MG TABLET PO SCH (10:00)
[2019-03-30] MEDS: KETOCONAZOLE 2% TOPICAL CREAM 15 GM TUBE TP SCH (10:00)
[2019-03-30] MEDS ORDERED: levETIRAcetam 250 MG TABLET (FP) PO SCH (10:00)
[2019-03-30] MEDS: CYCLOBENZAPRINE HCL 5 MG TABLET PO SCH (10:21)
--- NOTE | 2019-03-30 10:48 | PN ---
Progress Note, Physician History of Present Illness: Pt seen and examined at bedside. He is awake and alert. he denies shortness of breath. - Current Medication List Current Medications: Active Medications Acetaminophen (Tylenol -) 650 mg PO Q6H PRN PRN Reason: PAIN 1-5 Atorvastatin Calcium (Lipitor -) 20 mg PO HS [facility] Last Admin: 03/29/19 21:53 Dose: 20 mg Calcium Acetate (Phoslo -) 2,001 mg PO TIDCM [facility] Last Admin: 03/30/19 09:44 Dose: 2,001 mg Cyclobenzaprine HCl (Cyclobenzaprine Hcl) 5 mg PO DAILY [facility] Last Admin: 03/30/19 10:21 Dose: 5 mg Docusate Sodium (Colace -) 100 mg PO TID [facility] Last Admin: 03/30/19 05:51 Dose: 100 mg Heparin Sodium (Porcine) (Heparin -) 5,000 unit SQ BID [facility] Last Admin: 03/30/19 09:47 Dose: 5,000 unit Sodium Chloride (Normal Saline -) 250 mls @ 3,000 mls/hr IV PRN PRN PRN Reason: Hypotension during Dialysis Stop: 03/30/19 11:42 Sodium Chloride (Normal Saline -) 250 mls @ 3,000 mls/hr IV PRN PRN PRN Reason: Hypotension during Dialysis Stop: 03/31/19 07:58 Ketoconazole (Nizoral 2% Cream -) 1 applic TP DAILY [facility] Lamotrigine (Lamictal -) 25 mg PO BID [facility] Last Admin: 03/30/19 09:47 Dose: 25 mg Levetiracetam 1,000 mg/ (Levetiracetam 250 mg) 1,250 mg PO DAILY [facility] Last Admin: 03/30/19 09:44 Dose: 1,250 mg Levetiracetam (Keppra -) 1,000 mg PO HS [facility] Last Admin: 03/29/19 21:53 Dose: 1,000 mg Multivit/Ca Carb/B Cmplx/FA/Prenat (Nephro-Lashanda -) 1 tablet PO DAILY [facility] Last Admin: 03/30/19 09:48 Dose: 1 tablet Polyethylene Glycol (Miralax (For Daily Use) -) 17 gm PO DAILY [facility] Last Admin: 03/30/19 09:52 Dose: 17 grams - Objective Vital Signs: Vital Signs Temperature 98.9 F 03/30/19 05:00 Pulse Rate 69 03/30/19 05:00 Respiratory Rate 20 03/30/19 05:00 Blood Pressure 118/52 L 03/30/19 05:00 O2 Sat by Pulse Oximetry (%) 98 03/30/19 03:00 Constitutional: Yes: Calm Eyes: Yes: Conjunctiva Clear HENT: Yes: Atraumatic Neck: Yes: Supple Cardiovascular: Yes: S1, S2 Respiratory: Yes: CTA Bilaterally Gastrointestinal: Yes: Soft Genitourinary: Yes: WNL Musculoskeletal: Yes: WNL Edema: No Neurological: Yes: Oriented Psychiatric: Yes: Oriented Labs: CBC, BMP 03/29/19 12:45 03/29/19 12:45 INR, PTT INR 1.14 (0.83-1.09) H 03/28/19 16:45 Problem List - Problems (1) AV fistula thrombosis Code(s): T82.868A - THROMBOSIS DUE TO VASCULAR PROSTH DEV/GRFT, INIT (2) Bradycardia Code(s): R00.1 - BRADYCARDIA, UNSPECIFIED (3) ESRD (end stage renal disease) Code(s): N18.6 - END STAGE RENAL DISEASE Assessment/Plan Current Medications Generic Name Dose Route Start Last Admin Trade Name Freq PRN Reason Stop Dose Admin Acetaminophen 650 mg 03/29/19 20:01 Tylenol - PO Q6H PRN PAIN 1-5 Atorvastatin Calcium 20 mg 03/29/19 22:00 03/29/19 21:53 Lipitor - PO 20 mg HS [facility] Administration Calcium Acetate 2,001 mg 03/30/19 08:00 03/30/19 09:44 Phoslo - PO 2,001 mg TIDCM [facility] Administration Cyclobenzaprine HCl 5 mg 03/30/19 10:00 03/30/19 10:21 Cyclobenzaprine Hcl PO 5 mg DAILY [facility] Administration Docusate Sodium 100 mg 03/29/19 22:00 03/30/19 05:51 Colace - PO 100 mg TID [facility] Administration Heparin Sodium (Porcine) 5,000 unit 03/29/19 22:00 03/30/19 09:47 Heparin - SQ 5,000 unit BID [facility] Administration Sodium Chloride 250 mls @ 3,000 mls/hr 03/29/19 20:01 Normal Saline - IV 03/30/19 11:42 PRN PRN Hypotension during Dialysis Sodium Chloride 250 mls @ 3,000 mls/hr 03/30/19 07:58 Normal Saline - IV 03/31/19 07:58 PRN PRN Hypotension during Dialysis Ketoconazole 1 applic 03/30/19 10:00 Nizoral 2% Cream - TP DAILY [facility] Lamotrigine 25 mg 03/29/19 22:00 03/30/19 09:47 Lamictal - PO 25 mg BID [facility] Administration Levetiracetam 1,000 mg/ 1,250 mg 03/30/19 10:00 03/30/19 09:44 Levetiracetam 250 mg PO 1,250 mg DAILY [facility] Administration Levetiracetam 1,000 mg 03/29/19 22:00 03/29/19 21:53 Keppra - PO 1,000 mg HS [facility] Administration Multivit/Ca Carb/B Cmplx/FA/Prenat 1 tablet 03/30/19 10:00 03/30/19 09:48 Nephro-Lashanda - PO 1 tablet DAILY [facility] Administration Polyethylene Glycol 17 gm 03/30/19 10:00 03/30/19 09:52 Miralax (For Daily Use) - PO 17 grams DAILY [facility] Administration Impression 1. ESRD 2. hx CVA 3. epilepsy 4. hx HTN 5. hyperlipidemia 6. anemia 7. hx subdural hemorrhage 8. hyperkalemia 9. bradycardia Plan - HD today via fistula - check bmp - discussed with vascular last night - remove shiley if HD is successful - will follow Dr Isaac
--- NOTE | 2019-03-30 12:11 | PN ---
Teaching Attending Note Name of Resident: Celestine Douglas ATTENDING PHYSICIAN STATEMENT I saw and evaluated the patient. I reviewed the resident's note and discussed the case with the resident. I agree with the resident's findings and plan as documented. SUBJECTIVE: Feels well - no complaints. No nausea/vomiting. No lightheadedness/ dizziness/chest pain/palpitations. s/p AV fistula thrombectomy OBJECTIVE: Afebrile, Hemodynamically Stable Last Vital Signs Temp Pulse Resp BP Pulse Ox 98.3 F 77 18 105/66 98 03/30/19 10:50 03/30/19 11:55 03/30/19 11:55 03/30/19 11:55 03/30/19 09:00 Heart - S1, S2, irregular Lungs - good air entry bilaterally Abdomen - Soft, non-tender. Bowel Sounds normal. Extremities RUE AV Fistula - thrill/bruit re-established Neuro - AAO x 3. Chronic LUE weakness. Laboratory Results - last 24 hr 03/29/19 03/29/19 03/29/19 11:20 12:45 12:45 WBC RBC Hgb Hct MCV MCH MCHC RDW Plt Count MPV Absolute Neuts (auto) Neutrophils % Lymphocytes % Monocytes % Eosinophils % Basophils % Nucleated RBC % Sodium Potassium 7.8 H* Chloride Carbon Dioxide Anion Gap BUN 123.2 H* Creatinine 17.2 H* Est GFR (CKD-EPI)AfAm Est GFR (CKD-EPI)NonAf Random Glucose Calcium Iron TIBC Iron Saturation Unsaturated IBC Total Bilirubin AST ALT Alkaline Phosphatase Total Protein Albumin Vitamin B12 Serum Folate Hep Bs Antigen Negative Hep C Ab Diagnostic <0.1 03/29/19 03/29/19 03/29/19 12:45 12:45 21:10 WBC 7.2 RBC 4.38 Hgb 11.0 L Hct 35.5 MCV 80.9 MCH 25.1 L MCHC 31.1 L RDW 17.6 H Plt Count 243 MPV 8.8 Absolute Neuts (auto) 3.6 Neutrophils % 49.7 Lymphocytes % 35.9 Monocytes % 9.3 Eosinophils % 3.9 Basophils % 1.2 Nucleated RBC % 1 H Sodium 136 Potassium 5.9 H Chloride 100 Carbon Dioxide 22 Anion Gap 14 BUN 122.6 H* Creatinine 17.7 H* Est GFR (CKD-EPI)AfAm 2.88 Est GFR (CKD-EPI)NonAf 2.49 Random Glucose 102 Calcium 8.9 Iron TIBC Iron Saturation Unsaturated IBC Total Bilirubin 0.4 AST 8 L ALT 18 Alkaline Phosphatase 90 Total Protein 6.9 Albumin 3.5 Vitamin B12 1918 H Serum Folate 51 H Hep Bs Antigen Hep C Ab Diagnostic 03/29/19 21:10 WBC RBC Hgb Hct MCV MCH MCHC RDW Plt Count MPV Absolute Neuts (auto) Neutrophils % Lymphocytes % Monocytes % Eosinophils % Basophils % Nucleated RBC % Sodium Potassium Chloride Carbon Dioxide Anion Gap BUN Creatinine Est GFR (CKD-EPI)AfAm Est GFR (CKD-EPI)NonAf Random Glucose Calcium Iron 100 TIBC 240 L Iron Saturation 41 H Unsaturated IBC 140 L Total Bilirubin AST ALT Alkaline Phosphatase Total Protein Albumin Vitamin B12 Serum Folate Hep Bs Antigen Hep C Ab Diagnostic Current Medications Generic Name Dose Route Start Last Admin Trade Name Freq PRN Reason Stop Dose Admin Acetaminophen 650 mg 03/29/19 20:01 Tylenol - PO Q6H PRN PAIN 1-5 Atorvastatin Calcium 20 mg 03/29/19 22:00 03/29/19 21:53 Lipitor - PO 20 mg HS [facility] Administration Calcium Acetate 2,001 mg 03/30/19 08:00 03/30/19 09:44 Phoslo - PO 2,001 mg TIDCM [facility] Administration Cyclobenzaprine HCl 5 mg 03/30/19 10:00 03/30/19 10:21 Cyclobenzaprine Hcl PO 5 mg DAILY [facility] Administration Docusate Sodium 100 mg 03/29/19 22:00 03/30/19 05:51 Colace - PO 100 mg TID [facility] Administration Heparin Sodium (Porcine) 5,000 unit 03/29/19 22:00 03/30/19 09:47 Heparin - SQ 5,000 unit BID [facility] Administration Sodium Chloride 250 mls @ 3,000 mls/hr 03/29/19 20:01 Normal Saline - IV 03/30/19 11:42 PRN PRN Hypotension during Dialysis Sodium Chloride 250 mls @ 3,000 mls/hr 03/30/19 07:58 Normal Saline - IV 03/31/19 07:58 PRN PRN Hypotension during Dialysis Ketoconazole 1 applic 03/30/19 10:00 Nizoral 2% Cream - TP DAILY [facility] Lamotrigine 25 mg 03/29/19 22:00 03/30/19 09:47 Lamictal - PO 25 mg BID [facility] Administration Levetiracetam 1,000 mg/ 1,250 mg 03/30/19 10:00 03/30/19 09:44 Levetiracetam 250 mg PO 1,250 mg DAILY [facility] Administration Levetiracetam 1,000 mg 03/29/19 22:00 03/29/19 21:53 Keppra - PO 1,000 mg HS [facility] Administration Multivit/Ca Carb/B Cmplx/FA/Prenat 1 tablet 03/30/19 10:00 03/30/19 09:48 Nephro-Lashanda - PO 1 tablet DAILY [facility] Administration Polyethylene Glycol 17 gm 03/30/19 10:00 03/30/19 09:52 Miralax (For Daily Use) - PO 17 grams DAILY [facility] Administration Home Medications Medication Instructions Recorded Escitalopram Oxalate [Lexapro -] 5 mg PO DAILY 08/02/16 Aspirin 81 mg PO HS 10/23/17 Calcium Acetate [Phoslo -] 3 cap PO TID 10/23/17 Metoprolol Succinate [Toprol Xl] 12.5 mg PO ASDIR 10/23/17 Vit B Comp No.3/Folic/C/Biotin 1 each PO DAILY 01/31/18 [[facility]-Lashanda Rx Tablet] Acetaminophen [Tylenol] 325 mg PO PRN 04/09/18 Docusate Sodium [Colace] 100 mg PO TID 04/09/18 Mupirocin Cream [Bactroban 2% 1 applic .ROUTE DAILY 04/09/18 Cream -] Pantoprazole Sodium [Protonix -] 20 mg PO DAILY 04/09/18 levETIRAcetam [Keppra -] 1,000 mg PO BID 04/09/18 Atorvastatin Ca [Lipitor] 20 mg DAILY 03/29/19 Cyclobenzaprine HCl 5 mg DAILY 03/29/19 Ketoconazole 2% Cream [Nizoral 2% 1 applic TP DAILY 03/29/19 Cream -] Lamotrigine 25 mg PO BID 03/29/19 Levetiracetam [Keppra] 250 mg PO DAILY 03/29/19 Polyethylene Glycol 3350 [Miralax 17 gm PO DAILY 03/29/19 119 gm Btl -] ASSESSMENT AND PLAN: 63 year old male with ESRD (HD on M/W/F), Atrial Fibrillation (s/p AICD and watchman device 207), HTN, Hx CVA (2016 w/residual L-sided weakness), Ischemic colitis (resection 2018) and Seizures, presents from dialysis with thrombosed AV fistula and bradycardia. 1. ESRD (HD on M/W/F) - AV fistula clotted - POD 1 s/p percutaneous suction thrombectomy Fr attempt at HD today via AV fistula - once successful, femoral shiley can be removed and he can be discharged. Nephrology, Vascular Sx follow up as out-patient. Resume Aspirin 2. Atrial Fibrillation with slow ventricular response - appears to have resolved. Metoprolol, Lexapro, Protonix to be resumed. Echo - normal. Resume home medications as per Cardio. 3. Hyperkalemia/Uremia sec to ESRD - resolved s/p HD 4. Normocytic Anemia - likely sec to ESRD. Iron 100, Iron Sat 14%, B12 - 1918, Folate 15. Further monitoring/management as per Nephrology. 5. HTN - Metoprolol resumed. No AC due to SDH Hx. To resume Aspirin. 6. Seizure Disorder - continue Keppra, Lamotrigine 7. HLD - Continue Lipitor. 8. Hx CVA - continue Aspirin, Statin Medically optimized for discharge once HD successful via AV fistula and femoral shiley is removed. ADDENDUM DISCHARGE CANCELLED PATIENT SPIKED A FEVER OF 102.9. SEPTIC WORK-UP ORDERED. EMPIRIC VANC/ZOSYN. ID CONSULT. NEPHROLOGY AWARE.
[2019-03-30 12:42] LABS: BLOOD UREA NITROGEN 55.7 mg/dL (7-18); CALCIUM 8.5 mg/dL (8.5-10.1); POTASSIUM 4.7 mmol/L (3.5-5.1)
[2019-03-30 12:48] LABS: CREATININE 10.7 mg/dL (0.55-1.3)
--- NOTE | 2019-03-30 14:51 | DS ---
Physical Exam: SUBJECTIVE: Patient seen and examined at the bedside. Patient states that he is doing well and is eager to go home. Tolerated dialysis well yesterday and today. Denies cp, sob, abd pain, n/v/c/d, fever, chills, numbness, tingling. After dialysis, R groin shiley catheter was removed. OBJECTIVE: Vital Signs Period Temp Pulse Resp BP Sys/Chaudhry Pulse Ox Last 24 Hr 97.3 F-98.9 F 9-101 18-20 93-165/50-78 96-100 PHYSICAL EXAM GENERAL: AOx3, in no acute distress, friendly demeanor HEAD: No signs of trauma, normocephalic EYES: JOÃO, EOMI, incteric sclera ENT: Ears normal, nares patent, oropharynx clear without exudates. Moist mucous membranes. NECK: Normal range of motion, supple without lymphadenopathy, JVD, or masses. LUNGS: Clear to auscultation bilaterally. No wheezes, and no crackles. No accessory muscle use. HEART: Irregular rhythm, regular rate, no ausculated murmurs or rubs. ABDOMEN: Midline surgical scar. Soft, BS present in all 4 quadrants, non- distended, non tender. MUSCULOSKELETAL: No bony deformities or tenderness. No CVA tenderness. UPPER EXTREMITIES: RUE fistula auscultated, bruit palpated thrill. 2+ pulses, warm, well-perfused. No cyanosis. No clubbing. No peripheral edema. LOWER EXTREMITIES: 2+ pulses, warm, well-perfused. No calf tenderness. No peripheral edema. NEUROLOGICAL: LUE 0/5 power. RLE 5/5, UE 5/5 BL. Mild left facial droop with loss of nasolabial fold. All other CN intact. Normal speech. Walks with rollator. Slowed gait. PSYCHIATRIC: Cooperative. Good eye contact. Appropriate mood and affect. SKIN: Warm, dry, normal turgor, normal capillary refill. Shunt scar on skin. LABS Laboratory Results - last 24 hr 03/29/19 03/29/19 03/29/19 12:45 12:45 21:10 Sodium Potassium Chloride Carbon Dioxide Anion Gap BUN Creatinine Est GFR (CKD-EPI)AfAm Est GFR (CKD-EPI)NonAf Random Glucose Calcium Iron TIBC Iron Saturation Unsaturated IBC Vitamin B12 1918 H Serum Folate 51 H TSH Hep Bs Antigen Negative Hep C Ab Diagnostic <0.1 03/29/19 03/30/19 21:10 11:00 Sodium 138 Potassium 4.7 Chloride 102 Carbon Dioxide 26 Anion Gap 10 BUN 55.7 H Creatinine 10.7 H* Est GFR (CKD-EPI)AfAm 5.30 Est GFR (CKD-EPI)NonAf 4.57 Random Glucose 101 Calcium 8.5 Iron 100 59 TIBC 240 L Iron Saturation 41 H Unsaturated IBC 140 L Vitamin B12 Serum Folate TSH 0.48 Hep Bs Antigen Hep C Ab Diagnostic HOSPITAL COURSE: Neymar Yoon is a 63 year old male with a past medical history of ESRD (M, W, F at [facility] on [address]), Afib (defibrilator and monitor in place and s/p Watchman implant), HTN, 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 Patient had an EKG performed that showed afib with slow ventricular response and age indeterminate inferior infarct. Patient had a shiley catheter placed to undergo dialysis and successfully underwent dialysis and seen nephrology for dialysis. Patient then underwent percutaneous suction thrombectomy and venoplasty of the cephalic vein with Dr. Devries. Patient was able to undergo a second round of dialysis and completed it succesfully. Shiley catheter was removed after 2nd dialysis. Patient was seen by cardiology who advised that the patient resume his home medications as bradycardia was likely due to missed dialysis and metabolic acidosis. 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 Patient had echo done which showe EF 60, normal LV size, function , thickness, and normal RV size and function with mild mitral and tricuspid regurg. Patient was spoken to about his plan to resume his home medications, continue scheduled dialysis, and to follow up with his crusher supervisor, supervisor cytology, primary care physician. Patient was in agreement with the plan and reiterated it. Patient was discharged in stable condition. Date of Admission:03/28/19 Date of Discharge: 03/30/19 Minutes to complete discharge: 35 Discharge Summary Problems reviewed: Yes Reason For Visit: ATRIAL FIBRILLATION Condition: Improved - Instructions Diet, Activity, Other Instructions: YOUR VISIT You came to the hospital because your fistula was clotted and you were unable to receive dialysis. In addition you were found to have low heart rate when you presented to [facility] to have the fistula opened up. You were admitted to the hospital to have your fistula opened up with Dr. Devries, the vascular surgeon. You received dialysis while you were in the hospital. You were seen by the cardiologists (heart doctor), who recommended that you continue all of your medications and follow up with the cardiologists as an outpatient. You had an echocardiogram (ultrasound of the heart) performed which showed normal function of your heart. MEDICATIONS Please continue to take your home medications as prescribed. Continue to take your metoprolol 12.5 mg every day as prescribed and be sure to follow up with your crusher supervisor. ADDITIONAL CARE Please make an appointment to see your primary care provider, Dr. Slade, 1 week from today by April 06. Please make an appointment to see Dr. Rusty Torres, the crusher supervisor, 1 week from today by April 06. Please make an appointment to see Dr. Celestine Lobato, the supervisor cytology (kidney doctor), 1 week from today by April 06. ADDITIONAL INFORMATION Please continue to go to your dialysis appointment as scheduled and follow up with your supervisor cytology. Please call 911 or come directly to the emergency department if you experience clotting of your fistula, bleeding from the fistula, unusual headache, vision change, shortness of breath, chest pain, numbness, tingling, loss of alertness/ awareness, loss of function, unusual bleeding or any other general feelings of unwellness. Referrals: Renny Slade MD [Primary Care Provider] - 1 Week Rusty Torres MD [Staff Physician] - 1 Week Celestine Lobato MD [Staff Physician] - 1 Week Disposition: VNS/HOME HEALTH CARE - Home Medications Comprehensive Discharge Medication List: Ambulatory Orders Escitalopram Oxalate [Lexapro -] 5 mg PO DAILY 08/02/16 Aspirin 81 mg PO HS 10/23/17 Calcium Acetate [Phoslo -] 3 cap PO TID 10/23/17 Metoprolol Succinate [Toprol Xl] 12.5 mg PO ASDIR 10/23/17 Vit B Comp No.3/Folic/C/Biotin [Gavi-Lashanda Rx Tablet] 1 each PO DAILY 01/31/18 Acetaminophen [Tylenol] 325 mg PO PRN 04/09/18 Docusate Sodium [Colace] 100 mg PO TID 04/09/18 Mupirocin Cream [Bactroban 2% Cream -] 1 applic .ROUTE DAILY 04/09/18 Pantoprazole Sodium [Protonix -] 20 mg PO DAILY 04/09/18 levETIRAcetam [Keppra -] 1,000 mg PO BID 04/09/18 Atorvastatin Ca [Lipitor] 20 mg DAILY 03/29/19 Cyclobenzaprine HCl 5 mg DAILY 03/29/19 Ketoconazole 2% Cream [Nizoral 2% Cream -] 1 applic TP DAILY 03/29/19 Lamotrigine 25 mg PO BID 03/29/19 Levetiracetam [Keppra] 250 mg PO DAILY 03/29/19 Polyethylene Glycol 3350 [Miralax 119 gm Btl -] 17 gm PO DAILY 03/29/19 Problem List - Problems (1) AV fistula thrombosis Code(s): T82.868A - THROMBOSIS DUE TO VASCULAR PROSTH DEV/GRFT, INIT Qualifiers: Encounter type: subsequent encounter Qualified Code(s): T82.868D - Thrombosis due to vascular prosthetic devices, implants and grafts, subsequent encounter (2) Bradycardia Code(s): R00.1 - BRADYCARDIA, UNSPECIFIED (3) Afib Code(s): I48.91 - UNSPECIFIED ATRIAL FIBRILLATION Qualifiers: Atrial fibrillation type: paroxysmal Qualified Code(s): I48.0 - Paroxysmal atrial fibrillation (4) Anemia Code(s): D64.9 - ANEMIA, UNSPECIFIED Qualifiers: Anemia type: due to chronic kidney disease (5) ESRD (end stage renal disease) Code(s): N18.6 - END STAGE RENAL DISEASE (6) Hemodialysis access, arteriovenous graft Code(s): Z99.2 - DEPENDENCE ON RENAL DIALYSIS (7) Hyperkalemia Code(s): E87.5 - HYPERKALEMIA (8) Hypertension Code(s): I10 - ESSENTIAL (PRIMARY) HYPERTENSION Qualifiers: Hypertension type: essential hypertension Qualified Code(s): I10 - Essential (primary) hypertension This patient is new to me today: No Emergency Visit: Yes ED Registration Date: 03/28/19 Care time: The patient presented to the Emergency Department on the above date and was hospitalized for further evaluation of their emergent condition. Critical Care patient: No - Discharge Referral Referred to [facility] Med P.C.: No
[2019-03-30] MEDS: ACETAMINOPHEN 500 MG TABLET (FP) PO PRN ×2 (16:39→22:26)
--- NOTE | 2019-03-30 16:49 | PN ---
Physical Exam: SUBJECTIVE: Patient seen and examined at the bedside. Patient states that he is doing well and is eager to go home. Tolerated dialysis well yesterday and today. Denies cp, sob, abd pain, n/v/c/d, fever, chills, numbness, tingling. After dialysis, R groin shiley catheter was removed. Prior to expected discharge, the patient had a fever of 102.6. Discharge was cancelled and patient is being worked up for fever. OBJECTIVE: Vital Signs Period Temp Pulse Resp BP Sys/Chaudhry Pulse Ox Last 24 Hr 97.3 F-102.6 F 9-102 18-20 93-165/52-78 96-100 GENERAL: AOx3, in no acute distress, friendly demeanor HEAD: No signs of trauma, normocephalic EYES: JOÃO, EOMI, incteric sclera ENT: Ears normal, nares patent, oropharynx clear without exudates. Moist mucous membranes. NECK: Normal range of motion, supple without lymphadenopathy, JVD, or masses. LUNGS: Clear to auscultation bilaterally. No wheezes, and no crackles. No accessory muscle use. HEART: Irregular rhythm, bradycardic, no ausculated murmurs or rubs. ABDOMEN: Midline surgical scar. Soft, BS present in all 4 quadrants, non- distended, non tender. MUSCULOSKELETAL: No bony deformities or tenderness. No CVA tenderness. UPPER EXTREMITIES: RUE fistula Auscultated bruit and palpated thrill. 2+ pulses , warm, well-perfused. No cyanosis. No clubbing. No peripheral edema. LOWER EXTREMITIES: 2+ pulses, warm, well-perfused. No calf tenderness. No peripheral edema. NEUROLOGICAL: LUE 0/5 power. RLE 5/5, UE 5/5 BL. Mild left facial droop with loss of nasolabial fold. All other CN intact. Normal speech. Walks with rollator. Slowed gait. PSYCHIATRIC: Cooperative. Good eye contact. Appropriate mood and affect. SKIN: Warm, dry, normal turgor,normal capillary refill, shunt scar on skin Laboratory Results - last 24 hr 03/29/19 03/29/19 03/29/19 12:45 12:45 21:10 Sodium Potassium Chloride Carbon Dioxide Anion Gap BUN Creatinine Est GFR (CKD-EPI)AfAm Est GFR (CKD-EPI)NonAf Random Glucose Calcium Iron TIBC Iron Saturation Unsaturated IBC Vitamin B12 1918 H Serum Folate 51 H TSH Hep Bs Antigen Negative Hep C Ab Diagnostic <0.1 03/29/19 03/30/19 21:10 11:00 Sodium 138 Potassium 4.7 Chloride 102 Carbon Dioxide 26 Anion Gap 10 BUN 55.7 H Creatinine 10.7 H* Est GFR (CKD-EPI)AfAm 5.30 Est GFR (CKD-EPI)NonAf 4.57 Random Glucose 101 Calcium 8.5 Iron 100 59 TIBC 240 L Iron Saturation 41 H Unsaturated IBC 140 L Vitamin B12 Serum Folate TSH 0.48 Hep Bs Antigen Hep C Ab Diagnostic Active Medications Generic Name Dose Route Start Last Admin Trade Name Freq PRN Reason Stop Dose Admin Acetaminophen 1,000 mg 03/30/19 16:00 03/30/19 16:39 Tylenol - PO 1,000 mg Q6H PRN Administration FEVER Atorvastatin Calcium 20 mg 03/29/19 22:00 03/29/19 21:53 Lipitor - PO 20 mg HS SANDEEP Administration Calcium Acetate 2,001 mg 03/30/19 08:00 03/30/19 16:40 Phoslo - PO 2,001 mg TIDCM SANDEEP Administration Cyclobenzaprine HCl 5 mg 03/30/19 10:00 03/30/19 10:21 Cyclobenzaprine Hcl PO 5 mg DAILY SANDEEP Administration Docusate Sodium 100 mg 03/29/19 22:00 03/30/19 14:22 Colace - PO 100 mg TID SANDEEP Administration Heparin Sodium (Porcine) 5,000 unit 03/29/19 22:00 03/30/19 09:47 Heparin - SQ 5,000 unit BID SANDEEP Administration Sodium Chloride 250 mls @ 3,000 mls/hr 03/29/19 20:01 Normal Saline - IV 03/30/19 11:42 PRN PRN Hypotension during Dialysis Sodium Chloride 250 mls @ 3,000 mls/hr 03/30/19 07:58 Normal Saline - IV 03/31/19 07:58 PRN PRN Hypotension during Dialysis Ketoconazole 1 applic 03/30/19 10:00 03/30/19 10:00 Nizoral 2% Cream - TP 1 applic DAILY SANDEEP Administration Lamotrigine 25 mg 03/29/19 22:00 03/30/19 09:47 Lamictal - PO 25 mg BID SANDEEP Administration Levetiracetam 1,000 mg/ 1,250 mg 03/30/19 10:00 03/30/19 09:44 Levetiracetam 250 mg PO 1,250 mg DAILY SANDEEP Administration Levetiracetam 1,000 mg 03/29/19 22:00 03/29/19 21:53 Keppra - PO 1,000 mg HS SANDEEP Administration Multivit/Ca Carb/B Cmplx/FA/Prenat 1 tablet 03/30/19 10:00 03/30/19 09:48 Nephro-Lashanda - PO 1 tablet DAILY SANDEEP Administration Polyethylene Glycol 17 gm 03/30/19 10:00 03/30/19 09:52 Miralax (For Daily Use) - PO 17 grams DAILY SANDEEP Administration ASSESSMENT/PLAN: Neymar Yoon is a 63 year old male with a past medical history ESRD (M, W, F at [facility] on [address]), Afib (defibrilator and monitor in place and s/p Watchman implant), HTN, 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 Afib with slow ventricular response - Restart home metoprolol 12.5mg daily - Keppra level pending - TSH within normal limits - Consult cardiology, recs appreciated, restarting metoprolol - echo showing EF 60%, normal LV size, thickness, function, normal RV size and function, mild mitral and tricuspid regurg - CXR showing increased marking in R lobe, cardiomegaly, unfolded aorta - EKG showing afib with slow ventricular response, left axis deviation, age indeterminate infarct - continue aspirin - no AC as pt has hx of subdural hematoma Thrombosed fistula - POD #1 percutaneous suction thrombectomy and venoplasty of cephalic vein with Dr. Devries - temporary Shiley removed ESRD - Consult nephrology, dialyzing patient, recs appreciated - continue to monitor electrolytes - will receive dialysis while hospitalized Fever - prior to discharge patient had fever 102.9 - blood cultures, cbc, CXR obtained - unknown source of fever, hold off antibiotics until source identified - monitor for continued fevers - Tylenol for fever control HTN - on metoprolol 12.5mg, restarted as per cardiology Seizure Disorder - on Keppra 1250mg in the morning, 1000mg at night Hx of CVA - on aspirin 81mg, restarted after surgery F/E/N - No IVF, monitor PO intake - Continue to monitor electrolytes and replete or control as necessary. Hyperkalemia and hyperphosphatemia noted and patient receiving dialysis. - Renal diet DVT prophylaxis - heparin 5000 units subq bid Disposition - Continue to monitor on telemetry Problem List - Problems (1) AV fistula thrombosis Code(s): T82.868A - THROMBOSIS DUE TO VASCULAR PROSTH DEV/GRFT, INIT Qualifiers: Encounter type: subsequent encounter Qualified Code(s): T82.868D - Thrombosis due to vascular prosthetic devices, implants and grafts, subsequent encounter (2) Bradycardia Code(s): R00.1 - BRADYCARDIA, UNSPECIFIED (3) Afib Code(s): I48.91 - UNSPECIFIED ATRIAL FIBRILLATION Qualifiers: Atrial fibrillation type: paroxysmal Qualified Code(s): I48.0 - Paroxysmal atrial fibrillation (4) Anemia Code(s): D64.9 - ANEMIA, UNSPECIFIED Qualifiers: Anemia type: due to chronic kidney disease (5) ESRD (end stage renal disease) Code(s): N18.6 - END STAGE RENAL DISEASE (6) Hemodialysis access, arteriovenous graft Code(s): Z99.2 - DEPENDENCE ON RENAL DIALYSIS (7) Hyperkalemia Code(s): E87.5 - HYPERKALEMIA (8) Hypertension Code(s): I10 - ESSENTIAL (PRIMARY) HYPERTENSION Qualifiers: Hypertension type: essential hypertension Qualified Code(s): I10 - Essential (primary) hypertension Visit type - Emergency Visit Emergency Visit: Yes ED Registration Date: 03/28/19 Care time: The patient presented to the Emergency Department on the above date and was hospitalized for further evaluation of their emergent condition. - New Patient This patient is new to me today: No - Critical Care Critical Care patient: No
[2019-03-30] MEDS ORDERED: VANCOMYCIN 1 GM in D5W (PRE-DOCKED) 1,000 MG/250 ML IVPB ONE (20:00)
[2019-03-30] MEDS ORDERED: VANCOMYCIN 1 GM in D5W (PRE-DOCKED) 1,000 MG/250 ML IVPB SCH (20:00)
[2019-03-30] MEDS: ATORVASTATIN CA 20 MG TABLET (FP) PO SCH (21:14)
[2019-03-30] MEDS: levETIRAcetam 500 MG TABLET (FP) PO SCH (21:14)
[2019-03-31] MEDS ORDERED: PIPERACILLIN/TAZOBACTAM 2.25 GM VIAL IVPB ONE ×3 (01:11→17:47)
[2019-03-31] MEDS ORDERED: DEXTROSE 5%-WATER - 50 ML IVPB ONE ×3 (01:11→17:48)
[2019-03-31 01:19] LABS: HEMATOCRIT 31.4 % (35.4-49); HEMOGLOBIN 9.7 GM/dL (11.7-16.9); MCH 24.9 pg (25.7-33.7); MCHC 30.8 g/dl (32.0-35.9); MEAN CELL VOLUME 80.9 fl (80-96); MEAN PLT VOLUME 9.1 fl (7.5-11.1); PLATELET COUNT 197 K/MM3 (134-434); RBC 3.89 M/mm3 (4.00-5.60); RDW 17.7 % (11.9-15.9); WHITE BLOOD COUNT 20.6 K/mm3 (4.0-10.0)
[2019-03-31] MEDS: PIPERACILLIN/TAZOB 2.25 GM 2.25 GM in DEXTROSE 5%-WATER - 50 ML IVPB SCH ×4 (01:19→17:57)
[2019-03-31] MEDS ORDERED: VANCOMYCIN 1 GM in D5W (PRE-DOCKED) 1,000 MG/250 ML IVPB ONE (02:00)
[2019-03-31] MEDS: DOCUSATE SODIUM 100 MG CAPSULE (FP) PO SCH ×3 (05:58→21:37)
[2019-03-31] MEDS: CALCIUM ACETATE 667 MG CAPSULE (FP) PO SCH ×3 (08:38→17:57)
[2019-03-31] MEDS: ACETAMINOPHEN 500 MG TABLET (FP) PO PRN ×2 (08:40→21:44)
[2019-03-31] MEDS ORDERED: levETIRAcetam 500 MG TABLET (FP) PO ONE (10:10)
[2019-03-31] MEDS ORDERED: levETIRAcetam 250 MG TABLET (FP) PO ONE (10:10)
[2019-03-31] MEDS: ESCITALOPRAM OXALATE 10 MG TABLET (FP) PO SCH (10:21)
[2019-03-31] MEDS: ASPIRIN 81 MG CHEWABLE TABLETS PO SCH (10:22)
[2019-03-31] MEDS: PANTOPRAZOLE 20 MG TABLET (FP) PO SCH (10:22)
[2019-03-31] MEDS: lamoTRIgine 25 MG TABLET PO SCH ×2 (10:22→21:37)
[2019-03-31] MEDS: HEPARIN NA (PORCINE) 5,000 UNITS/ML 1ML VIAL SQ SCH ×2 (10:23→21:37)
[2019-03-31] MEDS: POLYETHYLENE GLYCOL 3350 119 GM BTL PO SCH (10:24)
[2019-03-31] MEDS: VITAMIN B COMP W-C 1 EA TABLET PO SCH (10:24)
[2019-03-31] MEDS: KETOCONAZOLE 2% TOPICAL CREAM 15 GM TUBE TP SCH (10:30)
--- NOTE | 2019-03-31 10:31 | PN ---
Progress Note (short form) - Note Progress Note: Febrile yesterday and overnight. No am pain, fistula worked well for dialysis. Femoral line was removed yesterday after dialysis. Fistula soft, non-tender. Sepsis work-up in progress. No evidence for access as source.
[2019-03-31 10:38] LABS: HEMATOCRIT 33.6 % (35.4-49); HEMOGLOBIN 10.3 GM/dL (11.7-16.9); MCH 25.2 pg (25.7-33.7); MCHC 30.8 g/dl (32.0-35.9); MEAN CELL VOLUME 81.8 fl (80-96); MEAN PLT VOLUME 9.2 fl (7.5-11.1); PLATELET COUNT 169 K/MM3 (134-434); RDW 17.8 % (11.9-15.9); WHITE BLOOD COUNT 11.9 K/mm3 (4.0-10.0)
--- NOTE | 2019-03-31 10:48 | PN ---
Progress Note, Physician History of Present Illness: POD#2 Percutaneous suction thrombectomy and venoplasty cephalic vein for thrombosed AV fistula right arm. Bradycardia has resolved, febrile and chills in AM. - Current Medication List Current Medications: Active Medications Acetaminophen (Tylenol -) 1,000 mg PO Q6H PRN PRN Reason: FEVER Last Admin: 03/31/19 08:40 Dose: 1,000 mg Aspirin (Asa -) 81 mg PO DAILY [facility] Last Admin: 03/31/19 10:22 Dose: 81 mg Atorvastatin Calcium (Lipitor -) 20 mg PO HS [facility] Last Admin: 03/30/19 21:14 Dose: 20 mg Calcium Acetate (Phoslo -) 2,001 mg PO TIDCM SANDEEP Last Admin: 03/31/19 08:38 Dose: 2,001 mg Cyclobenzaprine HCl (Cyclobenzaprine Hcl) 5 mg PO DAILY [facility] Last Admin: 03/30/19 10:21 Dose: 5 mg Docusate Sodium (Colace -) 100 mg PO TID [facility] Last Admin: 03/31/19 05:58 Dose: 100 mg Escitalopram Oxalate (Lexapro -) 5 mg PO DAILY [facility] Last Admin: 03/31/19 10:21 Dose: 5 mg Heparin Sodium (Porcine) (Heparin -) 5,000 unit SQ BID [facility] Last Admin: 03/31/19 10:23 Dose: 5,000 unit Sodium Chloride (Normal Saline -) 250 mls @ 3,000 mls/hr IV PRN PRN PRN Reason: Hypotension during Dialysis Stop: 03/30/19 11:42 Sodium Chloride (Normal Saline -) 250 mls @ 3,000 mls/hr IV PRN PRN PRN Reason: Hypotension during Dialysis Stop: 03/31/19 07:58 Piperacillin Sod/Tazobactam (Sod 2.25 gm/ Dextrose) 50 mls @ 100 mls/hr IVPB Q8H-IV SANDEEP; Protocol Ketoconazole (Nizoral 2% Cream -) 1 applic TP DAILY [facility] Last Admin: 03/31/19 10:30 Dose: 1 applic Lamotrigine (Lamictal -) 25 mg PO BID [facility] Last Admin: 03/31/19 10:22 Dose: 25 mg Levetiracetam 1,000 mg/ (Levetiracetam 250 mg) 1,250 mg PO DAILY [facility] Last Admin: 03/31/19 10:22 Dose: 1,250 mg Levetiracetam (Keppra -) 1,000 mg PO HS [facility] Last Admin: 03/30/19 21:14 Dose: 1,000 mg Metoprolol Succinate (Toprol Xl -) 12.5 mg PO DAILY [facility] Multivit/Ca Carb/B Cmplx/FA/Prenat (Nephro-Lashanda -) 1 tablet PO DAILY [facility] Last Admin: 03/31/19 10:24 Dose: 1 tablet Pantoprazole Sodium (Protonix -) 20 mg PO DAILY [facility] Last Admin: 03/31/19 10:22 Dose: 20 mg Polyethylene Glycol (Miralax (For Daily Use) -) 17 gm PO DAILY [facility] Last Admin: 03/31/19 10:24 Dose: Not Given - Objective Vital Signs: Vital Signs Temperature 101.6 F H 03/31/19 08:35 Pulse Rate 90 03/31/19 08:35 Respiratory Rate 18 03/31/19 08:35 Blood Pressure 101/57 L 03/31/19 08:35 O2 Sat by Pulse Oximetry (%) 93 L 03/30/19 19:00 Constitutional: Yes: No Distress, Calm Neck: Yes: Supple Cardiovascular: Yes: Regular Rate and Rhythm Respiratory: Yes: Regular, CTA Bilaterally Gastrointestinal: Yes: Normal Bowel Sounds, Soft Edema: No Labs: CBC, BMP 03/31/19 10:10 INR, PTT INR 1.14 (0.83-1.09) H 03/28/19 16:45 - ....Imaging Chest X-ray: Report Reviewed (Congestion improved) EKG: Report Reviewed (Tele: NSR) Problem List - Problems (1) AV fistula thrombosis Code(s): T82.868A - THROMBOSIS DUE TO VASCULAR PROSTH DEV/GRFT, INIT Qualifiers: Encounter type: subsequent encounter Qualified Code(s): T82.868D - Thrombosis due to vascular prosthetic devices, implants and grafts, subsequent encounter (2) Afib Code(s): I48.91 - UNSPECIFIED ATRIAL FIBRILLATION Qualifiers: Atrial fibrillation type: paroxysmal Qualified Code(s): I48.0 - Paroxysmal atrial fibrillation (3) Anemia Code(s): D64.9 - ANEMIA, UNSPECIFIED Qualifiers: Anemia type: due to chronic kidney disease (4) Diastolic dysfunction without heart failure Code(s): I51.9 - HEART DISEASE, UNSPECIFIED (5) ESRD (end stage renal disease) Code(s): N18.6 - END STAGE RENAL DISEASE (6) Status post placement of implantable loop recorder Code(s): Z95.818 - PRESENCE OF OTHER CARDIAC IMPLANTS AND GRAFTS (7) Status post radiofrequency ablation for arrhythmia Code(s): Z98.890 - OTHER SPECIFIED POSTPROCEDURAL STATES; Z86.79 - PERSONAL HISTORY OF OTHER DISEASES OF THE CIRCULATORY SYSTEM Assessment/Plan 03/29/2019 Echo: Normal LV and RV size and fxn, normal biatrial sizes, mild MR, TR 1. Bradycardia referable to medications and metabolic disorder resolved 2. ESRD with clotted AVF s/p percutaneous suction thrombectomy and venoplasty cephalic vein 3. hx CVA 4. Seizure d/o 5. HTN 6. hyperlipidemia 7. Anemia of CKD 8. hx subdural hemorrhage 9. hyperkalemia 10. PAF->SR, h/o ILR 11. Fever, leukocytosis and chills, r/o bacteremia Plan 1. HD via AVF per renal with monitor potassium, resume Toprol XL 12.5 qd, not on a/c due to h/o SDH 2. Resume ASA 81 qd as hemostasis achieved 3. Continue Lipitor 20 qd 4. Vidales-culture on empiric abx per ID
--- NOTE | 2019-03-31 11:06 | CON.ID ---
Consult Consult Specialty:: infectious disease Referred by:: hospitalist Reason for Consultation:: fever - History of Present Illness Chief Complaint: fever History of Present Illness: 63 yo man admitted 03/28 with clotted graft he went to HD Thursday -unable to have HD due to clotted graft sent to the [place] to fix the access- was bradycardic and patient was sent to the ED he had a temporary catheter placed he underwent declotting of graft 03/29 and had HD on 03/30 and shiley was removed reports chills at HD later fever after he got back to the floor blood culture was drawn and he was given vancomycin 1 gram and zosyn he is anuric no cough no sob no diarrhea febrile again this am reports vascular surgeon came by today and said his access is okay - History Source History Provided By: Patient Limitations to Obtaining History: No Limitations - Past Medical History 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: Yes: CVA (with left hemiparesis), Seizure Cardio/Vascular: Yes: AFIB (paroxysmal), HTN, Hyperlipdemia Gastrointestinal: Yes: Constipation Renal/: Yes: Renal Failure, Hemodialysis (MWF) Musculoskeletal: Yes: Hemiplegia (left), Other (But he has pogressed to walk with an aide and brace at home.) - Past Surgical History Past Surgical History: Yes: AV Fistula/Graft (right arm), Cataract Removal Additional Surgical History: watchman 2016 - Alcohol/Substance Use Hx Alcohol Use: No History of Substance Use: reports: None - Smoking History Smoking history: Never smoked Have you smoked in the past 12 months: No Aproximately how many cigarettes per day: 0 If you are a former smoker, when did you quit?: 2012 - Social History ADL: Family Assistance Occupation: retired due illness History of Recent Travel: No Home Medications - Allergies Allergies/Adverse Reactions: Allergies Allergy/AdvReac Type Severity Reaction Status Date / Time No Known Allergies Allergy Verified 03/28/19 16:05 - Home Medications Home Medications: Ambulatory Orders Escitalopram Oxalate [Lexapro -] 5 mg PO DAILY 08/02/16 Aspirin 81 mg PO HS 10/23/17 Calcium Acetate [Phoslo -] 3 cap PO TID 10/23/17 Metoprolol Succinate [Toprol Xl] 12.5 mg PO ASDIR 10/23/17 Vit B Comp No.3/Folic/C/Biotin [Gavi-Lashanda Rx Tablet] 1 each PO DAILY 01/31/18 Acetaminophen [Tylenol] 325 mg PO PRN 04/09/18 Docusate Sodium [Colace] 100 mg PO TID 04/09/18 Mupirocin Cream [Bactroban 2% Cream -] 1 applic .ROUTE DAILY 04/09/18 Pantoprazole Sodium [Protonix -] 20 mg PO DAILY 04/09/18 levETIRAcetam [Keppra -] 1,000 mg PO BID 04/09/18 Atorvastatin Ca [Lipitor] 20 mg DAILY 03/29/19 Cyclobenzaprine HCl 5 mg DAILY 03/29/19 Ketoconazole 2% Cream [Nizoral 2% Cream -] 1 applic TP DAILY 03/29/19 Lamotrigine 25 mg PO BID 03/29/19 Levetiracetam [Keppra] 250 mg PO DAILY 03/29/19 Polyethylene Glycol 3350 [Miralax 119 gm Btl -] 17 gm PO DAILY 03/29/19 Family Medical History Family Hx Cancer: Mother (breast and liver) Other Family History: father HTN and hyperlipiedmia Review of Systems - Review of Systems Constitutional: reports: Chills, Fever Eyes: reports: No Symptoms HENT: reports: No Symptoms. denies: Difficult Swallowing Neck: reports: No Symptoms Cardiovascular: reports: No Symptoms. denies: Chest Pain Respiratory: denies: Cough, SOB Gastrointestinal: denies: Abdominal Pain Musculoskeletal: reports: Other (right avf with dressing right groin dressing clean and dry) Physical Exam Vital Signs: Vital Signs Temperature 101.6 F H 03/31/19 08:35 Pulse Rate 90 03/31/19 08:35 Respiratory Rate 18 03/31/19 08:35 Blood Pressure 101/57 L 03/31/19 08:35 O2 Sat by Pulse Oximetry (%) 93 L 03/30/19 19:00 Constitutional: Yes: Well Nourished, No Distress, Calm Eyes: Yes: Conjunctiva Clear HENT: Yes: Atraumatic, Normocephalic Neck: Yes: Supple, Trachea Midline Cardiovascular: Yes: Regular Rate and Rhythm Respiratory: Yes: Regular, CTA Bilaterally Gastrointestinal: Yes: Normal Bowel Sounds, Soft ...Rectal Exam: Yes: Deferred Extremities: Yes: Other (avf right forearm) Edema: No Neurological: Yes: Alert, Oriented, Other (left hemiparesis) Labs: CBC, BMP 03/31/19 10:10 blood culture pending Imaging - Results Chest X-ray: Report Reviewed, Image Reviewed Problem List - Problems (1) Fever Code(s): R50.9 - FEVER, UNSPECIFIED (2) AV fistula thrombosis Code(s): T82.868A - THROMBOSIS DUE TO VASCULAR PROSTH DEV/GRFT, INIT Qualifiers: Encounter type: subsequent encounter Qualified Code(s): T82.868D - Thrombosis due to vascular prosthetic devices, implants and grafts, subsequent encounter (3) ESRD (end stage renal disease) on dialysis Code(s): N18.6 - END STAGE RENAL DISEASE; Z99.2 - DEPENDENCE ON RENAL DIALYSIS Assessment/Plan fever s/p declotting of av fistula r/o bacteremia repeat blood culture now (febrile again) f/u cultures agree with vanco/zosyn
[2019-03-31 11:09] LABS: BLOOD UREA NITROGEN 42.6 mg/dL (7-18); CALCIUM 8.4 mg/dL (8.5-10.1); POTASSIUM 4.2 mmol/L (3.5-5.1)
--- NOTE | 2019-03-31 11:45 | OP ---
DATE OF OPERATION: DATE OF DICTATION: 03/31/2019 SURGEON: Ramana Cruz MD PROCEDURE: Percutaneous suction thrombectomy of right arm AV fistula, venoplasty of the cephalic vein. PREOPERATIVE DIAGNOSIS: Thrombosed AV fistula. POSTOPERATIVE DIAGNOSIS: Thrombosed AV fistula with stenosis of the cephalic vein. ANESTHESIA: Fractional. ANESTHESIOLOGIST: , WALI OPERATIVE FINDINGS: The right arm radiocephalic fistula was thrombosed. Following thrombectomy, a stenosis of the outflow cephalic vein in the antecubital fossa was identified at approximately 80%. There was runoff into the deep veins of the arm and the basilic and brachial veins proximal to the elbow were widely patent. OPERATIVE PROCEDURE: Following routine patient identification with side and site verification, intravenous sedation was established. The right arm was prepped with ChloraPrep. Timeout was performed. Using ultrasound guidance, the right arm AV fistula was identified and found to be thrombosed. Then 1% lidocaine was infiltrated over the vein in the distal forearm and was cannulated with a micropuncture needle pointed towards the chest. A 5-Egyptian catheter was placed over a wire and then a 7-Egyptian sheath was exchanged into the vein. The patient was systemically heparinized. An angled-tip wire and catheter were advanced through the AV fistula and into the upper arm basilic vein. Venography was performed to show the basilic vein, which was free of stenosis. It was pulled back and the stenosis and clot within the cephalic vein in the forearm was identified. The wire was replaced. Suction thrombectomy with the AngioJet was then performed. A number 4 Angelica catheter was also used to remove thrombus through the sheath. Repeat venography showed a patent outflow with stenosis of the antecubital portion of the antecubital portion of the cephalic vein. This was balloon dilated with an 8 mm x 4 cm balloon, with improvement in the luminal diameter. The sheath was then removed and a mattress suture of 3-0 nylon placed to control any bleeding. The fistula vein was then re-accessed in the upper forearm in a retrograde fashion and the 7-Egyptian sheath placed. A wire and catheter were advanced through the AV anastomosis into the radial artery and angiogram of the radial artery performed, showing no inflow or outflow stenosis. AngioJet was then used to remove thrombus from the distal portion of the fistula. Repeat imaging showed some retained thrombus in a dilated section but otherwise patent inflow and outflow. A Angelica catheter was used several more times, as was the AngioJet, to try to remove any of the residual thrombus. It was apparent that the thrombus was adherent to the ledezma of the vessel but were not causing problems with the flow, so the procedure was finished. The sheath was removed and the site closed with a suture of nylon. Sterile dressings were applied and the patient was taken to the recovery room in stable condition. RAMANA CRUZ M.D. YENNI/[id number]
--- NOTE | 2019-03-31 11:50 | PN ---
Progress Note (short form) - Note Progress Note: SUBJECTIVE: Febrile overnight and this AM. Feels well - no complaints. No nausea /vomiting. No lightheadedness/dizziness/chest pain/palpitations. No cough/sputum /dysuria/diarrhea. POD 2 s/p RUE AV fistula suction thrombectomy/venoplasty for thrombosed AV fistula. OBJECTIVE: Fever, Tmax 102.9, Hemodynamically Stable Last Vital Signs Temp Pulse Resp BP Pulse Ox 101.6 F H 90 18 101/57 L 93 L 03/31/19 08:35 03/31/19 08:35 03/31/19 08:35 03/31/19 08:35 03/30/19 19:00 Heart - S1, S2, irregular Lungs - good air entry bilaterally Abdomen - Soft, non-tender. Bowel Sounds normal. Extremities RUE AV Fistula - thrill/bruit re-established, site currently dressed. Neuro - AAO x 3. Chronic LUE weakness. Laboratory Results - last 24 hr 03/29/19 03/30/19 03/31/19 11:20 11:00 01:00 WBC 20.6 H RBC 3.89 L Hgb 9.7 L Hct 31.4 L MCV 80.9 MCH 24.9 L MCHC 30.8 L RDW 17.7 H Plt Count 197 MPV 9.1 Sodium 138 Potassium 4.7 Chloride 102 Carbon Dioxide 26 Anion Gap 10 BUN 55.7 H Creatinine 10.7 H* Est GFR (CKD-EPI)AfAm 5.30 Est GFR (CKD-EPI)NonAf 4.57 Random Glucose 101 Calcium 8.5 Iron 59 TSH 0.48 Random Vancomycin Levetiracetam 123.9 H 03/31/19 03/31/19 03/31/19 10:10 10:10 10:40 WBC 11.9 H RBC 4.10 Hgb 10.3 L Hct 33.6 L MCV 81.8 MCH 25.2 L MCHC 30.8 L RDW 17.8 H Plt Count 169 MPV 9.2 Sodium 137 Potassium 4.2 Chloride 99 Carbon Dioxide 28 Anion Gap 10 BUN 42.6 H Creatinine Est GFR (CKD-EPI)AfAm 5.97 Est GFR (CKD-EPI)NonAf 5.15 Random Glucose 124 H Calcium 8.4 L Iron TSH Random Vancomycin 15.1 L Levetiracetam Current Medications Generic Name Dose Route Start Last Admin Trade Name Freq PRN Reason Stop Dose Admin Acetaminophen 1,000 mg 03/30/19 16:00 03/31/19 08:40 Tylenol - PO 1,000 mg Q6H PRN Administration FEVER Aspirin 81 mg 03/31/19 10:00 03/31/19 10:22 Asa - PO 81 mg DAILY SANDEEP Administration Atorvastatin Calcium 20 mg 03/29/19 22:00 03/30/19 21:14 Lipitor - PO 20 mg HS SANDEEP Administration Calcium Acetate 2,001 mg 03/30/19 08:00 03/31/19 08:38 Phoslo - PO 2,001 mg TIDCM SANDEEP Administration Cyclobenzaprine HCl 5 mg 03/30/19 10:00 03/30/19 10:21 Cyclobenzaprine Hcl PO 5 mg DAILY SANDEEP Administration Docusate Sodium 100 mg 03/29/19 22:00 03/31/19 05:58 Colace - PO 100 mg TID SANDEEP Administration Escitalopram Oxalate 5 mg 03/31/19 10:00 03/31/19 10:21 Lexapro - PO 5 mg DAILY SANDEEP Administration Heparin Sodium (Porcine) 5,000 unit 03/29/19 22:00 03/31/19 10:23 Heparin - SQ 5,000 unit BID SANDEEP Administration Sodium Chloride 250 mls @ 3,000 mls/hr 03/29/19 20:01 Normal Saline - IV 03/30/19 11:42 PRN PRN Hypotension during Dialysis Sodium Chloride 250 mls @ 3,000 mls/hr 03/30/19 07:58 Normal Saline - IV 03/31/19 07:58 PRN PRN Hypotension during Dialysis Piperacillin Sod/Tazobactam 50 mls @ 100 mls/hr 03/31/19 18:00 Sod 2.25 gm/ Dextrose IVPB Q8H-IV SANDEEP Protocol Vancomycin HCl 500 mg/ 100 mls @ 100 mls/hr 03/31/19 15:00 Dextrose IVPB 03/31/19 15:59 ONCE ONE Protocol Ketoconazole 1 applic 03/30/19 10:00 03/31/19 10:30 Nizoral 2% Cream - TP 1 applic DAILY SANDEEP Administration Lamotrigine 25 mg 03/29/19 22:00 03/31/19 10:22 Lamictal - PO 25 mg BID SANDEEP Administration Levetiracetam 1,000 mg/ 1,250 mg 03/30/19 10:00 03/31/19 10:22 Levetiracetam 250 mg PO 1,250 mg DAILY SANDEEP Administration Levetiracetam 1,000 mg 03/29/19 22:00 03/30/19 21:14 Keppra - PO 1,000 mg HS SANDEEP Administration Metoprolol Succinate 12.5 mg 03/31/19 10:00 Toprol Xl - PO DAILY SANDEEP Multivit/Ca Carb/B Cmplx/FA/Prenat 1 tablet 03/30/19 10:00 03/31/19 10:24 Nephro-Lashanda - PO 1 tablet DAILY SANDEEP Administration Pantoprazole Sodium 20 mg 03/31/19 10:00 03/31/19 10:22 Protonix - PO 20 mg DAILY SANDEEP Administration Polyethylene Glycol 17 gm 03/30/19 10:00 03/31/19 10:24 Miralax (For Daily Use) - PO Not Given DAILY [facility] Home Medications Medication Instructions Recorded Escitalopram Oxalate [Lexapro -] 5 mg PO DAILY 08/02/16 Aspirin 81 mg PO HS 10/23/17 Calcium Acetate [Phoslo -] 3 cap PO TID 10/23/17 Metoprolol Succinate [Toprol Xl] 12.5 mg PO ASDIR 10/23/17 Vit B Comp No.3/Folic/C/Biotin 1 each PO DAILY 01/31/18 [Gavi-Lashanda Rx Tablet] Acetaminophen [Tylenol] 325 mg PO PRN 04/09/18 Docusate Sodium [Colace] 100 mg PO TID 04/09/18 Mupirocin Cream [Bactroban 2% 1 applic .ROUTE DAILY 04/09/18 Cream -] Pantoprazole Sodium [Protonix -] 20 mg PO DAILY 04/09/18 levETIRAcetam [Keppra -] 1,000 mg PO BID 04/09/18 Atorvastatin Ca [Lipitor] 20 mg DAILY 03/29/19 Cyclobenzaprine HCl 5 mg DAILY 03/29/19 Ketoconazole 2% Cream [Nizoral 2% 1 applic TP DAILY 03/29/19 Cream -] Lamotrigine 25 mg PO BID 03/29/19 Levetiracetam [Keppra] 250 mg PO DAILY 03/29/19 Polyethylene Glycol 3350 [Miralax 17 gm PO DAILY 03/29/19 119 gm Btl -] ASSESSMENT AND PLAN: 63 year old male with ESRD (HD on M//), Atrial Fibrillation (s/p AICD and watchman device 207), HTN, Hx CVA (2015 w/residual LUE weakness), Ischemic colitis (s/p resection 2017) and Seizure Disorder, presents from dialysis with thrombosed AV fistula and Bradycardia. 1. ESRD (HD on M//) - AV fistula clotted - POD 2 s/p percutaneous suction thrombectomy Successful HD via AV fistula 03/30 - femoral shiley removed. Nephrology, Vascular Sx following. Resumed on Aspirin 2. Fever - etiology unclear, developed POD 1 s/p AV fistula thrombectomy CXR - No acute findings, percutaneous L Loop recorder, L axillary vascular stent. Urine/Blood Cx pending. Leukocytosis resolving. Hemodynamically Stable. Tylenol PRN Empiric Abx - Vanc/Zosyn ID consulted. 3. Atrial Fibrillation with slow ventricular response - resolved. Metoprolol, Lexapro, Protonix resumed. Echo - normal. Resume home medications as per Cardio. No AC due to SDH Hx. To resume Aspirin. 4. Hyperkalemia/Uremia sec to ESRD - resolved s/p HD 5. Normocytic Anemia - likely sec to ESRD. Iron 100, Iron Sat 14%, B12 - 1918, Folate 15. Further monitoring/management as per Nephrology. 6. HTN - Metoprolol resumed. 7. Seizure Disorder - continue Keppra, Lamotrigine 8. HLD - Continue Lipitor. 9. Hx CVA - continue Aspirin, Statin DVT Px - Heparin SQ Visit type - Emergency Visit Emergency Visit: Yes ED Registration Date: 03/31/19 Care time: The patient presented to the Emergency Department on the above date and was hospitalized for further evaluation of their emergent condition. - New Patient This patient is new to me today: No - Critical Care Critical Care patient: No - Discharge Referral Referred to [facility] Med P.C.: No
[2019-03-31 11:57] LABS: CREATININE 9.7 mg/dL (0.55-1.3)
[2019-03-31] MEDS: metoPROLOL SUCCINATE 25 MG TAB.SR.24H (FP) PO SCH (12:20)
[2019-03-31] MEDS ORDERED: VANCOMYCIN 500 MG VIAL (RESTRICTED TO ID ONLY) ONE (14:01)
[2019-03-31] MEDS ORDERED: DEXTROSE 5%-WATER 100 ML IVPB ONE (14:02)
[2019-03-31] MEDS: CYCLOBENZAPRINE HCL 5 MG TABLET PO SCH (14:34)
[2019-03-31] MEDS ORDERED: VANCOMYCIN 500 MG in DEXTROSE 5%-WATER 100 ML IVPB ONE (15:00)
--- NOTE | 2019-03-31 15:27 | PN ---
Progress Note, Physician History of Present Illness: Pt seen and examined at bedside. He had a fever and was found to be bacteremic. - Current Medication List Current Medications: Active Medications Acetaminophen (Tylenol -) 1,000 mg PO Q6H PRN PRN Reason: FEVER Last Admin: 03/31/19 08:40 Dose: 1,000 mg Aspirin (Asa -) 81 mg PO DAILY [facility] Last Admin: 03/31/19 10:22 Dose: 81 mg Atorvastatin Calcium (Lipitor -) 20 mg PO HS [facility] Last Admin: 03/30/19 21:14 Dose: 20 mg Calcium Acetate (Phoslo -) 2,001 mg PO TIDCM [facility] Last Admin: 03/31/19 12:11 Dose: 2,001 mg Cyclobenzaprine HCl (Cyclobenzaprine Hcl) 5 mg PO DAILY [facility] Last Admin: 03/31/19 14:34 Dose: 5 mg Docusate Sodium (Colace -) 100 mg PO TID [facility] Last Admin: 03/31/19 14:34 Dose: 100 mg Escitalopram Oxalate (Lexapro -) 5 mg PO DAILY [facility] Last Admin: 03/31/19 10:21 Dose: 5 mg Heparin Sodium (Porcine) (Heparin -) 5,000 unit SQ BID [facility] Last Admin: 03/31/19 10:23 Dose: 5,000 unit Sodium Chloride (Normal Saline -) 250 mls @ 3,000 mls/hr IV PRN PRN PRN Reason: Hypotension during Dialysis Stop: 03/30/19 11:42 Sodium Chloride (Normal Saline -) 250 mls @ 3,000 mls/hr IV PRN PRN PRN Reason: Hypotension during Dialysis Stop: 03/31/19 07:58 Piperacillin Sod/Tazobactam (Sod 2.25 gm/ Dextrose) 50 mls @ 100 mls/hr IVPB Q8H-IV [facility]; Protocol Vancomycin HCl 500 mg/ (Dextrose) 100 mls @ 100 mls/hr IVPB ONCE ONE; Protocol Stop: 03/31/19 15:59 Last Admin: 03/31/19 14:35 Dose: 100 mls/hr Ketoconazole (Nizoral 2% Cream -) 1 applic TP DAILY [facility] Last Admin: 03/31/19 10:30 Dose: 1 applic Lamotrigine (Lamictal -) 25 mg PO BID [facility] Last Admin: 03/31/19 10:22 Dose: 25 mg Levetiracetam 1,000 mg/ (Levetiracetam 250 mg) 1,250 mg PO DAILY [facility] Last Admin: 03/31/19 10:22 Dose: 1,250 mg Levetiracetam (Keppra -) 1,000 mg PO HS [facility] Last Admin: 03/30/19 21:14 Dose: 1,000 mg Metoprolol Succinate (Toprol Xl -) 12.5 mg PO DAILY [facility] Last Admin: 03/31/19 12:20 Dose: 12.5 mg Multivit/Ca Carb/B Cmplx/FA/Prenat (Nephro-Lashanda -) 1 tablet PO DAILY [facility] Last Admin: 03/31/19 10:24 Dose: 1 tablet Pantoprazole Sodium (Protonix -) 20 mg PO DAILY [facility] Last Admin: 03/31/19 10:22 Dose: 20 mg Polyethylene Glycol (Miralax (For Daily Use) -) 17 gm PO DAILY [facility] Last Admin: 03/31/19 10:24 Dose: Not Given - Objective Vital Signs: Vital Signs Temperature 99.2 F 03/31/19 12:18 Pulse Rate 88 03/31/19 12:18 Respiratory Rate 16 03/31/19 12:18 Blood Pressure 140/88 03/31/19 12:18 O2 Sat by Pulse Oximetry (%) 93 L 03/30/19 19:00 Constitutional: Yes: Calm Eyes: Yes: Conjunctiva Clear HENT: Yes: Atraumatic Neck: Yes: Supple Cardiovascular: Yes: S1, S2 Respiratory: Yes: CTA Bilaterally Gastrointestinal: Yes: Normal Bowel Sounds, Soft Genitourinary: Yes: WNL Musculoskeletal: Yes: WNL Edema: No Neurological: Yes: Oriented Psychiatric: Yes: Oriented Labs: CBC, BMP 03/31/19 10:10 03/31/19 10:10 INR, PTT INR 1.14 (0.83-1.09) H 03/28/19 16:45 Problem List - Problems (1) AV fistula thrombosis Code(s): T82.868A - THROMBOSIS DUE TO VASCULAR PROSTH DEV/GRFT, INIT Qualifiers: Encounter type: subsequent encounter Qualified Code(s): T82.868D - Thrombosis due to vascular prosthetic devices, implants and grafts, subsequent encounter (2) Bradycardia Code(s): R00.1 - BRADYCARDIA, UNSPECIFIED (3) ESRD (end stage renal disease) Code(s): N18.6 - END STAGE RENAL DISEASE Assessment/Plan Current Medications Generic Name Dose Route Start Last Admin Trade Name Freq PRN Reason Stop Dose Admin Acetaminophen 1,000 mg 03/30/19 16:00 03/31/19 08:40 Tylenol - PO 1,000 mg Q6H PRN Administration FEVER Aspirin 81 mg 03/31/19 10:00 03/31/19 10:22 Asa - PO 81 mg DAILY SANDEEP Administration Atorvastatin Calcium 20 mg 03/29/19 22:00 03/30/19 21:14 Lipitor - PO 20 mg HS SANDEEP Administration Calcium Acetate 2,001 mg 03/30/19 08:00 03/31/19 12:11 Phoslo - PO 2,001 mg TIDCM SANDEEP Administration Cyclobenzaprine HCl 5 mg 03/30/19 10:00 03/31/19 14:34 Cyclobenzaprine Hcl PO 5 mg DAILY SANDEEP Administration Docusate Sodium 100 mg 03/29/19 22:00 03/31/19 14:34 Colace - PO 100 mg TID SANDEEP Administration Escitalopram Oxalate 5 mg 03/31/19 10:00 03/31/19 10:21 Lexapro - PO 5 mg DAILY SANDEEP Administration Heparin Sodium (Porcine) 5,000 unit 03/29/19 22:00 03/31/19 10:23 Heparin - SQ 5,000 unit BID SANDEEP Administration Sodium Chloride 250 mls @ 3,000 mls/hr 03/29/19 20:01 Normal Saline - IV 03/30/19 11:42 PRN PRN Hypotension during Dialysis Sodium Chloride 250 mls @ 3,000 mls/hr 03/30/19 07:58 Normal Saline - IV 03/31/19 07:58 PRN PRN Hypotension during Dialysis Piperacillin Sod/Tazobactam 50 mls @ 100 mls/hr 03/31/19 18:00 Sod 2.25 gm/ Dextrose IVPB Q8H-IV SANDEEP Protocol Vancomycin HCl 500 mg/ 100 mls @ 100 mls/hr 03/31/19 15:00 03/31/19 14:35 Dextrose IVPB 03/31/19 15:59 100 mls/hr ONCE ONE Administration Protocol Ketoconazole 1 applic 03/30/19 10:00 03/31/19 10:30 Nizoral 2% Cream - TP 1 applic DAILY SANDEEP Administration Lamotrigine 25 mg 03/29/19 22:00 03/31/19 10:22 Lamictal - PO 25 mg BID SANDEEP Administration Levetiracetam 1,000 mg/ 1,250 mg 03/30/19 10:00 03/31/19 10:22 Levetiracetam 250 mg PO 1,250 mg DAILY SANDEEP Administration Levetiracetam 1,000 mg 03/29/19 22:00 03/30/19 21:14 Keppra - PO 1,000 mg HS SANDEEP Administration Metoprolol Succinate 12.5 mg 03/31/19 10:00 03/31/19 12:20 Toprol Xl - PO 12.5 mg DAILY SANDEEP Administration Multivit/Ca Carb/B Cmplx/FA/Prenat 1 tablet 03/30/19 10:00 03/31/19 10:24 Nephro-Lashanda - PO 1 tablet DAILY SANDEEP Administration Pantoprazole Sodium 20 mg 03/31/19 10:00 03/31/19 10:22 Protonix - PO 20 mg DAILY SANDEEP Administration Polyethylene Glycol 17 gm 03/30/19 10:00 03/31/19 10:24 Miralax (For Daily Use) - PO Not Given DAILY SANDEEP Impression 1. ESRD 2. hx CVA 3. epilepsy 4. hx HTN 5. hyperlipidemia 6. anemia 7. hx subdural hemorrhage 8. hyperkalemia 9. bradycardia 10. bactermia Plan - HD tomorrow - cont abx - follow cultures - will follow Dr Isaac
[2019-03-31] MEDS: ATORVASTATIN CA 20 MG TABLET (FP) PO SCH (21:37)
[2019-03-31] MEDS: levETIRAcetam 500 MG TABLET (FP) PO SCH (21:37)
[2019-04-01] MEDS ORDERED: DEXTROSE 5%-WATER - 50 ML IVPB ONE ×3 (01:33→20:55)
[2019-04-01] MEDS ORDERED: PIPERACILLIN/TAZOBACTAM 2.25 GM VIAL IVPB ONE ×2 (01:33→10:17)
[2019-04-01] MEDS: PIPERACILLIN/TAZOB 2.25 GM 2.25 GM in DEXTROSE 5%-WATER - 50 ML IVPB SCH ×2 (01:46→10:20)
[2019-04-01] MEDS: DOCUSATE SODIUM 100 MG CAPSULE (FP) PO SCH ×3 (06:08→21:01)
[2019-04-01] MEDS ORDERED: PT OWN MED DRAWER 7, Y5N ONE (06:31)
[2019-04-01] MEDS: CALCIUM ACETATE 667 MG CAPSULE (FP) PO SCH ×3 (08:25→18:18)
[2019-04-01] MEDS ORDERED: levETIRAcetam 250 MG TABLET (FP) PO ONE ×2 (10:16→21:04)
[2019-04-01] MEDS ORDERED: levETIRAcetam 500 MG TABLET (FP) PO ONE ×2 (10:16→21:03)
[2019-04-01] MEDS: HEPARIN NA (PORCINE) 5,000 UNITS/ML 1ML VIAL SQ SCH ×2 (10:21→21:02)
[2019-04-01] MEDS: lamoTRIgine 25 MG TABLET PO SCH ×2 (10:23→21:02)
[2019-04-01] MEDS: ESCITALOPRAM OXALATE 10 MG TABLET (FP) PO SCH (10:23)
--- NOTE | 2019-04-01 10:23 | PN ---
Teaching Attending Note Name of Resident: Celestine Douglas ATTENDING PHYSICIAN STATEMENT I saw and evaluated the patient. I reviewed the resident's note and discussed the case with the resident. I agree with the resident's findings and plan as documented. SUBJECTIVE: Fever improved overnight. Feels well - no complaints. No nausea/ vomiting. No lightheadedness/dizziness/chest pain/palpitations. No cough/sputum/ dysuria/diarrhea. POD 3 s/p RUE AV fistula suction thrombectomy/venoplasty for thrombosed AV fistula. OBJECTIVE: Tmax overnight 100, Hemodynamically Stable Last Vital Signs Temp Pulse Resp BP Pulse Ox 98.6 F 66 18 112/78 94 L 04/01/19 08:14 04/01/19 08:14 04/01/19 08:14 04/01/19 08:14 03/31/19 19:00 Heart - S1, S2, irregular Lungs - good air entry bilaterally Abdomen - Soft, non-tender. Bowel Sounds normal. Extremities RUE AV Fistula - thrill/bruit re-established, site currently dressed. Neuro - AAO x 3. Chronic LUE weakness. Laboratory Results - last 24 hr 03/31/19 03/31/19 03/31/19 10:10 10:10 10:40 WBC 11.9 H RBC 4.10 Hgb 10.3 L Hct 33.6 L MCV 81.8 MCH 25.2 L MCHC 30.8 L RDW 17.8 H Plt Count 169 MPV 9.2 Sodium 137 Potassium 4.2 Chloride 99 Carbon Dioxide 28 Anion Gap 10 BUN 42.6 H Creatinine 9.7 H* Est GFR (CKD-EPI)AfAm 5.97 Est GFR (CKD-EPI)NonAf 5.15 Random Glucose 124 H Calcium 8.4 L Random Vancomycin 15.1 L Current Medications Generic Name Dose Route Start Last Admin Trade Name Freq PRN Reason Stop Dose Admin Acetaminophen 1,000 mg 03/30/19 16:00 03/31/19 21:44 Tylenol - PO 1,000 mg Q6H PRN Administration FEVER Aspirin 81 mg 03/31/19 10:00 03/31/19 10:22 Asa - PO 81 mg DAILY SANDEEP Administration Atorvastatin Calcium 20 mg 03/29/19 22:00 03/31/19 21:37 Lipitor - PO 20 mg HS SANDEEP Administration Calcium Acetate 2,001 mg 03/30/19 08:00 04/01/19 08:25 Phoslo - PO 2,001 mg TIDCM SANDEEP Administration Cyclobenzaprine HCl 5 mg 03/30/19 10:00 03/31/19 14:34 Cyclobenzaprine Hcl PO 5 mg DAILY SANDEEP Administration Docusate Sodium 100 mg 03/29/19 22:00 04/01/19 06:08 Colace - PO 100 mg TID SANDEEP Administration Escitalopram Oxalate 5 mg 03/31/19 10:00 03/31/19 10:21 Lexapro - PO 5 mg DAILY SANDEEP Administration Heparin Sodium (Porcine) 5,000 unit 03/29/19 22:00 03/31/19 21:37 Heparin - SQ 5,000 unit BID SANDEEP Administration Heparin Sodium (Porcine) 1,000 unit 04/01/19 15:27 Heparin - IVPUSH 04/01/19 15:28 ONCE ONE Sodium Chloride 250 mls @ 3,000 mls/hr 03/29/19 20:01 Normal Saline - IV 03/30/19 11:42 PRN PRN Hypotension during Dialysis Sodium Chloride 250 mls @ 3,000 mls/hr 03/30/19 07:58 Normal Saline - IV 03/31/19 07:58 PRN PRN Hypotension during Dialysis Piperacillin Sod/Tazobactam 50 mls @ 100 mls/hr 03/31/19 18:00 04/01/19 01:46 Sod 2.25 gm/ Dextrose IVPB 100 mls/hr Q8H-IV SANEDEP Administration Protocol Sodium Chloride 250 mls @ 3,000 mls/hr 03/31/19 15:27 Normal Saline - IV 04/01/19 15:28 PRN PRN Hypotension during Dialysis Ketoconazole 1 applic 03/30/19 10:00 03/31/19 10:30 Nizoral 2% Cream - TP 1 applic DAILY SANDEEP Administration Lamotrigine 25 mg 03/29/19 22:00 03/31/19 21:37 Lamictal - PO 25 mg BID SANDEEP Administration Levetiracetam 1,000 mg/ 1,250 mg 03/30/19 10:00 03/31/19 10:22 Levetiracetam 250 mg PO 1,250 mg DAILY [facility]DEEP Administration Levetiracetam 1,000 mg 03/29/19 22:00 03/31/19 21:37 Keppra - PO 1,000 mg HS SANDEEP Administration Metoprolol Succinate 12.5 mg 03/31/19 10:00 03/31/19 12:20 Toprol Xl - PO 12.5 mg DAILY SANDEEP Administration Multivit/Ca Carb/B Cmplx/FA/Prenat 1 tablet 03/30/19 10:00 03/31/19 10:24 Nephro-Lashanda - PO 1 tablet DAILY SANDEEP Administration Pantoprazole Sodium 20 mg 03/31/19 10:00 03/31/19 10:22 Protonix - PO 20 mg DAILY SANDEEP Administration Polyethylene Glycol 17 gm 03/30/19 10:00 03/31/19 10:24 Miralax (For Daily Use) - PO Not Given DAILY [facility] Home Medications Medication Instructions Recorded Escitalopram Oxalate [Lexapro -] 5 mg PO DAILY 08/02/16 Aspirin 81 mg PO HS 10/23/17 Calcium Acetate [Phoslo -] 3 cap PO TID 10/23/17 Metoprolol Succinate [Toprol Xl] 12.5 mg PO ASDIR 10/23/17 Vit B Comp No.3/Folic/C/Biotin 1 each PO DAILY 01/31/18 [Gavi-Lashanda Rx Tablet] Acetaminophen [Tylenol] 325 mg PO PRN 04/09/18 Docusate Sodium [Colace] 100 mg PO TID 04/09/18 Mupirocin Cream [Bactroban 2% 1 applic .ROUTE DAILY 04/09/18 Cream -] Pantoprazole Sodium [Protonix -] 20 mg PO DAILY 04/09/18 levETIRAcetam [Keppra -] 1,000 mg PO BID 04/09/18 Atorvastatin Ca [Lipitor] 20 mg DAILY 03/29/19 Cyclobenzaprine HCl 5 mg DAILY 03/29/19 Ketoconazole 2% Cream [Nizoral 2% 1 applic TP DAILY 03/29/19 Cream -] Lamotrigine 25 mg PO BID 03/29/19 Levetiracetam [Keppra] 250 mg PO DAILY 03/29/19 Polyethylene Glycol 3350 [Miralax 17 gm PO DAILY 03/29/19 119 gm Btl -] ASSESSMENT AND PLAN: 63 year old male with ESRD (HD on M/W/F), Atrial Fibrillation (s/p AICD and watchman device 207), HTN, Hx CVA (2016 w/residual LUE weakness), Ischemic colitis (s/p resection 2017) and Seizure Disorder, presents from dialysis with thrombosed AV fistula and Bradycardia. 1. ESRD (HD on M/W/F) - AV fistula clotted - POD 3 s/p percutaneous suction thrombectomy Successful HD via AV fistula 03/30 - femoral shiley removed. For HD again today Nephrology, Vascular Sx following. Resumed on Aspirin. 2. Fever - etiology unclear, developed POD 1 s/p AV fistula thrombectomy CXR - No acute findings, percutaneous L Loop recorder, L axillary vascular stent. Blood Cx - presumptive MSSA, aaiting final ID and sensitivity Leukocytosis resolving, awaiting today's labs. Hemodynamically Stable. Tylenol PRN Empiric Abx - Vanc/Zosyn ID following. 3. Atrial Fibrillation with slow ventricular response - resolved. Metoprolol, Lexapro, Protonix resumed. Echo - normal. Resume home medications as per Cardio. No AC due to SDH Hx. Resumed on Aspirin. 4. Hyperkalemia/Uremia sec to ESRD - resolved s/p HD 5. Normocytic Anemia - likely sec to ESRD. Iron 100, Iron Sat 14%, B12 - 1918, Folate 15. Further monitoring/management as per Nephrology. 6. HTN - Metoprolol resumed. 7. Seizure Disorder - continue Keppra, Lamotrigine 8. HLD - Continue Lipitor. 9. Hx CVA - continue Aspirin, Statin DVT Px - Heparin SQ
[2019-04-01] MEDS: PANTOPRAZOLE 20 MG TABLET (FP) PO SCH (10:24)
[2019-04-01] MEDS: ASPIRIN 81 MG CHEWABLE TABLETS PO SCH (10:24)
[2019-04-01] MEDS: VITAMIN B COMP W-C 1 EA TABLET PO SCH (10:25)
[2019-04-01] MEDS: CYCLOBENZAPRINE HCL 5 MG TABLET PO SCH (10:26)
[2019-04-01] MEDS: KETOCONAZOLE 2% TOPICAL CREAM 15 GM TUBE TP SCH (10:27)
[2019-04-01] MEDS: POLYETHYLENE GLYCOL 3350 119 GM BTL PO SCH (10:29)
--- NOTE | 2019-04-01 10:45 | PN ---
Physical Exam: SUBJECTIVE: Patient seen and examined at the bedside. Overnight, patient had Tmax 100 overnight. Patient noted that he feels well and does not have any acute complaints. Stated that he is ready for dialysis today. Denied cp, sob, fever, chills, abd pain, n/v/c/d, numbness, tingling. OBJECTIVE: Vital Signs Period Temp Pulse Resp BP Sys/Chaudhry Pulse Ox Last 24 Hr 97.8 F-100.0 F 66-88 16-20 99-140/47-88 94-94 GENERAL: AOx3, in no acute distress, friendly demeanor HEAD: No signs of trauma, normocephalic EYES: JOÃO, EOMI, incteric sclera ENT: Ears normal, nares patent, oropharynx clear without exudates. Moist mucous membranes. NECK: Normal range of motion, supple without lymphadenopathy, JVD, or masses. LUNGS: Clear to auscultation bilaterally. No wheezes, and no crackles. No accessory muscle use. HEART: Irregular rhythm, bradycardic, no ausculated murmurs or rubs. ABDOMEN: Midline surgical scar. Soft, BS present in all 4 quadrants, non- distended, non tender. MUSCULOSKELETAL: No bony deformities or tenderness. No CVA tenderness. UPPER EXTREMITIES: RUE fistula Auscultated bruit and palpated thrill. 2+ pulses , warm, well-perfused. No cyanosis. No clubbing. No peripheral edema. LOWER EXTREMITIES: 2+ pulses, warm, well-perfused. No calf tenderness. No peripheral edema. NEUROLOGICAL: LUE 0/5 power. RLE 5/5, UE 5/5 BL. Mild left facial droop with loss of nasolabial fold. All other CN intact. Normal speech. Walks with rollator. Slowed gait. PSYCHIATRIC: Cooperative. Good eye contact. Appropriate mood and affect. SKIN: Warm, dry, normal turgor,normal capillary refill, shunt scar on skin Laboratory Results - last 24 hr 03/31/19 03/31/19 10:10 10:40 Sodium 137 Potassium 4.2 Chloride 99 Carbon Dioxide 28 Anion Gap 10 BUN 42.6 H Creatinine 9.7 H* Est GFR (CKD-EPI)AfAm 5.97 Est GFR (CKD-EPI)NonAf 5.15 Random Glucose 124 H Calcium 8.4 L Random Vancomycin 15.1 L Active Medications Generic Name Dose Route Start Last Admin Trade Name Ryanq PRN Reason Stop Dose Admin Acetaminophen 1,000 mg 03/30/19 16:00 03/31/19 21:44 Tylenol - PO 1,000 mg Q6H PRN Administration FEVER Aspirin 81 mg 03/31/19 10:00 04/01/19 10:24 Asa - PO 81 mg DAILY SANDEEP Administration Atorvastatin Calcium 20 mg 03/29/19 22:00 03/31/19 21:37 Lipitor - PO 20 mg HS SANDEEP Administration Calcium Acetate 2,001 mg 03/30/19 08:00 04/01/19 08:25 Phoslo - PO 2,001 mg TIDCM SANDEEP Administration Cyclobenzaprine HCl 5 mg 03/30/19 10:00 04/01/19 10:26 Cyclobenzaprine Hcl PO 5 mg DAILY SANDEEP Administration Docusate Sodium 100 mg 03/29/19 22:00 04/01/19 06:08 Colace - PO 100 mg TID SANDEEP Administration Escitalopram Oxalate 5 mg 03/31/19 10:00 04/01/19 10:23 Lexapro - PO 5 mg DAILY SANDEEP Administration Heparin Sodium (Porcine) 5,000 unit 03/29/19 22:00 04/01/19 10:21 Heparin - SQ 5,000 unit BID SANDEEP Administration Heparin Sodium (Porcine) 1,000 unit 04/01/19 15:27 Heparin - IVPUSH 04/01/19 15:28 ONCE ONE Sodium Chloride 250 mls @ 3,000 mls/hr 03/29/19 20:01 Normal Saline - IV 03/30/19 11:42 PRN PRN Hypotension during Dialysis Sodium Chloride 250 mls @ 3,000 mls/hr 03/30/19 07:58 Normal Saline - IV 03/31/19 07:58 PRN PRN Hypotension during Dialysis Piperacillin Sod/Tazobactam 50 mls @ 100 mls/hr 03/31/19 18:00 04/01/19 10:20 Sod 2.25 gm/ Dextrose IVPB 100 mls/hr Q8H-IV SANDEEP Administration Protocol Sodium Chloride 250 mls @ 3,000 mls/hr 03/31/19 15:27 Normal Saline - IV 04/01/19 15:28 PRN PRN Hypotension during Dialysis Ketoconazole 1 applic 03/30/19 10:00 04/01/19 10:27 Nizoral 2% Cream - TP 1 applic DAILY SANDEEP Administration Lamotrigine 25 mg 03/29/19 22:00 04/01/19 10:23 Lamictal - PO 25 mg BID SANDEEP Administration Levetiracetam 1,000 mg/ 1,250 mg 03/30/19 10:00 04/01/19 10:21 Levetiracetam 250 mg PO 1,250 mg DAILY SANDEEP Administration Levetiracetam 1,000 mg 03/29/19 22:00 03/31/19 21:37 Keppra - PO 1,000 mg HS SANDEEP Administration Metoprolol Succinate 12.5 mg 03/31/19 10:00 03/31/19 12:20 Toprol Xl - PO 12.5 mg DAILY SANDEEP Administration Multivit/Ca Carb/B Cmplx/FA/Prenat 1 tablet 03/30/19 10:00 04/01/19 10:25 Nephro-Lashanda - PO 1 tablet DAILY SANDEEP Administration Pantoprazole Sodium 20 mg 03/31/19 10:00 04/01/19 10:24 Protonix - PO 20 mg DAILY SANDEEP Administration Polyethylene Glycol 17 gm 03/30/19 10:00 04/01/19 10:29 Miralax (For Daily Use) - PO Not Given DAILY SANDEEP ASSESSMENT/PLAN: Neymar Yoon is a 63 year old male with a past medical history ESRD (M, W, F at [facility] on [facility]), Afib (defibrilator and monitor in place and s/p Watchman implant), HTN, 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 Afib with slow ventricular response - resolved, was likely in setting of missed dialysis sessions and developed metabolic acidosis - Restart home metoprolol 12.5mg daily - TSH within normal limits - Consult cardiology, recs appreciated, restarting metoprolol - echo showing EF 60%, normal LV size, thickness, function, normal RV size and function, mild mitral and tricuspid regurg - CXR showing increased marking in R lobe, cardiomegaly, unfolded aorta - EKG showing afib with slow ventricular response, left axis deviation, age indeterminate infarct - continue aspirin - no AC as pt has hx of subdural hematoma Thrombosed fistula - POD #3 percutaneous suction thrombectomy and venoplasty of cephalic vein with Dr. Devries - temporary Shiley removed ESRD - Consult nephrology, dialyzing patient, recs appreciated - continue to monitor electrolytes - will receive dialysis while hospitalized Fever - prior to discharge patient had fever 102.9 - blood cultures growing gram + cocci in clusters, presumptive MSSA, will continue to await speciation and sensitivity - repeat CXR with no acute pathology - repeat blood cultures - started on Zosyn and Vanco - ID consulted, recs appreciated - monitor for continued fevers - Tylenol for fever control - repeat echo to assess for endocarditis HTN - on metoprolol 12.5mg, restarted as per cardiology HLD - on home Crestor Seizure Disorder - on Keppra 1250mg in the morning, 1000mg at night - home lamotrigine - Keppra level elevated, blood level drawn on admission, patient has received multiple sessions of dialysis and Keppra is dialyzable, no seizure activity noted since admission Hx of CVA - on aspirin 81mg, restarted after surgery Anemia - iron levels showing likely anemia of chronic disease - B12 and folate within normal limits - likely in setting of ESRD F/E/N - No IVF, monitor PO intake - Continue to monitor electrolytes and replete or control as necessary. Hyperkalemia and hyperphosphatemia noted and patient receiving dialysis. - Renal diet DVT prophylaxis - heparin 5000 units subq bid Disposition - Continue to monitor on telemetry Problem List - Problems (1) AV fistula thrombosis Code(s): T82.868A - THROMBOSIS DUE TO VASCULAR PROSTH DEV/GRFT, INIT Qualifiers: Encounter type: subsequent encounter Qualified Code(s): T82.868D - Thrombosis due to vascular prosthetic devices, implants and grafts, subsequent encounter (2) Bradycardia Code(s): R00.1 - BRADYCARDIA, UNSPECIFIED (3) Afib Code(s): I48.91 - UNSPECIFIED ATRIAL FIBRILLATION Qualifiers: Atrial fibrillation type: paroxysmal Qualified Code(s): I48.0 - Paroxysmal atrial fibrillation (4) Anemia Code(s): D64.9 - ANEMIA, UNSPECIFIED Qualifiers: Anemia type: due to chronic kidney disease (5) ESRD (end stage renal disease) Code(s): N18.6 - END STAGE RENAL DISEASE (6) Hemodialysis access, arteriovenous graft Code(s): Z99.2 - DEPENDENCE ON RENAL DIALYSIS (7) Hyperkalemia Code(s): E87.5 - HYPERKALEMIA (8) Hypertension Code(s): I10 - ESSENTIAL (PRIMARY) HYPERTENSION Qualifiers: Hypertension type: essential hypertension Qualified Code(s): I10 - Essential (primary) hypertension Visit type - Emergency Visit Emergency Visit: Yes ED Registration Date: 03/31/19 Care time: The patient presented to the Emergency Department on the above date and was hospitalized for further evaluation of their emergent condition. - New Patient This patient is new to me today: No - Critical Care Critical Care patient: No
--- NOTE | 2019-04-01 12:01 | PN ---
Progress Note, Physician History of Present Illness: POD#3 Percutaneous suction thrombectomy and venoplasty cephalic vein for thrombosed AV fistula right arm. Bradycardia has resolved, no longer febrile, MSSA in blood cx. - Current Medication List Current Medications: Active Medications Acetaminophen (Tylenol -) 1,000 mg PO Q6H PRN PRN Reason: FEVER Last Admin: 03/31/19 21:44 Dose: 1,000 mg Aspirin (Asa -) 81 mg PO DAILY [facility] Last Admin: 04/01/19 10:24 Dose: 81 mg Atorvastatin Calcium (Lipitor -) 20 mg PO HS SANDEEP Last Admin: 03/31/19 21:37 Dose: 20 mg Calcium Acetate (Phoslo -) 2,001 mg PO TIDCM SANDEEP Last Admin: 04/01/19 08:25 Dose: 2,001 mg Cyclobenzaprine HCl (Cyclobenzaprine Hcl) 5 mg PO DAILY [facility] Last Admin: 04/01/19 10:26 Dose: 5 mg Docusate Sodium (Colace -) 100 mg PO TID [facility] Last Admin: 04/01/19 06:08 Dose: 100 mg Escitalopram Oxalate (Lexapro -) 5 mg PO DAILY [facility] Last Admin: 04/01/19 10:23 Dose: 5 mg Heparin Sodium (Porcine) (Heparin -) 5,000 unit SQ BID SANDEEP Last Admin: 04/01/19 10:21 Dose: 5,000 unit Heparin Sodium (Porcine) (Heparin -) 1,000 unit IVPUSH ONCE ONE Stop: 04/01/19 15:28 Sodium Chloride (Normal Saline -) 250 mls @ 3,000 mls/hr IV PRN PRN PRN Reason: Hypotension during Dialysis Stop: 03/30/19 11:42 Sodium Chloride (Normal Saline -) 250 mls @ 3,000 mls/hr IV PRN PRN PRN Reason: Hypotension during Dialysis Stop: 03/31/19 07:58 Piperacillin Sod/Tazobactam (Sod 2.25 gm/ Dextrose) 50 mls @ 100 mls/hr IVPB Q8H-IV SANDEEP; Protocol Last Admin: 04/01/19 10:20 Dose: 100 mls/hr Sodium Chloride (Normal Saline -) 250 mls @ 3,000 mls/hr IV PRN PRN PRN Reason: Hypotension during Dialysis Stop: 04/01/19 15:28 Ketoconazole (Nizoral 2% Cream -) 1 applic TP DAILY [facility] Last Admin: 04/01/19 10:27 Dose: 1 applic Lamotrigine (Lamictal -) 25 mg PO BID [facility] Last Admin: 04/01/19 10:23 Dose: 25 mg Levetiracetam 1,000 mg/ (Levetiracetam 250 mg) 1,250 mg PO DAILY [facility] Last Admin: 04/01/19 10:21 Dose: 1,250 mg Levetiracetam (Keppra -) 1,000 mg PO HS [facility] Last Admin: 03/31/19 21:37 Dose: 1,000 mg Metoprolol Succinate (Toprol Xl -) 12.5 mg PO DAILY [facility] Last Admin: 03/31/19 12:20 Dose: 12.5 mg Multivit/Ca Carb/B Cmplx/FA/Prenat (Nephro-Lashanda -) 1 tablet PO DAILY [facility] Last Admin: 04/01/19 10:25 Dose: 1 tablet Pantoprazole Sodium (Protonix -) 20 mg PO DAILY [facility] Last Admin: 04/01/19 10:24 Dose: 20 mg Polyethylene Glycol (Miralax (For Daily Use) -) 17 gm PO DAILY [facility] Last Admin: 04/01/19 10:29 Dose: Not Given - Objective Vital Signs: Vital Signs Temperature 98.6 F 04/01/19 08:14 Pulse Rate 66 04/01/19 08:14 Respiratory Rate 18 04/01/19 08:14 Blood Pressure 112/78 04/01/19 08:14 O2 Sat by Pulse Oximetry (%) 94 L 03/31/19 19:00 Constitutional: Yes: No Distress, Calm Neck: Yes: Supple Cardiovascular: Yes: Regular Rate and Rhythm Respiratory: Yes: Regular, CTA Bilaterally Gastrointestinal: Yes: Normal Bowel Sounds, Soft Edema: No Labs: CBC, BMP 03/31/19 10:10 03/31/19 10:10 INR, PTT INR 1.14 (0.83-1.09) H 03/28/19 16:45 - ....Imaging EKG: Report Reviewed (Tele: NSR) Problem List - Problems (1) AV fistula thrombosis Code(s): T82.868A - THROMBOSIS DUE TO VASCULAR PROSTH DEV/GRFT, INIT Qualifiers: Encounter type: subsequent encounter Qualified Code(s): T82.868D - Thrombosis due to vascular prosthetic devices, implants and grafts, subsequent encounter (2) Afib Code(s): I48.91 - UNSPECIFIED ATRIAL FIBRILLATION Qualifiers: Atrial fibrillation type: paroxysmal Qualified Code(s): I48.0 - Paroxysmal atrial fibrillation (3) Anemia Code(s): D64.9 - ANEMIA, UNSPECIFIED Qualifiers: Anemia type: due to chronic kidney disease (4) Diastolic dysfunction without heart failure Code(s): I51.9 - HEART DISEASE, UNSPECIFIED (5) ESRD (end stage renal disease) Code(s): N18.6 - END STAGE RENAL DISEASE (6) Status post placement of implantable loop recorder Code(s): Z95.818 - PRESENCE OF OTHER CARDIAC IMPLANTS AND GRAFTS (7) Status post radiofrequency ablation for arrhythmia Code(s): Z98.890 - OTHER SPECIFIED POSTPROCEDURAL STATES; Z86.79 - PERSONAL HISTORY OF OTHER DISEASES OF THE CIRCULATORY SYSTEM (8) MSSA bacteremia Code(s): R78.81 - BACTEREMIA Assessment/Plan 03/29/2019 Echo: Normal LV and RV size and fxn, normal biatrial sizes, mild MR, TR 1. Bradycardia referable to medications and metabolic disorder since resolved 2. ESRD with clotted AVF s/p percutaneous suction thrombectomy and venoplasty cephalic vein 3. hx CVA 4. Seizure d/o 5. HTN 6. hyperlipidemia 7. Anemia of CKD 8. hx subdural hemorrhage 9. hyperkalemia 10. PAF->SR, h/o ILR 11. Fever, leukocytosis and chills, -> MSSA bacteremia Plan 1. HD via AVF per renal with monitor potassium, resumed Toprol XL 12.5 qd, not on a/c due to h/o SDH 2. Resumed ASA 81 qd as hemostasis achieved 3. Continue Lipitor 20 qd 4. Narrow abx spectrum per C&S, check surveillance cultures
--- NOTE | 2019-04-01 12:30 | PN ---
Progress Note, Physician History of Present Illness: Pt seen and examined at bedside. He is awake and alert. He says that he feels well. He denies shortness of breath. - Current Medication List Current Medications: Active Medications Acetaminophen (Tylenol -) 1,000 mg PO Q6H PRN PRN Reason: FEVER Last Admin: 03/31/19 21:44 Dose: 1,000 mg Aspirin (Asa -) 81 mg PO DAILY [facility] Last Admin: 04/01/19 10:24 Dose: 81 mg Atorvastatin Calcium (Lipitor -) 20 mg PO HS [facility] Last Admin: 03/31/19 21:37 Dose: 20 mg Calcium Acetate (Phoslo -) 2,001 mg PO TIDCM [facility] Last Admin: 04/01/19 12:03 Dose: 2,001 mg Cyclobenzaprine HCl (Cyclobenzaprine Hcl) 5 mg PO DAILY [facility] Last Admin: 04/01/19 10:26 Dose: 5 mg Docusate Sodium (Colace -) 100 mg PO TID [facility] Last Admin: 04/01/19 06:08 Dose: 100 mg Escitalopram Oxalate (Lexapro -) 5 mg PO DAILY [facility] Last Admin: 04/01/19 10:23 Dose: 5 mg Heparin Sodium (Porcine) (Heparin -) 5,000 unit SQ BID [facility] Last Admin: 04/01/19 10:21 Dose: 5,000 unit Heparin Sodium (Porcine) (Heparin -) 1,000 unit IVPUSH ONCE ONE Stop: 04/01/19 15:28 Sodium Chloride (Normal Saline -) 250 mls @ 3,000 mls/hr IV PRN PRN PRN Reason: Hypotension during Dialysis Stop: 03/30/19 11:42 Sodium Chloride (Normal Saline -) 250 mls @ 3,000 mls/hr IV PRN PRN PRN Reason: Hypotension during Dialysis Stop: 03/31/19 07:58 Piperacillin Sod/Tazobactam (Sod 2.25 gm/ Dextrose) 50 mls @ 100 mls/hr IVPB Q8H-IV [facility]; Protocol Last Admin: 04/01/19 10:20 Dose: 100 mls/hr Sodium Chloride (Normal Saline -) 250 mls @ 3,000 mls/hr IV PRN PRN PRN Reason: Hypotension during Dialysis Stop: 04/01/19 15:28 Ketoconazole (Nizoral 2% Cream -) 1 applic TP DAILY [facility] Last Admin: 04/01/19 10:27 Dose: 1 applic Lamotrigine (Lamictal -) 25 mg PO BID [facility] Last Admin: 04/01/19 10:23 Dose: 25 mg Levetiracetam 1,000 mg/ (Levetiracetam 250 mg) 1,250 mg PO DAILY [facility] Last Admin: 04/01/19 10:21 Dose: 1,250 mg Levetiracetam (Keppra -) 1,000 mg PO HS [facility] Last Admin: 03/31/19 21:37 Dose: 1,000 mg Metoprolol Succinate (Toprol Xl -) 12.5 mg PO DAILY [facility] Last Admin: 03/31/19 12:20 Dose: 12.5 mg Multivit/Ca Carb/B Cmplx/FA/Prenat (Nephro-Lashanda -) 1 tablet PO DAILY [facility] Last Admin: 04/01/19 10:25 Dose: 1 tablet Pantoprazole Sodium (Protonix -) 20 mg PO DAILY [facility] Last Admin: 04/01/19 10:24 Dose: 20 mg Polyethylene Glycol (Miralax (For Daily Use) -) 17 gm PO DAILY [facility] Last Admin: 04/01/19 10:29 Dose: Not Given - Objective Vital Signs: Vital Signs Temperature 98.6 F 04/01/19 08:14 Pulse Rate 66 04/01/19 08:14 Respiratory Rate 18 04/01/19 08:14 Blood Pressure 112/78 04/01/19 08:14 O2 Sat by Pulse Oximetry (%) 94 L 03/31/19 19:00 Constitutional: Yes: Calm Eyes: Yes: Conjunctiva Clear HENT: Yes: Atraumatic Neck: Yes: Supple Cardiovascular: Yes: S1, S2 Respiratory: Yes: CTA Bilaterally Gastrointestinal: Yes: Soft Genitourinary: Yes: WNL Musculoskeletal: Yes: WNL Edema: Yes Edema: LLE: Trace, RLE: Trace Neurological: Yes: Oriented Psychiatric: Yes: Oriented Labs: CBC, BMP 03/31/19 10:10 03/31/19 10:10 INR, PTT INR 1.14 (0.83-1.09) H 03/28/19 16:45 Problem List - Problems (1) AV fistula thrombosis Code(s): T82.868A - THROMBOSIS DUE TO VASCULAR PROSTH DEV/GRFT, INIT Qualifiers: Encounter type: subsequent encounter Qualified Code(s): T82.868D - Thrombosis due to vascular prosthetic devices, implants and grafts, subsequent encounter (2) Bradycardia Code(s): R00.1 - BRADYCARDIA, UNSPECIFIED (3) ESRD (end stage renal disease) Code(s): N18.6 - END STAGE RENAL DISEASE Assessment/Plan Current Medications Generic Name Dose Route Start Last Admin Trade Name Freq PRN Reason Stop Dose Admin Acetaminophen 1,000 mg 03/30/19 16:00 03/31/19 21:44 Tylenol - PO 1,000 mg Q6H PRN Administration FEVER Aspirin 81 mg 03/31/19 10:00 04/01/19 10:24 Asa - PO 81 mg DAILY [facility] Administration Atorvastatin Calcium 20 mg 03/29/19 22:00 03/31/19 21:37 Lipitor - PO 20 mg HS [facility] Administration Calcium Acetate 2,001 mg 03/30/19 08:00 04/01/19 12:03 Phoslo - PO 2,001 mg TIDCM [facility] Administration Cyclobenzaprine HCl 5 mg 03/30/19 10:00 04/01/19 10:26 Cyclobenzaprine Hcl PO 5 mg DAILY [facility] Administration Docusate Sodium 100 mg 03/29/19 22:00 04/01/19 06:08 Colace - PO 100 mg TID [facility] Administration Escitalopram Oxalate 5 mg 03/31/19 10:00 04/01/19 10:23 Lexapro - PO 5 mg DAILY [facility] Administration Heparin Sodium (Porcine) 5,000 unit 03/29/19 22:00 04/01/19 10:21 Heparin - SQ 5,000 unit BID [facility] Administration Heparin Sodium (Porcine) 1,000 unit 04/01/19 15:27 Heparin - IVPUSH 04/01/19 15:28 ONCE ONE Sodium Chloride 250 mls @ 3,000 mls/hr 03/29/19 20:01 Normal Saline - IV 03/30/19 11:42 PRN PRN Hypotension during Dialysis Sodium Chloride 250 mls @ 3,000 mls/hr 03/30/19 07:58 Normal Saline - IV 03/31/19 07:58 PRN PRN Hypotension during Dialysis Piperacillin Sod/Tazobactam 50 mls @ 100 mls/hr 03/31/19 18:00 04/01/19 10:20 Sod 2.25 gm/ Dextrose IVPB 100 mls/hr Q8H-IV [facility] Administration Protocol Sodium Chloride 250 mls @ 3,000 mls/hr 03/31/19 15:27 Normal Saline - IV 04/01/19 15:28 PRN PRN Hypotension during Dialysis Ketoconazole 1 applic 03/30/19 10:00 04/01/19 10:27 Nizoral 2% Cream - TP 1 applic DAILY [facility] Administration Lamotrigine 25 mg 03/29/19 22:00 04/01/19 10:23 Lamictal - PO 25 mg BID [facility] Administration Levetiracetam 1,000 mg/ 1,250 mg 03/30/19 10:00 04/01/19 10:21 Levetiracetam 250 mg PO 1,250 mg DAILY [facility] Administration Levetiracetam 1,000 mg 03/29/19 22:00 03/31/19 21:37 Keppra - PO 1,000 mg HS [facility] Administration Metoprolol Succinate 12.5 mg 03/31/19 10:00 03/31/19 12:20 Toprol Xl - PO 12.5 mg DAILY [facility] Administration Multivit/Ca Carb/B Cmplx/FA/Prenat 1 tablet 03/30/19 10:00 04/01/19 10:25 Nephro-Lashanda - PO 1 tablet DAILY [facility] Administration Pantoprazole Sodium 20 mg 03/31/19 10:00 04/01/19 10:24 Protonix - PO 20 mg DAILY [facility] Administration Polyethylene Glycol 17 gm 03/30/19 10:00 04/01/19 10:29 Miralax (For Daily Use) - PO Not Given DAILY [facility] Impression 1. ESRD 2. hx CVA 3. epilepsy 4. hx HTN 5. hyperlipidemia 6. anemia 7. hx subdural hemorrhage 8. hyperkalemia 9. bradycardia 10. bactermia Plan - HD today - next HD would be thursday - follow cultures - cont abx - monitor for fever - renal diet Dr Isaac
--- NOTE | 2019-04-01 14:28 | PN ---
Progress Note (short form) - Note Progress Note: no further fevers +blood cultures- ?avf manipulation, ?femoral line (out) feels well today Vital Signs Period Temp Pulse Resp BP Sys/Chaudhry Pulse Ox Last 24 Hr 97.8 F-100.0 F 66-83 18-20 99-134/47-78 94-98 cor-rrr lungs clear abd soft,nt ext no femoral edema or drainage dressing intact left arm- will examine with HD nurse-clean, no signs erythema CBC, BMP 03/31/19 10:10 03/31/19 10:10 Microbiology 03/31/19 01:00 Blood - Peripheral Venous Blood Culture - Preliminary Presumptive Mssa (Pbp2a Neg) vanco trough 15 a/p bacteremia- repeat blood cultures with HD today (they were not able to draw peripheral cultures yesterday) redose vancomycin with HD, cefazolin 1 gram daily to start after HD to switch to beta lactam treatment if MSSA is confirmed echo esrd/hd history of afib with watchman device history cva with left hemiparesis Problem List - Problems (1) Fever Code(s): R50.9 - FEVER, UNSPECIFIED (2) AV fistula thrombosis Code(s): T82.868A - THROMBOSIS DUE TO VASCULAR PROSTH DEV/GRFT, INIT Qualifiers: Encounter type: subsequent encounter Qualified Code(s): T82.868D - Thrombosis due to vascular prosthetic devices, implants and grafts, subsequent encounter (3) ESRD (end stage renal disease) on dialysis Code(s): N18.6 - END STAGE RENAL DISEASE; Z99.2 - DEPENDENCE ON RENAL DIALYSIS
[2019-04-01] MEDS ORDERED: VANCOMYCIN 1 GRAM (PRE-DOCKED) 1,000 MG/250 ML BAG IVPB ONE (14:36)
--- NOTE | 2019-04-01 14:55 | ECHO ---
Name: RENNY LUONG Exam:Adult Echocardiogram Study Date: 04/01/2019 01:05 PM Age: 63 yrs Height: 67 in Weight: 251 lb BSA: 2.2 m2 MMode/2D Measurements & Calculations IVSd: 0.99 cm Ao root diam: 3.6 cm LVIDd: 6.0 cm LA dimension: 3.8 cm LVIDs: 4.6 cm ACS: 2.2 cm LVPWd: 0.95 cm IVSs: 1.2 cm LVPWs: 1.1 cm EDV(Teich): 178.4 ml ESV(Teich): 96.5 ml Doppler Measurements & Calculations MV E max hank: 76.3 cm/sec Ao V2 max: 126.0 cm/sec MV A max hank: 63.5 cm/sec Ao max P.3 mmHg MV E/A: 1.2 Ao V2 mean: 93.5 cm/sec Ao mean P.9 mmHg Ao V2 VTI: 21.7 cm MR max hank: 262.4 cm/sec TR max hank: 236.9 cm/sec MR max P.5 mmHg TR max P.5 mmHg Med Peak E' Hank: 7.8 cm/sec Med E/e': 9.8 Lat Peak E' Hank: 10.0 cm/sec Lat E/e': 7.6 Procedure The study was technically difficult with many images being suboptimal in quality. Left Ventricle Left ventricular systolic function is normal. Ejection Fraction = 50-55%. Regional wall motion abnorm alities cannot be excluded due to limited visualization. Right Ventricle The right ventricle is grossly normal size. The right ventricular systolic function is grossly normal . Atria Normal left and right atrial size and function. Mitral Valve The mitral valve is normal in structure and function. There is no mitral valve stenosis. There is mil d mitral regurgitation. Tricuspid Valve The tricuspid valve is normal in structure and function. There is mild tricuspid regurgitation. Right ventricular systolic pressure is normal. Aortic Valve The aortic valve opens well. No hemodynamically significant valvular aortic stenosis. No aortic regur gitation is present. Pulmonic Valve The pulmonic valve is not well seen, but is grossly normal. There is no pulmonic valvular stenosis. M ild pulmonic valvular regurgitation. Great Vessels The aortic root is normal size. Pericardium/Pleura There is no pericardial effusion. Interpretation Summary The study was technically difficult with many images being suboptimal in quality. Regional wall motion abnormalities cannot be excluded due to limited visualization. Left ventricular systolic function is normal. Ejection Fraction = 50-55%. There is mild mitral regurgitation. There is mild tricuspid regurgitation. Right ventricular systolic pressure is normal. There is no pericardial effusion. MD Thompson *Ilene 04/01/2019 02:54 PM
[2019-04-01] MEDS ORDERED: HEPARIN NA (PORCINE) 5,000 UNITS/ML 1ML VIAL IVPUSH ONE (15:30)
[2019-04-01] MEDS ORDERED: SODIUM CHLORIDE 250 ML IV PRN (15:31)
[2019-04-01 15:51] LABS: BASO % 1.1 % (0-2.0); EOS % 5.6 % (0-4.5); HEMATOCRIT 29.5 % (35.4-49); HEMOGLOBIN 9.1 GM/dL (11.7-16.9); LYMPH % 27.9 % (8-40); MCH 25.3 pg (25.7-33.7); MCHC 30.8 g/dl (32.0-35.9); MEAN CELL VOLUME 82.2 fl (80-96); MEAN PLT VOLUME 9.4 fl (7.5-11.1); MONO % 10.8 % (3.8-10.2); NEUT % 54.6 % (42.8-82.8); PLATELET COUNT 132 K/MM3 (134-434); RBC 3.59 M/mm3 (4.00-5.60); RDW 18.2 % (11.9-15.9); WHITE BLOOD COUNT 3.9 K/mm3 (4.0-10.0)
[2019-04-01 16:15] LABS: ALBUMIN 2.9 g/dl (3.4-5.0); BILIRUBIN,TOTAL 0.3 mg/dL (0.2-1); BLOOD UREA NITROGEN 49.6 mg/dL (7-18); CALCIUM 8.2 mg/dL (8.5-10.1); POTASSIUM 4.1 mmol/L (3.5-5.1)
[2019-04-01 16:30] LABS: ANISOCYTOSIS 2+; PLATELET ESTIMATE DECREASED
[2019-04-01 16:38] LABS: CREATININE 10.6 mg/dL (0.55-1.3)
[2019-04-01] MEDS: metoPROLOL SUCCINATE 25 MG TAB.SR.24H (FP) PO SCH (18:18)
[2019-04-01] MEDS ORDERED: ceFAZolin SODIUM 1 GM VIAL ONE (20:55)
[2019-04-01] MEDS: CEFAZOLIN 1 GM in DEXTROSE 5%-WATER - 50 ML IVPB SCH (20:58)
[2019-04-01] MEDS: ATORVASTATIN CA 20 MG TABLET (FP) PO SCH (21:01)
[2019-04-01] MEDS: levETIRAcetam 500 MG TABLET (FP) PO SCH (21:05)
[2019-04-01] MEDS: ACETAMINOPHEN 500 MG TABLET (FP) PO PRN (21:05)
[2019-04-02] MEDS: DOCUSATE SODIUM 100 MG CAPSULE (FP) PO SCH ×3 (05:46→21:25)
[2019-04-02 07:54] LABS: HEMATOCRIT 25.8 % (35.4-49); HEMOGLOBIN 8.1 GM/dL (11.7-16.9); MCH 25.6 pg (25.7-33.7); MCHC 31.5 g/dl (32.0-35.9); MEAN CELL VOLUME 81.3 fl (80-96); MEAN PLT VOLUME 10.3 fl (7.5-11.1); PLATELET COUNT 165 K/MM3 (134-434); RBC 3.18 M/mm3 (4.00-5.60); RDW 17.4 % (11.9-15.9); WHITE BLOOD COUNT 6.2 K/mm3 (4.0-10.0)
[2019-04-02 08:18] LABS: BLOOD UREA NITROGEN 32.8 mg/dL (7-18); CALCIUM 7.9 mg/dL (8.5-10.1); MAGNESIUM 1.8 mg/dL (1.8-2.4); PHOSPHOROUS 3.6 mg/dL (2.5-4.9); POTASSIUM 4.1 mmol/L (3.5-5.1)
[2019-04-02 08:23] LABS: CREATININE 8.4 mg/dL (0.55-1.3)
[2019-04-02] MEDS ORDERED: levETIRAcetam 250 MG TABLET (FP) PO ONE (09:18)
[2019-04-02] MEDS ORDERED: levETIRAcetam 500 MG TABLET (FP) PO ONE (09:18)
[2019-04-02] MEDS ORDERED: ceFAZolin SODIUM 1 GM VIAL ONE (09:19)
[2019-04-02] MEDS ORDERED: DEXTROSE 5%-WATER - 50 ML IVPB ONE (09:19)
[2019-04-02] MEDS ORDERED: PT OWN MED DRAWER 7, Y5N ONE ×2 (09:19→10:01)
[2019-04-02] MEDS: HEPARIN NA (PORCINE) 5,000 UNITS/ML 1ML VIAL SQ SCH ×2 (09:24→21:26)
[2019-04-02] MEDS: CALCIUM ACETATE 667 MG CAPSULE (FP) PO SCH ×3 (09:24→16:49)
[2019-04-02] MEDS: CEFAZOLIN 1 GM in DEXTROSE 5%-WATER - 50 ML IVPB SCH (09:24)
[2019-04-02] MEDS: CYCLOBENZAPRINE HCL 5 MG TABLET PO SCH (09:25)
[2019-04-02] MEDS: ASPIRIN 81 MG CHEWABLE TABLETS PO SCH (09:26)
[2019-04-02] MEDS: metoPROLOL SUCCINATE 25 MG TAB.SR.24H (FP) PO SCH (09:26)
[2019-04-02] MEDS: PANTOPRAZOLE 20 MG TABLET (FP) PO SCH (09:27)
[2019-04-02] MEDS: POLYETHYLENE GLYCOL 3350 119 GM BTL PO SCH (09:27)
[2019-04-02] MEDS: ESCITALOPRAM OXALATE 10 MG TABLET (FP) PO SCH (09:27)
[2019-04-02] MEDS: lamoTRIgine 25 MG TABLET PO SCH ×2 (09:27→21:25)
[2019-04-02] MEDS: VITAMIN B COMP W-C 1 EA TABLET PO SCH (09:28)
[2019-04-02] MEDS: KETOCONAZOLE 2% TOPICAL CREAM 15 GM TUBE TP SCH (09:28)
--- NOTE | 2019-04-02 11:25 | PN ---
Progress Note (short form) - Note Progress Note: no further fevers +blood cultures- ?avf manipulation, ?femoral line (out) repeat blood cultures sent yesterday he is anxious to go home Vital Signs Period Temp Pulse Resp BP Sys/Chaudhry Pulse Ox Last 24 Hr 98.1 F-99.2 F 40-84 18-18 103-151/51-93 97-99 cor-rrr llungs clear abd soft,nt ext no edema left arm AVF CBC, BMP 04/02/19 06:45 04/02/19 06:45 Microbiology 03/31/19 01:00 Blood - Peripheral Venous Blood Culture - Preliminary Presumptive Mssa (Pbp2a Neg) blood cultures 04/01 pending a/p staph bacteremia- repeat blood cultures with HD pending he is agreeable to staying pending further w/u and plan continue cefazolin f/u culture results echo esrd/hd-s/p avf thrombectomy 03/29 history of afib with watchman device history cva with left hemiparesis Problem List - Problems (1) Fever Code(s): R50.9 - FEVER, UNSPECIFIED (2) AV fistula thrombosis Code(s): T82.868A - THROMBOSIS DUE TO VASCULAR PROSTH DEV/GRFT, INIT Qualifiers: Encounter type: subsequent encounter Qualified Code(s): T82.868D - Thrombosis due to vascular prosthetic devices, implants and grafts, subsequent encounter (3) ESRD (end stage renal disease) on dialysis Code(s): N18.6 - END STAGE RENAL DISEASE; Z99.2 - DEPENDENCE ON RENAL DIALYSIS
--- NOTE | 2019-04-02 13:18 | PN ---
Progress Note (short form) - Note Progress Note: SUBJECTIVE: Fever resolved. Feels well - no complaints. No nausea/vomiting. No lightheadedness/dizziness/chest pain/palpitations. No cough/sputum/dysuria/ diarrhea. POD 4 s/p RUE AV fistula suction thrombectomy/venoplasty for thrombosed AV fistula. OBJECTIVE: Afebrile, Hemodynamically Stable Last Vital Signs Temp Pulse Resp BP Pulse Ox 98.5 F 69 18 100/59 L 99 04/02/19 10:00 04/02/19 10:00 04/02/19 10:00 04/02/19 10:00 04/02/19 09:00 Heart - S1, S2, irregular Lungs - good air entry bilaterally Abdomen - Soft, non-tender. Bowel Sounds normal. Extremities RUE AV Fistula - thrill/bruit re-established, site currently dressed. Neuro - AAO x 3. Chronic LUE weakness. Laboratory Results - last 24 hr 04/01/19 04/01/19 04/01/19 15:10 15:10 15:10 WBC 3.9 L RBC 3.59 L Hgb 9.1 L Hct 29.5 L MCV 82.2 MCH 25.3 L MCHC 30.8 L RDW 18.2 H Plt Count 132 L D MPV 9.4 Absolute Neuts (auto) 2.1 Neutrophils % 54.6 Neutrophils % (Manual) 53.5 D Band Neutrophils % 0.0 Lymphocytes % 27.9 D Lymphocytes % (Manual) 25.3 D Monocytes % 10.8 H Monocytes % (Manual) 10 Eosinophils % 5.6 H Eosinophils % (Manual) 4.0 Basophils % 1.1 Basophils % (Manual) 0.0 Myelocytes % (Man) 0 Promyelocytes % (Man) 0 Blast Cells % (Manual) 0 Nucleated RBC % 0 Metamyelocytes 0 D Hypochromia 2+ Platelet Estimate Decreased Polychromasia 1+ Anisocytosis 2+ Schistocytes 1+ Sodium 138 Potassium 4.1 Chloride 100 Carbon Dioxide 30 Anion Gap 8 BUN 49.6 H Creatinine 10.6 H* Est GFR (CKD-EPI)AfAm 5.36 Est GFR (CKD-EPI)NonAf 4.63 Random Glucose 117 H Calcium 8.2 L Phosphorus Magnesium Total Bilirubin 0.3 AST 27 ALT 29 Alkaline Phosphatase 58 Total Protein 6.0 L Albumin 2.9 L Random Vancomycin 11.8 L 11/30/19 11/30/19 11/30/19 06:45 06:45 06:45 WBC 6.2 RBC 3.18 L Hgb 8.1 L Hct 25.8 L MCV 81.3 MCH 25.6 L MCHC 31.5 L RDW 17.4 H Plt Count 165 D MPV 10.3 Absolute Neuts (auto) Neutrophils % Neutrophils % (Manual) Band Neutrophils % Lymphocytes % Lymphocytes % (Manual) Monocytes % Monocytes % (Manual) Eosinophils % Eosinophils % (Manual) Basophils % Basophils % (Manual) Myelocytes % (Man) Promyelocytes % (Man) Blast Cells % (Manual) Nucleated RBC % Metamyelocytes Hypochromia Platelet Estimate Polychromasia Anisocytosis Schistocytes Sodium 141 Potassium 4.1 Chloride 101 Carbon Dioxide 30 Anion Gap 9 BUN 32.8 H Creatinine 8.4 H* Est GFR (CKD-EPI)AfAm 7.10 Est GFR (CKD-EPI)NonAf 6.13 Random Glucose 82 Calcium 7.9 L Phosphorus 3.6 Magnesium 1.8 Total Bilirubin AST ALT Alkaline Phosphatase Total Protein Albumin Random Vancomycin 17.6 L Current Medications Generic Name Dose Route Start Last Admin Trade Name Freq PRN Reason Stop Dose Admin Acetaminophen 1,000 mg 03/30/19 16:00 04/01/19 21:05 Tylenol - PO 1,000 mg Q6H PRN Administration FEVER Aspirin 81 mg 03/31/19 10:00 04/02/19 09:26 Asa - PO 81 mg DAILY [facility] Administration Atorvastatin Calcium 20 mg 03/29/19 22:00 04/01/19 21:01 Lipitor - PO 20 mg HS [facility] Administration Calcium Acetate 2,001 mg 03/30/19 08:00 04/02/19 11:58 Phoslo - PO 2,001 mg TIDCM [facility] Administration Cyclobenzaprine HCl 5 mg 03/30/19 10:00 04/02/19 09:25 Cyclobenzaprine Hcl PO 5 mg DAILY [facility] Administration Docusate Sodium 100 mg 03/29/19 22:00 04/02/19 05:46 Colace - PO 100 mg TID [facility] Administration Escitalopram Oxalate 5 mg 03/31/19 10:00 04/02/19 09:27 Lexapro - PO 5 mg DAILY [facility] Administration Heparin Sodium (Porcine) 5,000 unit 03/29/19 22:00 04/02/19 09:24 Heparin - SQ 5,000 unit BID [facility] Administration Cefazolin Sodium 1 gm/ 50 mls @ 100 mls/hr 04/01/19 20:00 04/02/19 09:24 Dextrose IVPB 100 mls/hr DAILY [facility] Administration Ketoconazole 1 applic 03/30/19 10:00 04/02/19 09:28 Nizoral 2% Cream - TP 1 applic DAILY [facility] Administration Lamotrigine 25 mg 03/29/19 22:00 04/02/19 09:27 Lamictal - PO 25 mg BID [facility] Administration Levetiracetam 1,000 mg/ 1,250 mg 03/30/19 10:00 04/02/19 09:25 Levetiracetam 250 mg PO 1,250 mg DAILY [facility] Administration Levetiracetam 1,000 mg 03/29/19 22:00 04/01/19 21:05 Keppra - PO 1,000 mg HS [facility] Administration Metoprolol Succinate 12.5 mg 03/31/19 10:00 04/02/19 09:26 Toprol Xl - PO 12.5 mg DAILY [facility] Administration Multivit/Ca Carb/B Cmplx/FA/Prenat 1 tablet 03/30/19 10:00 04/02/19 09:28 Nephro-Lashanda - PO 1 tablet DAILY [facility] Administration Pantoprazole Sodium 20 mg 03/31/19 10:00 04/02/19 09:27 Protonix - PO 20 mg DAILY [facility] Administration Polyethylene Glycol 17 gm 03/30/19 10:00 04/02/19 09:27 Miralax (For Daily Use) - PO 17 grams DAILY [facility] Administration Home Medications Medication Instructions Recorded Escitalopram Oxalate [Lexapro -] 5 mg PO DAILY 08/02/16 Aspirin 81 mg PO HS 10/23/17 Calcium Acetate [Phoslo -] 3 cap PO TID 10/23/17 Metoprolol Succinate [Toprol Xl] 12.5 mg PO ASDIR 10/23/17 Vit B Comp No.3/Folic/C/Biotin 1 each PO DAILY 01/31/18 [Gavi-Lashanda Rx Tablet] Acetaminophen [Tylenol] 325 mg PO PRN 04/09/18 Docusate Sodium [Colace] 100 mg PO TID 04/09/18 Mupirocin Cream [Bactroban 2% 1 applic .ROUTE DAILY 04/09/18 Cream -] Pantoprazole Sodium [Protonix -] 20 mg PO DAILY 04/09/18 levETIRAcetam [Keppra -] 1,000 mg PO BID 04/09/18 Atorvastatin Ca [Lipitor] 20 mg DAILY 03/29/19 Cyclobenzaprine HCl 5 mg DAILY 03/29/19 Ketoconazole 2% Cream [Nizoral 2% 1 applic TP DAILY 03/29/19 Cream -] Lamotrigine 25 mg PO BID 03/29/19 Levetiracetam [Keppra] 250 mg PO DAILY 03/29/19 Polyethylene Glycol 3350 [Miralax 17 gm PO DAILY 03/29/19 119 gm Btl -] ASSESSMENT AND PLAN: 63 year old male with ESRD (HD on //), Atrial Fibrillation (s/p AICD and watchman device ), HTN, Hx CVA (2015 w/residual LUE weakness), Ischemic colitis (s/p resection 2017) and Seizure Disorder, presents from dialysis with thrombosed AV fistula and Bradycardia. 1. ESRD (HD on //) - AV fistula clotted - POD 4 s/p percutaneous suction thrombectomy Successful HD via AV fistula 04/01 - femoral shiley removed (placed for urgent HD when fistula thrombosed). Nephrology, Vascular Sx following. Resumed on Aspirin. 2. Fever - etiology unclear, developed POD 1 s/p AV fistula thrombectomy, likely procedure related. CXR - No acute findings, percutaneous L Loop recorder, L axillary vascular stent. Blood Cx - MSSA Leukocytosis resolved Hemodynamically Stable. Empiric Abx IV Vanc/Zosyn now rationalized - placed on IV Cefazolin only. Awaiting repeat Blood Cx. Ech0 -normal. ID following. 3. Atrial Fibrillation with slow ventricular response - resolved. Metoprolol, Lexapro, Protonix resumed. Echo - normal. Resume home medications as per Cardio. No AC due to SDH Hx. Resumed on Aspirin. 4. Hyperkalemia/Uremia sec to ESRD - resolved s/p HD 5. Normocytic Anemia - likely sec to ESRD. Iron 100, Iron Sat 14%, B12 - 1918, Folate 15. H.H dropping - further monitoring/management ?Epo as per Nephrology. 6. HTN - Metoprolol resumed. 7. Seizure Disorder - continue Keppra, Lamotrigine 8. HLD - Continue Lipitor. 9. Hx CVA - continue Aspirin, Statin DVT Px - Heparin SQ Visit type - Emergency Visit Emergency Visit: Yes ED Registration Date: 03/31/19 Care time: The patient presented to the Emergency Department on the above date and was hospitalized for further evaluation of their emergent condition. - New Patient This patient is new to me today: No - Critical Care Critical Care patient: No - Discharge Referral Referred to [facility] No
--- NOTE | 2019-04-02 13:47 | PN ---
Progress Note, Physician History of Present Illness: POD#4 Percutaneous suction thrombectomy and venoplasty cephalic vein for thrombosed AV fistula right arm. Bradycardia has resolved, no longer febrile, MSSA in blood cx. - Current Medication List Current Medications: Active Medications Acetaminophen (Tylenol -) 1,000 mg PO Q6H PRN PRN Reason: FEVER Last Admin: 04/01/19 21:05 Dose: 1,000 mg Aspirin (Asa -) 81 mg PO DAILY [facility] Last Admin: 04/02/19 09:26 Dose: 81 mg Atorvastatin Calcium (Lipitor -) 20 mg PO HS [facility] Last Admin: 04/01/19 21:01 Dose: 20 mg Calcium Acetate (Phoslo -) 2,001 mg PO TIDCM [facility] Last Admin: 04/02/19 11:58 Dose: 2,001 mg Cyclobenzaprine HCl (Cyclobenzaprine Hcl) 5 mg PO DAILY [facility] Last Admin: 04/02/19 09:25 Dose: 5 mg Docusate Sodium (Colace -) 100 mg PO TID [facility] Last Admin: 04/02/19 05:46 Dose: 100 mg Escitalopram Oxalate (Lexapro -) 5 mg PO DAILY [facility] Last Admin: 04/02/19 09:27 Dose: 5 mg Heparin Sodium (Porcine) (Heparin -) 5,000 unit SQ BID [facility] Last Admin: 04/02/19 09:24 Dose: 5,000 unit Cefazolin Sodium 1 gm/ (Dextrose) 50 mls @ 100 mls/hr IVPB DAILY [facility] Last Admin: 04/02/19 09:24 Dose: 100 mls/hr Ketoconazole (Nizoral 2% Cream -) 1 applic TP DAILY [facility] Last Admin: 04/02/19 09:28 Dose: 1 applic Lamotrigine (Lamictal -) 25 mg PO BID [facility] Last Admin: 04/02/19 09:27 Dose: 25 mg Levetiracetam 1,000 mg/ (Levetiracetam 250 mg) 1,250 mg PO DAILY [facility] Last Admin: 04/02/19 09:25 Dose: 1,250 mg Levetiracetam (Keppra -) 1,000 mg PO HS [facility] Last Admin: 04/01/19 21:05 Dose: 1,000 mg Metoprolol Succinate (Toprol Xl -) 12.5 mg PO DAILY [facility] Last Admin: 04/02/19 09:26 Dose: 12.5 mg Multivit/Ca Carb/B Cmplx/FA/Prenat (Nephro-Lashanda -) 1 tablet PO DAILY [facility] Last Admin: 04/02/19 09:28 Dose: 1 tablet Pantoprazole Sodium (Protonix -) 20 mg PO DAILY [facility] Last Admin: 04/02/19 09:27 Dose: 20 mg Polyethylene Glycol (Miralax (For Daily Use) -) 17 gm PO DAILY [facility] Last Admin: 04/02/19 09:27 Dose: 17 grams - Objective Vital Signs: Vital Signs Temperature 98.5 F 04/02/19 10:00 Pulse Rate 69 04/02/19 10:00 Respiratory Rate 18 04/02/19 10:00 Blood Pressure 100/59 L 04/02/19 10:00 O2 Sat by Pulse Oximetry (%) 99 04/02/19 09:00 Constitutional: Yes: No Distress, Calm Neck: Yes: Supple Cardiovascular: Yes: Regular Rate and Rhythm Respiratory: Yes: Regular, CTA Bilaterally Gastrointestinal: Yes: Normal Bowel Sounds, Soft Edema: No Labs: CBC, BMP 04/02/19 06:45 04/02/19 06:45 INR, PTT INR 1.14 (0.83-1.09) H 03/28/19 16:45 - ....Imaging EKG: Report Reviewed (Tele: NSR vashti [facility]) Problem List - Problems (1) AV fistula thrombosis Code(s): T82.868A - THROMBOSIS DUE TO VASCULAR PROSTH DEV/GRFT, INIT Qualifiers: Encounter type: subsequent encounter Qualified Code(s): T82.868D - Thrombosis due to vascular prosthetic devices, implants and grafts, subsequent encounter (2) Afib Code(s): I48.91 - UNSPECIFIED ATRIAL FIBRILLATION Qualifiers: Atrial fibrillation type: paroxysmal Qualified Code(s): I48.0 - Paroxysmal atrial fibrillation (3) Anemia Code(s): D64.9 - ANEMIA, UNSPECIFIED Qualifiers: Anemia type: due to chronic kidney disease (4) Diastolic dysfunction without heart failure Code(s): I51.9 - HEART DISEASE, UNSPECIFIED (5) ESRD (end stage renal disease) Code(s): N18.6 - END STAGE RENAL DISEASE (6) Status post placement of implantable loop recorder Code(s): Z95.818 - PRESENCE OF OTHER CARDIAC IMPLANTS AND GRAFTS (7) Status post radiofrequency ablation for arrhythmia Code(s): Z98.890 - OTHER SPECIFIED POSTPROCEDURAL STATES; Z86.79 - PERSONAL HISTORY OF OTHER DISEASES OF THE CIRCULATORY SYSTEM (8) MSSA bacteremia Code(s): R78.81 - BACTEREMIA Assessment/Plan 03/29/2019 Echo: Normal LV and RV size and fxn, normal biatrial sizes, mild MR, TR 1. Bradycardia referable to medications and metabolic disorder since resolved 2. ESRD with clotted AVF s/p percutaneous suction thrombectomy and venoplasty cephalic vein 3. hx CVA 4. Seizure d/o 5. HTN 6. hyperlipidemia 7. Anemia of CKD 8. hx subdural hemorrhage 9. hyperkalemia 10. PAF->SR, h/o ILR 11. Fever, leukocytosis and chills, -> MSSA bacteremia Plan 1. HD via AVF per renal with monitor potassium, resumed Toprol XL 12.5 qd, not on a/c due to h/o SDH 2. Resumed ASA 81 qd as hemostasis achieved 3. Continue Lipitor 20 qd 4. Ancef per C&S, f/u surveillance cultures
[2019-04-02] MEDS: ACETAMINOPHEN 500 MG TABLET (FP) PO PRN (20:07)
[2019-04-02] MEDS: ATORVASTATIN CA 20 MG TABLET (FP) PO SCH (21:25)
[2019-04-02] MEDS: levETIRAcetam 500 MG TABLET (FP) PO SCH (21:26)
[2019-04-03] MEDS: DOCUSATE SODIUM 100 MG CAPSULE (FP) PO SCH ×3 (05:52→21:43)
[2019-04-03] MEDS ORDERED: PT OWN MED DRAWER 7, Y5N ONE (09:37)
[2019-04-03] MEDS ORDERED: levETIRAcetam 250 MG TABLET (FP) PO ONE (09:37)
[2019-04-03] MEDS ORDERED: levETIRAcetam 500 MG TABLET (FP) PO ONE (09:37)
[2019-04-03] MEDS ORDERED: DEXTROSE 5%-WATER - 50 ML IVPB ONE (09:38)
[2019-04-03] MEDS ORDERED: ceFAZolin SODIUM 1 GM VIAL ONE (09:38)
[2019-04-03] MEDS: CALCIUM ACETATE 667 MG CAPSULE (FP) PO SCH ×3 (09:39→17:59)
[2019-04-03] MEDS: ESCITALOPRAM OXALATE 10 MG TABLET (FP) PO SCH (09:40)
[2019-04-03] MEDS: ASPIRIN 81 MG CHEWABLE TABLETS PO SCH (09:40)
[2019-04-03] MEDS: metoPROLOL SUCCINATE 25 MG TAB.SR.24H (FP) PO SCH (09:41)
[2019-04-03] MEDS: PANTOPRAZOLE 20 MG TABLET (FP) PO SCH (09:41)
[2019-04-03] MEDS: HEPARIN NA (PORCINE) 5,000 UNITS/ML 1ML VIAL SQ SCH ×2 (09:41→21:44)
[2019-04-03] MEDS: CYCLOBENZAPRINE HCL 5 MG TABLET PO SCH (09:42)
[2019-04-03] MEDS: lamoTRIgine 25 MG TABLET PO SCH ×2 (09:42→21:43)
[2019-04-03] MEDS: VITAMIN B COMP W-C 1 EA TABLET PO SCH (09:42)
[2019-04-03] MEDS: CEFAZOLIN 1 GM in DEXTROSE 5%-WATER - 50 ML IVPB SCH (09:43)
[2019-04-03] MEDS: POLYETHYLENE GLYCOL 3350 119 GM BTL PO SCH (09:49)
[2019-04-03] MEDS: KETOCONAZOLE 2% TOPICAL CREAM 15 GM TUBE TP SCH (09:50)
--- NOTE | 2019-04-03 10:42 | PN ---
Progress Note (short form) - Note Progress Note: no further fevers +blood cultures- ?avf manipulation, ?femoral line (out) repeat blood cultures from HD are positive Vital Signs Period Temp Pulse Resp BP Sys/Chaudhry Pulse Ox Last 24 Hr 98.0 F-98.9 F 59-75 18-20 123-147/58-76 98-99 cor-rrr llungs clear abd soft,nt ext right avf left hand with heplock left sided hemiparesis CBC, BMP 04/02/19 06:45 04/02/19 06:45 Microbiology 04/01/19 15:10 Blood - Peripheral Venous Blood Culture - Preliminary Staphylococcus Latex Coag Pos 04/01/19 15:10 Blood - Peripheral Venous Blood Culture - Preliminary Staphylococcus Latex Coag Pos 03/31/19 01:00 Blood - Peripheral Venous Blood Culture - Final Staphylococcus Aureus a/p staph bacteremia- repeat blood cultures with HD positive 04/01, repeat drawn this am continue cefazolin poor iv access echo f/u cultures esrd/hd-s/p avf thrombectomy 03/29 history of afib with watchman device history cva with left hemiparesis Problem List - Problems (1) Fever Code(s): R50.9 - FEVER, UNSPECIFIED (2) AV fistula thrombosis Code(s): T82.868A - THROMBOSIS DUE TO VASCULAR PROSTH DEV/GRFT, INIT Qualifiers: Encounter type: subsequent encounter Qualified Code(s): T82.868D - Thrombosis due to vascular prosthetic devices, implants and grafts, subsequent encounter (3) ESRD (end stage renal disease) on dialysis Code(s): N18.6 - END STAGE RENAL DISEASE; Z99.2 - DEPENDENCE ON RENAL DIALYSIS
--- NOTE | 2019-04-03 11:55 | PN ---
Teaching Attending Note Name of Resident: Dee Echeverria ATTENDING PHYSICIAN STATEMENT I saw and evaluated the patient. I reviewed the resident's note and discussed the case with the resident. I agree with the resident's findings and plan as documented. SUBJECTIVE: Fever resolved. Feels well - no complaints. No nausea/vomiting. No lightheadedness/dizziness/chest pain/palpitations. No cough/sputum/dysuria/ diarrhea. POD 5 s/p RUE AV fistula suction thrombectomy/venoplasty for thrombosed AV fistula. Repeat Blood Cx positive for Gram pos cocci in clusters (1st BCx pos for MSSA) OBJECTIVE: Afebrile, Hemodynamically Stable Last Vital Signs Temp Pulse Resp BP Pulse Ox 98.1 F 72 20 140/76 99 04/03/19 09:38 04/03/19 09:38 04/03/19 09:38 04/03/19 09:38 04/03/19 09:38 Heart - S1, S2, irregular Lungs - good air entry bilaterally Abdomen - Soft, non-tender. Bowel Sounds normal. Extremities RUE AV Fistula - thrill/bruit re-established, site currently dressed. Neuro - AAO x 3. Chronic LUE weakness. Microbiology 04/01/19 15:10 Blood Culture - Preliminary Blood - Peripheral Venous Staphylococcus Latex Coag Pos 04/01/19 15:10 Blood Culture - Preliminary Blood - Peripheral Venous Staphylococcus Latex Coag Pos 03/31/19 01:00 Blood Culture - Final Blood - Peripheral Venous Staphylococcus Aureus Current Medications Generic Name Dose Route Start Last Admin Trade Name Freq PRN Reason Stop Dose Admin Acetaminophen 1,000 mg 03/30/19 16:00 04/02/19 20:07 Tylenol - PO 1,000 mg Q6H PRN Administration FEVER Aspirin 81 mg 03/31/19 10:00 04/03/19 09:40 Asa - PO 81 mg DAILY SANDEEP Administration Atorvastatin Calcium 20 mg 03/29/19 22:00 04/02/19 21:25 Lipitor - PO 20 mg HS SANDEEP Administration Calcium Acetate 2,001 mg 03/30/19 08:00 04/03/19 09:39 Phoslo - PO 2,001 mg TIDCM SANDEEP Administration Cyclobenzaprine HCl 5 mg 03/30/19 10:00 04/03/19 09:42 Cyclobenzaprine Hcl PO 5 mg DAILY SANDEEP Administration Docusate Sodium 100 mg 03/29/19 22:00 04/03/19 05:52 Colace - PO 100 mg TID SANDEEP Administration Escitalopram Oxalate 5 mg 03/31/19 10:00 04/03/19 09:40 Lexapro - PO 5 mg DAILY SANDEEP Administration Heparin Sodium (Porcine) 5,000 unit 03/29/19 22:00 04/03/19 09:41 Heparin - SQ 5,000 unit BID SANDEEP Administration Cefazolin Sodium 1 gm/ 50 mls @ 100 mls/hr 04/01/19 20:00 04/03/19 09:43 Dextrose IVPB 100 mls/hr DAILY SANDEEP Administration Ketoconazole 1 applic 03/30/19 10:00 04/03/19 09:50 Nizoral 2% Cream - TP 1 applic DAILY SANDEEP Administration Lamotrigine 25 mg 03/29/19 22:00 04/03/19 09:42 Lamictal - PO 25 mg BID SANDEEP Administration Levetiracetam 1,000 mg/ 1,250 mg 03/30/19 10:00 04/03/19 09:40 Levetiracetam 250 mg PO 1,250 mg DAILY SANDEEP Administration Levetiracetam 1,000 mg 03/29/19 22:00 04/02/19 21:26 Keppra - PO 1,000 mg HS SANDEEP Administration Metoprolol Succinate 12.5 mg 03/31/19 10:00 04/03/19 09:41 Toprol Xl - PO 12.5 mg DAILY SANDEEP Administration Multivit/Ca Carb/B Cmplx/FA/Prenat 1 tablet 03/30/19 10:00 04/03/19 09:42 Nephro-Lashanda - PO 1 tablet DAILY SANDEEP Administration Pantoprazole Sodium 20 mg 03/31/19 10:00 04/03/19 09:41 Protonix - PO 20 mg DAILY SANDEEP Administration Polyethylene Glycol 17 gm 03/30/19 10:00 04/03/19 09:49 Miralax (For Daily Use) - PO Not Given DAILY [facility] Home Medications Medication Instructions Recorded Escitalopram Oxalate [Lexapro -] 5 mg PO DAILY 08/02/16 Aspirin 81 mg PO HS 10/23/17 Calcium Acetate [Phoslo -] 3 cap PO TID 10/23/17 Metoprolol Succinate [Toprol Xl] 12.5 mg PO ASDIR 10/23/17 Vit B Comp No.3/Folic/C/Biotin 1 each PO DAILY 01/31/18 [Gavi-Lashanda Rx Tablet] Acetaminophen [Tylenol] 325 mg PO PRN 04/09/18 Docusate Sodium [Colace] 100 mg PO TID 04/09/18 Mupirocin Cream [Bactroban 2% 1 applic .ROUTE DAILY 04/09/18 Cream -] Pantoprazole Sodium [Protonix -] 20 mg PO DAILY 04/09/18 levETIRAcetam [Keppra -] 1,000 mg PO BID 04/09/18 Atorvastatin Ca [Lipitor] 20 mg DAILY 03/29/19 Cyclobenzaprine HCl 5 mg DAILY 03/29/19 Ketoconazole 2% Cream [Nizoral 2% 1 applic TP DAILY 03/29/19 Cream -] Lamotrigine 25 mg PO BID 03/29/19 Levetiracetam [Keppra] 250 mg PO DAILY 03/29/19 Polyethylene Glycol 3350 [Miralax 17 gm PO DAILY 03/29/19 119 gm Btl -] ASSESSMENT AND PLAN: 63 year old male with ESRD (HD on M/W/F), Atrial Fibrillation (s/p AICD and watchman device 207), HTN, Hx CVA (2015 w/residual LUE weakness), Ischemic colitis (s/p resection 2017) and Seizure Disorder, presents from dialysis with thrombosed AV fistula and Bradycardia. 1. ESRD (HD on M/W/F) - AV fistula clotted - POD 5 s/p percutaneous suction thrombectomy Successful HD via AV fistula 04/01 - femoral shiley removed (placed for urgent HD when fistula thrombosed). Nephrology, Vascular Sx following. Resumed on Aspirin. 2. MSSA Bacteremia - developed POD 1 s/p AV fistula thrombectomy, likely procedure/fistula related. CXR - No acute findings, percutaneous L Loop recorder, L axillary vascular stent. 1 Blood Cx - MSSA, repeat Blood Cx done on HD also positive for gram pos cocci, final ID pending. Fever now resolved, Leukocytosis resolved Hemodynamically Stable. Empiric Abx IV Vanc/Zosyn switched to IV Cefazolin by ID. Another set of Blood Cx sent. Echo -normal. ID following. 3. Atrial Fibrillation (s/p Watchman's) with slow ventricular response - resolved. Metoprolol, Lexapro, Protonix resumed. Echo - normal. Resumed on home medications as per Cardio. No AC due to SDH Hx. Resumed on Aspirin. 4. Hyperkalemia/Uremia sec to ESRD - resolved s/p HD 5. Normocytic Anemia - likely sec to ESRD. Iron 100, Iron Sat 14%, B12 - 1918, Folate 15. H.H dropping - further monitoring/management ?Epo as per Nephrology. 6. HTN - Metoprolol resumed. 7. Seizure Disorder - continue Keppra, Lamotrigine 8. HLD - Continue Lipitor. 9. Hx CVA - continue Aspirin, Statin DVT Px - Heparin SQ
--- NOTE | 2019-04-03 12:46 | PN ---
Physical Exam: SUBJECTIVE: Patient seen and examined at bedside. No acute events overnight. Pt seen sitting in chair comfortably. Denies f/c, n/v, chest pain, sob, abd pain, urinary/bowel symptoms. OBJECTIVE: Vital Signs Temperature 98.1 F 04/03/19 09:38 Pulse Rate 72 04/03/19 09:38 Respiratory Rate 20 04/03/19 09:38 Blood Pressure 140/76 04/03/19 09:38 O2 Sat by Pulse Oximetry (%) 99 04/03/19 09:38 GENERAL: AOx3, in no acute distress, friendly demeanor HEAD: No signs of trauma, normocephalic EYES: JOÃO, EOMI, incteric sclera ENT: Ears normal, nares patent, oropharynx clear without exudates. Moist mucous membranes. NECK: Normal range of motion, supple without lymphadenopathy, JVD, or masses. LUNGS: Clear to auscultation bilaterally. No wheezes, and no crackles. No accessory muscle use. HEART: Irregular rhythm, bradycardic, no ausculated murmurs or rubs. ABDOMEN: Midline surgical scar. Soft, BS present in all 4 quadrants, non- distended, non tender. MUSCULOSKELETAL: No bony deformities or tenderness. No CVA tenderness. UPPER EXTREMITIES: RUE fistula Auscultated bruit and palpated thrill. 2+ pulses , warm, well-perfused. No cyanosis. No clubbing. No peripheral edema. LOWER EXTREMITIES: 2+ pulses, warm, well-perfused. No calf tenderness. No peripheral edema. NEUROLOGICAL: LUE 0/5 power. RLE 5/5, UE 5/5 BL. Mild left facial droop with loss of nasolabial fold. All other CN intact. Normal speech. Walks with rollator. Slowed gait. PSYCHIATRIC: Cooperative. Good eye contact. Appropriate mood and affect. SKIN: Warm, dry, normal turgor,normal capillary refill, shunt scar on skin CBC, BMP 04/02/19 06:45 04/02/19 06:45 Microbiology 04/01/19 15:10 Blood Culture - Preliminary Blood - Peripheral Venous Staphylococcus Latex Coag Pos 04/01/19 15:10 Blood Culture - Preliminary Blood - Peripheral Venous Staphylococcus Latex Coag Pos 03/31/19 01:00 Blood Culture - Final Blood - Peripheral Venous Staphylococcus Aureus Active Medications Acetaminophen (Tylenol -) 1,000 mg PO Q6H PRN PRN Reason: FEVER Last Admin: 04/02/19 20:07 Dose: 1,000 mg Aspirin (Asa -) 81 mg PO DAILY [facility] Last Admin: 04/03/19 09:40 Dose: 81 mg Atorvastatin Calcium (Lipitor -) 20 mg PO HS [facility] Last Admin: 04/02/19 21:25 Dose: 20 mg Calcium Acetate (Phoslo -) 2,001 mg PO TIDCM [facility] Last Admin: 04/03/19 12:24 Dose: 2,001 mg Cyclobenzaprine HCl (Cyclobenzaprine Hcl) 5 mg PO DAILY [facility] Last Admin: 04/03/19 09:42 Dose: 5 mg Docusate Sodium (Colace -) 100 mg PO TID [facility] Last Admin: 04/03/19 05:52 Dose: 100 mg Escitalopram Oxalate (Lexapro -) 5 mg PO DAILY [facility] Last Admin: 04/03/19 09:40 Dose: 5 mg Heparin Sodium (Porcine) (Heparin -) 5,000 unit SQ BID [facility] Last Admin: 04/03/19 09:41 Dose: 5,000 unit Cefazolin Sodium 1 gm/ (Dextrose) 50 mls @ 100 mls/hr IVPB DAILY [facility] Last Admin: 04/03/19 09:43 Dose: 100 mls/hr Ketoconazole (Nizoral 2% Cream -) 1 applic TP DAILY [facility] Last Admin: 04/03/19 09:50 Dose: 1 applic Lamotrigine (Lamictal -) 25 mg PO BID [facility] Last Admin: 04/03/19 09:42 Dose: 25 mg Levetiracetam 1,000 mg/ (Levetiracetam 250 mg) 1,250 mg PO DAILY [facility] Last Admin: 04/03/19 09:40 Dose: 1,250 mg Levetiracetam (Keppra -) 1,000 mg PO HS [facility] Last Admin: 04/02/19 21:26 Dose: 1,000 mg Metoprolol Succinate (Toprol Xl -) 12.5 mg PO DAILY [facility] Last Admin: 04/03/19 09:41 Dose: 12.5 mg Multivit/Ca Carb/B Cmplx/FA/Prenat (Nephro-Lashanda -) 1 tablet PO DAILY [facility] Last Admin: 04/03/19 09:42 Dose: 1 tablet Pantoprazole Sodium (Protonix -) 20 mg PO DAILY [facility] Last Admin: 04/03/19 09:41 Dose: 20 mg Polyethylene Glycol (Miralax (For Daily Use) -) 17 gm PO DAILY [facility] Last Admin: 04/03/19 09:49 Dose: Not Given ASSESSMENT/PLAN: 63 year old male with a past medical history ESRD (M, W, F at [facility] on [address]), Afib (defibrilator and monitor in place and s/p Watchman implant), HTN, 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 #MSSA Bacteremia; POD #5 s/p percutaneous suction thrombectomy. Infection may be related to fistula -1st set Bc +MSSA, 2nd set of BCx still +GPC; await 3rd set Bcx this AM -Previously on empiric IV Vanc/Zosyn, switched to IV Cezolin per ID; await further recs -Afebrile, leukocytosis resolved. #ESRD; HD on MWF - AV fistula thrombosed, s/p percutaneous suction thrombectomy , POD #5 - successful -Had Shiley placed for HD while in hospital for urgent HD, now removed -Consult nephrology, for dialysis while in hospital #Afib; with slow ventricular response, s/p Watchmen device. Resolved, was likely in setting of missed dialysis sessions Cont home meds: Toprol XL, Lexapro, Protonix -Echo (04/01/19) unremarkable -No AC due to hx of SDH; cont home ASA 81 #HTN/HLD; Cont home meds: Toprol XL 12.5, Lipitor 20 #Seizure Disorder; Cont home meds: Keppra 1250mg AM, 1000mg HS; Lamictal 25 BID - Keppra level elevated, blood level drawn on admission, patient has received multiple sessions of dialysis and Keppra is dialyzable, no seizure activity noted since admission #Hx of CVA; Cont home meds: ASA 81, Lipitor 20 #Normocytic Anemia; likely in setting of ESRD -iron levels showing likely anemia of chronic disease -B12 and folate within normal limits -Cont to monitor CBC; no acute bleeding episodes #FEN - No IVF, monitor PO intake - Continue to monitor electrolytes and replete or control as necessary - Renal diet #Prophylaxis DVT: SQH GI: Cont home med: Protonix 20 Dispo - Continue to monitor on telemetry Visit type - Emergency Visit Emergency Visit: Yes ED Registration Date: 03/31/19 Care time: The patient presented to the Emergency Department on the above date and was hospitalized for further evaluation of their emergent condition. - New Patient This patient is new to me today: No - Critical Care Critical Care patient: No ATTENDING PHYSICIAN STATEMENT I saw and evaluated the patient. I reviewed the resident's note and discussed the case with the resident. I agree with the resident's findings and plan as documented. SUBJECTIVE: OBJECTIVE: ASSESSMENT AND PLAN:
--- NOTE | 2019-04-03 19:15 | PN ---
Progress Note, Physician History of Present Illness: POD#5 Percutaneous suction thrombectomy and venoplasty cephalic vein for thrombosed AV fistula right arm. Bradycardia has resolved, no longer febrile, MSSA in blood cx, awaiting clearance. - Current Medication List Current Medications: Active Medications Acetaminophen (Tylenol -) 1,000 mg PO Q6H PRN PRN Reason: FEVER Last Admin: 04/02/19 20:07 Dose: 1,000 mg Aspirin (Asa -) 81 mg PO DAILY [facility] Last Admin: 04/03/19 09:40 Dose: 81 mg Atorvastatin Calcium (Lipitor -) 20 mg PO HS [facility] Last Admin: 04/02/19 21:25 Dose: 20 mg Calcium Acetate (Phoslo -) 2,001 mg PO TIDCM [facility] Last Admin: 04/03/19 17:59 Dose: 2,001 mg Cyclobenzaprine HCl (Cyclobenzaprine Hcl) 5 mg PO DAILY [facility] Last Admin: 04/03/19 09:42 Dose: 5 mg Docusate Sodium (Colace -) 100 mg PO TID [facility] Last Admin: 04/03/19 14:10 Dose: 100 mg Escitalopram Oxalate (Lexapro -) 5 mg PO DAILY [facility] Last Admin: 04/03/19 09:40 Dose: 5 mg Heparin Sodium (Porcine) (Heparin -) 5,000 unit SQ BID [facility] Last Admin: 04/03/19 09:41 Dose: 5,000 unit Cefazolin Sodium 1 gm/ (Dextrose) 50 mls @ 100 mls/hr IVPB DAILY [facility] Last Admin: 04/03/19 09:43 Dose: 100 mls/hr Ketoconazole (Nizoral 2% Cream -) 1 applic TP DAILY [facility] Last Admin: 04/03/19 09:50 Dose: 1 applic Lamotrigine (Lamictal -) 25 mg PO BID [facility] Last Admin: 04/03/19 09:42 Dose: 25 mg Levetiracetam 1,000 mg/ (Levetiracetam 250 mg) 1,250 mg PO DAILY [facility] Last Admin: 04/03/19 09:40 Dose: 1,250 mg Levetiracetam (Keppra -) 1,000 mg PO HS [facility] Last Admin: 04/02/19 21:26 Dose: 1,000 mg Metoprolol Succinate (Toprol Xl -) 12.5 mg PO DAILY [facility] Last Admin: 04/03/19 09:41 Dose: 12.5 mg Multivit/Ca Carb/B Cmplx/FA/Prenat (Nephro-Lashanda -) 1 tablet PO DAILY [facility] Last Admin: 04/03/19 09:42 Dose: 1 tablet Pantoprazole Sodium (Protonix -) 20 mg PO DAILY [facility] Last Admin: 04/03/19 09:41 Dose: 20 mg Polyethylene Glycol (Miralax (For Daily Use) -) 17 gm PO DAILY [facility] Last Admin: 04/03/19 09:49 Dose: Not Given - Objective Vital Signs: Vital Signs Temperature 98.1 F 04/03/19 13:45 Pulse Rate 54 L 04/03/19 13:45 Respiratory Rate 18 04/03/19 13:45 Blood Pressure 143/71 04/03/19 13:45 O2 Sat by Pulse Oximetry (%) 99 04/03/19 09:38 Constitutional: Yes: No Distress, Calm Neck: Yes: Supple Cardiovascular: Yes: Regular Rate and Rhythm Respiratory: Yes: Regular, CTA Bilaterally Gastrointestinal: Yes: Normal Bowel Sounds, Soft Edema: No Labs: CBC, BMP 04/02/19 06:45 04/02/19 06:45 INR, PTT INR 1.14 (0.83-1.09) H 03/28/19 16:45 - ....Imaging EKG: Report Reviewed (Tele: NSR) Problem List - Problems (1) AV fistula thrombosis Code(s): T82.868A - THROMBOSIS DUE TO VASCULAR PROSTH DEV/GRFT, INIT Qualifiers: Encounter type: subsequent encounter Qualified Code(s): T82.868D - Thrombosis due to vascular prosthetic devices, implants and grafts, subsequent encounter (2) Afib Code(s): I48.91 - UNSPECIFIED ATRIAL FIBRILLATION Qualifiers: Atrial fibrillation type: paroxysmal Qualified Code(s): I48.0 - Paroxysmal atrial fibrillation (3) Anemia Code(s): D64.9 - ANEMIA, UNSPECIFIED Qualifiers: Anemia type: due to chronic kidney disease (4) Diastolic dysfunction without heart failure Code(s): I51.9 - HEART DISEASE, UNSPECIFIED (5) ESRD (end stage renal disease) Code(s): N18.6 - END STAGE RENAL DISEASE (6) Status post placement of implantable loop recorder Code(s): Z95.818 - PRESENCE OF OTHER CARDIAC IMPLANTS AND GRAFTS (7) Status post radiofrequency ablation for arrhythmia Code(s): Z98.890 - OTHER SPECIFIED POSTPROCEDURAL STATES; Z86.79 - PERSONAL HISTORY OF OTHER DISEASES OF THE CIRCULATORY SYSTEM (8) MSSA bacteremia Code(s): R78.81 - BACTEREMIA Assessment/Plan 03/29/2019 Echo: Normal LV and RV size and fxn, normal biatrial sizes, mild MR, TR 1. Bradycardia referable to medications and metabolic disorder since resolved 2. ESRD with clotted AVF s/p percutaneous suction thrombectomy and venoplasty cephalic vein 3. hx CVA 4. Seizure d/o 5. HTN 6. hyperlipidemia 7. Anemia of CKD 8. hx subdural hemorrhage 9. hyperkalemia 10. PAF->SR, h/o ILR 11. Fever, leukocytosis and chills, -> MSSA bacteremia Plan 1. HD via AVF per renal with monitor potassium, continue Toprol XL 12.5 qd, not on a/c due to h/o SDH 2. Resumed ASA 81 qd as hemostasis achieved 3. Continue Lipitor 20 qd 4. Ancef per C&S, f/u surveillance cultures to document clearance
[2019-04-03] MEDS ORDERED: SODIUM CHLORIDE 250 ML IV PRN (19:43)
[2019-04-03] MEDS: ATORVASTATIN CA 20 MG TABLET (FP) PO SCH (21:43)
[2019-04-03] MEDS: levETIRAcetam 500 MG TABLET (FP) PO SCH (21:43)
[2019-04-03] MEDS: ACETAMINOPHEN 500 MG TABLET (FP) PO PRN (21:44)
[2019-04-04] MEDS: DOCUSATE SODIUM 100 MG CAPSULE (FP) PO SCH ×3 (05:53→21:26)
[2019-04-04] MEDS ORDERED: HEPARIN NA (PORCINE) 5,000 UNITS/ML 1ML VIAL IVPUSH ONE (07:00)
[2019-04-04] MEDS: CALCIUM ACETATE 667 MG CAPSULE (FP) PO SCH ×3 (09:09→17:41)
--- NOTE | 2019-04-04 10:21 | PN ---
Progress Note, Physician Chief Complaint: Events noted Not in distress History of Present Illness: Patient was seen and examined. Awake and alert. Chart was reviewed Denies chest pain, SOB or palpitations - Current Medication List Current Medications: Active Medications Acetaminophen (Tylenol -) 1,000 mg PO Q6H PRN PRN Reason: FEVER Last Admin: 04/03/19 21:44 Dose: 1,000 mg Aspirin (Asa -) 81 mg PO DAILY [facility] Last Admin: 04/03/19 09:40 Dose: 81 mg Atorvastatin Calcium (Lipitor -) 20 mg PO HS [facility] Last Admin: 04/03/19 21:43 Dose: 20 mg Calcium Acetate (Phoslo -) 2,001 mg PO TIDCM [facility] Last Admin: 04/04/19 09:09 Dose: Not Given Cyclobenzaprine HCl (Cyclobenzaprine Hcl) 5 mg PO DAILY [facility] Last Admin: 04/03/19 09:42 Dose: 5 mg Docusate Sodium (Colace -) 100 mg PO TID [facility] Last Admin: 04/04/19 05:53 Dose: 100 mg Escitalopram Oxalate (Lexapro -) 5 mg PO DAILY [facility] Last Admin: 04/03/19 09:40 Dose: 5 mg Heparin Sodium (Porcine) (Heparin -) 5,000 unit SQ BID [facility] Last Admin: 04/03/19 21:44 Dose: 5,000 unit Cefazolin Sodium 1 gm/ (Dextrose) 50 mls @ 100 mls/hr IVPB DAILY [facility] Last Admin: 04/03/19 09:43 Dose: 100 mls/hr Sodium Chloride (Normal Saline -) 250 mls @ 3,000 mls/hr IV PRN PRN PRN Reason: Hypotension during Dialysis Stop: 04/04/19 19:43 Ketoconazole (Nizoral 2% Cream -) 1 applic TP DAILY [facility] Last Admin: 04/03/19 09:50 Dose: 1 applic Lamotrigine (Lamictal -) 25 mg PO BID [facility] Last Admin: 04/03/19 21:43 Dose: 25 mg Levetiracetam 1,000 mg/ (Levetiracetam 250 mg) 1,250 mg PO DAILY [facility] Last Admin: 04/03/19 09:40 Dose: 1,250 mg Levetiracetam (Keppra -) 1,000 mg PO HS [facility] Last Admin: 04/03/19 21:43 Dose: 1,000 mg Metoprolol Succinate (Toprol Xl -) 12.5 mg PO DAILY [facility] Last Admin: 04/03/19 09:41 Dose: 12.5 mg Multivit/Ca Carb/B Cmplx/FA/Prenat (Nephro-Lashanda -) 1 tablet PO DAILY [facility] Last Admin: 04/03/19 09:42 Dose: 1 tablet Pantoprazole Sodium (Protonix -) 20 mg PO DAILY [facility] Last Admin: 04/03/19 09:41 Dose: 20 mg Polyethylene Glycol (Miralax (For Daily Use) -) 17 gm PO DAILY [facility] Last Admin: 04/03/19 09:49 Dose: Not Given - Objective Vital Signs: Vital Signs Temperature 97.9 F 04/04/19 06:00 Pulse Rate 58 L 04/04/19 06:00 Respiratory Rate 18 04/04/19 06:00 Blood Pressure 122/47 L 04/04/19 06:00 O2 Sat by Pulse Oximetry (%) 100 04/03/19 21:00 Eyes: Yes: PERRL HENT: Yes: Atraumatic Neck: Yes: Supple Cardiovascular: Yes: Bradycardia, S1, S2 Respiratory: Yes: Diminished Gastrointestinal: Yes: Normal Bowel Sounds, Soft. No: Tenderness Edema: No Additional Findings/Remarks: - Review of Systems Constitutional: denies: Chills, Fever Cardiovascular: denies Palpitations, Shortness of Breath. denies: Chest Pain Respiratory: denies SOB. denies: Cough, Hemoptysis, PND, Snoring, SOB on Exertion, Wheezing Gastrointestinal: denies Abdominal Pain, Bloating, Diarrhea, Nausea, Vomiting. denies: Constipation, Melena, Rectal Bleeding Genitourinary: denies: Discharge, Hematuria Neurological: denies: Dizziness, Headache, Seizure, Syncope Problem List - Problems (1) AV fistula thrombosis Code(s): T82.868A - THROMBOSIS DUE TO VASCULAR PROSTH DEV/GRFT, INIT Qualifiers: Encounter type: subsequent encounter Qualified Code(s): T82.868D - Thrombosis due to vascular prosthetic devices, implants and grafts, subsequent encounter (2) Bradycardia Code(s): R00.1 - BRADYCARDIA, UNSPECIFIED (3) Afib Code(s): I48.91 - UNSPECIFIED ATRIAL FIBRILLATION Qualifiers: Atrial fibrillation type: paroxysmal Qualified Code(s): I48.0 - Paroxysmal atrial fibrillation (4) Anemia Code(s): D64.9 - ANEMIA, UNSPECIFIED Qualifiers: Anemia type: due to chronic kidney disease (5) CVA (cerebral vascular accident) Code(s): I63.9 - CEREBRAL INFARCTION, UNSPECIFIED Qualifiers: CVA mechanism: unspecified Qualified Code(s): I63.9 - Cerebral infarction, unspecified (6) Diastolic dysfunction without heart failure Code(s): I51.9 - HEART DISEASE, UNSPECIFIED (7) ESRD (end stage renal disease) Code(s): N18.6 - END STAGE RENAL DISEASE (8) Hemodialysis access, arteriovenous graft Code(s): Z99.2 - DEPENDENCE ON RENAL DIALYSIS (9) Hyperkalemia Code(s): E87.5 - HYPERKALEMIA (10) Hypertension Code(s): I10 - ESSENTIAL (PRIMARY) HYPERTENSION Qualifiers: Hypertension type: essential hypertension Qualified Code(s): I10 - Essential (primary) hypertension (11) Seizure Code(s): R56.9 - UNSPECIFIED CONVULSIONS (12) Status post placement of implantable loop recorder Code(s): Z95.818 - PRESENCE OF OTHER CARDIAC IMPLANTS AND GRAFTS (13) Status post radiofrequency ablation for arrhythmia Code(s): Z98.890 - OTHER SPECIFIED POSTPROCEDURAL STATES; Z86.79 - PERSONAL HISTORY OF OTHER DISEASES OF THE CIRCULATORY SYSTEM Assessment/Plan 1. Bradycardia referable to medications and metabolic disorder 2. ESRD with clotted AVF s/p percutaneous suction thrombectomy and venoplasty cephalic vein 3. CVA 4. Seizure disorder 5. HTN 6. hyperlipidemia 7. Anemia of CKD 8. Subdural hemorrhage 9. hyperkalemia 10. PAF currently in sinus rhythm 11. Presence of ILR and post Watchman 12. Fever and leukocytosis with MSSA bacteremia PLAN: 1. HD via AVF per renal with monitor electrolytes. 2. Continue Toprol XL 12.5 mg QD 3. Not on anticoagulation due to h/o SDH, instead he is post Watchman device 2. Continue ASA 81 mg QD as tolerated 3. Continue Lipitor 20 mg QHS 4. Antibiotic coverage Rusty Torres MD
[2019-04-04] MEDS: HEPARIN NA (PORCINE) 5,000 UNITS/ML 1ML VIAL SQ SCH ×2 (10:23→21:49)
[2019-04-04 11:03] LABS: HEMATOCRIT 29.1 % (35.4-49); HEMOGLOBIN 9.1 GM/dL (11.7-16.9); MCH 25.2 pg (25.7-33.7); MCHC 31.1 g/dl (32.0-35.9); MEAN CELL VOLUME 80.9 fl (80-96); MEAN PLT VOLUME 9.1 fl (7.5-11.1); PLATELET COUNT 187 K/MM3 (134-434); RDW 17.3 % (11.9-15.9); WHITE BLOOD COUNT 6.6 K/mm3 (4.0-10.0)
[2019-04-04 11:25] LABS: BLOOD UREA NITROGEN 62.7 mg/dL (7-18); CALCIUM 8.2 mg/dL (8.5-10.1); POTASSIUM 4.5 mmol/L (3.5-5.1)
[2019-04-04] MEDS: HEPARIN NA (PORCINE) 5,000 UNITS/ML 1ML VIAL IVPUSH SCH ×3 (11:25→13:20)
[2019-04-04 11:31] LABS: CREATININE 13.2 mg/dL (0.55-1.3)
--- NOTE | 2019-04-04 13:57 | PN ---
Physical Exam: SUBJECTIVE: Patient seen and examined at the bedside. States he is doing well, denies cp, sob, abd pain, n/v/c/d, fever, chills. For dialysis today. OBJECTIVE: Vital Signs Period Temp Pulse Resp BP Sys/Chaudhry Pulse Ox Last 24 Hr 97.8 F-98.6 F 50-73 18-20 102-140/47-80 99-100 GENERAL: AOx3, in no acute distress, friendly demeanor HEAD: No signs of trauma, normocephalic EYES: JOÃO, EOMI, incteric sclera ENT: Ears normal, nares patent, oropharynx clear without exudates. Moist mucous membranes. NECK: Normal range of motion, supple without lymphadenopathy, JVD, or masses. LUNGS: Clear to auscultation bilaterally. No wheezes, and no crackles. No accessory muscle use. HEART: Irregular rhythm, bradycardic, no ausculated murmurs or rubs. ABDOMEN: Midline surgical scar. Soft, BS present in all 4 quadrants, non- distended, non tender. MUSCULOSKELETAL: No bony deformities or tenderness. No CVA tenderness. UPPER EXTREMITIES: RUE fistula Auscultated bruit and palpated thrill. 2+ pulses , warm, well-perfused. No cyanosis. No clubbing. No peripheral edema. LOWER EXTREMITIES: 2+ pulses, warm, well-perfused. No calf tenderness. No peripheral edema. NEUROLOGICAL: LUE 0/5 power. RLE 5/5, UE 5/5 BL. Mild left facial droop with loss of nasolabial fold. All other CN intact. Normal speech. Walks with rollator. Slowed gait. PSYCHIATRIC: Cooperative. Good eye contact. Appropriate mood and affect. SKIN: Warm, dry, normal turgor, normal capillary refill, shunt scar on skin Laboratory Results - last 24 hr 04/04/19 04/04/19 10:22 10:22 WBC 6.6 RBC 3.60 L Hgb 9.1 L Hct 29.1 L MCV 80.9 MCH 25.2 L MCHC 31.1 L RDW 17.3 H Plt Count 187 MPV 9.1 D Sodium 138 Potassium 4.5 Chloride 101 Carbon Dioxide 25 Anion Gap 12 BUN 62.7 H Creatinine 13.2 H* Est GFR (CKD-EPI)AfAm 4.11 Est GFR (CKD-EPI)NonAf 3.55 Random Glucose 139 H Calcium 8.2 L Active Medications Generic Name Dose Route Start Last Admin Trade Name Josee PRN Reason Stop Dose Admin Acetaminophen 1,000 mg 03/30/19 16:00 04/03/19 21:44 Tylenol - PO 1,000 mg Q6H PRN Administration FEVER Aspirin 81 mg 03/31/19 10:00 04/03/19 09:40 Asa - PO 81 mg DAILY [facility] Administration Atorvastatin Calcium 20 mg 03/29/19 22:00 04/03/19 21:43 Lipitor - PO 20 mg HS [facility] Administration Calcium Acetate 2,001 mg 03/30/19 08:00 04/04/19 12:51 Phoslo - PO Not Given TIDCM [facility] Cyclobenzaprine HCl 5 mg 03/30/19 10:00 04/03/19 09:42 Cyclobenzaprine Hcl PO 5 mg DAILY [facility] Administration Docusate Sodium 100 mg 03/29/19 22:00 04/04/19 05:53 Colace - PO 100 mg TID [facility] Administration Escitalopram Oxalate 5 mg 03/31/19 10:00 04/03/19 09:40 Lexapro - PO 5 mg DAILY [facility] Administration Heparin Sodium (Porcine) 5,000 unit 03/29/19 22:00 04/04/19 10:23 Heparin - SQ Not Given BID [facility] Cefazolin Sodium 1 gm/ 50 mls @ 100 mls/hr 04/01/19 20:00 04/03/19 09:43 Dextrose IVPB 100 mls/hr DAILY [facility] Administration Sodium Chloride 250 mls @ 3,000 mls/hr 04/03/19 19:43 Normal Saline - IV 04/04/19 19:43 PRN PRN Hypotension during Dialysis Ketoconazole 1 applic 03/30/19 10:00 04/03/19 09:50 Nizoral 2% Cream - TP 1 applic DAILY [facility] Administration Lamotrigine 25 mg 03/29/19 22:00 04/03/19 21:43 Lamictal - PO 25 mg BID [facility] Administration Levetiracetam 1,000 mg/ 1,250 mg 03/30/19 10:00 04/03/19 09:40 Levetiracetam 250 mg PO 1,250 mg DAILY [facility] Administration Levetiracetam 1,000 mg 03/29/19 22:00 04/03/19 21:43 Keppra - PO 1,000 mg HS [facility] Administration Metoprolol Succinate 12.5 mg 03/31/19 10:00 04/03/19 09:41 Toprol Xl - PO 12.5 mg DAILY [facility] Administration Multivit/Ca Carb/B Cmplx/FA/Prenat 1 tablet 03/30/19 10:00 04/03/19 09:42 Nephro-Lashanda - PO 1 tablet DAILY [facility] Administration Pantoprazole Sodium 20 mg 03/31/19 10:00 04/03/19 09:41 Protonix - PO 20 mg DAILY [facility] Administration Polyethylene Glycol 17 gm 03/30/19 10:00 04/03/19 09:49 Miralax (For Daily Use) - PO Not Given DAILY [facility] ASSESSMENT/PLAN: Neymar Yoon is a 63 year old male with a past medical history ESRD (M, W, F at [facility] on [address]), Afib (defibrilator and monitor in place and s/p Watchman implant), HTN, 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 MSSA Bacteremia; POD #6 s/p percutaneous suction thrombectomy. Infection may be related to fistula - 1st set Bc +MSSA, 2nd set of BCx still Staph Aureus; 3rd set Bcx negative await cultures after 48 hours due to previous late growth on last set of cultures; await blood cultures drawn through fistula - Previously on empiric IV Vanc/Zosyn, switched to IV Cezolin per ID; continue pending blood cultures sensitivity and speciation - as per ID, cannot start nafcillin due to limited peripheral access - Afebrile, leukocytosis resolved. ESRD - HD on MWF - AV fistula thrombosed, s/p percutaneous suction thrombectomy, POD #6 - successful - Had Shiley placed for HD while in hospital for urgent HD, now removed - Consult nephrology, for dialysis while in hospital Afib; with slow ventricular response, s/p Watchmen device. - Resolved, was likely in setting of missed dialysis sessions - cardio consulted, recs appreciated - Cont home meds: Toprol XL, Lexapro, Protonix - Echo (04/01/19) unremarkable - No AC due to hx of SDH; cont home ASA 81 HTN/HLD - Cont home meds: Toprol XL 12.5, Lipitor 20 Seizure Disorder - Cont home meds: Keppra 1250mg AM, 1000mg HS; Lamictal 25 BID - Keppra level elevated, blood level drawn on admission, patient has received multiple sessions of dialysis and Keppra is dialyzable - Keppra to be administered after dialysis Hx of CVA - Cont home meds: ASA 81, Lipitor 20 Normocytic Anemia - likely in setting of ESRD - iron levels showing likely anemia of chronic disease - B12 and folate within normal limits - Cont to monitor CBC; no acute bleeding episodes FEN - No IVF, monitor PO intake - Continue to monitor electrolytes and replete or control as necessary - Renal diet Prophylaxis - DVT: SQH - GI: Cont home med: Protonix 20 Dispo - Continue to monitor on telemetry Problem List - Problems (1) AV fistula thrombosis Code(s): T82.868A - THROMBOSIS DUE TO VASCULAR PROSTH DEV/GRFT, INIT Qualifiers: Encounter type: subsequent encounter Qualified Code(s): T82.868D - Thrombosis due to vascular prosthetic devices, implants and grafts, subsequent encounter (2) Bradycardia Code(s): R00.1 - BRADYCARDIA, UNSPECIFIED (3) Afib Code(s): I48.91 - UNSPECIFIED ATRIAL FIBRILLATION Qualifiers: Atrial fibrillation type: paroxysmal Qualified Code(s): I48.0 - Paroxysmal atrial fibrillation (4) Anemia Code(s): D64.9 - ANEMIA, UNSPECIFIED Qualifiers: Anemia type: due to chronic kidney disease (5) ESRD (end stage renal disease) Code(s): N18.6 - END STAGE RENAL DISEASE (6) Hemodialysis access, arteriovenous graft Code(s): Z99.2 - DEPENDENCE ON RENAL DIALYSIS (7) Hyperkalemia Code(s): E87.5 - HYPERKALEMIA (8) Hypertension Code(s): I10 - ESSENTIAL (PRIMARY) HYPERTENSION Qualifiers: Hypertension type: essential hypertension Qualified Code(s): I10 - Essential (primary) hypertension Visit type - Emergency Visit Emergency Visit: Yes ED Registration Date: 03/31/19 Care time: The patient presented to the Emergency Department on the above date and was hospitalized for further evaluation of their emergent condition. - New Patient This patient is new to me today: No - Critical Care Critical Care patient: No ATTENDING PHYSICIAN STATEMENT I saw and evaluated the patient. I reviewed the resident's note and discussed the case with the resident. I agree with the resident's findings and plan as documented. SUBJECTIVE: OBJECTIVE: ASSESSMENT AND PLAN:
--- NOTE | 2019-04-04 14:51 | PN ---
Progress Note (short form) - Note Progress Note: seen at HD feels well he is anurics/p cva repeat blood cultures sent yesterday will obtain cultures at HD today as well Vital Signs Period Temp Pulse Resp BP Sys/Chaudhry Pulse Ox Last 24 Hr 97.8 F-98.6 F 50-73 18-20 102-140/47-80 99-100 cor-rrr lungs clear abd soft,nt ext left hemiparesis CBC, BMP 04/04/19 10:22 04/04/19 10:22 Microbiology 04/01/19 15:10 Blood - Peripheral Venous Blood Culture - Final Staphylococcus Aureus 04/01/19 15:10 Blood - Peripheral Venous Blood Culture - Final Staphylococcus Aureus 04/03/19 08:20 Blood - Peripheral Venous Blood Culture - Preliminary NO GROWTH OBTAINED AFTER 24 HOURS, INCUBATION TO CONTINUE FOR 4 DAYS. 04/03/19 08:15 Blood - Peripheral Venous Blood Culture - Preliminary NO GROWTH OBTAINED AFTER 24 HOURS, INCUBATION TO CONTINUE FOR 4 DAYS. 03/31/19 01:00 Blood - Peripheral Venous Blood Culture - Final Staphylococcus Aureus a/p MSSA bacteremia- suspect skin - either thrombectomy of avf or femoral line recultures continue cefazolin cannot use nafcillin with such limited peripheral access f/u cultures s/p cva history of afib Problem List - Problems (1) Fever Code(s): R50.9 - FEVER, UNSPECIFIED (2) AV fistula thrombosis Code(s): T82.868A - THROMBOSIS DUE TO VASCULAR PROSTH DEV/GRFT, INIT Qualifiers: Encounter type: subsequent encounter Qualified Code(s): T82.868D - Thrombosis due to vascular prosthetic devices, implants and grafts, subsequent encounter (3) ESRD (end stage renal disease) on dialysis Code(s): N18.6 - END STAGE RENAL DISEASE; Z99.2 - DEPENDENCE ON RENAL DIALYSIS
[2019-04-04] MEDS ORDERED: levETIRAcetam 500 MG TABLET (FP) PO ONE (15:01)
[2019-04-04] MEDS ORDERED: PT OWN MED DRAWER 7, Y5N ONE (15:01)
[2019-04-04] MEDS ORDERED: levETIRAcetam 250 MG TABLET (FP) PO ONE (15:01)
[2019-04-04] MEDS ORDERED: ceFAZolin SODIUM 1 GM VIAL ONE (15:01)
[2019-04-04] MEDS ORDERED: DEXTROSE 5%-WATER - 50 ML IVPB ONE (15:02)
[2019-04-04] MEDS: metoPROLOL SUCCINATE 25 MG TAB.SR.24H (FP) PO SCH (15:17)
[2019-04-04] MEDS: PANTOPRAZOLE 20 MG TABLET (FP) PO SCH (15:19)
[2019-04-04] MEDS: ASPIRIN 81 MG CHEWABLE TABLETS PO SCH (15:19)
[2019-04-04] MEDS: VITAMIN B COMP W-C 1 EA TABLET PO SCH (15:20)
[2019-04-04] MEDS: CYCLOBENZAPRINE HCL 5 MG TABLET PO SCH (15:21)
[2019-04-04] MEDS: ESCITALOPRAM OXALATE 10 MG TABLET (FP) PO SCH (15:21)
[2019-04-04] MEDS: CEFAZOLIN 1 GM in DEXTROSE 5%-WATER - 50 ML IVPB SCH (15:23)
[2019-04-04] MEDS: lamoTRIgine 25 MG TABLET PO SCH ×2 (15:23→21:26)
[2019-04-04] MEDS: POLYETHYLENE GLYCOL 3350 119 GM BTL PO SCH (15:24)
[2019-04-04] MEDS: KETOCONAZOLE 2% TOPICAL CREAM 15 GM TUBE TP SCH (15:24)
--- NOTE | 2019-04-04 16:24 | PN ---
Progress Note, Physician History of Present Illness: Pt seen and examined at bedside. He is awake and alert. He denies shortness of breath. He tolerated HD today. - Current Medication List Current Medications: Active Medications Acetaminophen (Tylenol -) 1,000 mg PO Q6H PRN PRN Reason: FEVER Last Admin: 04/03/19 21:44 Dose: 1,000 mg Aspirin (Asa -) 81 mg PO DAILY [facility] Last Admin: 04/04/19 15:19 Dose: 81 mg Atorvastatin Calcium (Lipitor -) 20 mg PO HS [facility] Last Admin: 04/03/19 21:43 Dose: 20 mg Calcium Acetate (Phoslo -) 2,001 mg PO TIDCM [facility] Last Admin: 04/04/19 12:51 Dose: Not Given Cyclobenzaprine HCl (Cyclobenzaprine Hcl) 5 mg PO DAILY [facility] Last Admin: 04/04/19 15:21 Dose: 5 mg Docusate Sodium (Colace -) 100 mg PO TID [facility] Last Admin: 04/04/19 15:20 Dose: 100 mg Escitalopram Oxalate (Lexapro -) 5 mg PO DAILY [facility] Last Admin: 04/04/19 15:21 Dose: 5 mg Heparin Sodium (Porcine) (Heparin -) 5,000 unit SQ BID [facility] Last Admin: 04/04/19 10:23 Dose: Not Given Cefazolin Sodium 1 gm/ (Dextrose) 50 mls @ 100 mls/hr IVPB DAILY [facility] Last Admin: 04/04/19 15:23 Dose: 100 mls/hr Sodium Chloride (Normal Saline -) 250 mls @ 3,000 mls/hr IV PRN PRN PRN Reason: Hypotension during Dialysis Stop: 04/04/19 19:43 Ketoconazole (Nizoral 2% Cream -) 1 applic TP DAILY [facility] Last Admin: 04/04/19 15:24 Dose: 1 applic Lamotrigine (Lamictal -) 25 mg PO BID [facility] Last Admin: 04/04/19 15:23 Dose: 25 mg Levetiracetam 1,000 mg/ (Levetiracetam 250 mg) 1,250 mg PO DAILY [facility] Last Admin: 04/04/19 15:18 Dose: 1,250 mg Levetiracetam (Keppra -) 1,000 mg PO HS [facility] Last Admin: 04/03/19 21:43 Dose: 1,000 mg Metoprolol Succinate (Toprol Xl -) 12.5 mg PO DAILY [facility] Last Admin: 04/04/19 15:17 Dose: 12.5 mg Multivit/Ca Carb/B Cmplx/FA/Prenat (Nephro-Lashanda -) 1 tablet PO DAILY [facility] Last Admin: 04/04/19 15:20 Dose: 1 tablet Pantoprazole Sodium (Protonix -) 20 mg PO DAILY [facility] Last Admin: 04/04/19 15:19 Dose: 20 mg Polyethylene Glycol (Miralax (For Daily Use) -) 17 gm PO DAILY [facility] Last Admin: 04/04/19 15:24 Dose: Not Given - Objective Vital Signs: Vital Signs Temperature 98.0 F 04/04/19 15:17 Pulse Rate 80 04/04/19 15:17 Respiratory Rate 16 04/04/19 15:17 Blood Pressure 176/103 H 04/04/19 15:17 O2 Sat by Pulse Oximetry (%) 99 04/04/19 09:00 Constitutional: Yes: Calm Eyes: Yes: Conjunctiva Clear HENT: Yes: Atraumatic Neck: Yes: Supple Cardiovascular: Yes: S1, S2 Respiratory: Yes: CTA Bilaterally Gastrointestinal: Yes: Soft Genitourinary: Yes: WNL Edema: No Neurological: Yes: Oriented Psychiatric: Yes: Oriented Labs: CBC, BMP 04/04/19 10:22 04/04/19 10:22 INR, PTT INR 1.14 (0.83-1.09) H 03/28/19 16:45 Problem List - Problems (1) AV fistula thrombosis Code(s): T82.868A - THROMBOSIS DUE TO VASCULAR PROSTH DEV/GRFT, INIT Qualifiers: Encounter type: subsequent encounter Qualified Code(s): T82.868D - Thrombosis due to vascular prosthetic devices, implants and grafts, subsequent encounter (2) Bradycardia Code(s): R00.1 - BRADYCARDIA, UNSPECIFIED (3) ESRD (end stage renal disease) Code(s): N18.6 - END STAGE RENAL DISEASE Assessment/Plan Current Medications Generic Name Dose Route Start Last Admin Trade Name Freq PRN Reason Stop Dose Admin Acetaminophen 1,000 mg 03/30/19 16:00 04/03/19 21:44 Tylenol - PO 1,000 mg Q6H PRN Administration FEVER Aspirin 81 mg 03/31/19 10:00 04/04/19 15:19 Asa - PO 81 mg DAILY [facility] Administration Atorvastatin Calcium 20 mg 03/29/19 22:00 04/03/19 21:43 Lipitor - PO 20 mg HS [facility] Administration Calcium Acetate 2,001 mg 03/30/19 08:00 04/04/19 12:51 Phoslo - PO Not Given TIDCM [facility] Cyclobenzaprine HCl 5 mg 03/30/19 10:00 04/04/19 15:21 Cyclobenzaprine Hcl PO 5 mg DAILY [facility] Administration Docusate Sodium 100 mg 03/29/19 22:00 04/04/19 15:20 Colace - PO 100 mg TID [facility] Administration Escitalopram Oxalate 5 mg 03/31/19 10:00 04/04/19 15:21 Lexapro - PO 5 mg DAILY [facility] Administration Heparin Sodium (Porcine) 5,000 unit 03/29/19 22:00 04/04/19 10:23 Heparin - SQ Not Given BID [facility] Cefazolin Sodium 1 gm/ 50 mls @ 100 mls/hr 04/01/19 20:00 04/04/19 15:23 Dextrose IVPB 100 mls/hr DAILY [facility] Administration Sodium Chloride 250 mls @ 3,000 mls/hr 04/03/19 19:43 Normal Saline - IV 04/04/19 19:43 PRN PRN Hypotension during Dialysis Ketoconazole 1 applic 03/30/19 10:00 04/04/19 15:24 Nizoral 2% Cream - TP 1 applic DAILY [facility] Administration Lamotrigine 25 mg 03/29/19 22:00 04/04/19 15:23 Lamictal - PO 25 mg BID [facility] Administration Levetiracetam 1,000 mg/ 1,250 mg 03/30/19 10:00 04/04/19 15:18 Levetiracetam 250 mg PO 1,250 mg DAILY [facility] Administration Levetiracetam 1,000 mg 03/29/19 22:00 04/03/19 21:43 Keppra - PO 1,000 mg HS [facility] Administration Metoprolol Succinate 12.5 mg 03/31/19 10:00 04/04/19 15:17 Toprol Xl - PO 12.5 mg DAILY [facility] Administration Multivit/Ca Carb/B Cmplx/FA/Prenat 1 tablet 03/30/19 10:00 04/04/19 15:20 Nephro-Lashanda - PO 1 tablet DAILY [facility] Administration Pantoprazole Sodium 20 mg 03/31/19 10:00 04/04/19 15:19 Protonix - PO 20 mg DAILY [facility] Administration Polyethylene Glycol 17 gm 03/30/19 10:00 04/04/19 15:24 Miralax (For Daily Use) - PO Not Given DAILY [facility] Impression 1. ESRD 2. hx CVA 3. epilepsy 4. hx HTN 5. hyperlipidemia 6. anemia 7. hx subdural hemorrhage 8. hyperkalemia 9. bradycardia 10. bactermia Plan - HD today - follow repeat cultures - ID input appreciated - cont abx - monitor for fever - renal diet Dr Isaac
--- NOTE | 2019-04-04 18:58 | PN ---
Teaching Attending Note Name of Resident: Celestine Douglas ATTENDING PHYSICIAN STATEMENT I saw and evaluated the patient. I reviewed the resident's note and discussed the case with the resident. I agree with the resident's findings and plan as documented. SUBJECTIVE: Fever resolved. Feels great - no complaints. No nausea/vomiting. No lightheadedness/dizziness/chest pain/palpitations. No cough/sputum/dysuria/ diarrhea. POD 6 s/p RUE AV fistula suction thrombectomy/venoplasty for thrombosed AV fistula. Blood Cx x 3 pos for MSSA. OBJECTIVE: Afebrile, Hemodynamically Stable. Patinet seen and examined during HD Last Vital Signs Temp Pulse Resp BP Pulse Ox 98.1 F 75 20 128/95 99 04/04/19 18:40 04/04/19 18:40 04/04/19 18:40 04/04/19 18:40 04/04/19 09:00 Heart - S1, S2, irregular Lungs - good air entry bilaterally Abdomen - Soft, non-tender. Bowel Sounds normal. Extremities RUE AV Fistula - thrill/bruit re-established, site currently being used for HD Neuro - AAO x 3. Chronic LUE weakness. Laboratory Results - last 24 hr 04/04/19 04/04/19 10:22 10:22 WBC 6.6 RBC 3.60 L Hgb 9.1 L Hct 29.1 L MCV 80.9 MCH 25.2 L MCHC 31.1 L RDW 17.3 H Plt Count 187 MPV 9.1 D Sodium 138 Potassium 4.5 Chloride 101 Carbon Dioxide 25 Anion Gap 12 BUN 62.7 H Creatinine 13.2 H* Est GFR (CKD-EPI)AfAm 4.11 Est GFR (CKD-EPI)NonAf 3.55 Random Glucose 139 H Calcium 8.2 L Current Medications Generic Name Dose Route Start Last Admin Trade Name Freq PRN Reason Stop Dose Admin Acetaminophen 1,000 mg 03/30/19 16:00 04/03/19 21:44 Tylenol - PO 1,000 mg Q6H PRN Administration FEVER Aspirin 81 mg 03/31/19 10:00 04/04/19 15:19 Asa - PO 81 mg DAILY SANDEEP Administration Atorvastatin Calcium 20 mg 03/29/19 22:00 04/03/19 21:43 Lipitor - PO 20 mg HS SANDEEP Administration Calcium Acetate 2,001 mg 03/30/19 08:00 04/04/19 17:41 Phoslo - PO 2,001 mg TIDCM SANDEEP Administration Cyclobenzaprine HCl 5 mg 03/30/19 10:00 04/04/19 15:21 Cyclobenzaprine Hcl PO 5 mg DAILY SANDEEP Administration Docusate Sodium 100 mg 03/29/19 22:00 04/04/19 15:20 Colace - PO 100 mg TID SANDEEP Administration Escitalopram Oxalate 5 mg 03/31/19 10:00 04/04/19 15:21 Lexapro - PO 5 mg DAILY SANDEEP Administration Heparin Sodium (Porcine) 5,000 unit 03/29/19 22:00 04/04/19 10:23 Heparin - SQ Not Given BID SANDEEP Cefazolin Sodium 1 gm/ 50 mls @ 100 mls/hr 04/01/19 20:00 04/04/19 15:23 Dextrose IVPB 100 mls/hr DAILY SANDEEP Administration Sodium Chloride 250 mls @ 3,000 mls/hr 04/03/19 19:43 Normal Saline - IV 04/04/19 19:43 PRN PRN Hypotension during Dialysis Ketoconazole 1 applic 03/30/19 10:00 04/04/19 15:24 Nizoral 2% Cream - TP 1 applic DAILY SANDEEP Administration Lamotrigine 25 mg 03/29/19 22:00 04/04/19 15:23 Lamictal - PO 25 mg BID SANDEEP Administration Levetiracetam 1,000 mg/ 1,250 mg 03/30/19 10:00 04/04/19 15:18 Levetiracetam 250 mg PO 1,250 mg DAILY SANDEEP Administration Levetiracetam 1,000 mg 03/29/19 22:00 04/03/19 21:43 Keppra - PO 1,000 mg HS SANDEEP Administration Metoprolol Succinate 12.5 mg 03/31/19 10:00 04/04/19 15:17 Toprol Xl - PO 12.5 mg DAILY SANDEEP Administration Multivit/Ca Carb/B Cmplx/FA/Prenat 1 tablet 03/30/19 10:00 04/04/19 15:20 Nephro-Lashanda - PO 1 tablet DAILY SANDEEP Administration Pantoprazole Sodium 20 mg 03/31/19 10:00 04/04/19 15:19 Protonix - PO 20 mg DAILY SANDEEP Administration Polyethylene Glycol 17 gm 03/30/19 10:00 04/04/19 15:24 Miralax (For Daily Use) - PO Not Given DAILY [facility] Home Medications Medication Instructions Recorded Escitalopram Oxalate [Lexapro -] 5 mg PO DAILY 08/02/16 Aspirin 81 mg PO HS 10/23/17 Calcium Acetate [Phoslo -] 3 cap PO TID 10/23/17 Metoprolol Succinate [Toprol Xl] 12.5 mg PO ASDIR 10/23/17 Vit B Comp No.3/Folic/C/Biotin 1 each PO DAILY 01/31/18 [Gavi-Lashanda Rx Tablet] Acetaminophen [Tylenol] 325 mg PO PRN 04/09/18 Docusate Sodium [Colace] 100 mg PO TID 04/09/18 Mupirocin Cream [Bactroban 2% 1 applic .ROUTE DAILY 04/09/18 Cream -] Pantoprazole Sodium [Protonix -] 20 mg PO DAILY 04/09/18 levETIRAcetam [Keppra -] 1,000 mg PO BID 04/09/18 Atorvastatin Ca [Lipitor] 20 mg DAILY 03/29/19 Cyclobenzaprine HCl 5 mg DAILY 03/29/19 Ketoconazole 2% Cream [Nizoral 2% 1 applic TP DAILY 03/29/19 Cream -] Lamotrigine 25 mg PO BID 03/29/19 Levetiracetam [Keppra] 250 mg PO DAILY 03/29/19 Polyethylene Glycol 3350 [Miralax 17 gm PO DAILY 03/29/19 119 gm Btl -] ASSESSMENT AND PLAN: 63 year old male with ESRD (HD on //), Atrial Fibrillation (s/p AICD and watchman device 2006), HTN, Hx CVA (2015 w/residual LUE weakness), Ischemic colitis (s/p resection 2017) and Seizure Disorder, presents from dialysis with thrombosed AV fistula and Bradycardia. 1. ESRD (HD on M/W/) - AV fistula clotted - POD 6 s/p percutaneous suction thrombectomy Successful HD via AV fistula 04/01 - femoral shiley removed (placed for urgent HD when fistula thrombosed). Nephrology, Vascular Sx following. Resumed on Aspirin. 2. MSSA Bacteremia - developed POD 1 s/p AV fistula thrombectomy, likely procedure/fistula related. CXR - No acute findings, percutaneous L Loop recorder, L axillary vascular stent. 1 st Blood Cx - MSSA, repeat Blood Cx done on HD also positive for MSSA Fever now resolved, Leukocytosis resolved Hemodynamically Stable. Repeat Blood Cx pending. Empiric Abx IV Vanc/Zosyn switched to IV Cefazolin by ID. Echo -normal. 3. Atrial Fibrillation (s/p AICD/Watchman's) with slow ventricular response - resolved. Metoprolol, Lexapro, Protonix resumed as per Cardio recs. Echo - normal. No AC due to SDH Hx. Resumed on Aspirin. 4. Hyperkalemia/Uremia sec to ESRD - resolved s/p HD 5. Normocytic Anemia - likely sec to ESRD. Iron 100, Iron Sat 14%, B12 - 1918, Folate 15. H/H dropping - further monitoring/management ?Epo as per Nephrology. No evidence of acute blood loss. 6. HTN - Metoprolol resumed. 7. Seizure Disorder - continue Keppra, Lamotrigine 8. HLD - Continue Lipitor. 9. Hx CVA - continue Aspirin, Statin DVT Px - Heparin SQ
[2019-04-04] MEDS: ATORVASTATIN CA 20 MG TABLET (FP) PO SCH (21:27)
[2019-04-04] MEDS: levETIRAcetam 500 MG TABLET (FP) PO SCH (21:27)
[2019-04-04] MEDS: ACETAMINOPHEN 500 MG TABLET (FP) PO PRN (21:55)
[2019-04-05] MEDS: DOCUSATE SODIUM 100 MG CAPSULE (FP) PO SCH ×3 (05:37→21:33)
[2019-04-05 07:27] LABS: HEMATOCRIT 28.1 % (35.4-49); HEMOGLOBIN 8.7 GM/dL (11.7-16.9); MCH 25.3 pg (25.7-33.7); MEAN CELL VOLUME 81.8 fl (80-96); MEAN PLT VOLUME 8.9 fl (7.5-11.1); PLATELET COUNT 195 K/MM3 (134-434); RBC 3.44 M/mm3 (4.00-5.60); RDW 17.6 % (11.9-15.9); WHITE BLOOD COUNT 6.1 K/mm3 (4.0-10.0)
[2019-04-05 07:48] LABS: BLOOD UREA NITROGEN 39.1 mg/dL (7-18); CALCIUM 8.1 mg/dL (8.5-10.1); POTASSIUM 4.6 mmol/L (3.5-5.1)
[2019-04-05 07:55] LABS: CREATININE 9.1 mg/dL (0.55-1.3)
--- NOTE | 2019-04-05 08:49 | PN ---
Progress Note (short form) - Note Progress Note: Chief Complaint: Events noted, notes reviewed, denies any chest pain or dyspnea History of Present Illness: Seen and examined on telemetry. Events noted, notes reviewed, denies any chest pain or dyspnea, Hg noted improved post transfusion, no further bleed reported - Current Medication List Current Medications Acetaminophen (Tylenol -) 1,000 mg PO Q6H PRN PRN Reason: FEVER Last Admin: 04/04/19 21:55 Dose: 1,000 mg Aspirin (Asa -) 81 mg PO DAILY [facility] Last Admin: 04/05/19 10:11 Dose: 81 mg Atorvastatin Calcium (Lipitor -) 20 mg PO HS [facility] Last Admin: 04/04/19 21:27 Dose: 20 mg Calcium Acetate (Phoslo -) 2,001 mg PO TIDCM [facility] Last Admin: 04/05/19 08:50 Dose: 2,001 mg Cyclobenzaprine HCl (Cyclobenzaprine Hcl) 5 mg PO DAILY [facility] Last Admin: 04/05/19 10:11 Dose: 5 mg Docusate Sodium (Colace -) 100 mg PO TID [facility] Last Admin: 04/05/19 05:37 Dose: 100 mg Escitalopram Oxalate (Lexapro -) 5 mg PO DAILY [facility] Last Admin: 04/05/19 10:10 Dose: 5 mg Heparin Sodium (Porcine) (Heparin -) 5,000 unit SQ BID [facility] Last Admin: 04/05/19 10:11 Dose: 5,000 unit Cefazolin Sodium 1 gm/ (Dextrose) 50 mls @ 100 mls/hr IVPB DAILY [facility] Last Admin: 04/05/19 10:11 Dose: 100 mls/hr Ketoconazole (Nizoral 2% Cream -) 1 applic TP DAILY [facility] Last Admin: 04/05/19 10:18 Dose: 1 applic Lamotrigine (Lamictal -) 25 mg PO BID [facility] Last Admin: 04/05/19 10:10 Dose: 25 mg Levetiracetam 1,000 mg/ (Levetiracetam 250 mg) 1,250 mg PO DAILY [facility] Last Admin: 04/05/19 10:09 Dose: 1,250 mg Levetiracetam (Keppra -) 1,000 mg PO HS [facility] Last Admin: 04/04/19 21:27 Dose: 1,000 mg Metoprolol Succinate (Toprol Xl -) 12.5 mg PO DAILY [facility] Last Admin: 04/05/19 10:11 Dose: 12.5 mg Multivit/Ca Carb/B Cmplx/FA/Prenat (Nephro-Lashanda -) 1 tablet PO DAILY [facility] Last Admin: 04/05/19 10:09 Dose: 1 tablet Pantoprazole Sodium (Protonix -) 20 mg PO DAILY [facility] Last Admin: 04/05/19 10:09 Dose: 20 mg Polyethylene Glycol (Miralax (For Daily Use) -) 17 gm PO DAILY [facility] Last Admin: 04/05/19 10:12 Dose: Not Given - Objective Vital Signs: Last Vital Signs Temp Pulse Resp BP Pulse Ox 98.4 F 62 18 112/42 L 100 04/05/19 06:00 04/05/19 06:00 04/05/19 06:00 04/05/19 06:00 04/04/19 20:21 Intake & Output 04/02/19 04/03/19 04/04/19 04/05/19 23:59 23:59 23:59 23:59 Intake Total 4226 951 7357 Output Total 3000 Balance 1390 390 -1180 Weight 259 lb 7 oz 257 lb 9.6 oz Neck: Supple Negative JVD Cardiovascular: S1 S2 Regular Rate Rhythm Grade 1-2/6 CRISS Respiratory: Diminished Breath Sounds at the Bases Gastrointestinal: Soft Benign Hypoactive Bowel Sounds Ext: Negative Edema Labs: CBC, BMP 04/05/19 06:40 04/05/19 06:40 Hepatic Panel Total Bilirubin 0.3 mg/dL (0.2-1) 04/01/19 15:10 AST 27 U/L (15-37) 04/01/19 15:10 ALT 29 U/L (13-61) 04/01/19 15:10 Alkaline Phosphatase 58 U/L (45-117) 04/01/19 15:10 Albumin 2.9 g/dl (3.4-5.0) L 04/01/19 15:10 INR, PTT INR 1.14 (0.83-1.09) H 03/28/19 16:45 Assessment/Plan ASSESSMENT: 1. Bradycardia, clinically resolved referable to metabolic disorder in conjunction with medical therapy administration 2. CAD angina pectoris, stable 3. Diastolic LV dysfunction with class 0-I NYHA classification LV failure, clinically compensated/euvolemic 4. Paroxysmal atrial flutter post RFA post LA appendage occlusion device insertion (Watchman device) 5. Moderate MR 6. Moderate to severe TR with moderate to severe degree of pulmonary HTN 7. History of HTN 8. DM 9. Hypercholesterolemia 10. History of CVA with residual deficit 11. Seizure disorder 12. History of subdural bleed 13. ESRD on HD, thrombosed AV fistula post percutaneous intervention/ thrombectomy and venoplasty of the cephalic vein 14. Anemia PLAN: 1. Continue Toprol XL hemodynamics permitting, defer dose titration at this point 2. Continue Ecotrin with caution, patient is not a candidate for long-term anticoagulation therapy considering the above noted history of a subdural bleed - as noted above left atrial appendage closure device was performed as an alternative 3. Continue Lipitor therapy 4. Discharge home as per the primary team and follow-up in the office Roberta Madrigal MD
[2019-04-05] MEDS: CALCIUM ACETATE 667 MG CAPSULE (FP) PO SCH ×3 (08:50→17:43)
[2019-04-05] MEDS ORDERED: levETIRAcetam 250 MG TABLET (FP) PO ONE (08:51)
[2019-04-05] MEDS ORDERED: levETIRAcetam 500 MG TABLET (FP) PO ONE (08:51)
[2019-04-05] MEDS ORDERED: ceFAZolin SODIUM 1 GM VIAL ONE ×2 (08:53→08:55)
[2019-04-05] MEDS ORDERED: DEXTROSE 5%-WATER - 50 ML IVPB ONE (08:55)
[2019-04-05] MEDS: VITAMIN B COMP W-C 1 EA TABLET PO SCH (10:09)
[2019-04-05] MEDS: PANTOPRAZOLE 20 MG TABLET (FP) PO SCH (10:09)
[2019-04-05] MEDS: ESCITALOPRAM OXALATE 10 MG TABLET (FP) PO SCH (10:10)
[2019-04-05] MEDS: lamoTRIgine 25 MG TABLET PO SCH ×2 (10:10→21:33)
[2019-04-05] MEDS: ASPIRIN 81 MG CHEWABLE TABLETS PO SCH (10:11)
[2019-04-05] MEDS: CYCLOBENZAPRINE HCL 5 MG TABLET PO SCH (10:11)
[2019-04-05] MEDS: CEFAZOLIN 1 GM in DEXTROSE 5%-WATER - 50 ML IVPB SCH (10:11)
[2019-04-05] MEDS: HEPARIN NA (PORCINE) 5,000 UNITS/ML 1ML VIAL SQ SCH ×2 (10:11→21:33)
[2019-04-05] MEDS: metoPROLOL SUCCINATE 25 MG TAB.SR.24H (FP) PO SCH (10:11)
[2019-04-05] MEDS: POLYETHYLENE GLYCOL 3350 119 GM BTL PO SCH (10:12)
[2019-04-05] MEDS: KETOCONAZOLE 2% TOPICAL CREAM 15 GM TUBE TP SCH (10:18)
[2019-04-05] MEDS ORDERED: SODIUM CHLORIDE 250 ML IV PRN (14:49)
--- NOTE | 2019-04-05 14:49 | PN ---
Progress Note, Physician History of Present Illness: Pt seen and examined at bedside. He is awake and alert. He denies fevers or chills. - Current Medication List Current Medications: Active Medications Acetaminophen (Tylenol -) 1,000 mg PO Q6H PRN PRN Reason: FEVER Last Admin: 04/04/19 21:55 Dose: 1,000 mg Aspirin (Asa -) 81 mg PO DAILY [facility] Last Admin: 04/05/19 10:11 Dose: 81 mg Atorvastatin Calcium (Lipitor -) 20 mg PO HS [facility] Last Admin: 04/04/19 21:27 Dose: 20 mg Calcium Acetate (Phoslo -) 2,001 mg PO TIDCM [facility] Last Admin: 04/05/19 12:29 Dose: 2,001 mg Cyclobenzaprine HCl (Cyclobenzaprine Hcl) 5 mg PO DAILY [facility] Last Admin: 04/05/19 10:11 Dose: 5 mg Docusate Sodium (Colace -) 100 mg PO TID [facility] Last Admin: 04/05/19 13:29 Dose: 100 mg Escitalopram Oxalate (Lexapro -) 5 mg PO DAILY [facility] Last Admin: 04/05/19 10:10 Dose: 5 mg Heparin Sodium (Porcine) (Heparin -) 5,000 unit SQ BID [facility] Last Admin: 04/05/19 10:11 Dose: 5,000 unit Cefazolin Sodium 1 gm/ (Dextrose) 50 mls @ 100 mls/hr IVPB DAILY [facility] Last Admin: 04/05/19 10:11 Dose: 100 mls/hr Ketoconazole (Nizoral 2% Cream -) 1 applic TP DAILY [facility] Last Admin: 04/05/19 10:18 Dose: 1 applic Lamotrigine (Lamictal -) 25 mg PO BID [facility] Last Admin: 04/05/19 10:10 Dose: 25 mg Levetiracetam 1,000 mg/ (Levetiracetam 250 mg) 1,250 mg PO DAILY [facility] Last Admin: 04/05/19 10:09 Dose: 1,250 mg Levetiracetam (Keppra -) 1,000 mg PO HS [facility] Last Admin: 04/04/19 21:27 Dose: 1,000 mg Metoprolol Succinate (Toprol Xl -) 12.5 mg PO DAILY [facility] Last Admin: 04/05/19 10:11 Dose: 12.5 mg Multivit/Ca Carb/B Cmplx/FA/Prenat (Nephro-Lashanda -) 1 tablet PO DAILY [facility] Last Admin: 04/05/19 10:09 Dose: 1 tablet Pantoprazole Sodium (Protonix -) 20 mg PO DAILY [facility] Last Admin: 04/05/19 10:09 Dose: 20 mg Polyethylene Glycol (Miralax (For Daily Use) -) 17 gm PO DAILY [facility] Last Admin: 04/05/19 10:12 Dose: Not Given - Objective Vital Signs: Vital Signs Temperature 98.4 F 04/05/19 13:40 Pulse Rate 71 04/05/19 13:40 Respiratory Rate 16 04/05/19 13:40 Blood Pressure 152/103 H 04/05/19 13:40 O2 Sat by Pulse Oximetry (%) 100 04/05/19 09:00 Constitutional: Yes: Calm Eyes: Yes: Conjunctiva Clear HENT: Yes: Atraumatic Neck: Yes: Supple Cardiovascular: Yes: S1, S2 Respiratory: Yes: CTA Bilaterally Gastrointestinal: Yes: Normal Bowel Sounds, Soft Genitourinary: Yes: WNL Musculoskeletal: Yes: WNL Edema: No Neurological: Yes: Oriented, Pre-Existing Deficit Labs: CBC, BMP 04/05/19 06:40 04/05/19 06:40 INR, PTT INR 1.14 (0.83-1.09) H 03/28/19 16:45 Problem List - Problems (1) AV fistula thrombosis Code(s): T82.868A - THROMBOSIS DUE TO VASCULAR PROSTH DEV/GRFT, INIT Qualifiers: Encounter type: subsequent encounter Qualified Code(s): T82.868D - Thrombosis due to vascular prosthetic devices, implants and grafts, subsequent encounter (2) Bradycardia Code(s): R00.1 - BRADYCARDIA, UNSPECIFIED (3) ESRD (end stage renal disease) Code(s): N18.6 - END STAGE RENAL DISEASE Assessment/Plan Current Medications Generic Name Dose Route Start Last Admin Trade Name Freq PRN Reason Stop Dose Admin Acetaminophen 1,000 mg 03/30/19 16:00 04/04/19 21:55 Tylenol - PO 1,000 mg Q6H PRN Administration FEVER Aspirin 81 mg 03/31/19 10:00 04/05/19 10:11 Asa - PO 81 mg DAILY SANDEEP Administration Atorvastatin Calcium 20 mg 03/29/19 22:00 04/04/19 21:27 Lipitor - PO 20 mg HS SANDEEP Administration Calcium Acetate 2,001 mg 03/30/19 08:00 04/05/19 12:29 Phoslo - PO 2,001 mg TIDCM SANDEEP Administration Cyclobenzaprine HCl 5 mg 03/30/19 10:00 04/05/19 10:11 Cyclobenzaprine Hcl PO 5 mg DAILY SANDEEP Administration Docusate Sodium 100 mg 03/29/19 22:00 04/05/19 13:29 Colace - PO 100 mg TID SANDEEP Administration Escitalopram Oxalate 5 mg 03/31/19 10:00 04/05/19 10:10 Lexapro - PO 5 mg DAILY SANDEEP Administration Heparin Sodium (Porcine) 5,000 unit 03/29/19 22:00 04/05/19 10:11 Heparin - SQ 5,000 unit BID SANDEEP Administration Cefazolin Sodium 1 gm/ 50 mls @ 100 mls/hr 04/01/19 20:00 04/05/19 10:11 Dextrose IVPB 100 mls/hr DAILY SANDEEP Administration Ketoconazole 1 applic 03/30/19 10:00 04/05/19 10:18 Nizoral 2% Cream - TP 1 applic DAILY SANDEEP Administration Lamotrigine 25 mg 03/29/19 22:00 04/05/19 10:10 Lamictal - PO 25 mg BID SANDEEP Administration Levetiracetam 1,000 mg/ 1,250 mg 03/30/19 10:00 04/05/19 10:09 Levetiracetam 250 mg PO 1,250 mg DAILY SANDEEP Administration Levetiracetam 1,000 mg 03/29/19 22:00 04/04/19 21:27 Keppra - PO 1,000 mg HS SANDEEP Administration Metoprolol Succinate 12.5 mg 03/31/19 10:00 04/05/19 10:11 Toprol Xl - PO 12.5 mg DAILY SANDEEP Administration Multivit/Ca Carb/B Cmplx/FA/Prenat 1 tablet 03/30/19 10:00 04/05/19 10:09 Nephro-Lashanda - PO 1 tablet DAILY SANDEEP Administration Pantoprazole Sodium 20 mg 03/31/19 10:00 04/05/19 10:09 Protonix - PO 20 mg DAILY SANDEEP Administration Polyethylene Glycol 17 gm 11/27/19 10:00 04/05/19 10:12 Miralax (For Daily Use) - PO Not Given DAILY SANDEEP Impression 1. ESRD 2. hx CVA 3. epilepsy 4. hx HTN 5. hyperlipidemia 6. anemia 7. hx subdural hemorrhage 8. hyperkalemia 9. bradycardia 10. bactermia Plan - HD tomorrow - follow cultures - cont abx - monitor for fever - renal diet Dr Isaac
--- NOTE | 2019-04-05 15:27 | PN ---
Progress Note (short form) - Note Progress Note: seen at HD feels well he is anurics/p cva cultures are negative on repeat Vital Signs Period Temp Pulse Resp BP Sys/Chaudhry Pulse Ox Last 24 Hr 97.9 F-98.4 F 62-75 16-20 108-152/42-103 100-100 cor-rrr lungs clear abd soft,nt ext no edema left hemiparesis CBC, BMP 04/05/19 06:40 04/05/19 06:40 Microbiology 04/04/19 10:20 Blood - Pre-Dialysis Blood Culture - Preliminary NO GROWTH OBTAINED AFTER 24 HOURS, INCUBATION TO CONTINUE FOR 4 DAYS. 04/04/19 10:20 Blood - Pre-Dialysis Blood Culture - Preliminary NO GROWTH OBTAINED AFTER 24 HOURS, INCUBATION TO CONTINUE FOR 4 DAYS. 04/03/19 08:20 Blood - Peripheral Venous Blood Culture - Preliminary NO GROWTH OBTAINED AFTER 48 HOURS, INCUBATION TO CONTINUE FOR 3 DAYS. 04/03/19 08:15 Blood - Peripheral Venous Blood Culture - Preliminary NO GROWTH OBTAINED AFTER 48 HOURS, INCUBATION TO CONTINUE FOR 3 DAYS. 04/01/19 15:10 Blood - Peripheral Venous Blood Culture - Final Staphylococcus Aureus 04/01/19 15:10 Blood - Peripheral Venous Blood Culture - Final Staphylococcus Aureus 03/31/19 01:00 Blood - Peripheral Venous Blood Culture - Final Staphylococcus Aureus a/p MSSA bacteremia- suspect skin - either thrombectomy of avf or femoral line repeat cultures are negative continue cefazolin 3 with hd for 6 weeks- limited iv access with hemiparesis on right and HD access on left cannot use nafcillin with such limited peripheral access will need repeat blood cultures one week after completing iv antibiotics d/w dr draper s/p cva history of afib watchman device placed 2017 should have epithelialized by now d/w dr sarmiento d/w hospitalist service Problem List - Problems (1) Fever Code(s): R50.9 - FEVER, UNSPECIFIED (2) AV fistula thrombosis Code(s): T82.868A - THROMBOSIS DUE TO VASCULAR PROSTH DEV/GRFT, INIT Qualifiers: Encounter type: subsequent encounter Qualified Code(s): T82.868D - Thrombosis due to vascular prosthetic devices, implants and grafts, subsequent encounter (3) ESRD (end stage renal disease) on dialysis Code(s): N18.6 - END STAGE RENAL DISEASE; Z99.2 - DEPENDENCE ON RENAL DIALYSIS
--- NOTE | 2019-04-05 15:42 | PN ---
Physical Exam: SUBJECTIVE: Patient seen and examined at the bedside. Patient noted that he was doing well and in good spirits. Had completed dialysis yesterday with no complications. Currently denies cp, sob, abd pain, n/v/c/d, fever, chills, numbness, tingling, bleeding from fistula. Will be d/c tomorrow after HD. OBJECTIVE: Vital Signs Period Temp Pulse Resp BP Sys/Chaudhry Pulse Ox Last 24 Hr 97.9 F-98.4 F 62-75 16-20 108-152/42-103 100-100 GENERAL: AOx3, in no acute distress, friendly demeanor HEAD: No signs of trauma, normocephalic EYES: JOÃO, EOMI, incteric sclera ENT: Ears normal, nares patent, oropharynx clear without exudates. Moist mucous membranes. NECK: Normal range of motion, supple without lymphadenopathy, JVD. LUNGS: Clear to auscultation bilaterally. No wheezes, and no crackles. No accessory muscle use. HEART: Irregular rhythm, bradycardic, no ausculated murmurs or rubs. ABDOMEN: Midline surgical scar. Soft, BS present in all 4 quadrants, non- distended, non tender. MUSCULOSKELETAL: No bony deformities or tenderness. No CVA tenderness. UPPER EXTREMITIES: RUE fistula Auscultated bruit and palpated thrill. 2+ pulses , warm, well-perfused. No cyanosis. No clubbing. No peripheral edema. LOWER EXTREMITIES: 2+ pulses, warm, well-perfused. No calf tenderness. No peripheral edema. NEUROLOGICAL: LUE 0/5 power. RLE 5/5, UE 5/5 BL. Mild left facial droop with loss of nasolabial fold. All other CN intact. Normal speech. Walks with rollator. Slowed gait. PSYCHIATRIC: Cooperative. Good eye contact. Appropriate mood and affect. SKIN: Warm, dry, normal turgor, normal capillary refill, shunt scar on skin Laboratory Results - last 24 hr 04/05/19 04/05/19 06:40 06:40 WBC 6.1 RBC 3.44 L Hgb 8.7 L Hct 28.1 L MCV 81.8 MCH 25.3 L MCHC 31.0 L RDW 17.6 H Plt Count 195 MPV 8.9 Sodium 142 Potassium 4.6 Chloride 102 Carbon Dioxide 30 Anion Gap 10 BUN 39.1 H Creatinine 9.1 H* Est GFR (CKD-EPI)AfAm 6.45 Est GFR (CKD-EPI)NonAf 5.56 Random Glucose 79 Calcium 8.1 L Active Medications Generic Name Dose Route Start Last Admin Trade Name Freq PRN Reason Stop Dose Admin Acetaminophen 1,000 mg 03/30/19 16:00 04/04/19 21:55 Tylenol - PO 1,000 mg Q6H PRN Administration FEVER Aspirin 81 mg 03/31/19 10:00 04/05/19 10:11 Asa - PO 81 mg DAILY SANDEEP Administration Atorvastatin Calcium 20 mg 03/29/19 22:00 04/04/19 21:27 Lipitor - PO 20 mg HS SANDEEP Administration Calcium Acetate 2,001 mg 03/30/19 08:00 04/05/19 12:29 Phoslo - PO 2,001 mg TIDCM SANDEEP Administration Cyclobenzaprine HCl 5 mg 03/30/19 10:00 04/05/19 10:11 Cyclobenzaprine Hcl PO 5 mg DAILY SANDEEP Administration Docusate Sodium 100 mg 03/29/19 22:00 04/05/19 13:29 Colace - PO 100 mg TID SANDEEP Administration Escitalopram Oxalate 5 mg 03/31/19 10:00 04/05/19 10:10 Lexapro - PO 5 mg DAILY SANDEEP Administration Heparin Sodium (Porcine) 5,000 unit 03/29/19 22:00 04/05/19 10:11 Heparin - SQ 5,000 unit BID SANDEEP Administration Heparin Sodium (Porcine) 1,000 unit 04/06/19 14:49 Heparin - IVPUSH 04/06/19 14:50 ONCE ONE Cefazolin Sodium 1 gm/ 50 mls @ 100 mls/hr 04/01/19 20:00 04/05/19 10:11 Dextrose IVPB 100 mls/hr DAILY SANDEEP Administration Sodium Chloride 250 mls @ 3,000 mls/hr 04/05/19 14:49 Normal Saline - IV 04/06/19 14:49 PRN PRN Hypotension during Dialysis Ketoconazole 1 applic 03/30/19 10:00 04/05/19 10:18 Nizoral 2% Cream - TP 1 applic DAILY SANDEEP Administration Lamotrigine 25 mg 03/29/19 22:00 04/05/19 10:10 Lamictal - PO 25 mg BID SANDEEP Administration Levetiracetam 1,000 mg/ 1,250 mg 03/30/19 10:00 04/05/19 10:09 Levetiracetam 250 mg PO 1,250 mg DAILY SANDEEP Administration Levetiracetam 1,000 mg 03/29/19 22:00 04/04/19 21:27 Keppra - PO 1,000 mg HS SANDEEP Administration Metoprolol Succinate 12.5 mg 03/31/19 10:00 04/05/19 10:11 Toprol Xl - PO 12.5 mg DAILY SANDEEP Administration Multivit/Ca Carb/B Cmplx/FA/Prenat 1 tablet 03/30/19 10:00 04/05/19 10:09 Nephro-Lashanda - PO 1 tablet DAILY SANDEEP Administration Pantoprazole Sodium 20 mg 03/31/19 10:00 04/05/19 10:09 Protonix - PO 20 mg DAILY SANDEEP Administration Polyethylene Glycol 17 gm 03/30/19 10:00 04/05/19 10:12 Miralax (For Daily Use) - PO Not Given DAILY SANDEEP ASSESSMENT/PLAN: Neymar Yoon is a 63 year old male with a past medical history ESRD (M, W, F at [facility] on [address]), Afib (defibrilator and monitor in place and s/p Watchman implant), HTN, 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 MSSA Bacteremia; POD #7 s/p percutaneous suction thrombectomy. Infection may be related to fistula - 1st set Bc +MSSA, 2nd set of BCx still Staph Aureus; 3rd set Bcx negative for 48 hours; blood cultures drawn through fistula negative - Previously on empiric IV Vanc/Zosyn, switched to IV Cezolin per ID; blood cultures gutierrez sensitive - as per ID, cannot start nafcillin due to limited peripheral access - will continue on IV cefazolin with HD for 6 weeks total - Afebrile, leukocytosis resolved. ESRD - HD on MWF - AV fistula thrombosed, s/p percutaneous suction thrombectomy, POD #7 - successful - Had Shiley placed for HD while in hospital for urgent HD, now removed - Consult nephrology, for dialysis while in hospital Afib; with slow ventricular response, s/p Watchmen device. - Resolved, was likely in setting of missed dialysis sessions - cardio consulted, recs appreciated - Cont home meds: Toprol XL, Lexapro, Protonix - Echo (04/01/19) unremarkable - No AC due to hx of SDH; cont home ASA 81 HTN/HLD - Cont home meds: Toprol XL 12.5, Lipitor 20 Seizure Disorder - Cont home meds: Keppra 1250mg AM, 1000mg HS; Lamictal 25 BID - Keppra level elevated, blood level drawn on admission, patient has received multiple sessions of dialysis and Keppra is dialyzable - Keppra to be administered after dialysis Hx of CVA - Cont home meds: ASA 81, Lipitor 20 Normocytic Anemia - likely in setting of ESRD - iron levels showing likely anemia of chronic disease - B12 and folate within normal limits - Cont to monitor CBC; no acute bleeding episodes FEN - No IVF, monitor PO intake - Continue to monitor electrolytes and replete or control as necessary - Renal diet Prophylaxis - DVT: SQH - GI: Cont home med: Protonix 20 Dispo - Continue to monitor on telemetry Problem List - Problems (1) AV fistula thrombosis Code(s): T82.868A - THROMBOSIS DUE TO VASCULAR PROSTH DEV/GRFT, INIT Qualifiers: Encounter type: subsequent encounter Qualified Code(s): T82.868D - Thrombosis due to vascular prosthetic devices, implants and grafts, subsequent encounter (2) Bradycardia Code(s): R00.1 - BRADYCARDIA, UNSPECIFIED (3) Afib Code(s): I48.91 - UNSPECIFIED ATRIAL FIBRILLATION Qualifiers: Atrial fibrillation type: paroxysmal Qualified Code(s): I48.0 - Paroxysmal atrial fibrillation (4) Anemia Code(s): D64.9 - ANEMIA, UNSPECIFIED Qualifiers: Anemia type: due to chronic kidney disease (5) ESRD (end stage renal disease) Code(s): N18.6 - END STAGE RENAL DISEASE (6) Hemodialysis access, arteriovenous graft Code(s): Z99.2 - DEPENDENCE ON RENAL DIALYSIS (7) Hyperkalemia Code(s): E87.5 - HYPERKALEMIA (8) Hypertension Code(s): I10 - ESSENTIAL (PRIMARY) HYPERTENSION Qualifiers: Hypertension type: essential hypertension Qualified Code(s): I10 - Essential (primary) hypertension Visit type - Emergency Visit Emergency Visit: Yes ED Registration Date: 03/31/19 Care time: The patient presented to the Emergency Department on the above date and was hospitalized for further evaluation of their emergent condition. - New Patient This patient is new to me today: No - Critical Care Critical Care patient: No
[2019-04-05 16:44] VITALS: BMI 40.2
--- NOTE | 2019-04-05 17:53 | PN ---
Teaching Attending Note Name of Resident: Celestine Douglas ATTENDING PHYSICIAN STATEMENT I saw and evaluated the patient. I reviewed the resident's note and discussed the case with the resident. I agree with the resident's findings and plan as documented. SUBJECTIVE: Patient has no complaints. OBJECTIVE: Vital Signs Period Temp Pulse Resp BP Sys/Chaudhry Pulse Ox Last 24 Hr 97.9 F-98.4 F 62-75 16-20 108-152/42-103 100-100 HEART: Irregular LUNGS: Clear ABDOMEN: Obese, soft, non-tender, non-distended, normal BS EXTREMITIES: No edema. RUE AV fistula with thrill Laboratory Results - last 24 hr 04/05/19 04/05/19 06:40 06:40 WBC 6.1 RBC 3.44 L Hgb 8.7 L Hct 28.1 L MCV 81.8 MCH 25.3 L MCHC 31.0 L RDW 17.6 H Plt Count 195 MPV 8.9 Sodium 142 Potassium 4.6 Chloride 102 Carbon Dioxide 30 Anion Gap 10 BUN 39.1 H Creatinine 9.1 H* Est GFR (CKD-EPI)AfAm 6.45 Est GFR (CKD-EPI)NonAf 5.56 Random Glucose 79 Calcium 8.1 L Current Medications Generic Name Dose Route Start Last Admin Trade Name Freq PRN Reason Stop Dose Admin Acetaminophen 1,000 mg 03/30/19 16:00 04/04/19 21:55 Tylenol - PO 1,000 mg Q6H PRN Administration FEVER Aspirin 81 mg 03/31/19 10:00 04/05/19 10:11 Asa - PO 81 mg DAILY SANDEEP Administration Atorvastatin Calcium 20 mg 03/29/19 22:00 04/04/19 21:27 Lipitor - PO 20 mg HS SANDEEP Administration Calcium Acetate 2,001 mg 03/30/19 08:00 04/05/19 12:29 Phoslo - PO 2,001 mg TIDCM SANDEEP Administration Cyclobenzaprine HCl 5 mg 03/30/19 10:00 04/05/19 10:11 Cyclobenzaprine Hcl PO 5 mg DAILY SANDEEP Administration Docusate Sodium 100 mg 03/29/19 22:00 04/05/19 13:29 Colace - PO 100 mg TID SANDEEP Administration Escitalopram Oxalate 5 mg 03/31/19 10:00 04/05/19 10:10 Lexapro - PO 5 mg DAILY SANDEEP Administration Heparin Sodium (Porcine) 5,000 unit 03/29/19 22:00 04/05/19 10:11 Heparin - SQ 5,000 unit BID SANDEEP Administration Heparin Sodium (Porcine) 1,000 unit 04/06/19 14:49 Heparin - IVPUSH 04/06/19 14:50 ONCE ONE Cefazolin Sodium 1 gm/ 50 mls @ 100 mls/hr 04/01/19 20:00 04/05/19 10:11 Dextrose IVPB 100 mls/hr DAILY SANDEEP Administration Sodium Chloride 250 mls @ 3,000 mls/hr 04/05/19 14:49 Normal Saline - IV 04/06/19 14:49 PRN PRN Hypotension during Dialysis Ketoconazole 1 applic 03/30/19 10:00 04/05/19 10:18 Nizoral 2% Cream - TP 1 applic DAILY SANDEEP Administration Lamotrigine 25 mg 03/29/19 22:00 04/05/19 10:10 Lamictal - PO 25 mg BID SANDEEP Administration Levetiracetam 1,000 mg/ 1,250 mg 03/30/19 10:00 04/05/19 10:09 Levetiracetam 250 mg PO 1,250 mg DAILY SANDEEP Administration Levetiracetam 1,000 mg 03/29/19 22:00 04/04/19 21:27 Keppra - PO 1,000 mg HS SANDEEP Administration Metoprolol Succinate 12.5 mg 03/31/19 10:00 04/05/19 10:11 Toprol Xl - PO 12.5 mg DAILY SANDEEP Administration Multivit/Ca Carb/B Cmplx/FA/Prenat 1 tablet 03/30/19 10:00 04/05/19 10:09 Nephro-Lashanda - PO 1 tablet DAILY SANDEEP Administration Pantoprazole Sodium 20 mg 03/31/19 10:00 04/05/19 10:09 Protonix - PO 20 mg DAILY SANDEEP Administration Polyethylene Glycol 17 gm 03/30/19 10:00 04/05/19 10:12 Miralax (For Daily Use) - PO Not Given DAILY SANDEEP ASSESSMENT AND PLAN: 63 year old male with ESRD (HD on M/W/F), Atrial Fibrillation (s/p AICD and watchman device 2006), HTN, Hx CVA (2016 w/residual LUE weakness), Ischemic colitis (s/p resection 2018) and Seizure Disorder, presents from dialysis with thrombosed AV fistula and Bradycardia. 1. Thrombosed RUE AV fistula - s/p percutaneous suction thrombectomy, venoplasty cephalic vein on 03/29 2. ESRD - Continue HD on // 3. MSSA bacteremia - Blood cultures 04/03, 04/04 negative so far - Continue cefazolin with HD x 6 weeks - Repeat blood cultures 1 week after abx completed 4. Atrial fibrillation, permanent - s/p Watchman procedure - Continue Toprol XL, aspirin - Not on anticoagulation secondary to SDH 5. Hyperkalemia - Improved 6. Anemia secondary to ESRD 7. HTN - Continue Toprol XL 8. Seizure disorder - Continue Keppra, Lamictal 9. Hyperlipidemia - Continue Lipitor 10. History of CVA - Continue aspirin, Lipitor 11. History of subdural hematoma
[2019-04-05] MEDS: ATORVASTATIN CA 20 MG TABLET (FP) PO SCH (21:33)
[2019-04-05] MEDS: levETIRAcetam 500 MG TABLET (FP) PO SCH (21:33)
[2019-04-06] MEDS: DOCUSATE SODIUM 100 MG CAPSULE (FP) PO SCH ×2 (06:15→14:00)
--- NOTE | 2019-04-06 07:43 | PN ---
Teaching Attending Note Name of Resident: Celestine Douglas ATTENDING PHYSICIAN STATEMENT I saw and evaluated the patient. I reviewed the resident's note and discussed the case with the resident. I agree with the resident's findings and plan as documented with exceptions below. SUBJECTIVE: Patient seen and examined. No complaints, eager to go home, wondering about his av fistula staple site. OBJECTIVE: Vital Signs Period Temp Pulse Resp BP Sys/Chaudhry Pulse Ox Last 24 Hr 97.8 F-98.4 F 63-76 16-20 106-164/43-103 100-100 Intake & Output 04/03/19 04/04/19 04/05/19 04/06/19 23:59 23:59 23:59 23:59 Intake Total 390 1820 1810 240 Output Total 3000 Balance 390 -1180 1810 240 Weight 257 lb 256 lb 12.8 oz general: sitting in chair no acute distress neck: soft, supple Chest: CTAB, no rales or wheezing Abdomen:Soft, obese Extremities: right AV fistula site clean, nickolas/dressing in place, pos pulses No pedal edema Laboratory Results - last 24 hr 04/05/19 06:40 Sodium 142 Potassium 4.6 Chloride 102 Carbon Dioxide 30 Anion Gap 10 BUN 39.1 H Creatinine 9.1 H* Est GFR (CKD-EPI)AfAm 6.45 Est GFR (CKD-EPI)NonAf 5.56 Random Glucose 79 Calcium 8.1 L Home Medications Medication Instructions Recorded Escitalopram Oxalate [Lexapro -] 5 mg PO DAILY 08/02/16 Aspirin 81 mg PO HS 10/23/17 Calcium Acetate [Phoslo -] 3 cap PO TID 10/23/17 Metoprolol Succinate [Toprol Xl] 12.5 mg PO ASDIR 10/23/17 Vit B Comp No.3/Folic/C/Biotin 1 each PO DAILY 01/31/18 [Gavi-Lashanda Rx Tablet] Acetaminophen [Tylenol] 325 mg PO PRN 04/09/18 Docusate Sodium [Colace] 100 mg PO TID 04/09/18 Mupirocin Cream [Bactroban 2% 1 applic .ROUTE DAILY 04/09/18 Cream -] Pantoprazole Sodium [Protonix -] 20 mg PO DAILY 04/09/18 levETIRAcetam [Keppra -] 1,000 mg PO BID 04/09/18 Atorvastatin Ca [Lipitor] 20 mg DAILY 03/29/19 Cyclobenzaprine HCl 5 mg DAILY 03/29/19 Ketoconazole 2% Cream [Nizoral 2% 1 applic TP DAILY 03/29/19 Cream -] Lamotrigine 25 mg PO BID 03/29/19 Levetiracetam [Keppra] 250 mg PO DAILY 03/29/19 Polyethylene Glycol 3350 [Miralax 17 gm PO DAILY 03/29/19 119 gm Btl -] Cefazolin [Ancef] See Protocol IVPB ASDIR #1 ml 04/06/19 ASSESSMENT AND PLAN: 63 year old male with ESRD (HD on M/W/F), Atrial Fibrillation (s/p AICD and watchman device 2006), HTN, Hx CVA (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/residual LUE weakness), Ischemic colitis (s/p resection 2017) and Seizure Disorder, presents from dialysis with thrombosed AV fistula and Bradycardia, found with MSSA bacteremia -MSSA bacteremia, suspected source skin from AVF vs femoral line -Thrombosed RUE AV fistula s/p suction thrombectomy/venoplasty/cephalic vein -Bradycardia, suspected from missing HD sessions/Electrolyte abnormalities -ESRD on HD (MWF) -Permanent Atrial fibrillation s/p watchman procedure -Hyperkalemia -Anemia secondary to ESRD -HTN -Seizure disorder -HLD -h/o CVA with residual Left hemiparesis -H/o SDH Plan: Blood cx neg now. ID input noted. Cefazolin 2-2-3 with HD for total 6 weeks. For HD today, will follow up. Continue ASA/Toprol XL. Not on AC due to SDH. Bradycardia resolved. Cardiology input noted. 2D echo results reviewed. H/h stable. Continue keppra/Lamictal/lipitor. AV fistula site care/staple removal/follow up per Dr. Devries. Dispo home with VS and Abx with HD today with outpatient follow up with renal/ vascular surgery/PCP/Cardiology Plan discussed with patient and nursing in detail, all questions answered.
[2019-04-06] MEDS: CALCIUM ACETATE 667 MG CAPSULE (FP) PO SCH ×2 (08:36→13:44)
--- NOTE | 2019-04-06 09:19 | PN ---
Progress Note, Physician Chief Complaint: Events noted Not in distress History of Present Illness: Patient was seen and examined. Awake and alert. Chart was reviewed Denies chest pain, SOB or palpitations - Current Medication List Current Medications: Active Medications Acetaminophen (Tylenol -) 1,000 mg PO Q6H PRN PRN Reason: FEVER Last Admin: 04/04/19 21:55 Dose: 1,000 mg Aspirin (Asa -) 81 mg PO DAILY [facility] Last Admin: 04/05/19 10:11 Dose: 81 mg Atorvastatin Calcium (Lipitor -) 20 mg PO HS [facility] Last Admin: 04/05/19 21:33 Dose: 20 mg Calcium Acetate (Phoslo -) 2,001 mg PO TIDCM [facility] Last Admin: 04/06/19 08:36 Dose: Not Given Cyclobenzaprine HCl (Cyclobenzaprine Hcl) 5 mg PO DAILY [facility] Last Admin: 04/05/19 10:11 Dose: 5 mg Docusate Sodium (Colace -) 100 mg PO TID [facility] Last Admin: 04/06/19 06:15 Dose: 100 mg Escitalopram Oxalate (Lexapro -) 5 mg PO DAILY [facility] Last Admin: 04/05/19 10:10 Dose: 5 mg Heparin Sodium (Porcine) (Heparin -) 5,000 unit SQ BID [facility] Last Admin: 04/05/19 21:33 Dose: 5,000 unit Heparin Sodium (Porcine) (Heparin -) 1,000 unit IVPUSH ONCE ONE Stop: 04/06/19 14:50 Last Admin: 04/06/19 08:40 Dose: 1,000 unit Cefazolin Sodium 1 gm/ (Dextrose) 50 mls @ 100 mls/hr IVPB DAILY [facility] Last Admin: 04/05/19 10:11 Dose: 100 mls/hr Sodium Chloride (Normal Saline -) 250 mls @ 3,000 mls/hr IV PRN PRN PRN Reason: Hypotension during Dialysis Stop: 04/06/19 14:49 Ketoconazole (Nizoral 2% Cream -) 1 applic TP DAILY [facility] Last Admin: 04/05/19 10:18 Dose: 1 applic Lamotrigine (Lamictal -) 25 mg PO BID [facility] Last Admin: 04/05/19 21:33 Dose: 25 mg Levetiracetam 1,000 mg/ (Levetiracetam 250 mg) 1,250 mg PO DAILY [facility] Last Admin: 04/05/19 10:09 Dose: 1,250 mg Levetiracetam (Keppra -) 1,000 mg PO HS [facility] Last Admin: 04/05/19 21:33 Dose: 1,000 mg Metoprolol Succinate (Toprol Xl -) 12.5 mg PO DAILY [facility] Last Admin: 04/05/19 10:11 Dose: 12.5 mg Multivit/Ca Carb/B Cmplx/FA/Prenat (Nephro-Lashanda -) 1 tablet PO DAILY [facility] Last Admin: 04/05/19 10:09 Dose: 1 tablet Pantoprazole Sodium (Protonix -) 20 mg PO DAILY [facility] Last Admin: 04/05/19 10:09 Dose: 20 mg Polyethylene Glycol (Miralax (For Daily Use) -) 17 gm PO DAILY [facility] Last Admin: 04/05/19 10:12 Dose: Not Given - Objective Vital Signs: Vital Signs Temperature 97.9 F 04/06/19 08:35 Pulse Rate 04/06/19 09:10 Respiratory Rate 04/06/19 09:10 Blood Pressure 133/56 L 04/06/19 09:10 O2 Sat by Pulse Oximetry (%) 100 04/05/19 20:42 Eyes: Yes: PERRL HENT: Yes: Atraumatic Neck: Yes: Supple Cardiovascular: Yes: Regular Rate and Rhythm, S1, S2 Respiratory: Yes: CTA Bilaterally Gastrointestinal: Yes: Normal Bowel Sounds, Soft. No: Tenderness Edema: No Additional Findings/Remarks: - Review of Systems Constitutional: denies: Chills, Fever Cardiovascular: denies Palpitations, Shortness of Breath. denies: Chest Pain Respiratory: denies SOB. denies: Cough, Hemoptysis, PND, Snoring, SOB on Exertion, Wheezing Gastrointestinal: denies Abdominal Pain, Bloating, Diarrhea, Nausea, Vomiting. denies: Constipation, Melena, Rectal Bleeding Genitourinary: denies: Discharge, Hematuria Neurological: denies: Dizziness, Headache, Seizure, Syncope Labs: Problem List - Problems (1) AV fistula thrombosis Code(s): T82.868A - THROMBOSIS DUE TO VASCULAR PROSTH DEV/GRFT, INIT Qualifiers: Encounter type: subsequent encounter Qualified Code(s): T82.868D - Thrombosis due to vascular prosthetic devices, implants and grafts, subsequent encounter (2) Bradycardia Code(s): R00.1 - BRADYCARDIA, UNSPECIFIED (3) Afib Code(s): I48.91 - UNSPECIFIED ATRIAL FIBRILLATION Qualifiers: Atrial fibrillation type: paroxysmal Qualified Code(s): I48.0 - Paroxysmal atrial fibrillation (4) Anemia Code(s): D64.9 - ANEMIA, UNSPECIFIED Qualifiers: Anemia type: due to chronic kidney disease (5) CVA (cerebral vascular accident) Code(s): I63.9 - CEREBRAL INFARCTION, UNSPECIFIED Qualifiers: CVA mechanism: unspecified Qualified Code(s): I63.9 - Cerebral infarction, unspecified (6) Diastolic dysfunction without heart failure Code(s): I51.9 - HEART DISEASE, UNSPECIFIED (7) ESRD (end stage renal disease) Code(s): N18.6 - END STAGE RENAL DISEASE (8) Hemodialysis access, arteriovenous graft Code(s): Z99.2 - DEPENDENCE ON RENAL DIALYSIS (9) Hyperkalemia Code(s): E87.5 - HYPERKALEMIA (10) Hypertension Code(s): I10 - ESSENTIAL (PRIMARY) HYPERTENSION Qualifiers: Hypertension type: essential hypertension Qualified Code(s): I10 - Essential (primary) hypertension (11) Seizure Code(s): R56.9 - UNSPECIFIED CONVULSIONS (12) Status post placement of implantable loop recorder Code(s): Z95.818 - PRESENCE OF OTHER CARDIAC IMPLANTS AND GRAFTS (13) Status post radiofrequency ablation for arrhythmia Code(s): Z98.890 - OTHER SPECIFIED POSTPROCEDURAL STATES; Z86.79 - PERSONAL HISTORY OF OTHER DISEASES OF THE CIRCULATORY SYSTEM Assessment/Plan 1. Bradycardia referable to medications and metabolic disorder 2. ESRD with clotted AVF s/p percutaneous suction thrombectomy and venoplasty cephalic vein 3. CVA 4. Seizure disorder 5. HTN 6. hyperlipidemia 7. Anemia of CKD 8. Subdural hemorrhage 9. hyperkalemia 10. PAF currently in sinus rhythm 11. Presence of ILR and post Watchman 12. Fever and leukocytosis with MSSA bacteremia PLAN: 1. HD via AVF per renal with monitor electrolytes. 2. Continue Toprol XL 12.5 mg QD 3. Not on anticoagulation due to h/o SDH, instead he is post Watchman device 4. Continue ASA 81 mg QD as tolerated 5. Continue Lipitor 20 mg QHS 6. Antibiotic coverage Discharge planning Rusty Torres MD
[2019-04-06 09:24] LABS: HEMATOCRIT 27.8 % (35.4-49); HEMOGLOBIN 8.6 GM/dL (11.7-16.9); MCHC 30.9 g/dl (32.0-35.9); MEAN CELL VOLUME 80.8 fl (80-96); MEAN PLT VOLUME 8.5 fl (7.5-11.1); PLATELET COUNT 214 K/MM3 (134-434); RBC 3.45 M/mm3 (4.00-5.60); RDW 17.4 % (11.9-15.9); WHITE BLOOD COUNT 6.1 K/mm3 (4.0-10.0)
[2019-04-06 09:43] LABS: BLOOD UREA NITROGEN 55.6 mg/dL (7-18); CALCIUM 8.3 mg/dL (8.5-10.1); POTASSIUM 4.6 mmol/L (3.5-5.1)
[2019-04-06] MEDS ORDERED: CEFAZOLIN 2 GM/D5W 2 GM/50 ML ML IVPB ONE (09:45)
[2019-04-06] MEDS: HEPARIN NA (PORCINE) 5,000 UNITS/ML 1ML VIAL SQ SCH (10:00)
[2019-04-06 10:10] LABS: CREATININE 11.2 mg/dL (0.55-1.3)
--- NOTE | 2019-04-06 12:01 | PN ---
Progress Note, Physician History of Present Illness: Pt seen and examined in HD. He is tolerating HD today. - Current Medication List Current Medications: Active Medications Acetaminophen (Tylenol -) 1,000 mg PO Q6H PRN PRN Reason: FEVER Last Admin: 04/04/19 21:55 Dose: 1,000 mg Aspirin (Asa -) 81 mg PO DAILY [facility] Last Admin: 04/05/19 10:11 Dose: 81 mg Atorvastatin Calcium (Lipitor -) 20 mg PO HS [facility] Last Admin: 04/05/19 21:33 Dose: 20 mg Calcium Acetate (Phoslo -) 2,001 mg PO TIDCM [facility] Last Admin: 04/06/19 08:36 Dose: Not Given Cyclobenzaprine HCl (Cyclobenzaprine Hcl) 5 mg PO DAILY [facility] Last Admin: 04/05/19 10:11 Dose: 5 mg Docusate Sodium (Colace -) 100 mg PO TID [facility] Last Admin: 04/06/19 06:15 Dose: 100 mg Escitalopram Oxalate (Lexapro -) 5 mg PO DAILY [facility] Last Admin: 04/05/19 10:10 Dose: 5 mg Heparin Sodium (Porcine) (Heparin -) 5,000 unit SQ BID [facility] Last Admin: 04/05/19 21:33 Dose: 5,000 unit Heparin Sodium (Porcine) (Heparin -) 1,000 unit IVPUSH ONCE ONE Stop: 04/06/19 14:50 Last Admin: 04/06/19 08:40 Dose: 1,000 unit Sodium Chloride (Normal Saline -) 250 mls @ 3,000 mls/hr IV PRN PRN PRN Reason: Hypotension during Dialysis Stop: 04/06/19 14:49 Ketoconazole (Nizoral 2% Cream -) 1 applic TP DAILY [facility] Last Admin: 04/05/19 10:18 Dose: 1 applic Lamotrigine (Lamictal -) 25 mg PO BID [facility] Last Admin: 04/05/19 21:33 Dose: 25 mg Levetiracetam 1,000 mg/ (Levetiracetam 250 mg) 1,250 mg PO DAILY [facility] Last Admin: 04/05/19 10:09 Dose: 1,250 mg Levetiracetam (Keppra -) 1,000 mg PO HS [facility] Last Admin: 04/05/19 21:33 Dose: 1,000 mg Metoprolol Succinate (Toprol Xl -) 12.5 mg PO DAILY [facility] Last Admin: 04/05/19 10:11 Dose: 12.5 mg Multivit/Ca Carb/B Cmplx/FA/Prenat (Nephro-Lashanda -) 1 tablet PO DAILY [facility] Last Admin: 04/05/19 10:09 Dose: 1 tablet Pantoprazole Sodium (Protonix -) 20 mg PO DAILY [facility] Last Admin: 04/05/19 10:09 Dose: 20 mg Polyethylene Glycol (Miralax (For Daily Use) -) 17 gm PO DAILY [facility] Last Admin: 04/05/19 10:12 Dose: Not Given - Objective Vital Signs: Vital Signs Temperature 97.9 F 04/06/19 10:00 Pulse Rate 78 04/06/19 11:40 Respiratory Rate 18 04/06/19 11:40 Blood Pressure 134/57 L 04/06/19 11:40 O2 Sat by Pulse Oximetry (%) 100 04/05/19 20:42 Constitutional: Yes: Calm Eyes: Yes: Conjunctiva Clear HENT: Yes: Atraumatic Neck: Yes: Supple Cardiovascular: Yes: S1, S2 Respiratory: Yes: CTA Bilaterally Gastrointestinal: Yes: Soft Genitourinary: Yes: WNL Musculoskeletal: Yes: WNL Edema: No Neurological: Yes: Oriented Psychiatric: Yes: Oriented Labs: CBC, BMP 04/06/19 08:40 04/06/19 08:40 INR, PTT INR 1.14 (0.83-1.09) H 03/28/19 16:45 Problem List - Problems (1) AV fistula thrombosis Code(s): T82.868A - THROMBOSIS DUE TO VASCULAR PROSTH DEV/GRFT, INIT Qualifiers: Encounter type: subsequent encounter Qualified Code(s): T82.868D - Thrombosis due to vascular prosthetic devices, implants and grafts, subsequent encounter (2) Bradycardia Code(s): R00.1 - BRADYCARDIA, UNSPECIFIED (3) ESRD (end stage renal disease) Code(s): N18.6 - END STAGE RENAL DISEASE Assessment/Plan Current Medications Generic Name Dose Route Start Last Admin Trade Name Freq PRN Reason Stop Dose Admin Acetaminophen 1,000 mg 03/30/19 16:00 04/04/19 21:55 Tylenol - PO 1,000 mg Q6H PRN Administration FEVER Aspirin 81 mg 03/31/19 10:00 04/05/19 10:11 Asa - PO 81 mg DAILY [facility] Administration Atorvastatin Calcium 20 mg 03/29/19 22:00 04/05/19 21:33 Lipitor - PO 20 mg HS [facility] Administration Calcium Acetate 2,001 mg 03/30/19 08:00 04/06/19 08:36 Phoslo - PO Not Given TIDCM [facility] Cyclobenzaprine HCl 5 mg 03/30/19 10:00 04/05/19 10:11 Cyclobenzaprine Hcl PO 5 mg DAILY [facility] Administration Docusate Sodium 100 mg 03/29/19 22:00 04/06/19 06:15 Colace - PO 100 mg TID [facility] Administration Escitalopram Oxalate 5 mg 03/31/19 10:00 04/05/19 10:10 Lexapro - PO 5 mg DAILY [facility] Administration Heparin Sodium (Porcine) 5,000 unit 03/29/19 22:00 04/05/19 21:33 Heparin - SQ 5,000 unit BID [facility] Administration Heparin Sodium (Porcine) 1,000 unit 04/06/19 14:49 04/06/19 08:40 Heparin - IVPUSH 04/06/19 14:50 1,000 unit ONCE ONE Administration Sodium Chloride 250 mls @ 3,000 mls/hr 04/05/19 14:49 Normal Saline - IV 04/06/19 14:49 PRN PRN Hypotension during Dialysis Ketoconazole 1 applic 03/30/19 10:00 04/05/19 10:18 Nizoral 2% Cream - TP 1 applic DAILY [facility] Administration Lamotrigine 25 mg 03/29/19 22:00 04/05/19 21:33 Lamictal - PO 25 mg BID [facility] Administration Levetiracetam 1,000 mg/ 1,250 mg 03/30/19 10:00 04/05/19 10:09 Levetiracetam 250 mg PO 1,250 mg DAILY [facility] Administration Levetiracetam 1,000 mg 03/29/19 22:00 04/05/19 21:33 Keppra - PO 1,000 mg HS [facility] Administration Metoprolol Succinate 12.5 mg 03/31/19 10:00 04/05/19 10:11 Toprol Xl - PO 12.5 mg DAILY [facility] Administration Multivit/Ca Carb/B Cmplx/FA/Prenat 1 tablet 03/30/19 10:00 04/05/19 10:09 Nephro-Lashanda - PO 1 tablet DAILY [facility] Administration Pantoprazole Sodium 20 mg 03/31/19 10:00 04/05/19 10:09 Protonix - PO 20 mg DAILY [facility] Administration Polyethylene Glycol 17 gm 03/30/19 10:00 04/05/19 10:12 Miralax (For Daily Use) - PO Not Given DAILY [facility] Impression 1. ESRD 2. hx CVA 3. epilepsy 4. hx HTN 5. hyperlipidemia 6. anemia 7. hx subdural hemorrhage 8. hyperkalemia 9. bradycardia 10. bactermia Plan - HD today - vascular to evaluate stitches - outpt cefazolin 2 2 3 gram, HD unit aware - cont abx - monitor for fever - renal diet Dr Isaac
[2019-04-06 13:29] LABS: BLOOD UREA NITROGEN 15.1 mg/dL (7-18); CREATININE 3.6 mg/dL (0.55-1.3)
[2019-04-06] MEDS ORDERED: levETIRAcetam 250 MG TABLET (FP) PO ONE (13:33)
[2019-04-06] MEDS ORDERED: levETIRAcetam 500 MG TABLET (FP) PO ONE (13:33)
[2019-04-06] MEDS: ESCITALOPRAM OXALATE 10 MG TABLET (FP) PO SCH (13:45)
[2019-04-06] MEDS: ASPIRIN 81 MG CHEWABLE TABLETS PO SCH (13:45)
[2019-04-06] MEDS: VITAMIN B COMP W-C 1 EA TABLET PO SCH (13:47)
[2019-04-06] MEDS: metoPROLOL SUCCINATE 25 MG TAB.SR.24H (FP) PO SCH (13:48)
[2019-04-06] MEDS: lamoTRIgine 25 MG TABLET PO SCH (13:48)
[2019-04-06] MEDS: KETOCONAZOLE 2% TOPICAL CREAM 15 GM TUBE TP SCH (13:49)
[2019-04-06] MEDS: PANTOPRAZOLE 20 MG TABLET (FP) PO SCH (13:49)
[2019-04-06] MEDS: POLYETHYLENE GLYCOL 3350 119 GM BTL PO SCH (13:50)
[2019-04-06] MEDS ORDERED: PT OWN MED DRAWER 7, Y5N ONE (13:51)
[2019-04-06] MEDS: CYCLOBENZAPRINE HCL 5 MG TABLET PO SCH (13:52)
[2019-04-06 14:30] VITALS: BP 159/97; PULSE 82; TEMP 98.6
[2019-04-06] MEDS ORDERED: HEPARIN NA (PORCINE) 5,000 UNITS/ML 1ML VIAL IVPUSH ONE (14:49)
--- NOTE | 2019-04-06 17:41 | DS ---
Physical Exam: SUBJECTIVE: Patient seen and examined at the bedside. Patient in good spirits and is eager to go home. Stated that he is feeling well and ready for dialysis session today. Denied cp, sob, abd pain, fever, chills, n/v/c/d, bleeding, weakness, numbness, tingling. OBJECTIVE: Vital Signs Period Temp Pulse Resp BP Sys/Chaudhry Pulse Ox Last 24 Hr 97.8 F-98.6 F 60-205 16-615 106-164/42-97 99-100 PHYSICAL EXAM GENERAL: AOx3, in no acute distress, friendly demeanor HEAD: No signs of trauma, normocephalic EYES: JOÃO, EOMI, incteric sclera ENT: Ears normal, nares patent, oropharynx clear without exudates. Moist mucous membranes. NECK: Normal range of motion, supple without lymphadenopathy, JVD. LUNGS: Clear to auscultation bilaterally. No wheezes, and no crackles. No accessory muscle use. HEART: Irregular rhythm, bradycardic, no ausculated murmurs or rubs. ABDOMEN: Midline surgical scar. Soft, BS present in all 4 quadrants, non- distended, non tender. MUSCULOSKELETAL: No bony deformities or tenderness. No CVA tenderness. UPPER EXTREMITIES: RUE fistula Auscultated bruit and palpated thrill. 2+ pulses , warm, well-perfused. No cyanosis. No clubbing. No peripheral edema. LOWER EXTREMITIES: 2+ pulses, warm, well-perfused. No calf tenderness. No peripheral edema. NEUROLOGICAL: LUE 0/5 power. RLE 5/5, UE 5/5 BL. Mild left facial droop with loss of nasolabial fold. All other CN intact. Normal speech. Walks with rollator. Slowed gait. PSYCHIATRIC: Cooperative. Good eye contact. Appropriate mood and affect. SKIN: Warm, dry, normal turgor, normal capillary refill, shunt scar on skin LABS Laboratory Results - last 24 hr 04/06/19 04/06/19 04/06/19 08:40 08:40 11:55 WBC 6.1 RBC 3.45 L Hgb 8.6 L Hct 27.8 L MCV 80.8 MCH 25.0 L MCHC 30.9 L RDW 17.4 H Plt Count 214 MPV 8.5 Sodium 138 Potassium 4.6 Chloride 100 Carbon Dioxide 28 Anion Gap 10 BUN 55.6 H 15.1 Creatinine 11.2 H* 3.6 H Est GFR (CKD-EPI)AfAm 5.02 19.78 Est GFR (CKD-EPI)NonAf 4.33 17.07 Random Glucose 125 H Calcium 8.3 L HOSPITAL COURSE: Neymar Yoon is a 63 year old male with a past medical history ESRD (M, W, F at [facility] on [address]), Afib (defibrilator and monitor in place and s/p Watchman implant), HTN, 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 Patient underwent percutaneous suction thrombectomy with Dr. Devries and fistula was stable and good for use. Sutures were removed by Dr. Devries on the day of discharge. Patient will follow up with Dr. Devries within 1 week of discharge. Bradycardia resolved after patient underwent dialysis, patient remained in afib without RVR for remainder of admission, but did have PVCs. Echo was performed which showed 50-55%, no significant stenosis or regurgitation. Patient will follow up with Dr. Torres within 1 week of discharge. Patient had developed a fever before original planned discharge and underwent septic workup. Was started on Vancomycin and Zosyn which was subsequently switched to IV cefazolin. He was found to have bacteremia, gutierrez-sensitive Staph auerus. Subsequent blood cultures from AV fistula drawn and were negative. Patient was seen by ID and will complete 6 weeks of IV antibiotics after HD on -- schedule with cefazolin 2gm-2gm-3gm. Fevers resolved, WBC count resolved. He will follow up with Dr. Watts after discharge. He will require blood cultures 1 week after completing antibiotics. Patient received dilaysis while in the hospital and will follow up with Dr. Isaac outpatient. Patient was spoken to regarding the plan, was in agreement, and reiterated the plan. Patient was discharged in stable medical condition. Date of Admission:03/31/19 Date of Discharge: 04/06/19 Minutes to complete discharge: 35 Discharge Summary Problems reviewed: Yes Reason For Visit: ATRIAL FIBRILLATION Condition: Stable - Instructions Diet, Activity, Other Instructions: YOUR VISIT You came to the hospital because your fistula was clotted and you were unable to receive dialysis. In addition you were found to have low heart rate when you presented to [facility] to have the fistula opened up. You were admitted to the hospital to have your fistula opened up with Dr. Devries, the vascular surgeon. You received dialysis while you were in the hospital. You were seen by the cardiologists (heart doctor), who recommended that you continue all of your medications and follow up with the cardiologists as an outpatient. You had an echocardiogram (ultrasound of the heart) performed which showed normal function of your heart. You were found to have an infection in your bloodstream for which you required antibiotics. You were seen by the infectious disease doctor who recommended that you continue intravenous antibiotics when you leave the hospital on your dialysis days. MEDICATIONS Please START to take IV Cefazolin on your dialysis days for a total of 6 weeks. You will be taking the antibiotic after your dialysis session. On Thursday, take IV Cefazolin 2 gm after dialysis. On Thursday, take IV Cefazolin 2 gm after dialysis. On Thursday, take IV Cefazolin 3 gm after dialysis. Please continue to take your home medications as prescribed. Continue to take your Metoprolol 12.5 mg every day as prescribed and be sure to follow up with your business attorney. ADDITIONAL CARE Please make an appointment to see your primary care provider, Dr. Slade, 1 week from today. You will need repeat blood cultures in 1 week. Follow up with Dr. Devries in 1 week for surgical site check up and additional management. Please make an appointment to see Dr. Rusty Torres, the business attorney, 1 week from today. Please make an appointment to see Dr. Cira Isaac, the asphalt spreader (kidney doctor), 1 week from today. Please make an appointment to see Dr. Dyana Watts, the infectious disease doctor, 1 week from today. ADDITIONAL INFORMATION Please continue to go to your dialysis appointment as scheduled and follow up with your asphalt spreader. You will need to have blood cultures repeated 1 week after you complete your antibiotics. Please call 911 or come directly to the emergency department if you experience clotting of your fistula, bleeding from the fistula, unusual headache, vision change, shortness of breath, chest pain, numbness, tingling, loss of alertness/ awareness, loss of function, unusual bleeding or any other general feelings of unwellness. Referrals: Renny Slade MD [Primary Care Provider] - 1 Week Dyana Watts MD [Staff Physician] - 1 Week Rusty Torres MD [Staff Physician] - 1 Week Cira Isaac MD [Staff Physician] - Ramana Devries MD [Staff Physician] - 1 Week Disposition: VNS/HOME HEALTH CARE - Home Medications Comprehensive Discharge Medication List: Ambulatory Orders Escitalopram Oxalate [Lexapro -] 5 mg PO DAILY 08/02/16 Aspirin 81 mg PO HS 10/23/17 Calcium Acetate [Phoslo -] 3 cap PO TID 10/23/17 Metoprolol Succinate [Toprol Xl] 12.5 mg PO ASDIR 10/23/17 Vit B Comp No.3/Folic/C/Biotin [Gavi-Lashanda Rx Tablet] 1 each PO DAILY 01/31/18 Acetaminophen [Tylenol] 325 mg PO PRN 04/09/18 Docusate Sodium [Colace] 100 mg PO TID 04/09/18 Mupirocin Cream [Bactroban 2% Cream -] 1 applic .ROUTE DAILY 04/09/18 Pantoprazole Sodium [Protonix -] 20 mg PO DAILY 04/09/18 levETIRAcetam [Keppra -] 1,000 mg PO BID 04/09/18 Atorvastatin Ca [Lipitor] 20 mg DAILY 03/29/19 Cyclobenzaprine HCl 5 mg DAILY 03/29/19 Ketoconazole 2% Cream [Nizoral 2% Cream -] 1 applic TP DAILY 03/29/19 Lamotrigine 25 mg PO BID 03/29/19 Levetiracetam [Keppra] 250 mg PO DAILY 03/29/19 Polyethylene Glycol 3350 [Miralax 119 gm Btl -] 17 gm PO DAILY 03/29/19 Cefazolin [Ancef] See Protocol IVPB ASDIR #1 ml 04/06/19 Problem List - Problems (1) AV fistula thrombosis Code(s): T82.868A - THROMBOSIS DUE TO VASCULAR PROSTH DEV/GRFT, INIT Qualifiers: Encounter type: subsequent encounter Qualified Code(s): T82.868D - Thrombosis due to vascular prosthetic devices, implants and grafts, subsequent encounter (2) Bradycardia Code(s): R00.1 - BRADYCARDIA, UNSPECIFIED (3) Afib Code(s): I48.91 - UNSPECIFIED ATRIAL FIBRILLATION Qualifiers: Atrial fibrillation type: paroxysmal Qualified Code(s): I48.0 - Paroxysmal atrial fibrillation (4) Anemia Code(s): D64.9 - ANEMIA, UNSPECIFIED Qualifiers: Anemia type: due to chronic kidney disease (5) ESRD (end stage renal disease) Code(s): N18.6 - END STAGE RENAL DISEASE (6) Hemodialysis access, arteriovenous graft Code(s): Z99.2 - DEPENDENCE ON RENAL DIALYSIS (7) Hyperkalemia Code(s): E87.5 - HYPERKALEMIA (8) Hypertension Code(s): I10 - ESSENTIAL (PRIMARY) HYPERTENSION Qualifiers: Hypertension type: essential hypertension Qualified Code(s): I10 - Essential (primary) hypertension This patient is new to me today: No Emergency Visit: Yes ED Registration Date: 03/31/19 Care time: The patient presented to the Emergency Department on the above date and was hospitalized for further evaluation of their emergent condition. Critical Care patient: No - Discharge Referral Referred to [facility] No
== END 2019-04-06 15:45 | disposition home health service (06) | DRG 856 ==
LOC: JER 15:58 → JERBED 23:05 → J4S 03-29 11:58 → OBSVTOIN 03-31 09:19
PROVIDERS: ADMIT Internal Medicine; ATTEND Hospitalist
PROC: 057D3ZZ Dilation of Right Cephalic Vein, Percutaneous Approach (ICD-10-PCS; 2019-03-29)
PROC: 06HM33Z Insertion of Infusion Device into Right Femoral Vein, Percutaneous Approach (ICD-10-PCS; 2019-03-29)
PROC: B51BZZA Fluoroscopy of Right Lower Extremity Veins, Guidance (ICD-10-PCS; 2019-03-29)
PROC: B50MYZZ Plain Radiography of Right Upper Extremity Veins using Other Contrast (ICD-10-PCS; 2019-03-29)
PROC: 05CD3ZZ Extirpation of Matter from Right Cephalic Vein, Percutaneous Approach (ICD-10-PCS; principal; 2019-03-29 17:30)
DX: T81.40XA Infection following a procedure, unspecified, initial encounter (principal); N18.6 End stage renal disease; T82.868A Thrombosis due to vascular prosthetic devices, implants and grafts, initial encounter; I87.1 Compression of vein; G81.94 Hemiplegia, unspecified affecting left nondominant side; Z68.41 Body mass index [BMI] 40.0-44.9, adult; I12.0 Hypertensive chronic kidney disease with stage 5 chronic kidney disease or end stage renal disease; Y83.8 Other surgical procedures as the cause of abnormal reaction of the patient, or of later complication, without mention of misadventure at the time of the procedure; E87.5 Hyperkalemia; D63.8 Anemia in other chronic diseases classified elsewhere; E78.5 Hyperlipidemia, unspecified; G40.909 Epilepsy, unspecified, not intractable, without status epilepticus; Z99.2 Dependence on renal dialysis; R00.1 Bradycardia, unspecified; E66.01 Morbid (severe) obesity due to excess calories; K59.09 Other constipation; I48.0 Paroxysmal atrial fibrillation; R50.9 Fever, unspecified; D72.829 Elevated white blood cell count, unspecified; E88.9 Metabolic disorder, unspecified; B95.61 Methicillin susceptible Staphylococcus aureus infection as the cause of diseases classified elsewhere; Z86.73 Personal history of transient ischemic attack (TIA), and cerebral infarction without residual deficits; Z95.818 Presence of other cardiac implants and grafts
CPT/HCPCS: 36415; 71045-TC-FY; 76000-TC-FY; 80048; 80053; 80177; 82565; 82607; 82746; 83540; 83550; 83735; 84100; 84443; 84520; 85025; 85027; 85610; 85730; 86803; 87040; 87186; 87340; 93005; 93010; 93306-TC; 94010; 94760; 99285-25; G0378; G0480; J1644

== ENCOUNTER 2021-07-10 12:05 | Day surgery (SDC) | payer OTHER ==
[2021-07-10 12:26] VITALS: BMI 44.6
[2021-07-10 14:08] LABS: BASO % 0.9 % (0-2.0); EOS % 2.2 % (0-4.5); HEMATOCRIT 38.2 % (35.4-49); LYMPH % 33.7 % (8-40); MCH 27.3 pg (25.7-33.7); MCHC 31.5 g/dl (32.0-35.9); MEAN CELL VOLUME 86.7 fl (80-96); MEAN PLT VOLUME 8.3 fl (7.5-11.1); MONO % 12.5 % (3.8-10.2); NEUT % 50.7 % (42.8-82.8); PLATELET COUNT 232 10^3/uL (134-434); RDW 18.4 % (11.9-15.9); WHITE BLOOD COUNT 7.1 K/mm3 (4.0-10.0)
[2021-07-10 14:14] LABS: INR 1.2 (0.83-1.09); PROTHROMBIN TIME (PATIENT) 13.8 SEC (9.7-13.0)
[2021-07-10 14:16] LABS: ACTIVATED PTT 31.5 SECONDS (25.2-36.5)
[2021-07-10 14:27] LABS: CALCIUM 9.5 mg/dL (8.5-10.1)
[2021-07-10 14:28] LABS: ALBUMIN 3.5 g/dl (3.4-5.0); BLOOD UREA NITROGEN 18.2 mg/dL (7-18)
[2021-07-10 14:32] LABS: BILIRUBIN,TOTAL 0.4 mg/dL (0.2-1); TOT PROT 7.7 g/dl (6.4-8.2)
[2021-07-10 14:43] LABS: CREATININE 5.2 mg/dL (0.55-1.3)
[2021-07-10] MEDS ORDERED: LIDOCAINE HCL 1%, 10 MG/ML (20ML VIAL) ONE (15:57)
[2021-07-10] MEDS ORDERED: HEPARIN NA (PORCINE) 5,000 UNITS/ML 1ML VIAL ONE ×2 (15:57→18:40)
[2021-07-10] MEDS ORDERED: MIDAZOLAM HCL 2 MG/2 ML SINGLE DOSE VIAL ONE (18:38)
[2021-07-10] MEDS ORDERED: LIDOCAINE HCL 1%, 10 MG/ML (50 mL VIAL) INF ONE (19:15)
[2021-07-10 20:21] VITALS: BP 101/50; PULSE 89; TEMP 97.5
[2021-07-11 13:07] LABS: SARS-CoV-2 NAA Not Detected (Not Detected)
== END 2021-07-10 20:15 | disposition home or self-care (01) ==
LOC: JER 12:05 → JASUSAT 14:55
PROVIDERS: ATTEND Surgery
PROC: 057Y3ZZ Dilation of Upper Vein, Percutaneous Approach (ICD-10-PCS; principal; 2021-07-10 18:00)
DX: T82.898A Other specified complication of vascular prosthetic devices, implants and grafts, initial encounter (principal); I12.0 Hypertensive chronic kidney disease with stage 5 chronic kidney disease or end stage renal disease; N18.6 End stage renal disease; Z99.2 Dependence on renal dialysis
CPT/HCPCS: 36415; 76000-TC-FY; 80053; 85025; 85610; 85730; 86850; 86900; 86901; 93005; 93010; 99285-25; C9803-CS; J1644; U0003; U0005

== ENCOUNTER 2021-09-11 04:17 | Day surgery (SDC) | payer OTHER ==
[2021-09-06 12:33] VITALS: BMI 38.2
[2021-09-11] MEDS ORDERED: LIDOCAINE HCL 1%, 10 MG/ML (20ML VIAL) ONE (09:21)
[2021-09-11] MEDS ORDERED: POVIDONE-IODINE OINTMENT 10% - 28.4 GM TUBE ONE (09:21)
[2021-09-11] MEDS ORDERED: HEPARIN NA (PORCINE) 5,000 UNITS/ML 1ML VIAL ONE (09:21)
[2021-09-11] MEDS ORDERED: PAPAVERINE HCL 30 MG/1 ML 10 ML VIAL NR ONE (09:21)
[2021-09-11] MEDS ORDERED: MIDAZOLAM HCL 2 MG/2 ML SINGLE DOSE VIAL ONE (10:21)
[2021-09-11] MEDS ORDERED: PROPOFOL 20 ML ONE (10:21)
[2021-09-11] MEDS ORDERED: ceFAZolin SODIUM 1 GM VIAL ONE (10:22)
[2021-09-11] MEDS ORDERED: ceFAZolin SODIUM 1 GM VIAL IVPB ONE (10:34)
[2021-09-11] MEDS ORDERED: LIDOCAINE HCL 1%, 10 MG/ML (20ML VIAL) NR ONE ×2 (11:00)
[2021-09-11] MEDS ORDERED: oxyCODONE HCL 5 MG TABLET PO PRN (13:51)
[2021-09-11] MEDS ORDERED: ONDANSETRON 4 MG/2 ML VIAL IVPUSH PRN (13:51)
[2021-09-11] MEDS ORDERED: SODIUM CHLORIDE 1,000 ML IV SCH (14:00)
[2021-09-11 15:31] VITALS: TEMP 97.8
[2021-09-11 15:35] VITALS: BP 108/30; PULSE 74
== END 2021-09-11 14:58 | disposition home or self-care (01) ==
LOC: JASU-SURG 04:17
PROVIDERS: ATTEND Surgery
PROC: 03170ZD Bypass Right Brachial Artery to Upper Arm Vein, Open Approach (ICD-10-PCS; principal; 2021-09-11 10:00)
DX: T82.898A Other specified complication of vascular prosthetic devices, implants and grafts, initial encounter (principal); I12.0 Hypertensive chronic kidney disease with stage 5 chronic kidney disease or end stage renal disease; N18.6 End stage renal disease; Z99.2 Dependence on renal dialysis
CPT/HCPCS: 94760; J1644

== ENCOUNTER 2021-12-23 11:37 | Day surgery (SDC) | payer OTHER ==
[2021-12-23 11:57] VITALS: BMI 23.0
[2021-12-23] MEDS ORDERED: LIDOCAINE HCL 1%, 10 MG/ML (20ML VIAL) ONE (14:23)
[2021-12-23 15:23] LABS: CHLORIDE 97 mmol/L (98-107); SODIUM 135 mmol/L (136-145)
[2021-12-23 15:25] LABS: ANION GAP 16 MMOL/L (8-16); CALCIUM 9.3 mg/dL (8.5-10.1); CO2 21 mmol/L (21-32); GLUCOSE,RANDOM 94 mg/dL (74-106)
[2021-12-23 15:26] LABS: ALBUMIN 3.7 g/dl (3.4-5.0); BASO % 0.8 % (0-2.0); BLOOD UREA NITROGEN 79.1 mg/dL (7-18); EOS % 2.3 % (0-4.5); HEMATOCRIT 35.5 % (35.4-49); HEMOGLOBIN 11.3 GM/dL (11.7-16.9); LYMPH % 37.3 % (8-40); MAGNESIUM 2.2 mg/dL (1.8-2.4); MCH 26.6 pg (25.7-33.7); MCHC 31.8 g/dl (32.0-35.9); MEAN CELL VOLUME 83.8 fl (80-96); MEAN PLT VOLUME 9.2 fl (7.5-11.1); MONO % 10.5 % (3.8-10.2); NEUT % 49.1 % (42.8-82.8); PLATELET COUNT 267 10^3/uL (134-434); RBC 4.24 M/mm3 (4.00-5.60); RDW 16.7 % (11.9-15.9); WHITE BLOOD COUNT 9.2 K/mm3 (4.0-10.0)
[2021-12-23 15:29] LABS: SGOT/AST 11 U/L (15-37); SGPT/ALT 14 U/L (13-61)
[2021-12-23 15:30] LABS: BILIRUBIN,TOTAL 0.5 mg/dL (0.2-1); TOT PROT 7.8 g/dl (6.4-8.2)
[2021-12-23 15:31] LABS: ALK PHOS 195 U/L (45-117)
[2021-12-23 15:32] LABS: INR 1.18 (0.83-1.09); PROTHROMBIN TIME (PATIENT) 13.6 SEC (9.7-13.0)
[2021-12-23 15:35] LABS: ACTIVATED PTT 28.5 SECONDS (25.2-36.5)
[2021-12-23 15:49] LABS: CREATININE 13.3 mg/dL (0.55-1.3)
[2021-12-23] MEDS ORDERED: oxyCODONE HCL 5 MG TABLET PO PRN (16:03)
[2021-12-23] MEDS ORDERED: ONDANSETRON 4 MG/2 ML VIAL IVPUSH PRN (16:03)
[2021-12-23] MEDS ORDERED: MIDAZOLAM HCL 2 MG/2 ML SINGLE DOSE VIAL ONE (16:09)
[2021-12-23] MEDS ORDERED: SODIUM CHLORIDE 1,000 ML IV SCH (16:15)
[2021-12-23] MEDS ORDERED: ceFAZolin SODIUM 1 GM VIAL ONE (16:27)
[2021-12-23] MEDS ORDERED: ceFAZolin SODIUM 1 GM VIAL IVPB ONE (16:27)
[2021-12-23] MEDS ORDERED: ACETAMINOPHEN WITH CODEINE 300MG/30MG TABLET PO PRN (17:05)
[2021-12-23] MEDS ORDERED: LIDOCAINE 1% P/F 10 MG/ML VIAL INF ONE (17:09)
[2021-12-23 18:22] VITALS: RESP 18; TEMP 97.8
[2021-12-23 18:53] VITALS: BP 108/44; PULSE 68
== END 2021-12-23 18:54 | disposition home or self-care (01) ==
LOC: JER 11:37 → JASUSAT 16:40
PROVIDERS: ATTEND Surgery
PROC: B518ZZA Fluoroscopy of Superior Vena Cava, Guidance (ICD-10-PCS; 2021-12-23)
PROC: 02HV33Z Insertion of Infusion Device into Superior Vena Cava, Percutaneous Approach (ICD-10-PCS; principal; 2021-12-23 14:00)
DX: I12.0 Hypertensive chronic kidney disease with stage 5 chronic kidney disease or end stage renal disease (principal); N18.6 End stage renal disease; Z99.2 Dependence on renal dialysis
CPT/HCPCS: 36558; 77001; C1750; 36415; 71045-TC-FY; 76000-TC-FY; 80053; 83735; 84100; 85025; 85610; 85730; 93005; 93010; 94760; 99285-25; C9803-CS; J1644; U0003; U0005

== ENCOUNTER 2022-01-10 04:22 | Day surgery (SDC) | payer OTHER ==
[2022-01-07 16:24] VITALS: BMI 38.2
[2022-01-10] MEDS ORDERED: HEPARIN NA (PORCINE) 5,000 UNITS/ML 1ML VIAL ONE (11:19)
[2022-01-10] MEDS ORDERED: LIDOCAINE HCL 1%, 10 MG/ML (20ML VIAL) ONE (11:19)
[2022-01-10] MEDS ORDERED: ACETAMINOPHEN 500 MG TABLET (FP) PO PRN (11:41)
[2022-01-10] MEDS ORDERED: ONDANSETRON 4 MG/2 ML VIAL IVPUSH PRN (11:41)
[2022-01-10] MEDS ORDERED: DEXMEDETOMIDINE HCL 200 MCG/2 ML IVPB ONE (11:43)
[2022-01-10] MEDS ORDERED: MIDAZOLAM HCL 2 MG/2 ML SINGLE DOSE VIAL ONE (11:45)
[2022-01-10] MEDS ORDERED: LACTATED RINGERS SOLUTION 1,000 ML IV SCH (11:45)
[2022-01-10] MEDS ORDERED: SUCCINYLCHOLINE CHLORIDE 200 MG/10 ML SYRINGE ONE (11:49)
[2022-01-10] MEDS ORDERED: PROPOFOL 20 ML ONE (12:17)
[2022-01-10] MEDS ORDERED: ceFAZolin SODIUM 1 GM VIAL ONE (12:22)
[2022-01-10] MEDS ORDERED: LIDOCAINE HCL 1%, 10 MG/ML (20ML VIAL) NR ONE (12:40)
[2022-01-10] MEDS ORDERED: HEPARIN NA (PORCINE) 5,000 UNITS/ML 1ML VIAL SQ ONE (12:40)
[2022-01-10] MEDS ORDERED: ONDANSETRON 4 MG/2 ML VIAL ONE (13:05)
[2022-01-10] MEDS ORDERED: GLYCOPYRROLATE 0.2 MG/1 ML VIAL ONE (13:11)
[2022-01-10] MEDS ORDERED: PHENYLEPHRINE HCL 10 MG/1 ML SINGLE DOSE VIAL ONE (15:06)
[2022-01-10] MEDS ORDERED: CALCIUM CHLORIDE 1 GM/10 ML *DISP.SYRIN ONE (16:32)
[2022-01-10 18:22] LABS: HEMOGLOBIN 9.7 GM/dL (11.7-16.9); MCH 26.7 pg (25.7-33.7); MCHC 31.3 g/dl (32.0-35.9); MEAN CELL VOLUME 85.5 fl (80-96); MEAN PLT VOLUME 8.1 fl (7.5-11.1); RBC 3.62 M/mm3 (4.00-5.60); WHITE BLOOD COUNT 9.1 K/mm3 (4.0-10.0)
[2022-01-10 18:38] LABS: ALBUMIN 2.9 g/dl (3.4-5.0); BLOOD UREA NITROGEN 23.6 mg/dL (7-18); CALCIUM 8.6 mg/dL (8.5-10.1)
[2022-01-10 18:42] LABS: CREATININE 6.7 mg/dL (0.55-1.3)
[2022-01-10 18:43] LABS: BILIRUBIN,TOTAL 0.3 mg/dL (0.2-1)
[2022-01-10 18:44] LABS: TOT PROT 6.6 g/dl (6.4-8.2)
[2022-01-10 18:53] LABS: PLATELET COUNT 189 10^3/uL (134-434)
[2022-01-10 20:13] VITALS: PULSE 80; TEMP 97.9
[2022-01-10 20:16] VITALS: BP 90/47; RESP 18
== END 2022-01-10 20:00 | disposition home or self-care (01) ==
LOC: JASU-SURG 04:22
PROVIDERS: ATTEND Surgery
PROC: 05WY03Z Revision of Infusion Device in Upper Vein, Open Approach (ICD-10-PCS; principal; 2022-01-10 12:00)
DX: I12.0 Hypertensive chronic kidney disease with stage 5 chronic kidney disease or end stage renal disease (principal); N18.6 End stage renal disease; Z99.2 Dependence on renal dialysis
CPT/HCPCS: 36415; 80053; 84484; 85027; 93005; 93010; 94760; J1644

== ENCOUNTER 2022-05-31 13:00 | Emergency (ER) | payer OTHER ==
[2022-05-31] MEDS ORDERED: ACETAMINOPHEN 500 MG TABLET (FP) PO ONE (13:18)
[2022-05-31] MEDS ORDERED: ACETAMINOPHEN 500 MG TABLET (FP) ONE (13:23)
[2022-05-31 13:28] VITALS: BP 159/60; PULSE 72; RESP 16; TEMP 99.1; BMI 38.3
== END 2022-05-31 16:01 | disposition home or self-care (01) ==
LOC: FER 13:00
DX: M25.562 Pain in left knee (principal); M25.572 Pain in left ankle and joints of left foot
CPT/HCPCS: 73562-TC-LT-FY; 73610-TC-LT-FY; 73630-TC-LT; 99284-25

== ENCOUNTER 2023-11-06 11:34 | Inpatient (IN) | payer OTHER ==
[2023-11-06 16:54] LABS: BASO % 0.8 % (0-2.0); EOS % 0.6 % (0-4.5); HEMATOCRIT 31.4 % (35.4-49); HEMOGLOBIN 9.8 GM/dL (11.7-16.9); LYMPH % 19.4 % (8-40); MCH 27.1 pg (25.7-33.7); MCHC 31.2 g/dl (32.0-35.9); MEAN CELL VOLUME 86.7 fl (80-96); MEAN PLT VOLUME 10.1 fl (7.5-11.1); MONO % 9.8 % (3.8-10.2); NEUT % 69.4 % (42.8-82.8); PLATELET COUNT 311 10^3/uL (134-434); RBC 3.62 M/mm3 (4.00-5.60); RDW 19.4 % (11.9-15.9); WHITE BLOOD COUNT 10.6 K/mm3 (4.0-10.0)
[2023-11-06 17:12] LABS: CHLORIDE 100 mmol/L (98-107); SODIUM 132 mmol/L (136-145)
[2023-11-06 17:13] LABS: CALCIUM 9.5 mg/dL (8.5-10.1)
[2023-11-06 17:14] LABS: ALBUMIN 3.2 g/dl (3.4-5.0); BLOOD UREA NITROGEN 53.6 mg/dL (7-18); CO2 24 mmol/L (21-32); GLUCOSE,RANDOM 116 mg/dL (74-106)
[2023-11-06 17:17] LABS: SGOT/AST 128 U/L (15-37)
[2023-11-06 17:18] LABS: SGPT/ALT 55 U/L (13-61)
[2023-11-06 17:19] LABS: ALK PHOS 89 U/L (45-117); BILIRUBIN,TOTAL 0.6 mg/dL (0.2-1); TOT PROT 7.2 g/dl (6.4-8.2)
[2023-11-06 17:22] LABS: ANION GAP 8 mmol/L (4-13); N-TERMINAL BNP 1494.4 pg/ml (5-125); POTASSIUM 8.7 mmol/L (3.5-5.1)
[2023-11-06] MEDS: ACETAMINOPHEN 325 MG TABLET (FP) PO ONE (22:26)
[2023-11-06] MEDS ORDERED: HEPARIN NA (PORCINE) 5,000 UNITS/ML 1ML VIAL ONE (22:29)
[2023-11-06] MEDS ORDERED: ACETAMINOPHEN 500 MG TABLET (FP) ONE (22:30)
[2023-11-06] MEDS: ACETAMINOPHEN 500 MG TABLET (FP) PO ONE (22:43)
[2023-11-06] MEDS: SODIUM CHLORIDE 500 ML IV STA (22:59)
[2023-11-06] MEDS: HEPARIN NA (PORCINE) 5,000 UNITS/ML 1ML VIAL SQ SCH (23:13)
[2023-11-07] MEDS: SODIUM CHLORIDE 500 ML IV STA (00:20)
[2023-11-07] MEDS ORDERED: SILVER SULFADIAZINE 1% TOP CREAM 400 GM JAR TP PRN (00:29)
[2023-11-07] MEDS: SODIUM CHLORIDE 1,000 ML IV STA (01:47)
[2023-11-07] MEDS ORDERED: MIDODRINE HCL 5 MG TABLET ONE (01:55)
[2023-11-07] MEDS: MIDODRINE HCL 2.5 MG TABLET PO ONE (02:02)
[2023-11-07] MEDS ORDERED: NOREPINEPHRINE BITARTRATE 4,000 MCG in DEXTROSE 5%-WATER - 496 ML IV SCH (03:15)
[2023-11-07 05:04] LABS: MCH 27.3 pg (25.7-33.7)
[2023-11-07 05:08] LABS: EOS % 1.2 % (0-4.5); HEMATOCRIT 28.9 % (35.4-49); LYMPH % 28.3 % (8-40); MEAN CELL VOLUME 88.1 fl (80-96); MEAN PLT VOLUME 8.4 fl (7.5-11.1); MONO % 12.9 % (3.8-10.2); NEUT % 56.6 % (42.8-82.8); PLATELET COUNT 227 10^3/uL (134-434); RBC 3.28 M/mm3 (4.00-5.60); RDW 19.5 % (11.9-15.9); WHITE BLOOD COUNT 11.3 K/mm3 (4.0-10.0)
[2023-11-07 05:11] LABS: INR 1.19 (0.83-1.09); PROTHROMBIN TIME (PATIENT) 13.6 SEC (9.7-13.0)
[2023-11-07 05:14] LABS: ACTIVATED PTT 27.3 SECONDS (25.2-36.5)
[2023-11-07 05:29] LABS: CHLORIDE 106 mmol/L (98-107); POTASSIUM 4.5 mmol/L (3.5-5.1); SODIUM 140 mmol/L (136-145)
[2023-11-07 05:32] LABS: CALCIUM 9.1 mg/dL (8.5-10.1)
[2023-11-07 05:33] LABS: ANION GAP 10 mmol/L (4-13); CO2 25 mmol/L (21-32); GLUCOSE,RANDOM 111 mg/dL (74-106); MAGNESIUM 1.9 mg/dL (1.8-2.4)
[2023-11-07 05:35] LABS: PHOSPHOROUS 3.4 mg/dL (2.5-4.9); SGOT/AST 54 U/L (15-37); SGPT/ALT 43 U/L (13-61)
[2023-11-07 05:37] LABS: BILIRUBIN,TOTAL 0.5 mg/dL (0.2-1); TOT PROT 6.4 g/dl (6.4-8.2)
[2023-11-07] MEDS: NOREPINEPHRINE BITARTRATE/D5W 8 MG/250 ML BAG IVPB SCH (05:37)
[2023-11-07 05:38] LABS: ALK PHOS 82 U/L (45-117)
[2023-11-07 07:28] LABS: BASO % 0.6 % (0-2.0); HEMATOCRIT 28.2 % (35.4-49); LYMPH % 29.7 % (8-40); MCH 27.8 pg (25.7-33.7); MCHC 31.8 g/dl (32.0-35.9); MEAN CELL VOLUME 87.5 fl (80-96); MEAN PLT VOLUME 9.6 fl (7.5-11.1); MONO % 12.4 % (3.8-10.2); NEUT % 56.3 % (42.8-82.8); PLATELET COUNT 316 10^3/uL (134-434); RBC 3.23 M/mm3 (4.00-5.60); RDW 18.7 % (11.9-15.9); WHITE BLOOD COUNT 15.4 K/mm3 (4.0-10.0)
[2023-11-07] MEDS: VANCOMYCIN/WATER FOR INJ (PEG) 1,000 MG/200 ML BAG IVPB ONE (08:18)
[2023-11-07] MEDS: levETIRAcetam 500 MG TABLET (FP) PO SCH (08:34)
[2023-11-07] MEDS: CALCIUM ACETATE 667 MG CAPSULE (FP) PO SCH (09:47)
[2023-11-07] MEDS: PANTOPRAZOLE 20 MG TABLET PO SCH (09:48)
[2023-11-07] MEDS: MUPIROCIN 2% TOPICAL OINTMENT FOR DECOLONIZATION NS SCH (09:48)
[2023-11-07] MEDS: lamoTRIgine 25 MG TABLET PO SCH (09:48)
[2023-11-07] MEDS: ESCITALOPRAM OXALATE 10 MG TABLET PO SCH (09:48)
[2023-11-07] MEDS: HEPARIN NA (PORCINE) 5,000 UNITS/ML 1ML VIAL SQ SCH (09:48)
[2023-11-07] MEDS: MIDODRINE HCL 5 MG TABLET PO SCH (09:48)
[2023-11-07] MEDS: PIPERACILLIN/TAZOB 2.25 GM 2.25 GM in DEXTROSE 5%-WATER - 50 ML IVPB SCH ×2 (10:29→17:03)
[2023-11-07] MEDS: PATIENT'S OWN MEDICATION (NON-FORMULARY) (Tizanidine Hcl [Tizanidine Hcl] 2 MG Tablet) PO SCH (16:00)
[2023-11-07] MEDS: ASPIRIN 81 MG CHEWABLE TABLETS PO SCH (21:40)
[2023-11-07] MEDS: ATORVASTATIN CA 20 MG TABLET (FP) PO SCH (21:40)
[2023-11-07] MEDS: ACETAMINOPHEN 325 MG TABLET (FP) PO PRN (22:15)
[2023-11-08 10:49] LABS: BASO % 1.4 % (0-2.0); EOS % 2.9 % (0-4.5); HEMATOCRIT 26.2 % (35.4-49); HEMOGLOBIN 8.3 GM/dL (11.7-16.9); MCH 27.6 pg (25.7-33.7); MCHC 31.9 g/dl (32.0-35.9); MEAN CELL VOLUME 86.3 fl (80-96); MEAN PLT VOLUME 7.4 fl (7.5-11.1); MONO % 8.8 % (3.8-10.2); NEUT % 61.9 % (42.8-82.8); PLATELET COUNT 273 10^3/uL (134-434); RBC 3.03 M/mm3 (4.00-5.60); RDW 19.8 % (11.9-15.9); WHITE BLOOD COUNT 9.2 K/mm3 (4.0-10.0)
[2023-11-08 11:14] LABS: CHLORIDE 105 mmol/L (98-107); POTASSIUM 4.8 mmol/L (3.5-5.1); SODIUM 139 mmol/L (136-145)
[2023-11-08 11:16] LABS: ALBUMIN 2.7 g/dl (3.4-5.0); ANION GAP 12 mmol/L (4-13); CALCIUM 9.3 mg/dL (8.5-10.1); CO2 22 mmol/L (21-32); GLUCOSE,RANDOM 187 mg/dL (74-106)
[2023-11-08 11:20] LABS: SGOT/AST 43 U/L (15-37); SGPT/ALT 40 U/L (13-61)
[2023-11-08 11:21] LABS: BILIRUBIN,TOTAL 0.5 mg/dL (0.2-1)
[2023-11-08 11:22] LABS: ALK PHOS 77 U/L (45-117)
[2023-11-08 11:28] LABS: CREATININE 11.8 mg/dL (0.55-1.3)
[2023-11-08] MEDS ORDERED: SODIUM CHLORIDE 250 ML IV PRN (11:52)
[2023-11-08] MEDS ORDERED: levETIRAcetam 250 MG TABLET PO SCH (22:00)
[2023-11-09 06:59] LABS: BASO % 1.1 % (0-2.0); EOS % 3.3 % (0-4.5); HEMATOCRIT 24.4 % (35.4-49); HEMOGLOBIN 7.9 GM/dL (11.7-16.9); LYMPH % 28.7 % (8-40); MCH 28.3 pg (25.7-33.7); MCHC 32.2 g/dl (32.0-35.9); MEAN CELL VOLUME 87.8 fl (80-96); MONO % 8.9 % (3.8-10.2); PLATELET COUNT 258 10^3/uL (134-434); RBC 2.78 M/mm3 (4.00-5.60); WHITE BLOOD COUNT 10.6 K/mm3 (4.0-10.0)
[2023-11-09 07:12] LABS: CHLORIDE 104 mmol/L (98-107); POTASSIUM 5.3 mmol/L (3.5-5.1); SODIUM 139 mmol/L (136-145)
[2023-11-09 07:15] LABS: BLOOD UREA NITROGEN 93.6 mg/dL (7-18); CALCIUM 9.5 mg/dL (8.5-10.1)
[2023-11-09 07:16] LABS: ALBUMIN 2.7 g/dl (3.4-5.0); ANION GAP 14 mmol/L (4-13); CO2 21 mmol/L (21-32); GLUCOSE,RANDOM 79 mg/dL (74-106)
[2023-11-09 07:19] LABS: SGOT/AST 31 U/L (15-37); SGPT/ALT 33 U/L (13-61)
[2023-11-09 07:20] LABS: BILIRUBIN,TOTAL 0.5 mg/dL (0.2-1); TOT PROT 5.8 g/dl (6.4-8.2)
[2023-11-09 07:21] LABS: ALK PHOS 82 U/L (45-117)
[2023-11-09 07:31] LABS: CREATININE 13.5 mg/dL (0.55-1.3)
[2023-11-09] MEDS: ALBUMIN HUMAN 25% 12.5 GM/50 ML VIAL IV SCH (10:30)
[2023-11-09] MEDS: EPOETIN ALFA-EPBX 10,000 UNIT/ML VIAL IVPUSH ONE (11:30)
[2023-11-09] MEDS: VASopressin 40 UNITS/100 ML BAG IV SCH (23:45)
[2023-11-10 07:14] LABS: BASO % 1.3 % (0-2.0); EOS % 1.5 % (0-4.5); HEMATOCRIT 26.8 % (35.4-49); HEMOGLOBIN 8.3 GM/dL (11.7-16.9); LYMPH % 19.8 % (8-40); MCH 27.1 pg (25.7-33.7); MCHC 30.9 g/dl (32.0-35.9); MEAN CELL VOLUME 87.7 fl (80-96); NEUT % 61.4 % (42.8-82.8); PLATELET COUNT 355 10^3/uL (134-434); RBC 3.05 M/mm3 (4.00-5.60); WHITE BLOOD COUNT 12.6 K/mm3 (4.0-10.0)
[2023-11-10 07:28] LABS: CHLORIDE 102 mmol/L (98-107); POTASSIUM 4.4 mmol/L (3.5-5.1); SODIUM 138 mmol/L (136-145)
[2023-11-10 07:30] LABS: ALBUMIN 3.2 g/dl (3.4-5.0); ANION GAP 11 mmol/L (4-13); CALCIUM 9.4 mg/dL (8.5-10.1); CO2 25 mmol/L (21-32); GLUCOSE,RANDOM 205 mg/dL (74-106); MAGNESIUM 1.9 mg/dL (1.8-2.4)
[2023-11-10 07:33] LABS: PHOSPHOROUS 3.8 mg/dL (2.5-4.9); SGOT/AST 35 U/L (15-37); SGPT/ALT 31 U/L (13-61)
[2023-11-10 07:34] LABS: TOT PROT 6.5 g/dl (6.4-8.2)
[2023-11-10 07:35] LABS: BILIRUBIN,TOTAL 0.6 mg/dL (0.2-1)
[2023-11-10 07:36] LABS: ALK PHOS 83 U/L (45-117)
[2023-11-10 07:44] LABS: BLOOD UREA NITROGEN 50.9 mg/dL (7-18); CREATININE 9.1 mg/dL (0.55-1.3)
[2023-11-10] MEDS: MAGNESIUM SULF 50% (8.12 MEQ/2 ML-1 GM VIAL) IVPB ONE (09:46)
[2023-11-10] MEDS: MIDODRINE HCL 5 MG TABLET PO SCH (09:52)
[2023-11-10] MEDS: LACTATED RINGERS SOLUTION 1,000 ML/1,000 ML INFUS.BAG IV SCH ×2 (12:00→18:01)
[2023-11-10] MEDS ORDERED: VASopressin 20 UNITS/ML VIAL IV ONE (14:09)
[2023-11-11] MEDS ORDERED: SODIUM CHLORIDE 250 ML IV PRN (07:10)
[2023-11-11 08:07] LABS: BASO % 1.2 % (0-2.0); EOS % 3.1 % (0-4.5); HEMATOCRIT 25.3 % (35.4-49); HEMOGLOBIN 7.8 GM/dL (11.7-16.9); MCH 27.4 pg (25.7-33.7); MCHC 30.9 g/dl (32.0-35.9); MEAN CELL VOLUME 88.6 fl (80-96); MEAN PLT VOLUME 9.2 fl (7.5-11.1); MONO % 12.8 % (3.8-10.2); NEUT % 57.9 % (42.8-82.8); PLATELET COUNT 303 10^3/uL (134-434); RBC 2.86 M/mm3 (4.00-5.60); RDW 19.9 % (11.9-15.9)
[2023-11-11 08:29] LABS: CHLORIDE 100 mmol/L (98-107); POTASSIUM 4.3 mmol/L (3.5-5.1); SODIUM 136 mmol/L (136-145)
[2023-11-11 08:31] LABS: CALCIUM 9.6 mg/dL (8.5-10.1)
[2023-11-11 08:32] LABS: ALBUMIN 2.7 g/dl (3.4-5.0); ANION GAP 11 mmol/L (4-13); BLOOD UREA NITROGEN 59.5 mg/dL (7-18); CO2 25 mmol/L (21-32); GLUCOSE,RANDOM 132 mg/dL (74-106); MAGNESIUM 2.4 mg/dL (1.8-2.4)
[2023-11-11 08:35] LABS: PHOSPHOROUS 4.7 mg/dL (2.5-4.9); SGOT/AST 32 U/L (15-37); SGPT/ALT 34 U/L (13-61)
[2023-11-11 08:36] LABS: BILIRUBIN,TOTAL 0.5 mg/dL (0.2-1)
[2023-11-11 08:37] LABS: TOT PROT 5.6 g/dl (6.4-8.2)
[2023-11-11 08:38] LABS: ALK PHOS 83 U/L (45-117)
[2023-11-11 08:39] LABS: CREATININE 10.7 mg/dL (0.55-1.3)
[2023-11-11] MEDS: EPOETIN ALFA-EPBX 10,000 UNIT/ML VIAL IVPUSH ONE (10:22)
[2023-11-11] MEDS: AMOX TR/POT CLAV 500MG/125MG TABLETS (FP) PO SCH (17:07)
[2023-11-11] MEDS ORDERED: VASopressin 40 UNITS/100 ML BAG IV SCH (23:00)
[2023-11-12 07:30] LABS: BASO % 0.9 % (0-2.0); EOS % 3.5 % (0-4.5); HEMOGLOBIN 8.2 GM/dL (11.7-16.9); LYMPH % 26.9 % (8-40); MCHC 31.5 g/dl (32.0-35.9); MEAN PLT VOLUME 9.2 fl (7.5-11.1); MONO % 14.8 % (3.8-10.2); NEUT % 53.9 % (42.8-82.8); PLATELET COUNT 288 10^3/uL (134-434); RBC 2.92 M/mm3 (4.00-5.60); RDW 20.1 % (11.9-15.9); WHITE BLOOD COUNT 10.9 K/mm3 (4.0-10.0)
[2023-11-12 07:31] LABS: POTASSIUM 3.6 mmol/L (3.5-5.1)
[2023-11-12 07:34] LABS: ALBUMIN 2.5 g/dl (3.4-5.0); MAGNESIUM 2.1 mg/dL (1.8-2.4)
[2023-11-12 07:37] LABS: CREATININE 6.5 mg/dL (0.55-1.3); PHOSPHOROUS 3.2 mg/dL (2.5-4.9)
[2023-11-12 07:38] LABS: BILIRUBIN,TOTAL 0.4 mg/dL (0.2-1); TOT PROT 5.8 g/dl (6.4-8.2)
[2023-11-12 07:53] LABS: BLOOD UREA NITROGEN 27.3 mg/dL (7-18)
[2023-11-12] MEDS: MIDODRINE HCL 5 MG TABLET PO SCH ×2 (07:56→15:50)
[2023-11-12] MEDS: POTASSIUM CHLORIDE ORAL LIQUID 20 MEQ/15 ML PO ONE (15:36)
[2023-11-12 15:41] VITALS: BMI 37.3
[2023-11-13 07:59] LABS: BASO % 1.4 % (0-2.0); EOS % 4.9 % (0-4.5); HEMATOCRIT 26.9 % (35.4-49); HEMOGLOBIN 8.3 GM/dL (11.7-16.9); LYMPH % 26.8 % (8-40); MCH 27.4 pg (25.7-33.7); MCHC 30.7 g/dl (32.0-35.9); MEAN CELL VOLUME 89.1 fl (80-96); MEAN PLT VOLUME 9.9 fl (7.5-11.1); MONO % 15.2 % (3.8-10.2); NEUT % 51.7 % (42.8-82.8); PLATELET COUNT 319 10^3/uL (134-434); RBC 3.02 M/mm3 (4.00-5.60); RDW 19.7 % (11.9-15.9); WHITE BLOOD COUNT 9.6 K/mm3 (4.0-10.0)
[2023-11-13 08:27] LABS: CHLORIDE 98 mmol/L (98-107); POTASSIUM 4.2 mmol/L (3.5-5.1); SODIUM 136 mmol/L (136-145)
[2023-11-13 08:36] LABS: ALBUMIN 2.7 g/dl (3.4-5.0)
[2023-11-13 08:37] LABS: ANION GAP 10 mmol/L (4-13); BLOOD UREA NITROGEN 39.2 mg/dL (7-18); CALCIUM 9.3 mg/dL (8.5-10.1); CO2 28 mmol/L (21-32); GLUCOSE,RANDOM 148 mg/dL (74-106); MAGNESIUM 2.2 mg/dL (1.8-2.4)
[2023-11-13 08:38] LABS: PHOSPHOROUS 4.4 mg/dL (2.5-4.9)
[2023-11-13 08:40] LABS: BILIRUBIN,TOTAL 0.4 mg/dL (0.2-1); SGOT/AST 31 U/L (15-37); TOT PROT 5.8 g/dl (6.4-8.2)
[2023-11-13 08:42] LABS: ALK PHOS 81 U/L (45-117); SGPT/ALT 38 U/L (13-61)
[2023-11-13 08:47] LABS: CREATININE 9.1 mg/dL (0.55-1.3)
[2023-11-13] MEDS ORDERED: SODIUM CHLORIDE 250 ML IV PRN (11:00)
[2023-11-13] MEDS: EPOETIN ALFA-EPBX 10,000 UNIT/ML VIAL IVPUSH ONE (11:29)
[2023-11-13] MEDS ORDERED: INSULIN ASPART SLIDING SCALE (NOVOLOG) 1 VIAL SQ SCH (17:00)
[2023-11-13] MEDS: INSULIN ASPART SLIDING SCALE (NOVOLOG) 1 VIAL SQ SCH (17:34)
[2023-11-14 07:27] LABS: BASO % 1.3 % (0-2.0); HEMATOCRIT 27.2 % (35.4-49); HEMOGLOBIN 8.3 GM/dL (11.7-16.9); LYMPH % 27.2 % (8-40); MCH 27.4 pg (25.7-33.7); MCHC 30.6 g/dl (32.0-35.9); MEAN CELL VOLUME 89.3 fl (80-96); MEAN PLT VOLUME 9.3 fl (7.5-11.1); MONO % 17.8 % (3.8-10.2); NEUT % 48.7 % (42.8-82.8); PLATELET COUNT 318 10^3/uL (134-434); RBC 3.05 M/mm3 (4.00-5.60); RDW 19.9 % (11.9-15.9); WHITE BLOOD COUNT 10.2 K/mm3 (4.0-10.0)
[2023-11-14 07:47] LABS: POTASSIUM 3.8 mmol/L (3.5-5.1)
[2023-11-14 07:51] LABS: MAGNESIUM 1.9 mg/dL (1.8-2.4)
[2023-11-14 07:52] LABS: BLOOD UREA NITROGEN 21.7 mg/dL (7-18)
[2023-11-14 07:53] LABS: CALCIUM 9.4 mg/dL (8.5-10.1)
[2023-11-14 07:54] LABS: ALBUMIN 2.6 g/dl (3.4-5.0)
[2023-11-14 07:55] LABS: CREATININE 6.1 mg/dL (0.55-1.3)
[2023-11-14 07:56] LABS: BILIRUBIN,TOTAL 0.5 mg/dL (0.2-1)
[2023-11-14 07:57] LABS: TOT PROT 5.8 g/dl (6.4-8.2)
[2023-11-14] MEDS: FLUDROCORTISONE ACETATE 0.1 MG TABLET (FP) PO SCH (13:00)
[2023-11-15 08:28] LABS: CHLORIDE 96 mmol/L (98-107); POTASSIUM 3.8 mmol/L (3.5-5.1); SODIUM 135 mmol/L (136-145)
[2023-11-15 08:29] LABS: ANION GAP 9 mmol/L (4-13); CO2 30 mmol/L (21-32); GLUCOSE,RANDOM 134 mg/dL (74-106)
[2023-11-15 08:33] LABS: HEMATOCRIT 26.4 % (35.4-49); HEMOGLOBIN 8.1 GM/dL (11.7-16.9); MCH 27.2 pg (25.7-33.7); MCHC 30.8 g/dl (32.0-35.9); MEAN CELL VOLUME 88.4 fl (80-96); MEAN PLT VOLUME 9.6 fl (7.5-11.1); PHOSPHOROUS 4.1 mg/dL (2.5-4.9); PLATELET COUNT 308 10^3/uL (134-434); RBC 2.98 M/mm3 (4.00-5.60); RDW 19.8 % (11.9-15.9); WHITE BLOOD COUNT 8.3 K/mm3 (4.0-10.0)
[2023-11-15 08:38] LABS: CREATININE 8.2 mg/dL (0.55-1.3)
[2023-11-15] MEDS ORDERED: EPOETIN ALFA-EPBX 10,000 UNIT/ML VIAL SQ ONE (10:01)
[2023-11-16 07:31] LABS: BASO % 1.3 % (0-2.0); EOS % 5.8 % (0-4.5); HEMOGLOBIN 8.3 GM/dL (11.7-16.9); MCH 27.3 pg (25.7-33.7); MCHC 30.8 g/dl (32.0-35.9); MEAN CELL VOLUME 88.6 fl (80-96); MEAN PLT VOLUME 9.6 fl (7.5-11.1); MONO % 14.6 % (3.8-10.2); NEUT % 51.3 % (42.8-82.8); PLATELET COUNT 340 10^3/uL (134-434); RBC 3.04 M/mm3 (4.00-5.60); RDW 19.6 % (11.9-15.9); WHITE BLOOD COUNT 9.7 K/mm3 (4.0-10.0)
[2023-11-16 07:38] LABS: CHLORIDE 96 mmol/L (98-107); POTASSIUM 3.9 mmol/L (3.5-5.1); SODIUM 136 mmol/L (136-145)
[2023-11-16 07:42] LABS: ALBUMIN 2.5 g/dl (3.4-5.0); ANION GAP 10 mmol/L (4-13); BLOOD UREA NITROGEN 38.8 mg/dL (7-18); CO2 30 mmol/L (21-32); GLUCOSE,RANDOM 139 mg/dL (74-106); MAGNESIUM 1.9 mg/dL (1.8-2.4)
[2023-11-16 07:45] LABS: PHOSPHOROUS 4.5 mg/dL (2.5-4.9); SGOT/AST 28 U/L (15-37); SGPT/ALT 39 U/L (13-61)
[2023-11-16 07:47] LABS: BILIRUBIN,TOTAL 0.4 mg/dL (0.2-1)
[2023-11-16 07:48] LABS: ALK PHOS 84 U/L (45-117)
[2023-11-16 08:34] LABS: CREATININE 10.1 mg/dL (0.55-1.3)
[2023-11-16] MEDS ORDERED: SODIUM CHLORIDE 250 ML IV PRN (09:00)
[2023-11-16] MEDS: EPOETIN ALFA-EPBX 10,000 UNIT/ML VIAL IVPUSH ONE (10:40)
[2023-11-16] MEDS: HYDROCORTISONE SOD SUCCINATE 100 MG/2 ML VIAL IVPUSH SCH (12:42)
[2023-11-16] MEDS: MIDODRINE HCL 2.5 MG TABLET PO SCH (19:01)
[2023-11-16] MEDS: MILRINONE 20MG/100ML IVPB - 20,000 MCG/100 ML ML IVPB SCH (21:27)
[2023-11-17 07:50] LABS: BASO % 0.3 % (0-2.0); HEMATOCRIT 24.6 % (35.4-49); HEMOGLOBIN 7.7 GM/dL (11.7-16.9); LYMPH % 17.9 % (8-40); MCH 27.7 pg (25.7-33.7); MCHC 31.2 g/dl (32.0-35.9); MEAN CELL VOLUME 88.7 fl (80-96); MEAN PLT VOLUME 9.4 fl (7.5-11.1); MONO % 9.5 % (3.8-10.2); NEUT % 72.3 % (42.8-82.8); PLATELET COUNT 372 10^3/uL (134-434); RBC 2.77 M/mm3 (4.00-5.60); WHITE BLOOD COUNT 10.1 K/mm3 (4.0-10.0)
[2023-11-17 08:11] LABS: CALCIUM 9.6 mg/dL (8.5-10.1)
[2023-11-17 08:12] LABS: ALBUMIN 2.6 g/dl (3.4-5.0); BLOOD UREA NITROGEN 28.8 mg/dL (7-18)
[2023-11-17 08:15] LABS: CREATININE 6.9 mg/dL (0.55-1.3); PHOSPHOROUS 2.4 mg/dL (2.5-4.9)
[2023-11-17 08:16] LABS: BILIRUBIN,TOTAL 0.4 mg/dL (0.2-1)
[2023-11-17 08:17] LABS: TOT PROT 5.9 g/dl (6.4-8.2)
[2023-11-17] MEDS: HEPARIN NA (PORCINE) 5,000 UNITS/ML 1ML VIAL SQ SCH (08:46)
[2023-11-17] MEDS: NAPH,MB-DB/K PH,MBDB POWDER PACKET PO ONE (08:46)
[2023-11-17] MEDS ORDERED: MIDODRINE HCL 5 MG TABLET PO SCH (14:55)
[2023-11-17] MEDS: MIDODRINE HCL 5 MG TABLET PO SCH (17:10)
[2023-11-17] MEDS: HYDROCORTISONE SOD SUCCINATE 100 MG/2 ML VIAL IVPUSH SCH (21:24)
[2023-11-17] MEDS: NOREPINEPHRINE 0.9 % NACL 8 MG/250 ML BAG IVPB SCH (21:43)
[2023-11-18 07:38] LABS: BASO % 0.8 % (0-2.0); EOS % 0.3 % (0-4.5); HEMATOCRIT 25.7 % (35.4-49); HEMOGLOBIN 7.9 GM/dL (11.7-16.9); MCH 27.3 pg (25.7-33.7); MCHC 30.9 g/dl (32.0-35.9); MEAN CELL VOLUME 88.3 fl (80-96); MEAN PLT VOLUME 9.6 fl (7.5-11.1); MONO % 9.6 % (3.8-10.2); NEUT % 73.3 % (42.8-82.8); PLATELET COUNT 408 10^3/uL (134-434); RBC 2.91 M/mm3 (4.00-5.60); RDW 18.1 % (11.9-15.9); WHITE BLOOD COUNT 10.3 K/mm3 (4.0-10.0)
[2023-11-18 07:41] LABS: CHLORIDE 103 mmol/L (98-107); POTASSIUM 4.1 mmol/L (3.5-5.1); SODIUM 140 mmol/L (136-145)
[2023-11-18 07:47] LABS: ALBUMIN 2.7 g/dl (3.4-5.0); ANION GAP 9 mmol/L (4-13); BLOOD UREA NITROGEN 37.4 mg/dL (7-18); CALCIUM 9.5 mg/dL (8.5-10.1); CO2 28 mmol/L (21-32); GLUCOSE,RANDOM 174 mg/dL (74-106); MAGNESIUM 1.9 mg/dL (1.8-2.4)
[2023-11-18 07:50] LABS: PHOSPHOROUS 3.6 mg/dL (2.5-4.9); SGOT/AST 37 U/L (15-37); SGPT/ALT 57 U/L (13-61)
[2023-11-18 07:51] LABS: BILIRUBIN,TOTAL 0.4 mg/dL (0.2-1); TOT PROT 6.3 g/dl (6.4-8.2)
[2023-11-18 07:52] LABS: ALK PHOS 77 U/L (45-117)
[2023-11-18 08:02] LABS: CREATININE 8.3 mg/dL (0.55-1.3)
[2023-11-18] MEDS ORDERED: SODIUM CHLORIDE 250 ML IV PRN (09:10)
[2023-11-18] MEDS: EPOETIN ALFA-EPBX 10,000 UNIT/ML VIAL SQ ONE (10:48)
[2023-11-18] MEDS ORDERED: HYDROCORTISONE SOD SUCCINATE 100 MG/2 ML VIAL IVPUSH SCH (11:37)
[2023-11-18] MEDS: MIDODRINE HCL 5 MG TABLET PO SCH (13:11)
[2023-11-18] MEDS: DROXIDOPA 100 MG CAPSULE PO SCH (13:12)
[2023-11-18 20:49] VITALS: BP 115/56; PULSE 55; RESP 18; TEMP 98.4
== END 2023-11-18 21:10 | disposition short-term general hospital (02) | DRG 871 ==
LOC: JER 11:34 → JERBED 19:01 → JICU 11-07 03:58 → OBSVTOIN 11-09 12:04
PROVIDERS: ADMIT Internal Medicine; ATTEND Internal Medicine Pulmonary Disease
PROC: 06HN33Z Insertion of Infusion Device into Left Femoral Vein, Percutaneous Approach (ICD-10-PCS; 2023-11-07)
PROC: B54CZZA Ultrasonography of Left Lower Extremity Veins, Guidance (ICD-10-PCS; 2023-11-07)
PROC: 5A1D70Z Performance of Urinary Filtration, Intermittent, Less than 6 Hours Per Day (ICD-10-PCS; principal; 2023-11-08)
PROC: 03HY32Z Insertion of Monitoring Device into Upper Artery, Percutaneous Approach (ICD-10-PCS; 2023-11-09)
PROC: 4A133B1 Monitoring of Arterial Pressure, Peripheral, Percutaneous Approach (ICD-10-PCS; 2023-11-09)
PROC: 4A133J1 Monitoring of Arterial Pulse, Peripheral, Percutaneous Approach (ICD-10-PCS; 2023-11-09)
DX: A41.9 Sepsis, unspecified organism (principal); N18.6 End stage renal disease; R65.21 Severe sepsis with septic shock; I69.354 Hemiplegia and hemiparesis following cerebral infarction affecting left non-dominant side; I12.0 Hypertensive chronic kidney disease with stage 5 chronic kidney disease or end stage renal disease; I48.92 Unspecified atrial flutter; E11.22 Type 2 diabetes mellitus with diabetic chronic kidney disease; Z99.2 Dependence on renal dialysis; R55 Syncope and collapse; G40.909 Epilepsy, unspecified, not intractable, without status epilepticus; D64.9 Anemia, unspecified; I36.1 Nonrheumatic tricuspid (valve) insufficiency; I34.0 Nonrheumatic mitral (valve) insufficiency; I27.20 Pulmonary hypertension, unspecified; I48.0 Paroxysmal atrial fibrillation; D63.8 Anemia in other chronic diseases classified elsewhere
CPT/HCPCS: 0241U-QW; 36415; 71045-TC-FY; 80048; 80053; 82272; 82533; 82550; 82553; 82962; 83036; 83605; 83690; 83735; 83880; 84100; 84436; 84443; 84484; 85025; 85027; 85610; 85730; 86803; 86850; 86900; 86901; 87040; 87340; 93005; 93010; 93306-TC; 97116-GP; 97161-GP; 99285-25; G0378; J1644; J3490; P9047; Q5106

== ENCOUNTER 2024-02-19 06:41 | Emergency (ER) | payer OTHER ==
[2024-02-19 06:58] VITALS: RESP 18; TEMP 98.3; BMI 35.7
[2024-02-19] MEDS ORDERED: LIDOCAINE 5% TOPICAL PATCH ONE (08:05)
[2024-02-19] MEDS: LIDOCAINE 5% TOPICAL PATCH TP ONE (08:14)
[2024-02-19 11:59] VITALS: BP 113/65; PULSE 64
[2024-02-19] MEDS ORDERED: LIDOCAINE PATCH REMOVAL MC SCH (22:00)
== END 2024-02-19 12:19 | disposition home or self-care (01) ==
LOC: JER 06:41
DX: S80.02XA Contusion of left knee, initial encounter (principal); M25.572 Pain in left ankle and joints of left foot; W18.39XA Other fall on same level, initial encounter; Y92.000 Kitchen of unspecified non-institutional (private) residence as the place of occurrence of the external cause
CPT/HCPCS: 73562-TC-LT-FY; 73610-TC-LT-FY; 73630-TC-LT; 99284-25

== ENCOUNTER 2024-10-04 12:52 | Day surgery (SDC) | payer OTHER ==
[2024-10-04 14:29] LABS: ABSOLUTE IMMATURE GRANULOCYTES 0.02 x10^3/uL (0.0-0.031); BASOPHILS # 0.06 x10^3/uL (0.01-0.08); EOSINOPHIL % 2.5 % (0.8-7.0); HEMATOCRIT 38.8 % (40.1-51.0); HEMOGLOBIN 11.8 g/dL (13.7-17.5); MCHC 30.4 g/dl (32.3-36.5); MEAN CELL VOLUME 75.9 fl (79.0-92.2); MEAN PLT VOLUME 10.5 fl (9.4-12.4); MONOCYTE # 1.01 x10^3/uL (0.30-0.82); MONOCYTE % 12.4 % (5.3-12.2); PLATELET COUNT 295 x10^3/uL (163-337); RDW 16.1 % (12.2-16.4)
[2024-10-04 14:35] LABS: INR 1.12 (0.83-1.09); PROTHROMBIN TIME (PATIENT) 12.3 SEC (9.7-13.0)
[2024-10-04 14:44] LABS: CHLORIDE 100 mmol/L (98-107); POTASSIUM 5.3 mmol/L (3.5-5.1); SODIUM 139 mmol/L (136-145)
[2024-10-04 14:46] VITALS: RESP 21
[2024-10-04 14:46] LABS: CALCIUM 9.4 mg/dL (8.5-10.1)
[2024-10-04 14:47] LABS: ALBUMIN 4.2 g/dl (3.4-5.0); ANION GAP 13 mmol/L (4-13); BLOOD UREA NITROGEN 56.8 mg/dL (7-18); CO2 26 mmol/L (21-32); GLUCOSE,RANDOM 90 mg/dL (74-106)
[2024-10-04 14:50] LABS: SGOT/AST 18 U/L (15-37); SGPT/ALT 24 U/L (13-61)
[2024-10-04 14:51] LABS: BILIRUBIN,TOTAL 0.5 mg/dL (0.2-1)
[2024-10-04 14:52] LABS: TOT PROT 7.8 g/dl (6.4-8.2)
[2024-10-04 14:53] LABS: ALK PHOS 289 U/L (45-117)
[2024-10-04 14:58] LABS: CREATININE 10.4 mg/dL (0.55-1.3)
[2024-10-04 14:59] VITALS: BP 130/60; PULSE 71
== END 2024-10-04 15:06 | disposition home or self-care (01) ==
LOC: JRADIR 12:52
PROVIDERS: ATTEND Surgery
DX: N18.6 End stage renal disease (principal)
CPT/HCPCS: 36415; 75820-TC-FY; 76000-TC-FY; 80053; 85025; 85610; C1769